=== PATIENT | male | born 1965 | race Caucasian/White ===

== ENCOUNTER 2020-04-27 10:48 | Observation (INO) | payer OTHER, SELFPAY ==
--- NOTE | 2020-04-27 11:40 | ED_ITS ---
HPI - URI/Sore Throat General Chief Complaint: Chest Pain Stated Complaint: COUGHING BLOOD,DIZZY Time Seen by Provider: 04/27/20 11:06 Source: patient Mode of arrival: ambulatory Limitations: no limitations History of Present Illness HPI Narrative: noted he coughed so hard he vomited and saw some streaks of blood MD elicited complaint: cough and other (chest pain shortness of breath) Pertinent past history: HIV Onset (ago): day(s) (2) Consistency: constant Severity: moderate Description of mucous: clear Able to tolerate fluids by mouth: Yes Exacerbating factors: deep breaths Relieving factors: nothing Associated symptoms: chills, myalgias, cough, chest pain and shortness of breath Treatments prior to arrival: none Related Data Previous Rx's Medication Instructions Recorded hydrocodone-homatropine 5 ml PO Q6H PRN #60 ml 04/27/20 potassium chloride 10 meq PO DAILY 4 Days #4 cap 04/27/20 Allergies Allergy/AdvReac Type Severity Reaction Status Date / Time acetaminophen [Acetaminophen] Allergy Severe LIVER Verified 04/15/20 12:40 TOXICITY - CANNOT TAKE ACETAMINOPHEN Sulfa (Sulfonamide Allergy Intermediate RASH Verified 04/15/20 12:40 Antibiotics) [SULFA (SULFONAMIDE ANTIBIOTICS)] amoxicillin [Augmentin] Allergy Unknown mouth sores Verified 04/15/20 12:40 clavulanic acid [Augmentin] Allergy Unknown mouth sores Verified 04/15/20 12:40 ibuprofen [IBUPROFEN] AdvReac Intermediate BLEEDING Verified 04/15/20 12:40 Review of Systems Review of Systems: Constitutional : no Fever, positive Chills, positive fatigue, positive Malaise ENT/Mouth : positive sore throat, positive runny nose Eyes: No Discharge Cardiovascular : pos Chest Pain, pos SOB Respiratory : pos Cough, No Sputum Gastrointestinal : No Nausea, No Vomiting, No Diarrhea Genitourinary : No Dysuria, No Urinary Frequency Musculoskeletal : positive Myalgia Skin : No rash Neuro : No Headache PMFSH Past Medical History Attestation statement: The following information was validated with the patient. Medical History Bullous pemphigoid GERD (gastroesophageal reflux disease) Hepatic vein thrombosis Hepatitis C HIV (human immunodeficiency virus infection) Obesity (BMI 30-39.9) Perirectal abscess Renal calculi Type 2 diabetes mellitus with hyperglycemia Ulcerative colitis Surgical History Anal fistula History of lithotripsy History of rectal abscess History of removal of ureteral stent History of umbilical hernia repair Family History Family History (Updated 04/15/20 @ 12:47 by BASILIO Amado) Father Stroke Mother Diabetes Hypertension CVD (cardiovascular disease) Sister Family history of cervical cancer Social History Social History (Updated 04/27/20 @ 12:36 by Randee Spivey DO) Alcohol intake: never Smoking Status: Never smoker Use of substances other than those prescribed or required for medical reasons: No Advance Directives: No Advance Directives Information Provided: Yes Physical Exam Vital Signs: Vital Signs: Vital Signs Temp Pulse Resp BP Pulse Ox 04/27/20 15:00 77 16 149/75 H 98 04/27/20 12:51 18 04/27/20 12:43 84 24 H 150/74 H 100 04/27/20 11:42 98.7 F 91 24 H 163/81 H 100 Body Mass Index 19.8 Appearance: Alert. Oriented X3. No acute distress. Eyes: Pupils equal, round and reactive to light. ENT: Pharynx normal. Neck: Normal inspection. Neck supple. CVS: Normal heart rate and rhythm. Pulses normal. Respiratory: No respiratory distress. Breath sounds normal. Abdomen: Soft and nontender. Skin: Skin warm and dry. Normal skin color. Normal skin turgor. Extremities: No lower extremity edema. No calf ttp Neuro: Oriented X 3. No motor deficit. No sensory deficit. Course Course Course Narrative: labs at baseline, refusing COVID test, states he wants something for cough at this time, all labs at his baseline, CT for reported hemoptysis is negative, he is aware prior to DC coughed hard and brought up brb approximately 5 to 10cc at this time given his cirrhosis, thrombocytopenia risk for significant bleed will keep overnight, witnessed event by RN and the patient state that this was a cough MDM - URI/Sore Throat MDM Narrative Medical decision making narrative: 54 yo male with hx of hepatitis and GERD, HIV and DM - here with chest pain and shortness of breath for 2 days with chest pain will need labs, EKG, troponin, CXR, ddimer, dispo per results and findings, seems likely more infectious in nature vs ACS?PE Lab Data Result diagrams: 04/27/20 12:28 04/27/20 12:28 Labs: Lab Results 04/27/20 04/27/20 04/27/20 Range/Units 12:27 12:28 12:28 WBC 2.2 L (4.8-10.8) X10*3/uL RBC 2.95 L (4.60-5.80) X10*6/uL Hgb 9.2 L (14.0-18.0) g/dl Hct 26.7 L (42-52) % MCV 90.5 (80-98) fL MCH 31.2 (27.0-33.0) pg MCHC 34.5 (31.0-36.0) g/dl RDW 14.9 (11.0-16.0) % Plt Count 82 L (160-400) X10*3/uL MPV 11.4 (9.4-12.4) fL Immature Gran % (Auto) 0.5 H (0.0-0.4) % Neut % (Auto) 76.7 H (45-73) % Lymph % (Auto) 13.2 L (20-40) % [place] % (Auto) 9.1 (2-11) % Eos % (Auto) 0.0 (0-4) % Baso % (Auto) 0.5 (0-2) % Lymph # (Auto) 0.3 L (1.2-4.9) X10*3/uL [place] # (Auto) 0.2 (0.1-1.2) X10*3/uL Eos # (Auto) 0.0 (0.0-0.4) X10*3/uL Baso # (Auto) 0.0 (0.0-0.2) X10*3/uL Abs Immat Gran (auto) 0.01 (0.00-0.03) X10*3/uL Absolute Neuts (auto) 1.7 L (2.0-8.3) X10*3/uL Absolute Nucleated RBC 0.000 (0.0-0.012) X10*3/uL Nucleated RBC % (auto) 0.0 (0.0-0.2) /100WBC Smear Tech's Comments VERIFIED D-Dimer 757 NG/ML Sodium (135-145) mmol/L Potassium (3.3-5.1) mmol/l Chloride (96-108) mmol/L Carbon Dioxide (22-29) mmol/L Anion Gap (12-20) BUN (9-16) mg/dL Creatinine (0.5-1.4) mg/dL Estim Creat Clear Calc Estimated GFR Random Glucose (60-115) mg/dL Lactic Acid 1.3 (0.5-2.0) mmol/L Calcium (8.4-10.2) mg/dL Magnesium (1.6-2.6) mg/dL Total Bilirubin (0.0-1.0) mg/dL Direct Bilirubin (0.0-0.5) mg/dL AST (5-37) U/L ALT (0-40) U/L Alkaline Phosphatase (39-117) U/L Troponin I High Sens (<3.5-35.0) ng/L B-Natriuretic Peptide (<100) pg/mL Total Protein (6.5-8.0) g/dL Albumin (3.5-5.0) g/dL Lipase (8-78) U/L 04/27/20 04/27/20 Range/Units 12:28 12:28 WBC (4.8-10.8) X10*3/uL RBC (4.60-5.80) X10*6/uL Hgb (14.0-18.0) g/dl Hct (42-52) % MCV (80-98) fL MCH (27.0-33.0) pg MCHC (31.0-36.0) g/dl RDW (11.0-16.0) % Plt Count (160-400) X10*3/uL MPV (9.4-12.4) fL Immature Gran % (Auto) (0.0-0.4) % Neut % (Auto) (45-73) % Lymph % (Auto) (20-40) % [place] % (Auto) (2-11) % Eos % (Auto) (0-4) % Baso % (Auto) (0-2) % Lymph # (Auto) (1.2-4.9) X10*3/uL [place] # (Auto) (0.1-1.2) X10*3/uL Eos # (Auto) (0.0-0.4) X10*3/uL Baso # (Auto) (0.0-0.2) X10*3/uL Abs Immat Gran (auto) (0.00-0.03) X10*3/uL Absolute Neuts (auto) (2.0-8.3) X10*3/uL Absolute Nucleated RBC (0.0-0.012) X10*3/uL Nucleated RBC % (auto) (0.0-0.2) /100WBC Smear Tech's Comments D-Dimer NG/ML Sodium 132 L (135-145) mmol/L Potassium 2.8 L (3.3-5.1) mmol/l Chloride 105 (96-108) mmol/L Carbon Dioxide 20 L (22-29) mmol/L Anion Gap 10 L (12-20) BUN 9 (9-16) mg/dL Creatinine 1.04 (0.5-1.4) mg/dL Estim Creat Clear Calc 55.8 Estimated GFR > 60 Random Glucose 269 H (60-115) mg/dL Lactic Acid (0.5-2.0) mmol/L Calcium 7.8 L (8.4-10.2) mg/dL Magnesium 1.7 (1.6-2.6) mg/dL Total Bilirubin 2.4 H (0.0-1.0) mg/dL Direct Bilirubin 1.2 H (0.0-0.5) mg/dL AST 22 (5-37) U/L ALT 13 (0-40) U/L Alkaline Phosphatase 91 (39-117) U/L Troponin I High Sens < 3.5 (<3.5-35.0) ng/L B-Natriuretic Peptide 59 (<100) pg/mL Total Protein 10.1 H (6.5-8.0) g/dL Albumin 2.7 L (3.5-5.0) g/dL Lipase 40 (8-78) U/L ECG Data Attestation: I personally reviewed and interpreted this ECG as follows: ECG interpretation date: 04/27/20 ECG interpretation time: 12:35 Interpretation: Rate: 82 Rhythm: NSR Kimberly: normal Normal P waves. Normal BARRETT. Normal QRS complex. ST T wave : nonspecific qTC: prolonged prior studies: no acute ischemia The study has been interpreted contemporaneously by me. . Discharge Plan Discharge Clinical Impression: Cough with hemoptysis, Atypical chest pain, Acute hypokalemia Patient Disposition: Home, Self-Care Instructions: Hemoptysis (ED), Acute Cough (ED) Prescriptions: New hydrocodone-homatropine 5-1.5 mg/5 mL syrup 5 ml PO Q6H PRN (Reason: cough) Qty: 60 RF: 0 potassium chloride 10 mEq capsule, extended release 10 meq PO DAILY 4 Days Qty: 4 RF: 0 Referrals: Po,Pb Ferrer MD [Primary Care Provider] - 2 days
[2020-04-27 11:42] VITALS: BP 163/81; PULSE 91; RESP 24; TEMP 37.1; O2SAT 100; BMI 19.8
--- NOTE | 2020-04-27 12:04 | ECG_ITS ---
Test Reason : CHEST PAIN Blood Pressure : / mmHG Vent. Rate : 082 BPM Atrial Rate : 082 BPM P-R Int : 180 ms QRS Dur : 096 ms QT Int : 448 ms P-R-T Axes : 046 008 011 degrees QTc Int : 523 ms Normal sinus rhythm T wave abnormality, consider anterior ischemia Prolonged QT Abnormal ECG When compared with ECG of 22-APR-2019 23:46, T wave inversion now evident in Anterior leads Inferior leads Referred By: Randee Spivey Electronically Signed By:RUFINA MANZANO MD
--- NOTE | 2020-04-27 12:04 | XR_ITS ---
EXAMINATION: XR CHEST CLINICAL INFORMATION: Pain COMPARISON: August 13, 2019 TECHNIQUE: AP portable view of the chest was obtained. FINDINGS: No significant abnormality is noted involving the heart, lungs, mediastinum, bony thorax or soft tissues. IMPRESSION: No acute disease.
[2020-04-27 12:43] VITALS: BP 150/74; PULSE 84; RESP 24; O2SAT 100
[2020-04-27 12:46] LABS: Basophils Percent Auto 0.5 % (0-2); Hematocrit 26.7 % (42-52); Hemoglobin 9.2 g/dl (14.0-18.0); Imm Gran Abs Auto 0.01 X10*3/uL (0.00-0.03); Imm Gran Pct Auto 0.5 % (0.0-0.4); Lymphocytes Absolute Auto 0.3 X10*3/uL (1.2-4.9); Lymphocytes Percent Auto 13.2 % (20-40); MANUAL DIFF FLAG SCAN; Mean Corpuscular HGB Conc 34.5 g/dl (31.0-36.0); Mean Corpuscular Hemoglobin 31.2 pg (27.0-33.0); Mean Corpuscular Volume 90.5 fL (80-98); Mean Platelet Volume 11.4 fL (9.4-12.4); Monocytes Absolute Auto 0.2 X10*3/uL (0.1-1.2); Monocytes Percent Auto 9.1 % (2-11); Neutrophils Absolute Auto 1.7 X10*3/uL (2.0-8.3); Neutrophils Percent Auto 76.7 % (45-73); Red Blood Count 2.95 X10*6/uL (4.60-5.80); Red Cell Distribution Width 14.9 % (11.0-16.0); SCAN SMEAR FLAG 1
[2020-04-27] MEDS: ondansetron HCL 4 MG/2 ML VIAL IVPUSH (12:49)
[2020-04-27] MEDS: 0.9 % Sodium Chloride 1,000 ML 999 ML IVCONT (12:49)
[2020-04-27 12:51] VITALS: RESP 18
[2020-04-27] MEDS: Morphine Sulfate 4 MG/ML CARTRIDGE IVPUSH (12:51)
[2020-04-27 12:52] LABS: Platelet Count 82 X10*3/uL (160-400); White Blood Count 2.2 X10*3/uL (4.8-10.8)
--- NOTE | 2020-04-27 12:52 | PC.NURSE ---
pt reports pain in chest medicated as charted nsr on monitor
[2020-04-27 13:03] LABS: D Dimer 757 NG/ML
[2020-04-27 13:03] LABS: Lactic Acid 1.3 mmol/L (0.5-2.0)
--- NOTE | 2020-04-27 13:07 | CT_ITS ---
EXAMINATION: CT ANGIOGRAM OF THE CHEST WITH AND WITHOUT CONTRAST (CT PULMONARY ANGIOGRAM FOR PE) CLINICAL INFORMATION: Reason for Exam CHEST PAIN ELEVATED DDIMER COMPARISON: CTA chest 10/23/2012 TECHNIQUE: Prior to contrast administration, noncontrast localization images were obtained. Subsequently, multidetector volumetric imaging was performed from the thoracic inlet to below the diaphragms following the administration of 80 mL Omnipaque 350 intravenous contrast. No contrast reaction reported Sagittal, coronal, and MIP oblique sagittal reformatted images were obtained on the CT workstation, uploaded to PACS, and reviewed. This CT examination was performed using dose optimization techniques as appropriate, variously including the following: *Automated exposure control *Adjustment of mA and/or kV according to patient size (this includes techniques or standardized protocols for targeted exams where dose is matched to indication/reason for exam; i.e. extremities or head) *Use of iterative reconstruction technique Total exam dose-length product 339 mGy-cm FINDINGS: QUALITY OF STUDY/CONTRAST BOLUS: Suboptimal. Missed pulmonary arterial phase PULMONARY ARTERIES: No central or main pulmonary artery filling defect or narrowing seen THORACIC AORTA: No aneurysm or dissection. LUNG: The lungs are well-expanded and clear of acute pneumonic process. No pulmonary nodule, mass or consolidation seen. PLEURA: No pleural effusion or pneumothorax. MEDIASTINUM: Normal heart size. No pericardial effusion. No hilar or mediastinal lymphadenopathy. No evidence of septal bowing or right heart strain. CHEST WALL/AXILLA: No axillary or internal mammary lymphadenopathy. OSSEOUS STRUCTURES: No acute or suspicious osseous abnormality. UPPER ABDOMEN: The liver is lobulated surface heterogenous suggestive of cirrhosis. No radiopaque gallstones seen. The spleen is mildly enlarged. No reflux of contrast into the hepatic veins to suggest elevated right heart pressures. IMPRESSION: Suboptimal exam however no gross central, right and left pulmonary artery filling defects. Normal thoracic aorta. Cirrhosis with splenomegaly. VTE: Negative.
[2020-04-27 13:25] LABS: B Type Natriuretic Peptide 59 pg/mL (<100)
[2020-04-27 13:33] LABS: Alanine Aminotransferase 13 U/L (0-40); Albumin Level 2.7 g/dL (3.5-5.0); Alkaline Phosphatase 91 U/L (39-117); Aspartate Amino Transferase 22 U/L (5-37); Bilirubin Direct 1.2 mg/dL (0.0-0.5); Bilirubin Total 2.4 mg/dL (0.0-1.0); Blood Urea Nitrogen 9 mg/dL (9-16); Creatinine Clr Calc Pharmacy 55.8; Estimated Glomerular Filt Rate > 60; Glucose Random 269 mg/dL (60-115); Lipase 40 U/L (8-78); Magnesium 1.7 mg/dL (1.6-2.6); Total Protein 10.1 g/dL (6.5-8.0)
[2020-04-27 13:45] LABS: Anion Gap 10 (12-20); Calcium 7.8 mg/dL (8.4-10.2); Carbon Dioxide 20 mmol/L (22-29); Chloride 105 mmol/L (96-108); Potassium 2.8 mmol/l (3.3-5.1); Sodium 132 mmol/L (135-145)
[2020-04-27 13:59] LABS: SLIDE REVIEW VERIFIED
[2020-04-27] MEDS: iohexoL 350 MG/ML 100 ML INFUS..BTL IV (14:01)
[2020-04-27 14:31] LABS: Troponin-I High Sensitivity < 3.5 ng/L (<3.5-35.0)
[2020-04-27] MEDS: Potassium Chloride ER 20 MEQ TAB.ER.PRT 60 MEQ PO (14:50)
[2020-04-27] MEDS: Potassium Chloride/H20 10 MEQ/100 ML PIGGYBACK 100 MEQ IV (14:50)
[2020-04-27 15:00] VITALS: BP 149/75; PULSE 77; RESP 16; O2SAT 98
--- NOTE | 2020-04-27 15:30 | PC.NURSE ---
pt began to cough after po meds he then vomitted blood tinged stomach contents- mostly water md aware and at the bedside for reassessment plan is for admission
--- NOTE | 2020-04-27 16:26 | PC.NURSE ---
PT RESTING IN BED IN NO ACUTE DISTRESS AWAITING ADMISSION
[2020-04-27 17:49] VITALS: BP 125/72; PULSE 75; RESP 20; TEMP 36.8; O2SAT 93
--- NOTE | 2020-04-27 17:51 | P.HPIM_ITS ---
History of Present Illness Date of Service: 04/27/20 Chief Complaint: Chest pain, cough, hemoptysis 54 years old male with PMH of cirrhosis, HCV, HIV, serrated colitis among others who presented to the hospital with reported 3 days of dry cough and episodes of blood with cough this morning. He denies fever but reports some chills. He reports having difficulty breathing, dry cough and some sore throat for the last 3 days. He noticed chest pain which is all over his chest more on the right side, not radiating. Repeated do supple. In the emergency CXR and CTA were negative for any acute lung problems. Admitted for further evaluation. Review of Systems Review of Systems: No fever, reports some chills or weakness Atypical chest pain, palpitation No shortness of breath reporting dry coughing No abdominal pain, nausea or vomiting No urinary symptoms No any rash or wounds PMFSH Medical History Bullous pemphigoid GERD (gastroesophageal reflux disease) Hepatic vein thrombosis Hepatitis C HIV (human immunodeficiency virus infection) Obesity (BMI 30-39.9) Perirectal abscess Renal calculi Type 2 diabetes mellitus with hyperglycemia Ulcerative colitis Family History Father Stroke Mother Diabetes Hypertension CVD (cardiovascular disease) Sister Family history of cervical cancer Surgical History Anal fistula History of lithotripsy History of rectal abscess History of removal of ureteral stent History of umbilical hernia repair Social History Alcohol intake: never Smoking Status: Never smoker Use of substances other than those prescribed or required for medical reasons: No Advance Directives: No Advance Directives Information Provided: Yes Meds Allergies Allergy/AdvReac Type Severity Reaction Status Date / Time acetaminophen [Acetaminophen] Allergy Severe LIVER Verified 04/15/20 12:40 TOXICITY - CANNOT TAKE ACETAMINOPHEN Sulfa (Sulfonamide Allergy Intermediate RASH Verified 04/15/20 12:40 Antibiotics) [SULFA (SULFONAMIDE ANTIBIOTICS)] amoxicillin [Augmentin] Allergy Unknown mouth sores Verified 04/15/20 12:40 clavulanic acid [Augmentin] Allergy Unknown mouth sores Verified 04/15/20 12:40 ibuprofen [IBUPROFEN] AdvReac Intermediate BLEEDING Verified 04/15/20 12:40 Physical Exam Vital Signs and Narrative: Vital Signs: Last Vital Signs Temp 98.7 F 04/27/20 11:42 Pulse 77 04/27/20 15:00 Resp 16 04/27/20 15:00 BP 149/75 H 04/27/20 15:00 Pulse Ox 98 04/27/20 15:00 Body Mass Index 19.8 Constitutional : Alert, oriented, not in distress Neck : Normal inspection, Supple Cardiovascular : RRR, S1 S2, no lower extremity edema Respiratory : Good bilateral air entry, no crackles, wheezes or rhonchi Gastrointestinal: soft, lax, Normal bowel sounds, Non tender Skin : Warm/Dry, No rash Neurological : Alert & oriented x3, No focal deficit Results Labs Labs: Laboratory Tests 04/27/20 04/27/20 04/27/20 12:27 12:28 12:28 WBC 2.2 L RBC 2.95 L Hgb 9.2 L Hct 26.7 L MCV 90.5 MCH 31.2 MCHC 34.5 RDW 14.9 Plt Count 82 L MPV 11.4 Immature Gran % (Auto) 0.5 H Neut % (Auto) 76.7 H Lymph % (Auto) 13.2 L [place] % (Auto) 9.1 Eos % (Auto) 0.0 Baso % (Auto) 0.5 Lymph # (Auto) 0.3 L [place] # (Auto) 0.2 Eos # (Auto) 0.0 Baso # (Auto) 0.0 Abs Immat Gran (auto) 0.01 Absolute Neuts (auto) 1.7 L Absolute Nucleated RBC 0.000 Nucleated RBC % (auto) 0.0 Smear Tech's Comments VERIFIED D-Dimer 757 Sodium Potassium Chloride Carbon Dioxide Anion Gap BUN Creatinine Estim Creat Clear Calc Estimated GFR Random Glucose Lactic Acid 1.3 Calcium Magnesium Total Bilirubin Direct Bilirubin AST ALT Alkaline Phosphatase Troponin I High Sens B-Natriuretic Peptide Total Protein Albumin Lipase Blood Type Antibody Screen 04/27/20 04/27/20 04/27/20 12:28 12:28 15:59 WBC RBC Hgb Hct MCV MCH MCHC RDW Plt Count MPV Immature Gran % (Auto) Neut % (Auto) Lymph % (Auto) [place] % (Auto) Eos % (Auto) Baso % (Auto) Lymph # (Auto) [place] # (Auto) Eos # (Auto) Baso # (Auto) Abs Immat Gran (auto) Absolute Neuts (auto) Absolute Nucleated RBC Nucleated RBC % (auto) Smear Tech's Comments D-Dimer Sodium 132 L Potassium 2.8 L Chloride 105 Carbon Dioxide 20 L Anion Gap 10 L BUN 9 Creatinine 1.04 Estim Creat Clear Calc 55.8 Estimated GFR > 60 Random Glucose 269 H Lactic Acid Calcium 7.8 L Magnesium 1.7 Total Bilirubin 2.4 H Direct Bilirubin 1.2 H AST 22 ALT 13 Alkaline Phosphatase 91 Troponin I High Sens < 3.5 B-Natriuretic Peptide 59 Total Protein 10.1 H Albumin 2.7 L Lipase 40 Blood Type O Positive Antibody Screen NEGATIVE Assessment and Plan (1) Cough with hemoptysis: Status: Acute (2) Atypical chest pain: Status: Acute (3) Acute hypokalemia: Status: Acute 54M with PMH of cirrhosis, HCV, HIV, sort of colitis presenting with dry cough and reports streak of blood Hemoptysis Reports 3 days of dry cough and chills CXR, CTA of the chest clean for any infiltrate Seems to be viral bronchitis with streaks of blood secondary to Cough To give Tessalon around the clock Monitor for any further bleeding Hemoglobin stable, to monitor Atypical chest pain EKG showing no changes Troponin negative Likely result of coughing Hyponatremia Sodium 131 Seems to be related to cirrhosis Hypokalemia Potassium 2.8 To give oral replacement Monitor BMP HCV cirrhosis history of ascites, pancytopenia, hepatic vein thrombosis HCV treated 2014, now negative viral load has had no issues with ascites for about a year Pancytopenia chronic and stable HIV Supposed to be on atovaquone and odefsey , not on his medication list ulcerative colitis No symptoms, was on mesalamine DM Continue SSI diabetic diet DVT PPX Heparin
--- NOTE | 2020-04-27 18:26 | PC.NURSE ---
called floor for admission , awaiting nurse to nurse pt with steady gait to the bathroom, no further vomiting noted or reported
--- NOTE | 2020-04-27 18:46 | PC.NURSE ---
report given pt ok for transfer to room for admission
[2020-04-27 19:15] LABS: SARS COV2 PCR INHOUSE NEGATIVE (Negative)
[2020-04-27 19:31] VITALS: BP 157/88; PULSE 79; RESP 19; TEMP 35.7; O2SAT 100
[2020-04-27] MEDS: Heparin Sodium,Porcine 5,000 UNIT/ML VIAL 5000 UNIT SUBCUT (20:36)
[2020-04-27] MEDS: Benzonatate 100 MG CAPSULE 200 MG PO (20:37)
[2020-04-27] MEDS: oxyCODONE HCl Immed Release 5 MG TABLET PO (20:37)
[2020-04-27] MEDS: 0.9 % Sodium Chloride Flush 3 ML SYRINGE IVFLUSH (20:40)
[2020-04-28] VITALS: BP 110/49; PULSE 70; RESP 18; TEMP 36; O2SAT 97
[2020-04-28 03:39] VITALS: BP 121/65; PULSE 82; RESP 18; TEMP 36.9; O2SAT 99
[2020-04-28] MEDS: Heparin Sodium,Porcine 5,000 UNIT/ML VIAL 5000 UNIT SUBCUT (04:15)
[2020-04-28 07:04] LABS: Anion Gap 10 (12-20); Blood Urea Nitrogen 8 mg/dL (9-16); Calcium 7.6 mg/dL (8.4-10.2); Carbon Dioxide 19 mmol/L (22-29); Chloride 108 mmol/L (96-108); Creatinine Clr Calc Pharmacy 71.7; Estimated Glomerular Filt Rate > 60; Glucose Random 152 mg/dL (60-115); Potassium 2.7 mmol/l (3.3-5.1); Sodium 134 mmol/L (135-145)
[2020-04-28 07:24] LABS: Glucose, Whole Blood 126 mg/dL (60-115)
[2020-04-28 07:40] VITALS: BP 152/83; PULSE 97; RESP 18; TEMP 36.4; O2SAT 100
[2020-04-28] MEDS: Benzonatate 100 MG CAPSULE 200 MG PO (08:21)
[2020-04-28] MEDS: 0.9 % Sodium Chloride Flush 3 ML SYRINGE IVFLUSH (08:22)
[2020-04-28] MEDS: Potassium Chloride ER 20 MEQ TAB.ER.PRT 60 MEQ PO (09:38)
--- NOTE | 2020-04-28 10:27 | MHC.CM.PN ---
NURSE MANNEQUIN MOLDER NOTE ELECTRONIC MEDICAL RECORD REVIEWED ALONG WITH MEETING PATIENT ,OFFERED [facility] BUT HE DECLINED TRANSPORTED THAT HE SPEAKS AND READS BOTH CENTRAL AFRICAN AND [employer] . 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 HE CONFIRMED HIS PCP DR WAQAR BARRY, HE REPORTS HIS IS HIS HEALTH CARE PROXY , REQUESTED COPY BE BROUGHT INTO THE HOSPITAL TO HAVE ON FILE. HE HAS N SERVICES IN THE HOME, HE USES THE [facility]. PATIENT REPORTS THAT HE HAS A COFFEE SOMMELIER FOR HIS LIVER AND ULCERATIVE COLITIS AND INFECTIOUS DISEASE DOCTOR FOR HIS HIV, HE REPORTS THAT HE CAN ONLY GET 30 DAY SUPPLY FOR HIS MEDICATIONS AT A TIME,AND HE HAS A BILL FOR ER VISISTS HERE. INITATED REFERRAL TO [facility] TO SEE IF HE MAY MEET FOR [employer] OR OR [employer] SECONDARY/.patient was placed on observation statusw with diagnosis of hematemissis DISCHARGE PLAN HOME WITH NO SRERVICES PCP DR ZAVALETA AND IS OTHER SPECIALIST , TO CALL FOR POST HOPITAL DISCHARGE TRANSPORTATION FAMIY INIATED REFFERAL TO [facility] FOR ? ELIGEABILITY FOR [facility]
[2020-04-28 11:24] VITALS: BP 116/58; PULSE 79; RESP 18; TEMP 36.4; O2SAT 100
--- NOTE | 2020-04-28 11:36 | PM.DS ---
DS: Providers Provider Date of admission: 04/27/20 17:48 Primary care physician: Pb Ortiz MD DS: Diagnosis Discharge Diagnosis (1) Cough with hemoptysis: Status: Acute (2) Atypical chest pain: Status: Acute (3) Acute hypokalemia: Status: Acute (4) Type 2 diabetes mellitus with hyperglycemia: Status: Acute (5) HIV (human immunodeficiency virus infection): Status: Acute DS: Summary Hospital Course Hospital Course: 54 years old male with PMH of cirrhosis, HCV, HIV, serrated colitis among others who presented to the hospital with reported 3 days of dry cough and episodes of blood with cough this morning. He denies fever but reports some chills. He reports having difficulty breathing, dry cough and some sore throat for the last 3 days. He noticed chest pain which is all over his chest more on the right side, not radiating. Repeated do supple. In the emergency CXR and CTA were negative for any acute lung problems. Admitted for further evaluation. The patient was admitted to the hospital for evaluation of hemoptysis. No further episodes happen during the hospital stay. It could be explained by having bronchitis given normal CTA and CXR along with stable hemoglobin. Treated with Tessalon Perles and symptomatic management with good response. His potassium was noted to be low around 2.8. He received IV supplement but could not finish it and started to complain of IV site pattern. This morning he received total of 60 mEq of potassium orally. Was able to ambulate with the nurse with no reported issues. Blood culture was sent by the emergency, no clear source of infection identified. One bottle growing gram-positive cocci which is likely contaminant. Will keep an eye on his blood cultures until the finalized. Status at Discharge Overall status at discharge: patient is back to baseline Time Spent with Patient Time attestation: Total time spent providing and/or coordinating discharge services: Physical Exam Vital Signs: Vital Signs: Vital Signs Temp Pulse Resp BP Pulse Ox 04/28/20 11:24 97.6 F 79 18 116/58 L 100 04/28/20 07:40 97.6 F 97 18 152/83 H 100 04/28/20 03:39 98.4 F 82 18 121/65 99 04/28/20 00:00 96.8 F 70 18 110/49 L 97 04/27/20 19:31 96.2 F L 79 19 157/88 H 100 04/27/20 17:49 98.3 F 75 20 125/72 93 04/27/20 15:00 77 16 149/75 H 98 04/27/20 12:51 18 04/27/20 12:43 84 24 H 150/74 H 100 04/27/20 11:42 98.7 F 91 24 H 163/81 H 100 Body Mass Index 19.8 Constitutional : Alert, oriented, not in distress Neck : Normal inspection, Supple Cardiovascular : RRR, S1 S2, no lower extremity edema Respiratory : Good bilateral air entry, no crackles, wheezes or rhonchi Gastrointestinal: soft, lax, Normal bowel sounds, Non tender Skin : Warm/Dry, No rash, right below-knee amputation Neurological : Alert & oriented x3, No focal deficit DS: Data Data Completed and Pending Labs on day of discharge: Labs from last 24 hours 04/28/20 04/28/20 04/27/20 07:16 06:00 15:59 WBC RBC Hgb Hct MCV MCH MCHC RDW Plt Count MPV Immature Gran % (Auto) Neut % (Auto) Lymph % (Auto) [place] % (Auto) Eos % (Auto) Baso % (Auto) Lymph # (Auto) [place] # (Auto) Eos # (Auto) Baso # (Auto) Abs Immat Gran (auto) Absolute Neuts (auto) Absolute Nucleated RBC Nucleated RBC % (auto) Smear Tech's Comments D-Dimer Sodium 134 L Potassium 2.7 L Chloride 108 Carbon Dioxide 19 L Anion Gap 10 L BUN 8 L Creatinine 0.81 Estim Creat Clear Calc 71.7 Estimated GFR > 60 POC Glucose 126 H Random Glucose 152 H D Lactic Acid Calcium 7.6 L Magnesium Total Bilirubin Direct Bilirubin AST ALT Alkaline Phosphatase Troponin I High Sens B-Natriuretic Peptide Total Protein Albumin Lipase Coronavirus (PCR) Blood Type O Positive Antibody Screen NEGATIVE 04/27/20 04/27/20 04/27/20 15:58 12:28 12:28 WBC RBC Hgb Hct MCV MCH MCHC RDW Plt Count MPV Immature Gran % (Auto) Neut % (Auto) Lymph % (Auto) [place] % (Auto) Eos % (Auto) Baso % (Auto) Lymph # (Auto) [place] # (Auto) Eos # (Auto) Baso # (Auto) Abs Immat Gran (auto) Absolute Neuts (auto) Absolute Nucleated RBC Nucleated RBC % (auto) Smear Tech's Comments D-Dimer Sodium 132 L Potassium 2.8 L Chloride 105 Carbon Dioxide 20 L Anion Gap 10 L BUN 9 Creatinine 1.04 Estim Creat Clear Calc 55.8 Estimated GFR > 60 POC Glucose Random Glucose 269 H Lactic Acid Calcium 7.8 L Magnesium 1.7 Total Bilirubin 2.4 H Direct Bilirubin 1.2 H AST 22 ALT 13 Alkaline Phosphatase 91 Troponin I High Sens < 3.5 B-Natriuretic Peptide 59 Total Protein 10.1 H Albumin 2.7 L Lipase 40 Coronavirus (PCR) NEGATIVE Blood Type Antibody Screen 04/27/20 04/27/20 04/27/20 12:28 12:28 12:27 WBC 2.2 L RBC 2.95 L Hgb 9.2 L Hct 26.7 L MCV 90.5 MCH 31.2 MCHC 34.5 RDW 14.9 Plt Count 82 L MPV 11.4 Immature Gran % (Auto) 0.5 H Neut % (Auto) 76.7 H Lymph % (Auto) 13.2 L [place] % (Auto) 9.1 Eos % (Auto) 0.0 Baso % (Auto) 0.5 Lymph # (Auto) 0.3 L [place] # (Auto) 0.2 Eos # (Auto) 0.0 Baso # (Auto) 0.0 Abs Immat Gran (auto) 0.01 Absolute Neuts (auto) 1.7 L Absolute Nucleated RBC 0.000 Nucleated RBC % (auto) 0.0 Smear Tech's Comments VERIFIED D-Dimer 757 Sodium Potassium Chloride Carbon Dioxide Anion Gap BUN Creatinine Estim Creat Clear Calc Estimated GFR POC Glucose Random Glucose Lactic Acid 1.3 Calcium Magnesium Total Bilirubin Direct Bilirubin AST ALT Alkaline Phosphatase Troponin I High Sens B-Natriuretic Peptide Total Protein Albumin Lipase Coronavirus (PCR) Blood Type Antibody Screen Preliminary micro results at discharge 04/27/20 12:32 Blood Culture - Preliminary Blood - Venous Discharge Plan Discharge Patient Disposition: Home, Self-Care Referrals: Po,Pb Ferrer MD [Primary Care Provider] - 2 days Discharge Medications: New hydrocodone-homatropine 5-1.5 mg/5 mL syrup 5 ml PO Q6H PRN (Reason: cough) Qty: 60 RF: 0 potassium chloride 10 mEq capsule, extended release 10 meq PO DAILY 4 Days Qty: 4 RF: 0 benzonatate 100 mg Capsule 200 mg PO TID Qty: 30 RF: 0 Continued famotidine 40 mg tablet 40 mg PO BEDTIME RF: 0 hydroxyzine HCl 25 mg tablet 2 - 3 tab PO Q6H PRN (Reason: itch) RF: 0 atovaquone 750 mg/5 mL suspension 5 ml PO BID RF: 0 Januvia 25 mg tablet 25 mg PO DAILY RF: 0 mesalamine 800 mg tablet,delayed release (DR/EC) 800 mg PO TID RF: 0 Odefsey 200-25-25 mg tablet 1 tab PO DAILY RF: 0 Discharge Orders: Discharge Order (Routine); Ordered 04/28/20 Ordered By: Ella Feldman Diet: advance to your usual diet Activity on Discharge: As tolerated Patient Instructions: Hemoptysis (ED), Acute Cough (ED) Visit Report Forms: Patient Portal Discharge page Care Plan Goals: Read below Health Concerns: Read below Plan of Treatment: You were admitted to the hospital for evaluation of blood with the cough. Chest x-ray and CT scan of the chest were negative for any lung infection or infiltrate. Your blood level has been stable. Your symptoms improved with medications. You were noticed to have low potassium level. You received supplement with fair response. Continue Tessalon as needed Drink plenty of water and keep use throat wet Increase potassium rich diet in your meals Follow-up with PCP next week
--- NOTE | 2020-04-28 12:33 | MHC.CM.PN ---
nurse primary care provider note electronic medical record reviewed along with case discussed on multipe discipianry runds. [facility] and they will follow up with efren to patient at home since he has been discharged discharge home no services
== END 2020-04-28 12:10 | disposition home or self-care (01) ==
LOC: HO.ED 16:49 → HO.S3 18:19
PROVIDERS: Admitting Provider Student in an Organized Health Care Education/Training Program; Emergency Provider Emergency Medicine; PCP Internal Medicine; Visit Provider Student in an Organized Health Care Education/Training Program
DX: R04.2 Hemoptysis (principal); R07.89 Other chest pain; E87.6 Hypokalemia; E87.1 Hypo-osmolality and hyponatremia; E11.65 Type 2 diabetes mellitus with hyperglycemia; B20 Human immunodeficiency virus [HIV] disease; R79.1 Abnormal coagulation profile; D73.2 Chronic congestive splenomegaly; I45.81 Long QT syndrome; B19.20 Unspecified viral hepatitis C without hepatic coma; Z20.828 Contact with and (suspected) exposure to other viral communicable diseases; Z88.6 Allergy status to analgesic agent; Z88.0 Allergy status to penicillin; Z88.2 Allergy status to sulfonamides; Z88.8 Allergy status to other drugs, medicaments and biological substances; Z79.899 Other long term (current) drug therapy
CPT/HCPCS: 36415; 71045; 71275; 80048; 80076; 82947; 83605; 83690; 83735; 83880; 84484; 85025; 85379; 86850; 86900; 86901; 87040; 87635; 93005; 96361; 96365; 96366; 96372; 96375; 99218; 99285; J2270; J2405

== ENCOUNTER 2020-05-09 09:55 | Outpatient (REF) | payer OTHER, SELFPAY ==
[2020-05-09 10:58] LABS: Basophils Percent Auto 0.4 % (0-2); Hematocrit 28.7 % (42-52); Hemoglobin 9.5 g/dl (14.0-18.0); Imm Gran Abs Auto 0.02 X10*3/uL (0.00-0.03); Imm Gran Pct Auto 0.8 % (0.0-0.4); Lymphocytes Absolute Auto 0.4 X10*3/uL (1.2-4.9); Lymphocytes Percent Auto 15.9 % (20-40); MANUAL DIFF FLAG SCAN; Mean Corpuscular HGB Conc 33.1 g/dl (31.0-36.0); Mean Corpuscular Hemoglobin 31.5 pg (27.0-33.0); Monocytes Absolute Auto 0.2 X10*3/uL (0.1-1.2); Monocytes Percent Auto 7.5 % (2-11); Neutrophils Absolute Auto 1.8 X10*3/uL (2.0-8.3); Neutrophils Percent Auto 75.4 % (45-73); Platelet Count 65 X10*3/uL (160-400); Red Blood Count 3.02 X10*6/uL (4.60-5.80); Red Cell Distribution Width 15.4 % (11.0-16.0); SCAN SMEAR FLAG 1; White Blood Count 2.4 X10*3/uL (4.8-10.8)
[2020-05-09 11:21] LABS: SLIDE REVIEW VERIFIED
[2020-05-09 11:35] LABS: Alanine Aminotransferase 14 U/L (0-40); Aspartate Amino Transferase 21 U/L (5-37); Estimated Glomerular Filt Rate > 60
[2020-05-09 11:44] LABS: SARS COV2 IgG Negative (Negative)
[2020-05-14 14:21] LABS: HIV RNA PCR Qn Copies 24 copies/mL (NOT DETECTED); HIV RNA PCR Qn Log Copies 1.38 (NOT DETECTED)
== END 2020-05-09 09:56 | disposition home or self-care (01) ==
LOC: HO.LAB 09:55
PROVIDERS: PCP Internal Medicine; Visit Provider Internal Medicine Infectious Disease
DX: B20 Human immunodeficiency virus [HIV] disease (principal)
CPT/HCPCS: 36415; 82565; 84450; 84460; 85025; 86769; 87536

== ENCOUNTER 2020-05-19 08:43 | Outpatient (REF) | payer OTHER, SELFPAY | END 2020-05-19 08:44 | disposition home or self-care (01) | LOC: HO.LAB 08:43 | PROVIDERS: PCP Internal Medicine; Visit Provider Internal Medicine | DX: Z20.828 Contact with and (suspected) exposure to other viral communicable diseases (principal) | CPT/HCPCS: U0003 ==

== ENCOUNTER 2020-05-22 13:14 | Inpatient (IN) | payer OTHER, SELFPAY ==
[2020-05-22 15:30] VITALS: BP 159/72; PULSE 73; RESP 16; TEMP 36.6; O2SAT 100; BMI 29.2
--- NOTE | 2020-05-22 15:54 | ED.NAVMDI ---
HPI - Nausea/Vomiting/Diarrhea General Chief complaint: Nausea/Vomiting/Diarrhea Stated complaint: dizzy,loss sense of taste Time Seen by Provider: 05/22/20 15:40 Related Data Home Medications Medication Instructions Recorded Confirmed Januvia 25 mg PO DAILY 04/27/20 05/23/20 Odefsey 1 tab PO DAILY 04/27/20 05/23/20 atovaquone 5 ml PO BID 04/27/20 05/22/20 famotidine 40 mg PO BEDTIME 04/27/20 05/22/20 hydroxyzine HCl 50 - 75 mg PO Q6H PRN 04/27/20 05/23/20 mesalamine 800 mg PO TID 04/27/20 05/23/20 Previous Rx's Medication Instructions Recorded hydrocodone-homatropine 5 ml PO Q6H PRN #60 ml 04/27/20 potassium chloride 10 meq PO DAILY 4 Days #4 cap 04/27/20 benzonatate 200 mg PO TID #30 cap 04/28/20 Allergies Allergy/AdvReac Type Severity Reaction Status Date / Time acetaminophen [Acetaminophen] Allergy Severe LIVER Verified 04/15/20 12:40 TOXICITY - CANNOT TAKE ACETAMINOPHEN Sulfa (Sulfonamide Allergy Intermediate RASH Verified 04/15/20 12:40 Antibiotics) [SULFA (SULFONAMIDE ANTIBIOTICS)] amoxicillin [Augmentin] Allergy Unknown mouth sores Verified 04/15/20 12:40 clavulanic acid [Augmentin] Allergy Unknown mouth sores Verified 04/15/20 12:40 ibuprofen [IBUPROFEN] AdvReac Intermediate BLEEDING Verified 04/15/20 12:40 PMFSH Past Medical History Medical History Bullous pemphigoid GERD (gastroesophageal reflux disease) Hepatic vein thrombosis Hepatitis C HIV (human immunodeficiency virus infection) Lichen simplex chronicus Obesity (BMI 30-39.9) Pancytopenia Perirectal abscess Renal calculi Type 2 diabetes mellitus with hyperglycemia Ulcerative colitis Surgical History Anal fistula History of lithotripsy History of rectal abscess History of removal of ureteral stent History of umbilical hernia repair Family History Family History Father Stroke Mother Diabetes Hypertension CVD (cardiovascular disease) Sister Family history of cervical cancer Social History Social History Household Members: Children Housing: House Alcohol intake: former Smoking Status: Former smoker Smoked in Last 30 Days: No Use of substances other than those prescribed or required for medical reasons: No Have you been hit, kicked, punched, or otherwise hurt by someone within the past year? If so, by whom?: No Do you feel safe in your current relationship?: No Current Relationship Is there a partner from a previous relationship who is making you feel unsafe now?: No Are you made to feel afraid or neglected: No [facility] Healthcare Practices: rastafari Advance Directives: No Advance Directives Information Provided: No Do you have thoughts of harming others: None Do you have a plan to hurt others: No Plan Recently lost weight without trying: Unsure service: No Current occupational status: employed Physical Exam Vital Signs: Vital Signs: Last Vital Signs Temp 98.9 F 05/23/20 08:00 Pulse 80 05/23/20 08:00 Resp 18 05/23/20 08:00 BP 145/72 H 05/23/20 08:00 Pulse Ox 100 05/23/20 08:00 Body Mass Index 29.2 MDM - Nausea/Vomiting/Diarrhea Lab Data Result diagrams: 05/23/20 05:04 05/23/20 05:04 Labs: Lab Results 05/22/20 05/22/20 05/22/20 Range/Units 17:59 17:59 17:59 WBC 1.6 L (4.8-10.8) X10*3/uL RBC 3.19 L (4.60-5.80) X10*6/uL Hgb 10.2 L (14.0-18.0) g/dl Hct 29.2 L (42-52) % MCV 91.5 (80-98) fL MCH 32.0 (27.0-33.0) pg MCHC 34.9 (31.0-36.0) g/dl RDW 14.6 (11.0-16.0) % Plt Count 78 L (160-400) X10*3/uL MPV 12.0 (9.4-12.4) fL Immature Gran % (Auto) 0.0 (0.0-0.4) % Neut % (Auto) 72.0 (45-73) % Lymph % (Auto) 20.4 (20-40) % [place] % (Auto) 7.0 (2-11) % Eos % (Auto) 0.0 (0-4) % Baso % (Auto) 0.6 (0-2) % Lymph # (Auto) 0.3 L (1.2-4.9) X10*3/uL [place] # (Auto) 0.1 (0.1-1.2) X10*3/uL Eos # (Auto) 0.0 (0.0-0.4) X10*3/uL Baso # (Auto) 0.0 (0.0-0.2) X10*3/uL Abs Immat Gran (auto) 0.00 (0.00-0.03) X10*3/uL Absolute Neuts (auto) 1.1 L (2.0-8.3) X10*3/uL Absolute Nucleated RBC 0.000 (0.0-0.012) X10*3/uL Nucleated RBC % (auto) 0.0 (0.0-0.2) /100WBC Smear Tech's Comments VERIFIED PT (10.8-13.0) SEC INR (0.9-1.1) Sodium Cancelled Potassium Cancelled Chloride Cancelled Carbon Dioxide Cancelled Anion Gap Cancelled BUN Cancelled Creatinine Cancelled Estim Creat Clear Calc Cancelled Estimated GFR Cancelled Random Glucose Cancelled Calcium Cancelled Magnesium (1.6-2.6) mg/dL Total Bilirubin Cancelled Direct Bilirubin Cancelled AST Cancelled ALT Cancelled Alkaline Phosphatase Cancelled Ammonia 71 H (13-55) umol/L Total Protein Cancelled Albumin Cancelled Lipase Cancelled Urine Color Urine Appearance Urine pH (5.0-8.0) Ur Specific [place] (1.005-1.025) Urine Protein (NEG-TRACE) MG/DL Urine Glucose (UA) (NEG) MG/DL Urine Ketones (NEG) MG/DL Urine Blood (NEG) Urine Nitrite (NEG) Ur Leukocyte Esterase (NEG) Urine RBC (0) /HPF Urine WBC (0-4) /HPF Ur Squamous Epith Cells /LPF Urine Bacteria /LPF Urine Mucus /LPF Ethyl Alcohol mg/dL COVID-19 ([facility]) (Negative) COVID-19 Clin Com 05/22/20 05/22/20 05/22/20 Range/Units 17:59 17:59 19:13 WBC (4.8-10.8) X10*3/uL RBC (4.60-5.80) X10*6/uL Hgb (14.0-18.0) g/dl Hct (42-52) % MCV (80-98) fL MCH (27.0-33.0) pg MCHC (31.0-36.0) g/dl RDW (11.0-16.0) % Plt Count (160-400) X10*3/uL MPV (9.4-12.4) fL Immature Gran % (Auto) (0.0-0.4) % Neut % (Auto) (45-73) % Lymph % (Auto) (20-40) % [place] % (Auto) (2-11) % Eos % (Auto) (0-4) % Baso % (Auto) (0-2) % Lymph # (Auto) (1.2-4.9) X10*3/uL [place] # (Auto) (0.1-1.2) X10*3/uL Eos # (Auto) (0.0-0.4) X10*3/uL Baso # (Auto) (0.0-0.2) X10*3/uL Abs Immat Gran (auto) (0.00-0.03) X10*3/uL Absolute Neuts (auto) (2.0-8.3) X10*3/uL Absolute Nucleated RBC (0.0-0.012) X10*3/uL Nucleated RBC % (auto) (0.0-0.2) /100WBC Smear Tech's Comments PT 16.5 H (10.8-13.0) SEC INR 1.4 H (0.9-1.1) Sodium 132 L Potassium 2.2 L* Chloride 106 Carbon Dioxide 20 L Anion Gap 8 L BUN 9 Creatinine 1.15 Estim Creat Clear Calc 70.6 Estimated GFR > 60 Random Glucose 164 H Calcium 7.7 L Magnesium (1.6-2.6) mg/dL Total Bilirubin 2.1 H Direct Bilirubin 1.2 H AST 39 H D ALT 21 Alkaline Phosphatase 116 D Ammonia (13-55) umol/L Total Protein 10.7 H Albumin 3.0 L Lipase 34 Urine Color Urine Appearance Urine pH (5.0-8.0) Ur Specific [place] (1.005-1.025) Urine Protein (NEG-TRACE) MG/DL Urine Glucose (UA) (NEG) MG/DL Urine Ketones (NEG) MG/DL Urine Blood (NEG) Urine Nitrite (NEG) Ur Leukocyte Esterase (NEG) Urine RBC (0) /HPF Urine WBC (0-4) /HPF Ur Squamous Epith Cells /LPF Urine Bacteria /LPF Urine Mucus /LPF Ethyl Alcohol < 10 mg/dL COVID-19 ([facility]) (Negative) COVID-19 Clin Com 05/22/20 05/22/20 05/23/20 Range/Units 19:16 19:50 00:06 WBC (4.8-10.8) X10*3/uL RBC (4.60-5.80) X10*6/uL Hgb (14.0-18.0) g/dl Hct (42-52) % MCV (80-98) fL MCH (27.0-33.0) pg MCHC (31.0-36.0) g/dl RDW (11.0-16.0) % Plt Count (160-400) X10*3/uL MPV (9.4-12.4) fL Immature Gran % (Auto) (0.0-0.4) % Neut % (Auto) (45-73) % Lymph % (Auto) (20-40) % [place] % (Auto) (2-11) % Eos % (Auto) (0-4) % Baso % (Auto) (0-2) % Lymph # (Auto) (1.2-4.9) X10*3/uL [place] # (Auto) (0.1-1.2) X10*3/uL Eos # (Auto) (0.0-0.4) X10*3/uL Baso # (Auto) (0.0-0.2) X10*3/uL Abs Immat Gran (auto) (0.00-0.03) X10*3/uL Absolute Neuts (auto) (2.0-8.3) X10*3/uL Absolute Nucleated RBC (0.0-0.012) X10*3/uL Nucleated RBC % (auto) (0.0-0.2) /100WBC Smear Tech's Comments PT (10.8-13.0) SEC INR (0.9-1.1) Sodium Potassium Chloride Carbon Dioxide Anion Gap BUN Creatinine Estim Creat Clear Calc Estimated GFR Random Glucose Calcium Magnesium 1.5 L (1.6-2.6) mg/dL Total Bilirubin Direct Bilirubin AST ALT Alkaline Phosphatase Ammonia (13-55) umol/L Total Protein Albumin Lipase Urine Color YELLOW Urine Appearance CLEAR Urine pH 7.5 (5.0-8.0) Ur Specific [place] 1.010 (1.005-1.025) Urine Protein NEG (NEG-TRACE) MG/DL Urine Glucose (UA) NEG (NEG) MG/DL Urine Ketones NEG (NEG) MG/DL Urine Blood 2+ H (NEG) Urine Nitrite NEG (NEG) Ur Leukocyte Esterase NEG (NEG) Urine RBC 5-9 H (0) /HPF Urine WBC 0-2 (0-4) /HPF Ur Squamous Epith Cells TRACE /LPF Urine Bacteria NONE /LPF Urine Mucus TRACE /LPF Ethyl Alcohol mg/dL COVID-19 ([facility]) Positive A (Negative) COVID-19 Clin Com See Note Discharge Plan Discharge Clinical Impression: Acute hypokalemia Patient Disposition: Admitted As Inpatient Interventions: Admission Worksheet (ED) Last Done: 05/23/20 01:00 Discharge Date/Time: 05/23/20 01:15
--- NOTE | 2020-05-22 16:05 | CT_ITS ---
EXAMINATION: CT ABDOMEN AND PELVIS WITH CONTRAST CLINICAL INFORMATION: Abdominal pain COMPARISON: 03/04/2020 TECHNIQUE: Multidetector volumetric images were obtained from the superior aspect of the liver through the pubic symphysis following administration 85 mL of Omnipaque 350 intravenous contrast. Sagittal and coronal reformatted images were obtained on the technologist's workstation. Oral contrast: No This CT examination was performed using dose optimization techniques as appropriate, variously including the following: *Automated exposure control *Adjustment of mA and/or kV according to patient size (this includes techniques or standardized protocols for targeted exams where dose is matched to indication/reason for exam; i.e. extremities or head) *Use of iterative reconstruction technique DLP: 1422 mGy-cm FINDINGS: LUNG BASES: There is a 4.0 x 2.2 cm groundglass nodule within the left lower lobe subpleural 5 mm solid component, from the previous exam. LIVER, GALLBLADDER, AND BILIARY TREE: Morphologically cirrhotic liver. No obvious focal liver lesions are identified, however sensitivity of CT during the portal venous phase is limited. No intra or extrahepatic biliary dilatation. Gallbladder unremarkable. PANCREAS: Unremarkable. SPLEEN: Spleen is massively enlarged measuring up to 18 cm long axis. Again seen are a few triangular subcapsular hypodense regions suggestive of infarcts, stable from prior. ADRENAL GLANDS: Unremarkable. KIDNEYS AND URETERS: The kidneys are normal in size, shape, and attenuation. There is a 5 x 4 mm stone within the distal left ureter, approximately 2.5 cm proximal to the junction. No significant hydronephrosis or hydroureter. Bilateral nonobstructive intrarenal calculi, largest measuring 6 mm within the right kidney, 5 mm within the lower pole of the left kidney. There are a few additional scattered nonobstructing calculi present within each kidney. No perinephric stranding. BLADDER: There is a punctate calcification within the left posterolateral bladder, likely previously passed stone. GASTROINTESTINAL TRACT: Scattered colonic diverticula. No diverticulitis. Mild congestion of the enteric venous structures minimal diffuse mesenteric edema related to portal hypertension. ABDOMINAL WALL: No significant hernia is appreciated. LYMPH NODES: Normal. VASCULAR: Patent vascular structures. PELVIC VISCERA: Unremarkable. OSSEOUS STRUCTURES: No acute or suspicious osseous CT/CT abdomen pelvis w con IMPRESSION: * There is a 5 1 4 mm calculus within the distal left ureter, 2.5 cm from the ureterovesical junction without significant upstream hydroureter or hydronephrosis. * Bilateral nonobstructive intrarenal calculi redemonstrated. * Morphologically cirrhotic liver with marked splenomegaly and stable chronic subcapsular splenic infarcts. * New part solid nodule within the left lower lobe measuring up to 4.0 cm a 5 mm solid component. Suspect infectious/inflammatory etiology given the short interval timeframe for development. Consider follow-up CT chest in 3-6 months.
--- NOTE | 2020-05-22 17:49 | PC.NURSE ---
pt requiring us guidance for iv, multiple attempts unsuccessful by this rn. pt given po zofran.
[2020-05-22] MEDS: 0.9 % Sodium Chloride 500 ML 999 ML IV (18:04)
[2020-05-22 18:07] LABS: Basophils Percent Auto 0.6 % (0-2); Hematocrit 29.2 % (42-52); Hemoglobin 10.2 g/dl (14.0-18.0); Lymphocytes Absolute Auto 0.3 X10*3/uL (1.2-4.9); Lymphocytes Percent Auto 20.4 % (20-40); MANUAL DIFF FLAG SCAN; Mean Corpuscular HGB Conc 34.9 g/dl (31.0-36.0); Mean Corpuscular Volume 91.5 fL (80-98); Monocytes Absolute Auto 0.1 X10*3/uL (0.1-1.2); Neutrophils Absolute Auto 1.1 X10*3/uL (2.0-8.3); Red Blood Count 3.19 X10*6/uL (4.60-5.80); Red Cell Distribution Width 14.6 % (11.0-16.0); SCAN SMEAR FLAG 1
[2020-05-22 18:09] LABS: Platelet Count 78 X10*3/uL (160-400); White Blood Count 1.6 X10*3/uL (4.8-10.8)
[2020-05-22 18:17] LABS: INTERNATIONAL NORM RATIO 1.4 (0.9-1.1); Prothrombin Time 16.5 SEC (10.8-13.0)
[2020-05-22 18:20] LABS: Ammonia 71 umol/L (13-55)
[2020-05-22 18:39] LABS: Alanine Aminotransferase 21 U/L (0-40); Alkaline Phosphatase 116 U/L (39-117); Anion Gap 8 (12-20); Aspartate Amino Transferase 39 U/L (5-37); Bilirubin Total 2.1 mg/dL (0.0-1.0); Blood Urea Nitrogen 9 mg/dL (9-16); Calcium 7.7 mg/dL (8.4-10.2); Carbon Dioxide 20 mmol/L (22-29); Chloride 106 mmol/L (96-108); Creatinine Clr Calc Pharmacy 70.6; Estimated Glomerular Filt Rate > 60; Glucose Random 164 mg/dL (60-115); Potassium 2.2 mmol/l (3.3-5.1); Sodium 132 mmol/L (135-145); Total Protein 10.7 g/dL (6.5-8.0)
[2020-05-22 18:42] VITALS: RESP 18
--- NOTE | 2020-05-22 18:42 | ECG_ITS ---
Test Reason : ABD PAIIN Blood Pressure : / mmHG Vent. Rate : 065 BPM Atrial Rate : 065 BPM P-R Int : 180 ms QRS Dur : 092 ms QT Int : 634 ms P-R-T Axes : 058 022 044 degrees QTc Int : 659 ms Normal sinus rhythm Prolonged QT Nonspecific T wave abnormality Abnormal ECG When compared with ECG of 27-APR-2020 12:12, Nonspecific T wave abnormality has replaced T-wave inversion in Inferior leads Referred By: Eugene Patterson Electronically Signed By:RUFINA MANZANO MD
--- NOTE | 2020-05-22 18:43 | ED_ITS ---
HPI - Nausea/Vomiting/Diarrhea General Chief complaint: Nausea/Vomiting/Diarrhea Stated complaint: dizzy,loss sense of taste Time Seen by Provider: 05/22/20 15:40 History of Present Illness HPI Narrative: Patient complains of nausea and vomiting for the past 3 days, feeling mildly dizzy but no fainting no passing-out no headache no chest pain no shortness of breath, no new weakness, denies any fall or injury denies fever and chills, the abdominal pain is described as the bloated epigastric pain, he has no changes to bowel or bladder no back pain denies any dysuria, denies any diarrhea, denies blood in stool or vomit Related Data Home Medications Medication Instructions Recorded Confirmed Januvia 25 mg PO DAILY 04/27/20 04/27/20 Odefsey 1 tab PO DAILY 04/27/20 04/27/20 atovaquone 5 ml PO BID 04/27/20 04/27/20 famotidine 40 mg PO BEDTIME 04/27/20 04/27/20 hydroxyzine HCl 2 - 3 tab PO Q6H PRN 04/27/20 04/27/20 mesalamine 800 mg PO TID 04/27/20 04/27/20 Previous Rx's Medication Instructions Recorded hydrocodone-homatropine 5 ml PO Q6H PRN #60 ml 04/27/20 potassium chloride 10 meq PO DAILY 4 Days #4 cap 04/27/20 benzonatate 200 mg PO TID #30 cap 04/28/20 Allergies Allergy/AdvReac Type Severity Reaction Status Date / Time acetaminophen [Acetaminophen] Allergy Severe LIVER Verified 04/15/20 12:40 TOXICITY - CANNOT TAKE ACETAMINOPHEN Sulfa (Sulfonamide Allergy Intermediate RASH Verified 04/15/20 12:40 Antibiotics) [SULFA (SULFONAMIDE ANTIBIOTICS)] amoxicillin [Augmentin] Allergy Unknown mouth sores Verified 04/15/20 12:40 clavulanic acid [Augmentin] Allergy Unknown mouth sores Verified 04/15/20 12:40 ibuprofen [IBUPROFEN] AdvReac Intermediate BLEEDING Verified 04/15/20 12:40 Review of Systems Review of Systems: Review of systems is positive for nausea vomiting dizziness and abdominal pain There is no headache there is no confusion there is no fever no chills no weakness Anicteric no pallor There is no chest pain no shortness of breath no palpitations The abdomen has very mild epigastric tenderness no other tenderness no rebound no guarding The skin exam no rash or wounds B extremities no edema full range of motion x4, ambulatory The neuro exam no focal deficit motor and sensation are intact the patient is A&O x3 Yes all other systems are reviewed and are negative [facility] Past Medical History Medical History (Updated 05/22/20 @ 21:21 by ANNA Cardoso) Bullous pemphigoid GERD (gastroesophageal reflux disease) Hepatic vein thrombosis Hepatitis C HIV (human immunodeficiency virus infection) Lichen simplex chronicus Obesity (BMI 30-39.9) Pancytopenia Perirectal abscess Renal calculi Type 2 diabetes mellitus with hyperglycemia Ulcerative colitis Surgical History Anal fistula History of lithotripsy History of rectal abscess History of removal of ureteral stent History of umbilical hernia repair Family History Family History Father Stroke Mother Diabetes Hypertension CVD (cardiovascular disease) Sister Family history of cervical cancer Social History Social History Alcohol intake: former Smoking Status: Former smoker Smoked in Last 30 Days: No Use of substances other than those prescribed or required for medical reasons: No Advance Directives: No Advance Directives Information Provided: No service: No Current occupational status: employed Physical Exam Vital Signs: Vital Signs: Last Vital Signs Temp 98 F 05/22/20 15:30 Pulse 73 05/22/20 15:30 Resp 18 05/22/20 18:42 BP 159/72 H 05/22/20 15:30 Pulse Ox 100 05/22/20 15:30 Body Mass Index 29.2 Course Course Course Narrative: Review of labs showed a potassium of 2.2, magnesium 1.5, ammonia of 71 The patient was anemic and this was consistent with prior values An EKG showed normal sinus rhythm rate 65 no ischemic changes there was a prolonged QT at 06:34 p.r. interval was 180 QRS duration was 92 Case was discussed with attending physician Dr. Mon and patient was put in for admission for hypokalemia He did respond to nausea medication and was tolerating p.o. and much more comfortable Case was discussed with Dr. Taylor for admission to medical service and patient was admitted MDM - Nausea/Vomiting/Diarrhea Lab Data Attestation: I reviewed the patient's lab results. Result diagrams: 05/22/20 17:59 05/22/20 17:59 Labs: Lab Results 05/22/20 05/22/20 05/22/20 Range/Units 17:59 17:59 17:59 WBC 1.6 L (4.8-10.8) X10*3/uL RBC 3.19 L (4.60-5.80) X10*6/uL Hgb 10.2 L (14.0-18.0) g/dl Hct 29.2 L (42-52) % MCV 91.5 (80-98) fL MCH 32.0 (27.0-33.0) pg MCHC 34.9 (31.0-36.0) g/dl RDW 14.6 (11.0-16.0) % Plt Count 78 L (160-400) X10*3/uL MPV 12.0 (9.4-12.4) fL Immature Gran % (Auto) 0.0 (0.0-0.4) % Neut % (Auto) 72.0 (45-73) % Lymph % (Auto) 20.4 (20-40) % [place] % (Auto) 7.0 (2-11) % Eos % (Auto) 0.0 (0-4) % Baso % (Auto) 0.6 (0-2) % Lymph # (Auto) 0.3 L (1.2-4.9) X10*3/uL [place] # (Auto) 0.1 (0.1-1.2) X10*3/uL Eos # (Auto) 0.0 (0.0-0.4) X10*3/uL Baso # (Auto) 0.0 (0.0-0.2) X10*3/uL Abs Immat Gran (auto) 0.00 (0.00-0.03) X10*3/uL Absolute Neuts (auto) 1.1 L (2.0-8.3) X10*3/uL Absolute Nucleated RBC 0.000 (0.0-0.012) X10*3/uL Nucleated RBC % (auto) 0.0 (0.0-0.2) /100WBC Smear Tech's Comments VERIFIED PT (10.8-13.0) SEC INR (0.9-1.1) Sodium Cancelled Potassium Cancelled Chloride Cancelled Carbon Dioxide Cancelled Anion Gap Cancelled BUN Cancelled Creatinine Cancelled Estim Creat Clear Calc Cancelled Estimated GFR Cancelled Random Glucose Cancelled Calcium Cancelled Magnesium (1.6-2.6) mg/dL Total Bilirubin Cancelled Direct Bilirubin Cancelled AST Cancelled ALT Cancelled Alkaline Phosphatase Cancelled Ammonia 71 H (13-55) umol/L Total Protein Cancelled Albumin Cancelled Lipase Cancelled Urine Color Urine Appearance Urine pH (5.0-8.0) Ur Specific [place] (1.005-1.025) Urine Protein (NEG-TRACE) MG/DL Urine Glucose (UA) (NEG) MG/DL Urine Ketones (NEG) MG/DL Urine Blood (NEG) Urine Nitrite (NEG) Ur Leukocyte Esterase (NEG) Urine RBC (0) /HPF Urine WBC (0-4) /HPF Ur Squamous Epith Cells /LPF Urine Bacteria /LPF Urine Mucus /LPF Ethyl Alcohol mg/dL 05/22/20 05/22/20 05/22/20 Range/Units 17:59 17:59 19:13 WBC (4.8-10.8) X10*3/uL RBC (4.60-5.80) X10*6/uL Hgb (14.0-18.0) g/dl Hct (42-52) % MCV (80-98) fL MCH (27.0-33.0) pg MCHC (31.0-36.0) g/dl RDW (11.0-16.0) % Plt Count (160-400) X10*3/uL MPV (9.4-12.4) fL Immature Gran % (Auto) (0.0-0.4) % Neut % (Auto) (45-73) % Lymph % (Auto) (20-40) % [place] % (Auto) (2-11) % Eos % (Auto) (0-4) % Baso % (Auto) (0-2) % Lymph # (Auto) (1.2-4.9) X10*3/uL [place] # (Auto) (0.1-1.2) X10*3/uL Eos # (Auto) (0.0-0.4) X10*3/uL Baso # (Auto) (0.0-0.2) X10*3/uL Abs Immat Gran (auto) (0.00-0.03) X10*3/uL Absolute Neuts (auto) (2.0-8.3) X10*3/uL Absolute Nucleated RBC (0.0-0.012) X10*3/uL Nucleated RBC % (auto) (0.0-0.2) /100WBC Smear Tech's Comments PT 16.5 H (10.8-13.0) SEC INR 1.4 H (0.9-1.1) Sodium 132 L Potassium 2.2 L* Chloride 106 Carbon Dioxide 20 L Anion Gap 8 L BUN 9 Creatinine 1.15 Estim Creat Clear Calc 70.6 Estimated GFR > 60 Random Glucose 164 H Calcium 7.7 L Magnesium (1.6-2.6) mg/dL Total Bilirubin 2.1 H Direct Bilirubin 1.2 H AST 39 H D ALT 21 Alkaline Phosphatase 116 D Ammonia (13-55) umol/L Total Protein 10.7 H Albumin 3.0 L Lipase 34 Urine Color Urine Appearance Urine pH (5.0-8.0) Ur Specific [place] (1.005-1.025) Urine Protein (NEG-TRACE) MG/DL Urine Glucose (UA) (NEG) MG/DL Urine Ketones (NEG) MG/DL Urine Blood (NEG) Urine Nitrite (NEG) Ur Leukocyte Esterase (NEG) Urine RBC (0) /HPF Urine WBC (0-4) /HPF Ur Squamous Epith Cells /LPF Urine Bacteria /LPF Urine Mucus /LPF Ethyl Alcohol < 10 mg/dL 05/22/20 05/22/20 Range/Units 19:16 19:50 WBC (4.8-10.8) X10*3/uL RBC (4.60-5.80) X10*6/uL Hgb (14.0-18.0) g/dl Hct (42-52) % MCV (80-98) fL MCH (27.0-33.0) pg MCHC (31.0-36.0) g/dl RDW (11.0-16.0) % Plt Count (160-400) X10*3/uL MPV (9.4-12.4) fL Immature Gran % (Auto) (0.0-0.4) % Neut % (Auto) (45-73) % Lymph % (Auto) (20-40) % [place] % (Auto) (2-11) % Eos % (Auto) (0-4) % Baso % (Auto) (0-2) % Lymph # (Auto) (1.2-4.9) X10*3/uL [place] # (Auto) (0.1-1.2) X10*3/uL Eos # (Auto) (0.0-0.4) X10*3/uL Baso # (Auto) (0.0-0.2) X10*3/uL Abs Immat Gran (auto) (0.00-0.03) X10*3/uL Absolute Neuts (auto) (2.0-8.3) X10*3/uL Absolute Nucleated RBC (0.0-0.012) X10*3/uL Nucleated RBC % (auto) (0.0-0.2) /100WBC Smear Tech's Comments PT (10.8-13.0) SEC INR (0.9-1.1) Sodium Potassium Chloride Carbon Dioxide Anion Gap BUN Creatinine Estim Creat Clear Calc Estimated GFR Random Glucose Calcium Magnesium 1.5 L (1.6-2.6) mg/dL Total Bilirubin Direct Bilirubin AST ALT Alkaline Phosphatase Ammonia (13-55) umol/L Total Protein Albumin Lipase Urine Color YELLOW Urine Appearance CLEAR Urine pH 7.5 (5.0-8.0) Ur Specific [place] 1.010 (1.005-1.025) Urine Protein NEG (NEG-TRACE) MG/DL Urine Glucose (UA) NEG (NEG) MG/DL Urine Ketones NEG (NEG) MG/DL Urine Blood 2+ H (NEG) Urine Nitrite NEG (NEG) Ur Leukocyte Esterase NEG (NEG) Urine RBC 5-9 H (0) /HPF Urine WBC 0-2 (0-4) /HPF Ur Squamous Epith Cells TRACE /LPF Urine Bacteria NONE /LPF Urine Mucus TRACE /LPF Ethyl Alcohol mg/dL Imaging Data CT scan - abdomen: Radiologist's impression: [id number] CT/CT abdomen pelvis w con IMPRESSION: * There is a 5 1 4 mm calculus within the distal left ureter, 2.5 cm from the ureterovesical junction without significant upstream hydroureter or hydronephrosis. * Bilateral nonobstructive intrarenal calculi redemonstrated. * Morphologically cirrhotic liver with marked splenomegaly and stable chronic subcapsular splenic infarcts. * New part solid nodule within the left lower lobe measuring up to 4.0 cm a 5 mm solid component. Suspect infectious/inflammatory etiology given the short interval timeframe for development. Consider follow-up CT chest in 3-6 months. Discharge Plan Discharge Clinical Impression: Acute hypokalemia Patient Disposition: Admitted As Inpatient
--- NOTE | 2020-05-22 18:44 | CT_ITS ---
EXAMINATION: CT HEAD WITHOUT CONTRAST CLINICAL INFORMATION: Dizzinessc COMPARISON: None TECHNIQUE: Contiguous axial imaging was performed from the skull base to vertex without intravenous administration of contrast. This CT examination was performed using dose optimization techniques as appropriate, variously including the following: *Automated exposure control *Adjustment of mA and/or kV according to patient size (this includes techniques or standardized protocols for targeted exams where dose is matched to indication/reason for exam; i.e. extremities or head) *Use of iterative reconstruction technique DLP: 686 mGy-cm FINDINGS: There is no evidence of acute intracranial hemorrhage or territorial infarction. No abnormal mass effect or midline shift is seen. Diaz to white matter differentiation is well preserved. No extra-axial fluid collections are identified. The ventricles are normal in size. There is no abnormal attenuation within the brain parenchyma. The osseous structures and soft tissues are normal. The mastoid air cells and visualized portions of the paranasal sinuses are well aerated. CT/CT head/brain wo con IMPRESSION: No acute intracranial pathology.
--- NOTE | 2020-05-22 18:49 | PC.NURSE ---
patient ambulated to bathroom with wide steady gait. skin p/w/d. patient a and o x 3 to baseline according to previous shift who knows patient well.
[2020-05-22 18:56] LABS: Bilirubin Direct 1.2 mg/dL (0.0-0.5); Lipase 34 U/L (8-78)
[2020-05-22 19:00] LABS: SLIDE REVIEW VERIFIED
[2020-05-22] MEDS: iohexoL 350 MG/ML 100 ML INFUS..BTL IV (19:14)
[2020-05-22 19:26] LABS: Ethanol < 10 mg/dL
[2020-05-22 19:33] LABS: Magnesium 1.5 mg/dL (1.6-2.6)
[2020-05-22 20:09] LABS: Glucose Urine UA NEG (NEG); Leukocyte Esterase Urine NEG (NEG); Nitrite Urine NEG (NEG); PH 7.5 (5.0-8.0); Urine Blood 2+ (NEG); Urine Ketones NEG (NEG); Urine Protein NEG (NEG-TRACE)
[2020-05-22 20:11] LABS: Appearance Urine CLEAR; Color Urine YELLOW
[2020-05-22 20:23] LABS: Mucus Urine TRACE /LPF; Squamous Epithelial Cell Urine TRACE /LPF; WBC Urine 0-2 /HPF (0-4)
[2020-05-22] MEDS: Potassium Chloride Packet 20 MEQ PACKET 40 MEQ PO ×2 (21:48)
[2020-05-22] MEDS: Magnesium Sulfate/H2O 2 GM/50 ML PIGGYBACK IV (21:54)
[2020-05-22] MEDS: Lactulose 20 GM/30 ML SOLUTION PO (21:55)
[2020-05-22] MEDS: Potassium Chloride/H20 10 MEQ/100 ML PIGGYBACK 100 MEQ IV (23:32)
--- NOTE | 2020-05-22 23:32 | PM.IMHP ---
History of Present Illness Date of Service: 05/22/20 Chief Complaint: nausea/vomiting 54 y/o male with an extensive PMHX who presented c/o nausea and vomiting for the past 4 days. Per history provided by the patient, since last day, has been feeling malaise , c/o nausea, having on and off episodes of vomiting, poor appetite and on and off epidoes of headaches. Patient had a covid test done on but still has no results from the test. Today presents to the Ed as the symptoms continue On presentation patient had blood work done which shows leukopenia 1.6 (patient has a hx of HIV), K of 2.2, Na of 132, Mag of 1.5, Calcium of 7.7, elevated LFT's with elevated bilirubin (hx of Hep C with cirrhosis). EKG done shows prolongation of QT. Patient was given in the ED oral KCL and IV KCL, IV mag and now IV calcium gluconate. Decision for admission given. Patient seen and examined at the bedside, laying down in bed in no acute distress. ROS as above otherwise negative. Physical exam positive for abdominal distention without tenderness on exam, rest of the exam unremarkable. PMHX: Bullous pemphigoid GERD (gastroesophageal reflux disease) Hepatic vein thrombosis Hepatitis C HIV (human immunodeficiency virus infection) Obesity (BMI 30-39.9) Perirectal abscess Renal calculi Type 2 diabetes mellitus with hyperglycemia Ulcerative colitis PSx: Anal fistula History of lithotripsy History of rectal abscess History of removal of ureteral stent History of umbilical hernia repair Toxic habits: No hx of alcohol abuse, smoking or IVDA documented Review of Systems Gastrointestinal: Gastrointestinal: Reports nausea and Reports vomiting [facility] Medical History Bullous pemphigoid GERD (gastroesophageal reflux disease) Hepatic vein thrombosis Hepatitis C HIV (human immunodeficiency virus infection) Lichen simplex chronicus Obesity (BMI 30-39.9) Pancytopenia Perirectal abscess Renal calculi Type 2 diabetes mellitus with hyperglycemia Ulcerative colitis Functional capacity: independent ambulation Family History Father Stroke Mother Diabetes Hypertension CVD (cardiovascular disease) Sister Family history of cervical cancer Surgical History Anal fistula History of lithotripsy History of rectal abscess History of removal of ureteral stent History of umbilical hernia repair Social History Alcohol intake: former Smoking Status: Former smoker Smoked in Last 30 Days: No Use of substances other than those prescribed or required for medical reasons: No Advance Directives: No Advance Directives Information Provided: No service: No Current occupational status: employed Meds Allergies Allergy/AdvReac Type Severity Reaction Status Date / Time acetaminophen [Acetaminophen] Allergy Severe LIVER Verified 04/15/20 12:40 TOXICITY - CANNOT TAKE ACETAMINOPHEN Sulfa (Sulfonamide Allergy Intermediate RASH Verified 04/15/20 12:40 Antibiotics) [SULFA (SULFONAMIDE ANTIBIOTICS)] amoxicillin [Augmentin] Allergy Unknown mouth sores Verified 04/15/20 12:40 clavulanic acid [Augmentin] Allergy Unknown mouth sores Verified 04/15/20 12:40 ibuprofen [IBUPROFEN] AdvReac Intermediate BLEEDING Verified 04/15/20 12:40 Home Medications Medication Instructions Recorded Confirmed Type Januvia 25 mg PO DAILY 04/27/20 05/23/20 History Odefsey 1 tab PO DAILY 04/27/20 05/23/20 History atovaquone 5 ml PO BID 04/27/20 05/22/20 History famotidine 40 mg PO BEDTIME 04/27/20 05/22/20 History hydroxyzine HCl 50 - 75 mg PO Q6H PRN 04/27/20 05/23/20 History mesalamine 800 mg PO TID 04/27/20 05/23/20 History Physical Exam Vital Signs and Narrative: Vital Signs: Last Vital Signs Temp 98 F 05/22/20 15:30 Pulse 73 05/22/20 15:30 Resp 18 05/22/20 18:42 BP 159/72 H 05/22/20 15:30 Pulse Ox 100 05/22/20 15:30 Body Mass Index 29.2 Const: General: cooperative, comfortable and no acute distress Orientation/consciousness: oriented to person, oriented to place and oriented to time HENMT: Head: Yes normal to inspection Eyes: General: appearance normal, both eyes and all related structures Neck: Yes normal visual inspection Chest: Chest palpation & inspection: normal inspection of the chest Resp: Effort & Inspection: normal respiratory effort and able to speak in complete sentences Cardio: Jugular venous distension: no JVD Rhythm: regular rhythm Heart sounds: S1 normal heart sound present and S2 normal heart sound present GI: Inspection: Yes normal to inspection Skin: General skin exam: no rashes or lesions noted Neuro: General: oriented to person, oriented to place and oriented to time Motor exam (neuro): 5/5 motor strength present throughout Extrem: General: Yes normal to inspection Results Labs CBC and Chem 7: 05/22/20 17:59 05/22/20 17:59 Labs: Laboratory Results - last 24 hr 05/22/20 05/22/20 05/22/20 17:59 17:59 17:59 MCV 91.5 MCH 32.0 MCHC 34.9 RDW 14.6 Plt Count 78 L MPV 12.0 Immature Gran % (Auto) 0.0 Neut % (Auto) 72.0 Lymph % (Auto) 20.4 [place] % (Auto) 7.0 Eos % (Auto) 0.0 Baso % (Auto) 0.6 Lymph # (Auto) 0.3 L [place] # (Auto) 0.1 Eos # (Auto) 0.0 Baso # (Auto) 0.0 Abs Immat Gran (auto) 0.00 Absolute Neuts (auto) 1.1 L Absolute Nucleated RBC 0.000 Nucleated RBC % (auto) 0.0 Smear Tech's Comments VERIFIED PT INR Anion Gap Cancelled Estim Creat Clear Calc Cancelled Estimated GFR Cancelled Random Glucose Cancelled Calcium Cancelled Magnesium Total Bilirubin Cancelled Direct Bilirubin Cancelled AST Cancelled ALT Cancelled Alkaline Phosphatase Cancelled Ammonia 71 H Total Protein Cancelled Albumin Cancelled Lipase Cancelled Urine Color Urine Appearance Urine pH Ur Specific [place] Urine Protein Urine Glucose (UA) Urine Ketones Urine Blood Urine Nitrite Ur Leukocyte Esterase Urine RBC Urine WBC Ur Squamous Epith Cells Urine Bacteria Urine Mucus Ethyl Alcohol 05/22/20 05/22/20 05/22/20 17:59 17:59 19:13 MCV MCH MCHC RDW Plt Count MPV Immature Gran % (Auto) Neut % (Auto) Lymph % (Auto) [place] % (Auto) Eos % (Auto) Baso % (Auto) Lymph # (Auto) [place] # (Auto) Eos # (Auto) Baso # (Auto) Abs Immat Gran (auto) Absolute Neuts (auto) Absolute Nucleated RBC Nucleated RBC % (auto) Smear Tech's Comments PT 16.5 H INR 1.4 H Anion Gap 8 L Estim Creat Clear Calc 70.6 Estimated GFR > 60 Random Glucose 164 H Calcium 7.7 L Magnesium Total Bilirubin 2.1 H Direct Bilirubin 1.2 H AST 39 H D ALT 21 Alkaline Phosphatase 116 D Ammonia Total Protein 10.7 H Albumin 3.0 L Lipase 34 Urine Color Urine Appearance Urine pH Ur Specific [place] Urine Protein Urine Glucose (UA) Urine Ketones Urine Blood Urine Nitrite Ur Leukocyte Esterase Urine RBC Urine WBC Ur Squamous Epith Cells Urine Bacteria Urine Mucus Ethyl Alcohol < 10 05/22/20 05/22/20 19:16 19:50 MCV MCH MCHC RDW Plt Count MPV Immature Gran % (Auto) Neut % (Auto) Lymph % (Auto) [place] % (Auto) Eos % (Auto) Baso % (Auto) Lymph # (Auto) [place] # (Auto) Eos # (Auto) Baso # (Auto) Abs Immat Gran (auto) Absolute Neuts (auto) Absolute Nucleated RBC Nucleated RBC % (auto) Smear Tech's Comments PT INR Anion Gap Estim Creat Clear Calc Estimated GFR Random Glucose Calcium Magnesium 1.5 L Total Bilirubin Direct Bilirubin AST ALT Alkaline Phosphatase Ammonia Total Protein Albumin Lipase Urine Color YELLOW Urine Appearance CLEAR Urine pH 7.5 Ur Specific [place] 1.010 Urine Protein NEG Urine Glucose (UA) NEG Urine Ketones NEG Urine Blood 2+ H Urine Nitrite NEG Ur Leukocyte Esterase NEG Urine RBC 5-9 H Urine WBC 0-2 Ur Squamous Epith Cells TRACE Urine Bacteria NONE Urine Mucus TRACE Ethyl Alcohol Imaging Radiologist's Impressions: Impressions Abdomen/Pelvis CT 05/22/20 16:05 IMPRESSION: * There is a 5 1 4 mm calculus within the distal left ureter, 2.5 cm from the ureterovesical junction without significant upstream hydroureter or hydronephrosis. * Bilateral nonobstructive intrarenal calculi redemonstrated. * Morphologically cirrhotic liver with marked splenomegaly and stable chronic subcapsular splenic infarcts. * New part solid nodule within the left lower lobe measuring up to 4.0 cm a 5 mm solid component. Suspect infectious/inflammatory etiology given the short interval timeframe for development. Consider follow-up CT chest in 3-[address] 05/22/20 18:44 IMPRESSION: No acute intracranial pathology. Assessment and Plan (1) Acute hypokalemia: Status: Acute s/p supplemented in the ED Follow up repeat BMP for K, Mag and Calcium levels and repeat EKG given prolongation of QT engine monitor for continuous monitoring Isolation as of now, pending covid swab results (2) Hypomagnesemia: Status: Acute as above (3) Hypocalcemia: Status: Acute as above (4) Renal calculi: Status: Acute no evidence of obstruction on CT per radiology report monitor for now (5) Hepatitis C: Problem details: Yearly ultrasound AFP and LFT Status: Acute stable (6) GERD (gastroesophageal reflux disease): Status: Acute continue with famotidine home dose (7) Type 2 diabetes mellitus with hyperglycemia: Problem details: September 2018 Status: Acute Hold oral hypoglycemic meds insulin regimen as ordered (8) Ulcerative colitis: Status: Acute continue with mesalamine home dose (9) HIV (human immunodeficiency virus infection): Status: Acute continue with antiviral therapy as ordered (10) Lung nodule: Status: Acute incidental finding on CT which looks infectious per radiology report given acute presentation Pulmonary consult for further recommendations
[2020-05-23] VITALS (7 sets, daily range): BP systolic 128–160; BP diastolic 64–75; PULSE 61–80; RESP 18; TEMP 36.4–37.2; O2SAT 100
--- NOTE | 2020-05-23 | ECG_ITS ---
Test Reason : QTc prolongation Blood Pressure : / mmHG Vent. Rate : 070 BPM Atrial Rate : 070 BPM P-R Int : 174 ms QRS Dur : 090 ms QT Int : 496 ms P-R-T Axes : 057 012 017 degrees QTc Int : 535 ms Sinus rhythm with occasional Premature ventricular complexes Prolonged QT Nonspecific T wave abnormality Abnormal ECG Premature ventricular complexes are new T wave amplitude has increased in Lateral leads Referred By: Irene Cadet Electronically Signed By:RUFINA MANZANO MD
[2020-05-23 00:27] LABS: IDNOW Serial# 9DD0AD1C
[2020-05-23 00:32] LABS: COVID-19 Test Positive (Negative)
[2020-05-23] MEDS: Calcium Gluconate/NaCl,Iso-Osm 1 GM/50 ML PLAST..BAG IV (00:39)
[2020-05-23] MEDS: Potassium Chloride/H20 10 MEQ/100 ML PIGGYBACK 100 MEQ IV ×4 (01:46→12:14)
[2020-05-23] MEDS: 0.9 % Sodium Chloride Flush 3 ML SYRINGE IVFLUSH ×6 (01:47→21:27)
[2020-05-23 05:06] LABS: Appearance Urine CLEAR; Color Urine YELLOW; Glucose Urine UA NEG (NEG); Leukocyte Esterase Urine NEG (NEG); Nitrite Urine NEG (NEG); PH 7.5 (5.0-8.0); Urine Blood 1+ (NEG); Urine Ketones NEG (NEG); Urine Protein NEG (NEG-TRACE)
[2020-05-23 05:13] LABS: Squamous Epithelial Cell Urine TRACE /LPF; WBC Urine 0-2 /HPF (0-4)
[2020-05-23 05:20] LABS: Hematocrit 30.9 % (42-52); Hemoglobin 10.3 g/dl (14.0-18.0); Imm Gran Abs Auto 0.01 X10*3/uL (0.00-0.03); Imm Gran Pct Auto 0.6 % (0.0-0.4); Lymphocytes Absolute Auto 0.5 X10*3/uL (1.2-4.9); Lymphocytes Percent Auto 26.3 % (20-40); MANUAL DIFF FLAG SCAN; Mean Corpuscular HGB Conc 33.3 g/dl (31.0-36.0); Mean Corpuscular Hemoglobin 30.9 pg (27.0-33.0); Mean Corpuscular Volume 92.8 fL (80-98); Mean Platelet Volume 12.9 fL (9.4-12.4); Monocytes Absolute Auto 0.1 X10*3/uL (0.1-1.2); Monocytes Percent Auto 5.7 % (2-11); Neutrophils Absolute Auto 1.2 X10*3/uL (2.0-8.3); Neutrophils Percent Auto 67.4 % (45-73); Red Blood Count 3.33 X10*6/uL (4.60-5.80); Red Cell Distribution Width 14.9 % (11.0-16.0); SCAN SMEAR FLAG 1; White Blood Count 1.8 X10*3/uL (4.8-10.8)
[2020-05-23] MEDS: Heparin Sodium,Porcine 5,000 UNIT/ML VIAL 5000 UNIT SUBCUT ×3 (05:25→21:26)
[2020-05-23 05:47] LABS: Anion Gap 10 (12-20); Blood Urea Nitrogen 9 mg/dL (9-16); Calcium 7.6 mg/dL (8.4-10.2); Carbon Dioxide 15 mmol/L (22-29); Chloride 110 mmol/L (96-108); Creatinine Clr Calc Pharmacy 75.9; Estimated Glomerular Filt Rate > 60; Glucose Random 188 mg/dL (60-115); Platelet Count 83 X10*3/uL (160-400); Potassium 3.1 mmol/l (3.3-5.1); Sodium 132 mmol/L (135-145)
[2020-05-23 05:48] LABS: SLIDE REVIEW VERIFIED
[2020-05-23] MEDS: Insulin Lispro 100 UNIT/ML 3 ML VIAL SUBCUT ×2 (08:06→12:15)
[2020-05-23] MEDS: Mesalamine 400 MG CAP.DRTAB. 800 MG PO ×3 (08:07→21:26)
[2020-05-23] MEDS: Benzonatate 100 MG CAPSULE 200 MG PO ×3 (08:08→21:26)
[2020-05-23] MEDS: Atovaquone 750 MG/5 ML ORAL.SUSP PO ×2 (08:09→21:26)
[2020-05-23 08:39] LABS: Glucose, Whole Blood 168 mg/dL (60-115)
[2020-05-23 08:59] LABS: Estimated Average Glucose 166 mg/dL; Hemoglobin A1c % 7.4 %
[2020-05-23 09:01] LABS: Alanine Aminotransferase 20 U/L (0-40); Albumin Level 2.8 g/dL (3.5-5.0); Alkaline Phosphatase 114 U/L (39-117); Aspartate Amino Transferase 43 U/L (5-37); Bilirubin Direct 1.1 mg/dL (0.0-0.5); Bilirubin Total 2.1 mg/dL (0.0-1.0); Magnesium 2.1 mg/dL (1.6-2.6); Total Protein 10.4 g/dL (6.5-8.0)
--- NOTE | 2020-05-23 09:26 | MHC.CM.PN ---
Addendum entered by Venus Zhou 05/23/20 09:30: COVID + Original Note: MALE 54 DX HYPOKALEMIA. HE LIVES WITH HIS . HE IS INDEPENDENT ALL FUNCTIONAL MOBILITY. [facility] NO SERVICES FAMILY TRANSPORT.
--- NOTE | 2020-05-23 10:16 | P.EN_ITS ---
Event Note Date of Service: 05/23/20 Event Note: 54 years old gentleman is seen for pulmonary evaluation and consu lt. admitted mainly because of GI symptoms with electrolyte imbalance. has to very could stents a past medical history. COVID test to performed a few days earlier positive. her pulmonary status is fairly stable at this time. CT scan of the chest performed as outpatient was essentially unremarkable. CT scan of abdomen and pelvis the she shows a 4 mm pulmonary nodule in left lower lobe. Recc. watch pulmonary status closely and if he develops any hypoxemia/respiratory distress would need treatment with oxygen supplementation. for pulmonary nodule 4 mm left lower lobe a repeat CT scan of the chest after 6 months interval would be in order. will be glad to follow him up as outpatient . thank you .
[2020-05-23] MEDS: Rilpivirine HCL 25 MG TABLET PO (10:21)
[2020-05-23] MEDS: Emtricitabine/Tenofov Alafenam TABLET 1 TAB PO (10:21)
--- NOTE | 2020-05-23 11:23 | CONS_ITS ---
DATE OF SERVICE: 05/23/2020 HISTORY OF PRESENT ILLNESS: This 54-year-old gentleman, who is admitted since yesterday with 4 to 5 days history of nausea, vomiting, and general fatigue. The patient has had the symptoms off and on along with poor appetite for a week or so. He has had no fever, chills, or chest pain. The patient had a COVID-19 test done as outpatient a few days prior to this admission and it was positive. It should be noted that the patient denies any respiratory distress and also does not have any significant cough or expectoration. REVIEW OF SYSTEMS: Positive for the symptoms described in history and physical. Otherwise, he denies any significant chest pain. Denies any cardiac arrhythmias. Also, denies any urinary symptoms or any leg pain. PAST MEDICAL HISTORY: Quite extensive and as listed below. 1. Chronic GERD symptoms. 2. Hepatitis C. 3. Known case of HIV infection. 4. Bullous pemphigoid, under control at this time. 5. Diabetes mellitus type 2. 6. Ulcerative colitis. 7. The patient has had renal calculi. 8. Perirectal abscess and also history of hepatic vein thrombosis. SOCIAL HISTORY: The patient has previous history of smoking, but quit a few years ago. Denies any drinking of alcohol at this time. PHYSICAL EXAMINATION: GENERAL: A 54-year-old gentleman, chronically sick looking, sitting up on the bedside on room air, comfortable, does not show any respiratory distress. VITAL SIGNS: Respiratory rate is 14 at this time. EAR, NOSE, THROAT: Examination is not remarkable. NECK: No JVD. Carotids normal. Trachea midline. CHEST: Percussion note resonant. Has good breath sounds on both sides. No wheezes or rhonchi. CARDIAC: PMI in 5th intercostal space at midclavicular line. HEART: Sounds normal. No murmurs or gallops. ABDOMEN: Flat, soft, nontender, and there is no palpable mass. EXTREMITIES: No edema or varicosities. Peripheral pulses are normal. DIAGNOSTIC DATA: CT scan of the chest shows no significant abnormalities. CT scan of the abdomen and pelvis shows a 4 mm nodule in the left lower lobe, very nonspecific. LABORATORY DATA: White cell count 1.8, hemoglobin 10.3, platelet count 83. The patient had significant hypokalemia on admission with potassium level of 3.1, sodium 132. CLINICAL IMPRESSION: 1. Active coronavirus disease. 2. Respiratory system is relatively spared. 3. Multiple comorbidities as described above. 4. 4 to 5 mm pulmonary nodule, left lower lobe, nonspecific, probably inflammatory. RECOMMENDATIONS: 1. Correct electrolyte imbalance. 2. Supportive care. 3. No need of any active antibiotics at this time. 4. Pulmonary henson, he is stable, but should be followed closely. 5. For 4 mm pulmonary nodule in left lower lobe, a repeat CT scan at 6 months interval would be needed. Thank you very much for asking me to see this patient. MD MIRANDA Raygoza/MAURA / [phone]
[2020-05-23 11:28] LABS: Glucose, Whole Blood 192 mg/dL (60-115)
[2020-05-23 11:44] LABS: Anion Gap 12 (12-20); Blood Urea Nitrogen 10 mg/dL (9-16); Calcium 7.8 mg/dL (8.4-10.2); Carbon Dioxide 14 mmol/L (22-29); Chloride 109 mmol/L (96-108); Creatinine Clr Calc Pharmacy 76.6; Estimated Glomerular Filt Rate > 60; Glucose Random 205 mg/dL (60-115); Potassium 2.8 mmol/l (3.3-5.1); Sodium 132 mmol/L (135-145)
[2020-05-23] MEDS: Magnesium Sulfate/D5W 1 GM/100 ML PIGGYBACK IV (12:15)
[2020-05-23] MEDS: Potassium Chloride Packet 20 MEQ PACKET 40 MEQ PO (13:00)
--- NOTE | 2020-05-23 13:31 | P.CONNP_ITS ---
History of Present Illness Reason for Consult Consult date: 05/23/20 Reason for consult: marylu chiquita Chief Complaint Chief complaint: HYPOKALEMIA History of Present Illness Narrative: 54-year-old gentleman with multiple medical problems admitted to hospital with G.I. symptoms of nausea vomiting and diarrhea. He was noted to have multiple electrolyte abnormalities including relatively severe hypokalemia along some mild hyponatremia. He is a poor histroian..info obtained from medical record 1. Chronic GERD symptoms. 2. Hepatitis C. 3. Known case of HIV infection. 4. Bullous pemphigoid, under control at this time. 5. Diabetes mellitus type 2. 6. Ulcerative colitis. 7. The patient has had renal calculi. 8. Perirectal abscess and also history of hepatic vein thrombosis. [facility] Past Medical History Medical History Bullous pemphigoid GERD (gastroesophageal reflux disease) Hepatic vein thrombosis Hepatitis C HIV (human immunodeficiency virus infection) Lichen simplex chronicus Obesity (BMI 30-39.9) Pancytopenia Perirectal abscess Renal calculi Type 2 diabetes mellitus with hyperglycemia Ulcerative colitis Functional capacity: independent ambulation Family History Family History Father Stroke Mother Diabetes Hypertension CVD (cardiovascular disease) Sister Family history of cervical cancer Surgical History Surgical History Anal fistula History of lithotripsy History of rectal abscess History of removal of ureteral stent History of umbilical hernia repair Social History Social History Household Members: Children Housing: House Alcohol intake: former Smoking Status: Former smoker Smoked in Last 30 Days: No Use of substances other than those prescribed or required for medical reasons: No Have you been hit, kicked, punched, or otherwise hurt by someone within the past year? If so, by whom?: No Do you feel safe in your current relationship?: No Current Relationship Is there a partner from a previous relationship who is making you feel unsafe n ow?: No Are you made to feel afraid or neglected: No Mosque Healthcare Practices: lutheran Advance Directives: No Advance Directives Information Provided: No Do you have thoughts of harming others: None Do you have a plan to hurt others: No Plan Recently lost weight without trying: Unsure service: No Current occupational status: employed Meds Allergies Allergy/AdvReac Type Severity Reaction Status Date / Time acetaminophen [Acetaminophen] Allergy Severe LIVER Verified 04/15/20 12:40 TOXICITY - CANNOT TAKE ACETAMINOPHEN Sulfa (Sulfonamide Allergy Intermediate RASH Verified 04/15/20 12:40 Antibiotics) [SULFA (SULFONAMIDE ANTIBIOTICS)] amoxicillin [Augmentin] Allergy Unknown mouth sores Verified 04/15/20 12:40 clavulanic acid [Augmentin] Allergy Unknown mouth sores Verified 04/15/20 12:40 ibuprofen [IBUPROFEN] AdvReac Intermediate BLEEDING Verified 04/15/20 12:40 Home Medications Medication Instructions Recorded Confirmed Type Januvia 25 mg PO DAILY 04/27/20 05/23/20 History Odefsey 1 tab PO DAILY 04/27/20 05/23/20 History atovaquone 5 ml PO BID 04/27/20 05/22/20 History famotidine 40 mg PO BEDTIME 04/27/20 05/22/20 History hydroxyzine HCl 50 - 75 mg PO Q6H PRN 04/27/20 05/23/20 History mesalamine 800 mg PO TID 04/27/20 05/23/20 History Physical Exam Vital Signs: Last Vital Signs Temp 99.0 F 05/23/20 11:16 Pulse 66 05/23/20 11:16 Resp 18 05/23/20 11:16 BP 134/68 05/23/20 11:16 Pulse Ox 100 05/23/20 11:16 Body Mass Index 29.2 Const General: cooperative, comfortable and no acute distress Orientation/consciousness: oriented to person, oriented to place and oriented to time HENMD Head: Yes normal to inspection Eyes General: appearance normal, both eyes and all related structures Neck Neck: Yes normal visual inspection Chest Chest palpation & inspection: normal inspection of the chest Resp Effort & Inspection: normal respiratory effort and able to speak in complete sentences Cardio Jugular venous distension: no JVD Rhythm: regular rhythm Heart sounds: S1 normal heart sound present and S2 normal heart sound present GI Inspection: Yes normal to inspection Skin General skin exam: no rashes or lesions noted Neuro General: oriented to person, oriented to place and oriented to time Motor exam (neuro): 5/5 motor strength present throughout Extrem General: Yes normal to inspection Results Lab Results Result Diagrams: 05/23/20 05:04 05/23/20 10:54 Lab results: Chemistry 05/22/20 05/22/20 05/23/20 17:59 17:59 05:04 Sodium Cancelled 132 L 132 L Potassium Cancelled 2.2 L* 3.1 L D Carbon Dioxide Cancelled 20 L 15 L BUN Cancelled 9 9 Creatinine Cancelled 1.15 1.07 Calcium Cancelled 7.7 L 7.6 L 05/23/20 10:54 Sodium 132 L Potassium 2.8 L Carbon Dioxide 14 L BUN 10 Creatinine 1.06 Calcium 7.8 L Hematology 05/22/20 05/23/20 17:59 05:04 WBC 1.6 L 1.8 L Hgb 10.2 L 10.3 L Plt Count 78 L 83 L Urinalysis 05/22/20 05/23/20 19:50 04:53 Urine Color YELLOW YELLOW Urine Appearance CLEAR CLEAR Urine pH 7.5 7.5 Ur Specific [place] 1.010 1.010 Urine Protein NEG NEG Urine Glucose (UA) NEG NEG Urine Ketones NEG NEG Urine Blood 2+ H 1+ H Urine Nitrite NEG NEG Ur Leukocyte Esterase NEG NEG Urine RBC 5-9 H 1-4 Urine WBC 0-2 0-2 Ur Squamous Epith Cells TRACE TRACE Assessment and Plan (1) Acute hypokalemia: Status: Acute s/p supplemented in the ED Follow up repeat BMP for K, Mag and Calcium levels and repeat EKG given prolongation of QT lunchroom monitor for continuous monitoring Isolation as of now, pending covid swab results (2) Hypomagnesemia: Status: Acute as above (3) Hypocalcemia: Status: Acute as above (4) Renal calculi: Status: Acute no evidence of obstruction on CT per radiology report monitor for now (5) Hepatitis C: Problem details: Yearly ultrasound AFP and LFT Status: Acute stable (6) GERD (gastroesophageal reflux disease): Status: Acute continue with famotidine home dose (7) Type 2 diabetes mellitus with hyperglycemia: Problem details: September 2018 Status: Acute Hold oral hypoglycemic meds insulin regimen as ordered (8) Ulcerative colitis: Status: Acute continue with mesalamine home dose (9) HIV (human immunodeficiency virus infection): Status: Acute continue with antiviral therapy as ordered (10) Lung nodule: Status: Acute 1. HypoK: d/t decrease IV vol and sec incr in lay causing urinary K wasting..freq seen in PT with liver cirrhosis as well as PT with diarrhea 2. NAGMA: agian f incidental finding on CT which looks infectious per radiology report given acute presentation Pulmonary consult for further recommendations
--- NOTE | 2020-05-23 16:20 | P.CNID_ITS ---
History of Present Illness Data of Consult Service Date: 05/23/20 Requesting physician: Earl Morales Primary Care Provider: MD CHRISTIE Snyder Reason for consult: nausea and abdominal discomfort He presents to hospital with nausea and epigastric discomfort /10 He also has worsening confusion for a day No one else is ill COVID is positive Review of Systems Review of Systems: Yes Unobtainable due to mental status Neurologic: Reports confusion Psychiatric: Psychiatric: Reports confusion PMFSH Past Medical History Medical History Bullous pemphigoid GERD (gastroesophageal reflux disease) Hepatic vein thrombosis Hepatitis C HIV (human immunodeficiency virus infection) Lichen simplex chronicus Obesity (BMI 30-39.9) Pancytopenia Perirectal abscess Renal calculi Type 2 diabetes mellitus with hyperglycemia Ulcerative colitis Functional capacity: independent ambulation Family History Family History Father Stroke Mother Diabetes Hypertension CVD (cardiovascular disease) Sister Family history of cervical cancer Surgical History Surgical History Anal fistula History of lithotripsy History of rectal abscess History of removal of ureteral stent History of umbilical hernia repair Social History Social History Household Members: Children Housing: House Alcohol intake: former Smoking Status: Former smoker service: No Current occupational status: employed Meds Allergies Allergy/AdvReac Type Severity Reaction Status Date / Time acetaminophen [Acetaminophen] Allergy Severe LIVER Verified 04/15/20 12:40 TOXICITY - CANNOT TAKE ACETAMINOPHEN Sulfa (Sulfonamide Allergy Intermediate RASH Verified 04/15/20 12:40 Antibiotics) [SULFA (SULFONAMIDE ANTIBIOTICS)] amoxicillin [Augmentin] Allergy Unknown mouth sores Verified 04/15/20 12:40 clavulanic acid [Augmentin] Allergy Unknown mouth sores Verified 04/15/20 12:40 ibuprofen [IBUPROFEN] AdvReac Intermediate BLEEDING Verified 04/15/20 12:40 Home Medications Medication Instructions Recorded Confirmed Type Januvia 25 mg PO DAILY 04/27/20 05/23/20 History Odefsey 1 tab PO DAILY 04/27/20 05/23/20 History atovaquone 5 ml PO BID 04/27/20 05/22/20 History famotidine 40 mg PO BEDTIME 04/27/20 05/22/20 History hydroxyzine HCl 50 - 75 mg PO Q6H PRN 04/27/20 05/23/20 History mesalamine 800 mg PO TID 04/27/20 05/23/20 History Physical Exam Vital Signs: Vital Signs: Last Vital Signs Temp 99.0 F 05/23/20 11:16 Pulse 66 05/23/20 11:16 Resp 18 05/23/20 11:16 BP 134/68 05/23/20 11:16 Pulse Ox 100 05/23/20 11:16 Body Mass Index 29.2 Const: General: confusion Orientation/consciousness: confusion HENMT: Head: Yes normal to inspection Eyes: General: appearance normal, both eyes and all related structures Resp: Effort & Inspection: decreased respiratory effort Cardio: Rate: regular rate Rhythm: regular rhythm GI: Inspection: Yes normal to inspection and Yes Abdominal wall edema Back/Spine/Pelvis: Thoracic/Lumbar Spine: thoracic and lumbar spine normal to inspection Skin: Rashes: no rashes Neuro: General: confusion Cognition (Neuro): abnormal cognition Extrem: General: Yes no calf tenderness Psych: Affect: Labile affect present Assessment and Plan (1) HIV (human immunodeficiency virus infection): Problem details: He has been taking meds and is followed Status: Acute Would take meds (2) Hepatitis C: Problem details: Yearly ultrasound AFP and LFT Status: Acute (3) COVID-19 in immunocompromised patient: Problem details: He has no hypoxia He has no oxygen requirements so no Remdesivir or steroids Status: Inactive Results Labs CBC & Chem 7: 05/23/20 05:04 05/23/20 10:54 Labs: Short CBC 05/22/20 05/23/20 Range/Units 17:59 05:04 WBC 1.6 L 1.8 L (4.8-10.8) X10*3/uL Hgb 10.2 L 10.3 L (14.0-18.0) g/dl Hct 29.2 L 30.9 L (42-52) % Plt Count 78 L 83 L (160-400) X10*3/uL BMP 05/22/20 05/22/20 05/23/20 17:59 17:59 05:04 Sodium Cancelled 132 L 132 L Potassium Cancelled 2.2 L* 3.1 L D Chloride Cancelled 106 110 H Carbon Dioxide Cancelled 20 L 15 L BUN Cancelled 9 9 Creatinine Cancelled 1.15 1.07 Calcium Cancelled 7.7 L 7.6 L 05/23/20 10:54 Sodium 132 L Potassium 2.8 L Chloride 109 H Carbon Dioxide 14 L BUN 10 Creatinine 1.06 Calcium 7.8 L Liver Function 05/22/20 05/22/20 05/23/20 Range/Units 17:59 17:59 05:04 Total Bilirubin Cancelled 2.1 H 2.1 H Direct Bilirubin Cancelled 1.2 H 1.1 H AST Cancelled 39 H D 43 H ALT Cancelled 21 20 Alkaline Phosphatase Cancelled 116 D 114 Albumin Cancelled 3.0 L 2.8 L Urine 05/22/20 05/23/20 Range/Units 19:50 04:53 Urine Color YELLOW YELLOW Urine Appearance CLEAR CLEAR Urine pH 7.5 7.5 (5.0-8.0) Ur Specific [place] 1.010 1.010 (1.005-1.025) Urine Protein NEG NEG (NEG-TRACE) MG/DL Urine Glucose (UA) NEG NEG (NEG) MG/DL
[2020-05-23 17:46] LABS: Glucose, Whole Blood 137 mg/dL (60-115)
[2020-05-23] MEDS: Potassium Chloride Packet 20 MEQ PACKET PO (19:33)
[2020-05-23 20:33] LABS: Glucose, Whole Blood 123 mg/dL (60-115)
[2020-05-23 21:10] LABS: Potassium 4.5 mmol/l (3.3-5.1)
[2020-05-23] MEDS: diphenhydrAMINE HCL 50 MG/ML VIAL 25 MG IVPUSH (23:39)
[2020-05-24] VITALS (7 sets, daily range): BP systolic 111–149; BP diastolic 66–75; PULSE 67–81; RESP 14–20; TEMP 35.8–37.1; O2SAT 95–100
[2020-05-24] MEDS: Ibuprofen 600 MG TABLET PO (02:01)
[2020-05-24] MEDS: Heparin Sodium,Porcine 5,000 UNIT/ML VIAL 5000 UNIT SUBCUT ×3 (06:36→21:09)
[2020-05-24 07:10] LABS: Blood Urea Nitrogen 10 mg/dL (9-16); Calcium 7.7 mg/dL (8.4-10.2); Creatinine Clr Calc Pharmacy 79.6; Estimated Glomerular Filt Rate > 60; Glucose Random 109 mg/dL (60-115)
[2020-05-24 07:25] LABS: Anion Gap 9 (12-20); Carbon Dioxide 12 mmol/L (22-29); Chloride 116 mmol/L (96-108); Potassium 3.4 mmol/l (3.3-5.1); Sodium 134 mmol/L (135-145)
[2020-05-24 07:53] LABS: Glucose, Whole Blood 101 mg/dL (60-115)
[2020-05-24] MEDS: Atovaquone 750 MG/5 ML ORAL.SUSP PO ×2 (08:59→21:09)
[2020-05-24] MEDS: Lactulose 20 GM/30 ML SOLUTION PO (08:59)
[2020-05-24] MEDS: Thiamine HCL 100 MG TABLET PO (08:59)
[2020-05-24] MEDS: Benzonatate 100 MG CAPSULE 200 MG PO ×3 (08:59→21:09)
[2020-05-24] MEDS: Mesalamine 400 MG CAP.DRTAB. 800 MG PO ×3 (08:59→21:09)
[2020-05-24] MEDS: Emtricitabine/Tenofov Alafenam TABLET 1 TAB PO (09:00)
[2020-05-24] MEDS: Rilpivirine HCL 25 MG TABLET PO (09:00)
[2020-05-24] MEDS: Folic Acid 1 MG TABLET PO (09:00)
[2020-05-24] MEDS: 0.9 % Sodium Chloride Flush 3 ML SYRINGE IVFLUSH ×2 (09:08→16:23)
[2020-05-24 11:18] LABS: Glucose, Whole Blood 190 mg/dL (60-115)
--- NOTE | 2020-05-24 12:01 | P.PNNP_ITS ---
Subjective Subjective Principal diagnosis: HypoK and metabolic acidosis Interval history: Seen and examined. Cont with diarrhea Physical Exam Vital Signs: Vital Signs: Last Vital Signs Temp 99.0 F 05/23/20 11:16 Pulse 66 05/23/20 11:16 Resp 18 05/23/20 11:16 BP 134/68 05/23/20 11:16 Pulse Ox 100 05/23/20 11:16 Body Mass Index 29.2 Const: Other: Last Vital Signs Temp 99.0 F 05/23/20 11:16 Pulse 66 05/23/20 11:16 Resp 18 05/23/20 11:16 BP 134/68 05/23/20 11:16 Pulse Ox 100 05/23/20 11:16 Body Mass Index 29.2 General: cooperative, comfortable and no acute distress Orie ntation/consciousness: oriented to person, oriented to place and oriented to time HENMT: Head: Yes normal to inspection Eyes: General: appearance normal, both eyes and all related structures Neck: Neck: Yes normal visual inspection Chest: Chest palpation & inspection: normal inspection of the chest Resp: Effort & Inspection: normal respiratory effort and able to speak in complete sentences Cardio: Other: Last Vital Signs Temp 99.0 F 05/23/20 11:16 Pulse 66 05/23/20 11:16 Resp 18 05/23/20 11:16 BP 134/68 05/23/20 11:16 Pulse Ox 100 05/23/20 11:16 Body Mass Index 29.2 Jugular venous distension: no JVD Rhythm: regular rhythm Heart sounds: S1 normal heart sound present and S2 normal heart sound present GI: Inspection: Yes normal to inspection Skin: General skin exam: no rashes or lesions noted Neuro: General: oriented to person, oriented to place and oriented to time Motor exam (neuro): 5/5 motor strength present throughout Extrem: General: Yes normal to inspection Assessment & Plan Assessment and plan (1) Acute hypokalemia: Status: Acute Assessment and Plan: 1. HypoK: imporving but still needs additional replacement; d/t decrease IV vol and sec incr in lay causing urinary K wasting..freq seen in PT with liver cirrhosis as well as PT with diarrhea 2. NAGMA: NAGMA..agian d/t diarrhea REC: repalce HCO3 po /IV and K po /IV; i ordered PO NaHCO3 but needs IV as well and I am unable to placr IV NaHCO3 into expanse (2) Hypomagnesemia: Status: Acute (3) Hypocalcemia: Status: Acute (4) Renal calculi: Status: Acute (5) Hepatitis C: Problem details: Yearly ultrasound AFP and LFT Status: Acute (6) GERD (gastroesophageal reflux disease): Status: Acute (7) Type 2 diabetes mellitus with hyperglycemia: Problem details: September 2018 Status: Acute (8) Ulcerative colitis: Status: Acute (9) HIV (human immunodeficiency virus infection): Problem details: He has been taking meds and is followed Status: Acute (10) Lung nodule: Status: Acute Time Spent With Patient Time: Total time spent is greater than 50% in coordination of care (as documented) at patient's floor/unit and/or counseling patient: Procedures Abscess I/D Date of Service: 05/24/20
[2020-05-24] MEDS: Sodium Bicarbonate 650 MG TABLET 1300 MG PO ×3 (12:35→21:08)
[2020-05-24 16:32] LABS: Glucose, Whole Blood 156 mg/dL (60-115)
--- NOTE | 2020-05-24 18:17 | HO.PM.IMPN ---
Subjective Subjective Date of Service: 05/24/20 Interval History: hypokalemia , diarrhae Review of Systems Denies any abdominal pain or sob , appetite slowly improving , still has diarrahe Physical Exam Vital Signs: Vital Signs: Last Vital Signs Temp 98.8 F 05/24/20 16:00 Pulse 81 05/24/20 16:00 Resp 20 05/24/20 16:00 BP 140/69 H 05/24/20 16:00 Pulse Ox 95 05/24/20 16:00 Body Mass Index 29.2 Physical exam: Heent: eye anicteric neck supple Cvs: rrr, [id number] , no murmur res: clear to auscultation ,no rhonchii or wheezing abd: no rebound or guarding ,nt, bs present. ext pulses present , no cyanosis neuro: axo3 , nonfocal. Objective Data Current Medications Generic Name Dose Route Start Last Admin Trade Name Freq PRN Reason Stop Dose Admin Atovaquone 750 mg 05/23/20 09:00 05/24/20 08:59 Atovaquone 750 Mg/5 Ml Oral.Susp PO 750 mg BID YONATHAN Administration Benzonatate 200 mg 05/23/20 09:00 05/24/20 16:22 Benzonatate 100 Mg Capsule PO 200 mg TID YONATHAN Administration Emtricitabine/Tenofovir Alafenamide 1 tab 05/23/20 09:00 05/24/20 09:00 Emtricitabine/Tenofov Alafenam Tablet PO 1 tab DAILY YONATHAN Administration Folic Acid 1 mg 05/24/20 09:00 05/24/20 09:00 Folic Acid 1 Mg Tablet PO 1 mg DAILY YONATHAN Administration Heparin Sodium (Porcine) 5,000 unit 05/23/20 06:00 05/24/20 13:53 Heparin Sodium,Porcine 5,000 Unit/Ml Vial SUBCUT 5,000 unit Q8H YONATHAN Administration Sodium Chloride 500 mls @ 0 mls/hr 05/22/20 18:00 05/22/20 18:43 Ns IV Infused .Q0M YONATHAN Infusion Wide Open Lactulose 20 gm 05/23/20 09:00 05/24/20 08:59 Lactulose 20 Gm/30 Ml Solution PO 20 gm DAILY YONATHAN Administration Mesalamine 800 mg 05/23/20 09:00 05/24/20 16:23 Mesalamine 400 Mg Cap.Drtab. PO 800 mg TID YONATHAN Administration Rilpivirine 25 mg 05/23/20 09:00 05/24/20 09:00 Rilpivirine Hcl 25 Mg Tablet PO 25 mg DAILY YONATHAN Administration Sodium Bicarbonate 1,300 mg 05/24/20 11:57 05/24/20 16:23 Sodium Bicarbonate 650 Mg Tablet PO 1,300 mg TID YONATHAN Administration Sodium Chloride 3 ml 05/23/20 00:00 05/24/20 16:23 0.9 % Sodium Chloride Flush 3 Ml Syringe IVFLUSH 3 ml QSHIFT YONATHAN Administration Sodium Chloride 3 ml 05/23/20 00:00 05/24/20 16:24 0.9 % Sodium Chloride Flush 3 Ml Syringe IVFLUSH Not Given QSHIFT YONATHAN Sodium Chloride 3 ml 05/23/20 08:00 05/24/20 16:24 0.9 % Sodium Chloride Flush 3 Ml Syringe IVFLUSH Not Given QSHIFT YONATHAN Thiamine HCl 100 mg 05/24/20 09:00 05/24/20 08:59 Thiamine Hcl 100 Mg Tablet PO 100 mg DAILY YONATHAN Administration Labs CBC & Chem 7: 05/23/20 05:04 05/24/20 06:01 Assessment and Plan (1) HIV (human immunodeficiency virus infection): Problem details: He has been taking meds and is followed Status: Acute (2) Hypomagnesemia: Status: Acute (3) Acute hypokalemia: Status: Acute Assessment and Plan: 1. Multiple electrolytic abnormalities including hypokalemia, hypomagnesemia Repleted and improving Also has low bicarb Nephro recommended to give p.o. and IV bicarb Also will add po potassium monitor for now 2: Pancytopenia, has history of HIV and hepatitis-C Monitor CBC Id evaluation noted-continue HIV medications. 3. Type 2 diabetes mellitus with hyperglycemia: Hold oral hypoglycemic meds fs with coverage. fs running between 100-190 range 4.Ulcerative colitis: still has diarrahae , on mesalmine Will check stool studies Will add GI evaluation.
[2020-05-24 20:42] LABS: Glucose, Whole Blood 133 mg/dL (60-115)
[2020-05-24] MEDS: Sodium Bicarbonate 8.4% 150 MEQ in Dextrose 5 % 850 ML 50 MEQ IV (22:01)
[2020-05-25] MEDS: 0.9 % Sodium Chloride Flush 3 ML SYRINGE IVFLUSH ×9 (00:51→14:53)
[2020-05-25] MEDS: diphenhydrAMINE HCL 50 MG/ML VIAL 25 MG IVPUSH (01:13)
[2020-05-25 04:00] VITALS: BP 135/73; PULSE 80; RESP 16; TEMP 36.8; O2SAT 100
[2020-05-25] MEDS: Heparin Sodium,Porcine 5,000 UNIT/ML VIAL 5000 UNIT SUBCUT ×3 (06:04→21:38)
[2020-05-25 07:19] LABS: Blood Urea Nitrogen 10 mg/dL (9-16); Creatinine Clr Calc Pharmacy 79.6; Estimated Glomerular Filt Rate > 60; Glucose Random 149 mg/dL (60-115)
[2020-05-25 07:30] LABS: Glucose, Whole Blood 140 mg/dL (60-115)
[2020-05-25 07:31] LABS: Anion Gap 10 (12-20); Calcium 7.4 mg/dL (8.4-10.2); Carbon Dioxide 16 mmol/L (22-29); Chloride 110 mmol/L (96-108); Potassium 2.8 mmol/l (3.3-5.1); Sodium 133 mmol/L (135-145)
[2020-05-25 07:52] VITALS: BP 134/75; PULSE 99; RESP 20; TEMP 36.9; O2SAT 100
[2020-05-25] MEDS: Sodium Bicarbonate 650 MG TABLET 1300 MG PO ×3 (08:29→21:37)
[2020-05-25] MEDS: Potassium Chloride Packet 20 MEQ PACKET 40 MEQ PO ×2 (08:29→13:03)
[2020-05-25] MEDS: Mesalamine 400 MG CAP.DRTAB. 800 MG PO ×3 (08:29→21:36)
[2020-05-25] MEDS: Thiamine HCL 100 MG TABLET PO (08:29)
[2020-05-25] MEDS: Potassium Chloride ER 20 MEQ TAB.ER.PRT 40 MEQ PO (08:30)
[2020-05-25] MEDS: Rilpivirine HCL 25 MG TABLET PO (08:30)
[2020-05-25] MEDS: Emtricitabine/Tenofov Alafenam TABLET 1 TAB PO (08:30)
[2020-05-25] MEDS: Atovaquone 750 MG/5 ML ORAL.SUSP PO ×2 (08:30→21:37)
[2020-05-25] MEDS: Lactulose 20 GM/30 ML SOLUTION PO (08:30)
[2020-05-25] MEDS: Folic Acid 1 MG TABLET PO (08:30)
[2020-05-25] MEDS: Benzonatate 100 MG CAPSULE 200 MG PO ×2 (08:30→21:37)
[2020-05-25] MEDS: Potassium Chloride/H20 10 MEQ/100 ML PIGGYBACK 100 MEQ IV ×2 (08:31→11:39)
[2020-05-25 08:43] LABS: Alanine Aminotransferase 17 U/L (0-40); Albumin Level 2.5 g/dL (3.5-5.0); Alkaline Phosphatase 105 U/L (39-117); Aspartate Amino Transferase 40 U/L (5-37); Bilirubin Direct 1.2 mg/dL (0.0-0.5); Bilirubin Total 2.2 mg/dL (0.0-1.0); Magnesium 1.5 mg/dL (1.6-2.6); Total Protein 9.2 g/dL (6.5-8.0)
--- NOTE | 2020-05-25 09:48 | MHC.CM.PN ---
DP To home no services, family will provide transportation.
[2020-05-25 11:13] LABS: Glucose, Whole Blood 172 mg/dL (60-115)
[2020-05-25 11:23] VITALS: BP 123/75; PULSE 79; RESP 20; TEMP 36.8; O2SAT 99
--- NOTE | 2020-05-25 12:02 | PM.EVENT ---
Event Note Date of Service: 05/25/20 Event Note: GI Consult-Full note dictated Hx via patient, EMR, and RN Imp/Recs: Diarrhea-I don't think he is having a flare of his ulcerative colitis based on the clinical history and CT scan. The diarrhea may be due to COVID, but I would recommend stopping the Lactulose and checking stool specimens. Try using Imodium prn as well. Cirrhosis-stable and without any overt signs of decompensation. He does have some minimal asterixis and seems a little foggy , although oriented x 3. Check ammonia level, add rifaximin as the Lactulose will be stopped for the diarrhea, avoid ASA and NSAIDs, follow labs and avoid hepatotoxins. D/W patient and RN. Thanks
--- NOTE | 2020-05-25 13:03 | CONS_ITS ---
DATE OF SERVICE: 05/25/2020 REQUESTING PHYSICIAN: Dr. Morales. REASON FOR CONSULTATION: Diarrhea. HISTORY OF PRESENT ILLNESS: This has been obtained from the patient, the medical record, and his nurse. The patient is a 54-year-old male, well known to me with multiple medical problems including underlying ulcerative colitis, cirrhosis, successfully treated hepatitis C, and HIV. I last evaluated him in early April during a tele-medicine office visit. At that time, he was using Asacol 800 mg b.i.d. and Imodium with good control of his colitis. His cirrhosis had remained well compensated. He apparently has had several days of systemic symptoms of fatigue and weakness, as well as some diarrhea. He was positive for COVID and was admitted. He has had no significant respiratory issues. Since being here, he has had some loose stool, but no more than two to three times per day. He has not noticed any bleeding. He has had some anorexia, but denies any nausea, vomiting, nor abdominal pain. He did have a CAT scan that did not describe any signs of colitis. MEDICATIONS: Medications here include, lactulose daily, Mepron, Tessalon, folic acid, guaifenesin, subcu heparin, magnesium, mesalamine 800 mg t.i.d., potassium, Edurant, sodium bicarbonate, and thiamine. PAST MEDICAL HISTORY: HIV infection. Previous hepatitis C, treated with Harvoni in 2014, with subsequent negative hepatitis C viral loads. Cirrhosis. Portal vein thrombosis. Ulcerative colitis, diagnosed in 2004 with a pancolitis. Kidney stones. Pneumonia. Lower extremity edema. Anemia. Bronchitis. Non insulin-dependent diabetes mellitus. He has had hernia surgery, perianal fistula surgery, perirectal abscess. FAMILY HISTORY: There is no family history of colorectal cancer nor inflammatory bowel disease. 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 He is . He does not smoke or use any significant amounts of alcohol. REVIEW OF SYSTEMS: CONSTITUTIONAL: He has been feeling tired and weak at home. He has been anorectic. CARDIAC: No chest pain. PULMONARY: No coughing or hemoptysis. GI: As above. URINARY: No dysuria. No hematuria. PHYSICAL EXAMINATION: GENERAL: The patient is alert, but somewhat foggy. He is oriented x3 and does recognize me. He does answer most questions appropriately. He does have some very mild asterixis. SKIN: Warm and dry. HEENT: Anicteric sclerae. ABDOMEN: Soft, nondistended, and nontender. LABORATORY DATA: The CAT scan of his abdomen from May 22 described a normal-appearing pancreas. The spleen was significantly enlarged. The liver was consistent with cirrhosis, but without any obvious lesions nor biliary obstruction. The GI tract showed some diverticulosis, but no diverticulitis, nor any obvious evidence of colitis. There is no report of ascites. White count was 1.8, hemoglobin 10.3, platelets 83,000. PT 16.5 with INR 1.4. Sodium 133, potassium 2.8, BUN 10, creatinine 1.0. Total bilirubin is 2.2, direct bilirubin 1.2, AST 40, ALT 17, alkaline phosphatase 105, albumin 2.5. His COVID test was positive. IMPRESSION: Given the patient's clinical history, I do not think his diarrhea is relation to a flare of his ulcerative colitis given the negative CAT scan, benign abdomen, and no bleeding. The diarrhea may very well be related to his COVID. 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 At this point, I would recommend stopping the lactulose and substituting Xifaxan and also check stools for routine pathogens including C difficile. I would use Imodium as needed. I would continue supportive care. I will continue his Asacol and I do not think he needs any prednisone for colitis as at this point I do not think this is a flare of the colitis. Certainly, if the diarrhea worsens and the workup remains negative, then we could re-evaluate that. His liver disease appears stable at this time without any obvious decompensation. I would check ammonia levels and add the Xifaxan as mentioned above. I would avoid all aspirin, NSAIDs, and other hepatotoxins. This has been discussed with the patient. MD JANNA Soriano/MAURA / [phone]
[2020-05-25] MEDS: Famotidine 20 MG TABLET PO ×2 (13:04→21:38)
[2020-05-25] MEDS: Loperamide HCl 2 MG CAPSULE PO (13:18)
[2020-05-25] MEDS: Magnesium Sulfate/H2O 2 GM/50 ML PIGGYBACK IV (14:41)
[2020-05-25 15:00] LABS: Ammonia 92 umol/L (13-55)
[2020-05-25 15:08] LABS: Anion Gap 10 (12-20); Blood Urea Nitrogen 9 mg/dL (9-16); Calcium 7.3 mg/dL (8.4-10.2); Carbon Dioxide 13 mmol/L (22-29); Chloride 113 mmol/L (96-108); Creatinine Clr Calc Pharmacy 77.3; Estimated Glomerular Filt Rate > 60; Glucose Random 142 mg/dL (60-115); Potassium 4.1 mmol/l (3.3-5.1); Sodium 132 mmol/L (135-145)
[2020-05-25 15:27] VITALS: BP 124/76; PULSE 83; RESP 18; TEMP 36.7; O2SAT 100
--- NOTE | 2020-05-25 16:12 | PM.PNNEP ---
Subjective Subjective Principal diagnosis: HypoK and metabolic acidosis Interval history: Seen and examined. Cont with diarrhea Physical Exam Vital Signs: Vital Signs: Last Vital Signs Temp 98.1 F 05/25/20 15:27 Pulse 83 05/25/20 15:27 Resp 18 05/25/20 15:27 BP 124/76 05/25/20 15:27 Pulse Ox 100 05/25/20 15:27 Body Mass Index 29.2 Const: General: cooperative, comfortable, no acute distress and confusion Orientation/consciousness: oriented to person, oriented to place, oriented to time and confusion HENMT: Head: Yes normal to inspection Eyes: General: appearance normal, both eyes and all related structures Neck: Neck: Yes normal visual inspection Chest: Chest palpation & inspection: normal inspection of the chest Resp: Effort & Inspection: normal respiratory effort, able to speak in complete sentences and decreased respiratory effort Cardio: Jugular venous distension: no JVD Rate: regular rate Rhythm: regular rhythm Heart sounds: S1 normal heart sound present and S2 normal heart sound present GI: Inspection: Yes normal to inspection and Yes Abdominal wall edema Back/Spine/Pelvis: Thoracic/Lumbar Spine: thoracic and lumbar spine normal to inspection Skin: General skin exam: no rashes or lesions noted Rashes: no rashes Neuro: General: oriented to person, oriented to place, oriented to time and confusion Cognition (Neuro): abnormal cognition Motor exam (neuro): 5/5 motor strength present throughout Extrem: General: Yes normal to inspection and Yes no calf tenderness Psych: Affect: Labile affect present Assessment & Plan Assessment and plan (1) HIV (human immunodeficiency virus infection): Problem details: He has been taking meds and is followed Status: Acute (2) Hypomagnesemia: Status: Acute (3) Acute hypokalemia: Status: Acute Assessment and Plan: 1. HypoK: imporving with replacement; d/t decrease IV vol and sec incr in lay causing urinary K wasting..freq seen in PT with liver cirrhosis as well as PT with diarrhea 2. NAGMA: NAGMA..agian d/t diarrhea REC: cont to repalce HCO3 po /IV and K po /IV as needed; i increased PO NaHCO3 but needs IV as well and I am unable to placreIV NaHCO3 into expanse; consider trial of aldactone to malik urine K losses if BP can tolerate Time Spent With Patient Time: Total time spent is greater than 50% in coordination of care (as documented) at patient's floor/unit and/or counseling patient: Procedures Abscess I/D Date of Service: 05/25/20
--- NOTE | 2020-05-25 16:15 | HO.PM.IMPN ---
Subjective Subjective Date of Service: 05/26/20 Interval History: hypokalemia and low bicarb. Physical Exam Vital Signs: Vital Signs: Last Vital Signs Temp 98.1 F 05/25/20 15:27 Pulse 83 05/25/20 15:27 Resp 18 05/25/20 15:27 BP 124/76 05/25/20 15:27 Pulse Ox 100 05/25/20 15:27 Body Mass Index 29.2 Physical exam: Cvs: rrr, [id number] , no murmur res: clear to auscultation ,no rhonchii or wheezing abd: no rebound or guarding ,nt, bs present. ext pulses present , no cyanosis neuro: axo3 , nonfocal. Objective Data Current Medications Generic Name Dose Route Start Last Admin Trade Name Freq PRN Reason Stop Dose Admin Atovaquone 750 mg 05/23/20 09:00 05/25/20 08:30 Atovaquone 750 Mg/5 Ml Oral.Susp PO 750 mg BID YONATHAN Administration Benzonatate 200 mg 05/23/20 09:00 05/25/20 08:30 Benzonatate 100 Mg Capsule PO 200 mg TID YONATHAN Administration Emtricitabine/Tenofovir Alafenamide 1 tab 05/23/20 09:00 05/25/20 08:30 Emtricitabine/Tenofov Alafenam Tablet PO 1 tab DAILY YONATHAN Administration Famotidine 20 mg 05/25/20 11:45 05/25/20 13:04 Famotidine 20 Mg Tablet PO 20 mg BID YONATHAN Administration Folic Acid 1 mg 05/24/20 09:00 05/25/20 08:30 Folic Acid 1 Mg Tablet PO 1 mg DAILY YONATHAN Administration Guaifenesin 5 ml 05/25/20 10:56 Guaifenesin 100 Mg/5 Ml Liquid PO Q6H PRN Cough Heparin Sodium (Porcine) 5,000 unit 05/23/20 06:00 05/25/20 14:52 Heparin Sodium,Porcine 5,000 Unit/Ml Vial SUBCUT 5,000 unit Q8H YONATHAN Administration Sodium Chloride 500 mls @ 0 mls/hr 05/22/20 18:00 05/22/20 18:43 Ns IV Infused .Q0M YONATHAN Infusion Wide Open Loperamide HCl 2 mg 05/25/20 12:00 05/25/20 13:18 Loperamide Hcl 2 Mg Capsule PO 2 mg Q4H PRN Administration Diarrhea Mesalamine 800 mg 05/23/20 09:00 05/25/20 14:52 Mesalamine 400 Mg Cap.Drtab. PO 800 mg TID YONATHAN Administration Potassium Chloride 40 meq 05/25/20 09:00 05/25/20 08:29 Potassium Chloride Packet 20 Meq Packet PO 40 meq DAILY YONATHAN Administration Rifaximin 550 mg 05/25/20 21:00 Rifaximin 550 Mg Tablet PO BID YONATHAN Rilpivirine 25 mg 05/23/20 09:00 05/25/20 08:30 Rilpivirine Hcl 25 Mg Tablet PO 25 mg DAILY YONATHAN Administration Sodium Bicarbonate 1,300 mg 05/24/20 11:57 05/25/20 14:52 Sodium Bicarbonate 650 Mg Tablet PO 1,300 mg TID YONATHAN Administration Sodium Chloride 3 ml 05/23/20 00:00 05/25/20 14:53 0.9 % Sodium Chloride Flush 3 Ml Syringe IVFLUSH 3 ml QSHIFT YONATHAN Administration Sodium Chloride 3 ml 05/23/20 00:00 05/25/20 14:53 0.9 % Sodium Chloride Flush 3 Ml Syringe IVFLUSH 3 ml QSHIFT YONATHAN Administration Sodium Chloride 3 ml 05/23/20 08:00 05/25/20 14:53 0.9 % Sodium Chloride Flush 3 Ml Syringe IVFLUSH 3 ml QSHIFT YONATHAN Administration Thiamine HCl 100 mg 05/24/20 09:00 05/25/20 08:29 Thiamine Hcl 100 Mg Tablet PO 100 mg DAILY YONATHAN Administration Labs CBC & Chem 7: 05/23/20 05:04 05/26/20 08:31 Assessment and Plan (1) Coronavirus infection: Problem details: May 2020 Status: Acute (2) Acute hypokalemia: Problem details: 1. HypoK: improving with replacement; d/t decrease IV vol and sec incr in lay causing urinary K wasting..freq seen in PT with liver cirrhosis as well as PT with diarrhea 2. NAGMA: NAGMA..again d/t diarrhea REC: cont to replace HCO3 po K po as needed; Status: Acute Assessment and Plan: 1. Multiple electrolytic abnormalities including hypokalemia, hypomagnesemia Repleted and improving Also has low bicarb Nephro recommended to give p.o. and IV bicarb Also will add po potassium monitor for now 2: Pancytopenia, has history of HIV and hepatitis-C Monitor CBC Id evaluation noted-continue HIV medications. 3. Type 2 diabetes mellitus with hyperglycemia: Hold oral hypoglycemic meds fs with coverage. fs running between 100-190 range 4.Ulcerative colitis: still has diarrahae , on mesalmine Will check stool studies Discussed with GI if patient continued to have diarrhea will check stool studies otherwise patient can go home with rifaximin. (3) HIV (human immunodeficiency virus infection): Problem details: He has been taking meds and is followed Status: Acute (4) Hypomagnesemia: Status: Acute
[2020-05-25 16:28] LABS: Glucose, Whole Blood 131 mg/dL (60-115)
[2020-05-25] MEDS: Sodium Bicarbonate 8.4% 150 MEQ in Dextrose 5 % 850 ML 50 MEQ IV (18:47)
[2020-05-25 19:30] VITALS: BP 136/71; PULSE 74; RESP 18; TEMP 36.8; O2SAT 100
[2020-05-25 20:11] LABS: Glucose, Whole Blood 138 mg/dL (60-115)
[2020-05-25] MEDS: rifAXIMin 550 MG TABLET PO (21:37)
[2020-05-26] VITALS: BP 110/58; PULSE 75; RESP 18; TEMP 37.1; O2SAT 99
[2020-05-26 04:00] VITALS: BP 107/55; PULSE 75; RESP 18; TEMP 36.9; O2SAT 98
[2020-05-26] MEDS: Heparin Sodium,Porcine 5,000 UNIT/ML VIAL 5000 UNIT SUBCUT (05:04)
[2020-05-26 07:43] VITALS: BP 119/73; PULSE 81; RESP 18; TEMP 36.3; O2SAT 99
[2020-05-26 08:08] LABS: Glucose, Whole Blood 141 mg/dL (60-115)
--- NOTE | 2020-05-26 08:44 | PM.PNNEP ---
Subjective Subjective Principal diagnosis: HypoK and metabolic acidosis Interval history: hypokalemia and low bicarb. Physical Exam Vital Signs: Vital Signs: Last Vital Signs Temp 97.3 F 05/26/20 07:43 Pulse 81 05/26/20 07:43 Resp 18 05/26/20 07:43 BP 119/73 05/26/20 07:43 Pulse Ox 99 05/26/20 07:43 Body Mass Index 29.2 Assessment & Plan Assessment and plan (1) Acute hypokalemia: Problem details: 1. HypoK: improving with replacement; d/t decrease IV vol and sec incr in lay causing urinary K wasting..freq seen in PT with liver cirrhosis as well as PT with diarrhea 2. NAGMA: NAGMA..again d/t diarrhea REC: cont to replace HCO3 po K po as needed; Status: Acute Procedures Abscess I/D Date of Service: 05/26/20
[2020-05-26] MEDS: Benzonatate 100 MG CAPSULE 200 MG PO ×2 (09:24→13:28)
[2020-05-26] MEDS: Folic Acid 1 MG TABLET PO (09:25)
[2020-05-26] MEDS: Mesalamine 400 MG CAP.DRTAB. 800 MG PO ×2 (09:25→13:27)
[2020-05-26] MEDS: Famotidine 20 MG TABLET PO (09:25)
[2020-05-26] MEDS: Thiamine HCL 100 MG TABLET PO (09:25)
[2020-05-26] MEDS: Potassium Chloride Packet 20 MEQ PACKET 40 MEQ PO ×2 (09:25→13:28)
[2020-05-26] MEDS: Rilpivirine HCL 25 MG TABLET PO (09:25)
[2020-05-26] MEDS: Sodium Bicarbonate 650 MG TABLET 1300 MG PO ×2 (09:25→13:27)
[2020-05-26] MEDS: Atovaquone 750 MG/5 ML ORAL.SUSP PO (09:25)
[2020-05-26] MEDS: Emtricitabine/Tenofov Alafenam TABLET 1 TAB PO (09:25)
[2020-05-26 09:34] LABS: Anion Gap 10 (12-20); Blood Urea Nitrogen 8 mg/dL (9-16); Calcium 7.6 mg/dL (8.4-10.2); Carbon Dioxide 23 mmol/L (22-29); Chloride 108 mmol/L (96-108); Creatinine Clr Calc Pharmacy 90.2; Estimated Glomerular Filt Rate > 60; Glucose Random 134 mg/dL (60-115); Potassium 3.1 mmol/l (3.3-5.1); Sodium 138 mmol/L (135-145)
[2020-05-26 12:00] VITALS: BP 130/64; PULSE 76; RESP 19; TEMP 36.6; O2SAT 99
[2020-05-26 12:12] LABS: Glucose, Whole Blood 172 mg/dL (60-115)
--- NOTE | 2020-05-26 14:36 | P.DS_ITS ---
DS: Providers Provider Date of admission: 05/23/20 00:14 Primary care physician: Pb Ortiz MD Consults: 05/23/20 00:18 Consult to Pulmonology Routine Consulting Provider[place] [facility] [place] Reason for consultation: lung nodule Has provider been notified: No 05/23/20 08:36 Consult to Nephrology Routine Consulting Provider: Mahin Gaytan Reason for consultation: Hyponatremia , hypokalemia , hypomagnesemia, hypercalcemia 05/23/20 13:10 Consult to Infectious Diseases Routine Consulting Provider: Marissa Mc Reason for consultation: Pneumonitis Has provider been notified: No 05/25/20 08:20 Consult to Gastroenterology Routine Consulting Provider: Mario Suarez Reason for consultation: ulcerative colitis /diarrahae , elevated lft's , pancytopenia ? ch Has provider been notified: No 05/26/20 10:20 Consult to Psychiatry Routine Consulting Provider: Fadia Murcia Reason for consultation: interference with treatment /capacity Has provider been notified: No DS: Diagnosis Discharge Diagnosis (1) Coronavirus infection: Status: Acute Problem details: May 2020 (2) Acute hypokalemia: Status: Acute Problem details: 1. HypoK: improving with replacement; d/t decrease IV vol and sec incr in lay causing urinary K wasting..freq seen in PT with liver cirrhosis as well as PT with diarrhea 2. NAGMA: NAGMA..again d/t diarrhea REC: cont to replace HCO3 po K po as needed; (3) HIV (human immunodeficiency virus infection): Problem details: He has been taking meds and is followed (4) Hypomagnesemia: DS: Medications Discharge Medications Home Medications: Home Medications Medication Instructions Recorded Confirmed Januvia 25 mg PO DAILY 04/27/20 05/23/20 Odefsey 1 tab PO DAILY 04/27/20 05/23/20 atovaquone 5 ml PO BID 04/27/20 05/22/20 famotidine 40 mg PO BEDTIME 04/27/20 05/22/20 hydroxyzine HCl 50 - 75 mg PO Q6H PRN 04/27/20 05/23/20 mesalamine 800 mg PO TID 04/27/20 05/23/20 Previous Rx's Medication Instructions Recorded hydrocodone-homatropine 5 ml PO Q6H PRN #60 ml 04/27/20 potassium chloride 10 meq PO DAILY 4 Days #4 cap 04/27/20 benzonatate 200 mg PO TID #30 cap 04/28/20 DS: Summary Hospital Course Hospital Course: 54 y/o male with an extensive PMHX who presented c/o nausea and vomiting for the past 4 days. Per history provided by the patient, since last day, has been feeling malaise , c/o nausea, having on and off episodes of vomiting, poor appetite and on and off epidoes of headaches. Patient had a covid test done on but still has no results from the test. Today presents to the Ed as the symptoms continue On presentation patient had blood work done which shows leukopenia 1.6 (patient has a hx of HIV), K of 2.2, Na of 132, Mag of 1.5, Calcium of 7.7, elevated LFT's with elevated bilirubin (hx of Hep C with cirrhosis). EKG done shows prolongation of QT. Patient was given in the ED oral KCL and IV KCL, IV mag and now IV calcium gluconate. Decision for admission given. Patient seen and examined at the bedside, laying down in bed in no acute distress. ROS as above otherwise negative. Physical exam positive for abdominal distention without tenderness on exam, rest of the exam unremarkable. PMHX: Bullous pemphigoid GERD (gastroesophageal reflux disease) Hepatic vein thrombosis Hepatitis C HIV (human immunodeficiency virus infection) Obesity (BMI 30-39.9) Perirectal abscess Renal calculi Type 2 diabetes mellitus with hyperglycemia Ulcerative colitis Hospital Course problem henson section : Patient initially admitted with question of viral bronchitis, hyponatremia and hypokalemia: Subsequently patient was have vazquez positive, seen by Pulmonary recommended supportive care not examined methadone needed patient is saturating fine on the room air, no respiratory symptoms at present. In addition electrolytes and bicarb were low: Hyponatremia may be related to his underlying liver disease which is improved, hypokalemia potassium still fluctuate today is 3.1 week- patient was seen by Nephrology and recommended to continue potassium 40 mEq daily: Monitor renal function and electrolytes with PCP and nephrology and further management outpatient. GI henson: Patient was having diarrhea? May be COVID contributing: Seen by GI and recommended to hold off lactulose for now even though the ammonia level is high and patient is having diarrhea, since yesterday diarrhea. Discussed with GI patient is to start on rifaximin and GI will decide further use of lactulose out patiently, patient is to monitor LFT with GI outpatient and further management as per Dr. Suarez outpatient. In addition patient has history of hepatitis C: Further management outpatient with GI including checking AFp and LFT. Pancytopenia, has history of HIV and hepatitis, Monitor CBC with pcp -further management as per pcp. Attempted to educate pt on importance of staying to correct electrolytes several times. Pt still requesting to leave AMA. sent prescriptions to pharmacy. Told pt about prescriptions and follow up appointments to make. Patient left against medical advise -risks of leaving against medical advise discussed with him in detial length including , he understands and still wants to leave. Above management discussed with the patient in detail length she understand and in agreement with the above plan, time spent 50 minutes and 50% time spent on counseling. Significant findings: As above. Procedures performed: None. Treatment and response: As above. Complications: None. Time Spent with Patient Time attestation: Total time spent providing and/or coordinating discharge services: Physical Exam Vital Signs: Vital Signs: Last Vital Signs Temp 98 F 05/26/20 12:00 Pulse 76 05/26/20 12:00 Resp 19 05/26/20 12:00 BP 130/64 05/26/20 12:00 Pulse Ox 99 05/26/20 12:00 Body Mass Index 29.2 Physical exam: heent: eyes anicteric , no discharge. Cvs: rrr, [id number] , no murmur res: clear to auscultation ,no rhonchii or wheezing abd: no rebound or guarding ,nt, bs present. ext pulses present , no cyanosis neuro: axo3 , nonfocal. DS: Data Data Completed and Pending Labs on day of discharge: 05/22/20 16:03 ondansetron ODT [Zofran ODT] 4 mg TRANSLINGU ONCE ONE 05/22/20 16:05 CT abdomen pelvis w con Stat 05/22/20 16:15 0.9 % Sodium Chloride [Ns] 1,000 ml IVCONT 999 mls/hr 05/22/20 17:26 ondansetron ODT [Zofran ODT] 4 mg TRANSLINGU ONCE ONE 05/22/20 17:59 Ammonia Stat Complete Blood Count Auto Diff Stat Comprehensive Met. Panel Stat Lipase Stat Liver Panel Stat Prothrombin Time INR Stat SLIDE REVIEW Stat 05/22/20 18:42 ECG 12 lead EKG Stat EKG Documentation DIRECTED 05/22/20 18:44 CT head/brain wo con Stat 05/22/20 19:13 Ethanol Stat iohexoL 350 MG/ML [Omnipaque 350 MG/ML] 100 ml IV ONCE ONE 05/22/20 19:16 Magnesium Stat 05/22/20 19:48 Add Laboratory Test Stat 05/22/20 20:49 Potassium Chloride Packet [Klor-Con Packet] 40 meq PO ONCE ONE 05/22/20 20:51 Potassium Chloride Packet [Klor-Con Packet] 40 meq PO ONCE ONE 05/22/20 20:59 COVID-19 ID NOW (Pineda) Stat 05/22/20 21:05 Magnesium Sulfate/H2O 2 gm in 50 ml IV ONCE 05/22/20 21:06 Lactulose [Chronulac] 20 gm PO ONCE ONE 05/22/20 21:15 Potassium Chloride/H20 10 meq in 100 ml IV Q1H 05/22/20 23:37 Calcium Gluconate/NaCl,Iso-Osm [Calcium Gluconate] 1 gm in 50 ml IV ONCE 05/23/20 ECG 12 lead EKG Stat 05/23/20 00:01 Transfer Order Routine 05/23/20 01:27 EKG Documentation DIRECTED 05/23/20 01:58 Flu Vacc [id number](6mos up)/PF [Fluarix Quad [id number]] 0.5 ml IM .ONCE ONE 05/23/20 04:41 EKG Documentation DIRECTED 05/23/20 05:04 Basic Metabolic Panel Routine Complete Blood Count Auto Diff Routine Hemoglobin A1c Routine Liver Panel Routine Magnesium Routine SLIDE REVIEW Routine 05/23/20 06:35 EKG Documentation DIRECTED 05/23/20 07:00 Potassium Chloride/H20 10 meq in 100 ml IV Q1H 05/23/20 07:30 Insulin Lispro [Humalog] See Protocol SUBCUT QIDACHS 05/23/20 07:57 Glucose, Whole Blood Routine 05/23/20 08:12 Magnesium Sulfate/D5W 1 gm in 100 ml IV ONCE 05/23/20 08:13 Potassium Chloride Packet [Klor-Con Packet] 40 meq PO ONCE ONE 05/23/20 08:38 Add Laboratory Test Urgent Add Laboratory Test Urgent 05/23/20 09:00 Emtricitab/Rilpiviri/Tenof Ala 1 tab PO DAILY Lactulose [Chronulac] 20 gm PO DAILY 05/23/20 10:54 Basic Metabolic Panel Routine 05/23/20 11:02 Potassium Chloride/H20 10 meq in 100 ml IV ONCE 05/23/20 11:19 Glucose, Whole Blood Routine 05/23/20 11:48 Potassium Chloride Packet [Klor-Con Packet] 40 meq PO ONCE ONE 05/23/20 17:41 Glucose, Whole Blood Routine 05/23/20 18:34 Potassium Chloride Packet [Klor-Con Packet] 20 meq PO ONCE ONE 05/23/20 20:26 Potassium Routine 05/23/20 20:28 Glucose, Whole Blood Routine 05/23/20 22:15 diphenhydrAMINE HCL [Benadryl] 25 mg IVPUSH ONCE ONE 05/24/20 01:25 Ibuprofen [Motrin] 600 mg PO ONCE ONE 05/24/20 06:01 Basic Metabolic Panel DAILY@0600 05/24/20 07:47 Glucose, Whole Blood Routine 05/24/20 11:10 Glucose, Whole Blood Routine 05/24/20 16:26 Glucose, Whole Blood Routine 05/24/20 18:45 Dextrose 5 % [D5w] 850 ml Sodium Bicarbonate 8.4% 150 meq IV 50 mls/hr 05/24/20 20:34 Glucose, Whole Blood Routine 05/25/20 01:03 diphenhydrAMINE HCL [Benadryl] 25 mg IVPUSH ONCE ONE 05/25/20 05:45 Basic Metabolic Panel DAILY@0600 Liver Panel Routine Magnesium Routine 05/25/20 07:23 Glucose, Whole Blood Routine 05/25/20 08:11 Potassium Chloride ER [Klor-con] 40 meq PO ONCE ONE 05/25/20 08:30 Add Laboratory Test Urgent 05/25/20 09:00 Potassium Chloride/H20 10 meq in 100 ml IV Q1H 05/25/20 10:53 Magnesium Sulfate/H2O 2 gm in 50 ml IV ONCE Potassium Chloride Packet [Klor-Con Packet] 40 meq PO ONCE ONE 05/25/20 11:07 Glucose, Whole Blood Routine 05/25/20 14:27 Ammonia Routine Basic Metabolic Panel Routine 05/25/20 16:24 Glucose, Whole Blood Routine 05/25/20 17:28 Dextrose 5 % [D5w] 850 ml Sodium Bicarbonate 8.4% 150 meq IV 50 mls/hr 05/25/20 20:04 Glucose, Whole Blood Routine 05/25/20 21:00 rifAXIMin [Xifaxan] 550 mg PO BID 05/26/20 07:45 Glucose, Whole Blood Routine 05/26/20 08:31 BMP [Basic Metabolic Panel] Stat 05/26/20 10:25 Potassium Chloride Packet [Klor-Con Packet] 40 meq PO ONCE ONE 05/26/20 12:05 Glucose, Whole Blood Routine Laboratory Last Values WBC 1.8 X10*3/uL (4.8-10.8) L 05/23/20 05:04 RBC 3.33 X10*6/uL (4.60-5.80) L 05/23/20 05:04 Hgb 10.3 g/dl (14.0-18.0) L 05/23/20 05:04 Hct 30.9 % (42-52) L 05/23/20 05:04 MCV 92.8 fL (80-98) 05/23/20 05:04 MCH 30.9 pg (27.0-33.0) 05/23/20 05:04 MCHC 33.3 g/dl (31.0-36.0) 05/23/20 05:04 RDW 14.9 % (11.0-16.0) 05/23/20 05:04 Plt Count 83 X10*3/uL (160-400) L 05/23/20 05:04 MPV 12.9 fL (9.4-12.4) H 05/23/20 05:04 Immature Gran % (Auto) 0.6 % (0.0-0.4) H 05/23/20 05:04 Neut % (Auto) 67.4 % (45-73) 05/23/20 05:04 Lymph % (Auto) 26.3 % (20-40) 05/23/20 05:04 [place] % (Auto) 5.7 % (2-11) 05/23/20 05:04 Eos % (Auto) 0.0 % (0-4) 05/23/20 05:04 Baso % (Auto) 0.0 % (0-2) 05/23/20 05:04 Lymph # (Auto) 0.5 X10*3/uL (1.2-4.9) L 05/23/20 05:04 [place] # (Auto) 0.1 X10*3/uL (0.1-1.2) 05/23/20 05:04 Eos # (Auto) 0.0 X10*3/uL (0.0-0.4) 05/23/20 05:04 Baso # (Auto) 0.0 X10*3/uL (0.0-0.2) 05/23/20 05:04 Abs Immat Gran (auto) 0.01 X10*3/uL (0.00-0.03) 05/23/20 05:04 Absolute Neuts (auto) 1.2 X10*3/uL (2.0-8.3) L 05/23/20 05:04 Absolute Nucleated RBC 0.000 X10*3/uL (0.0-0.012) 05/23/20 05:04 Nucleated RBC % (auto) 0.0 /100WBC (0.0-0.2) 05/23/20 05:04 Smear Tech's Comments VERIFIED 05/23/20 05:04 Smear Path Review SEE NOTE 05/22/20 17:59 PT 16.5 SEC (10.8-13.0) H 05/22/20 17:59 INR 1.4 (0.9-1.1) H 05/22/20 17:59 Sodium 138 mmol/L (135-145) 05/26/20 08:31 Potassium 3.1 mmol/l (3.3-5.1) L D 05/26/20 08:31 Chloride 108 mmol/L (96-108) 05/26/20 08:31 Carbon Dioxide 23 mmol/L (22-29) 05/26/20 08:31 Anion Gap 10 (12-20) L 05/26/20 08:31 BUN 8 mg/dL (9-16) L 05/26/20 08:31 Creatinine 0.90 mg/dL (0.5-1.4) 05/26/20 08:31 Estim Creat Clear Calc 90.2 05/26/20 08:31 Estimated GFR > 60 05/26/20 08:31 POC Glucose 172 mg/dL (60-115) H 05/26/20 12:05 Random Glucose 134 mg/dL (60-115) H 05/26/20 08:31 Estimat Average Glucose 166 mg/dL 05/23/20 05:04 Hemoglobin A1c % 7.4 % 05/23/20 05:04 Calcium 7.6 mg/dL (8.4-10.2) L 05/26/20 08:31 Magnesium 1.5 mg/dL (1.6-2.6) L 05/25/20 05:45 Total Bilirubin 2.2 mg/dL (0.0-1.0) H 05/25/20 05:45 Direct Bilirubin 1.2 mg/dL (0.0-0.5) H 05/25/20 05:45 AST 40 U/L (5-37) H 05/25/20 05:45 ALT 17 U/L (0-40) 05/25/20 05:45 Alkaline Phosphatase 105 U/L (39-117) 05/25/20 05:45 Ammonia 92 umol/L (13-55) H 05/25/20 14:27 Total Protein 9.2 g/dL (6.5-8.0) H 05/25/20 05:45 Albumin 2.5 g/dL (3.5-5.0) L 05/25/20 05:45 Lipase 34 U/L (8-78) 05/22/20 17:59 Lipase Cancelled 05/22/20 17:59 Urine Color YELLOW 05/23/20 04:53 Urine Appearance CLEAR 05/23/20 04:53 Urine pH 7.5 (5.0-8.0) 05/23/20 04:53 Ur Specific [place] 1.010 (1.005-1.025) 05/23/20 04:53 Urine Protein NEG MG/DL (NEG-TRACE) 05/23/20 04:53 Urine Glucose (UA) NEG MG/DL (NEG) 05/23/20 04:53 Urine Ketones NEG MG/DL (NEG) 05/23/20 04:53 Urine Blood 1+ (NEG) H 05/23/20 04:53 Urine Nitrite NEG (NEG) 05/23/20 04:53 Ur Leukocyte Esterase NEG (NEG) 05/23/20 04:53 Urine RBC 1-4 /HPF (0) 05/23/20 04:53 Urine WBC 0-2 /HPF (0-4) 05/23/20 04:53 Ur Squamous Epith Cells TRACE /LPF 05/23/20 04:53 Urine Bacteria NONE /LPF 05/23/20 04:53 Urine Mucus TRACE /LPF 05/22/20 19:50 Ethyl Alcohol < 10 mg/dL 05/22/20 19:13 COVID-19 ([facility]) Positive (Negative) A 05/23/20 00:06 COVID-19 Clin Com See Note 05/23/20 00:06 Discharge Plan Discharge Patient Disposition: Left Against Medical Advice Referrals: Mahin Gaytan MD [Physician] - 1 Week (Repeat renal function and electrolytes with with Nephrology outpatient.) Po,Pb Ferrer MD [Primary Care Provider] - Mario Suarez [Physician] - 1 Week (Please follow-up with Dr. Suarez outpatient in 1 week and monitor LFTs.) Discharge Medications: New rifaximin 550 mg tablet 550 mg PO BID Qty: 60 RF: 0 metronidazole [Flagyl] 500 mg tablet 500 mg PO BID Qty: 10 RF: 0 thiamine HCl (vitamin B1) 100 mg Tablet 100 mg PO DAILY Qty: 30 RF: 0 folic acid 1 mg Tablet 1 mg PO DAILY Qty: 30 RF: 0 Continued famotidine 40 mg tablet 40 mg PO BEDTIME RF: 0 hydroxyzine HCl 25 mg tablet 50 - 75 mg PO Q6H PRN (Reason: itch) RF: 0 atovaquone 750 mg/5 mL suspension 5 ml PO BID RF: 0 Januvia 25 mg tablet 25 mg PO DAILY RF: 0 mesalamine 800 mg tablet,delayed release (DR/EC) 800 mg PO TID RF: 0 Odefsey 200-25-25 mg tablet 1 tab PO DAILY RF: 0 No Action loperamide 2 mg capsule 2 mg PO Q6H PRNRF: 0 potassium chloride 20 mEq tablet,ER particles/crystals 40 meq PO DAILY Qty: 40 RF: 0 Discharge Orders: Discharge Order (Routine); Ordered 05/26/20 Ordered By: Earl Morales Diet: advance to usual diet Activity on Discharge: As tolerated Discharge Date/Time: 05/26/20 15:00 Care Plan Goals: Patient initially admitted with question of viral bronchitis, hyponatremia and hypokalemia: Subsequently patient was have vazquez positive, seen by Pulmonary recommended supportive care not examined methadone needed patient is saturating fine on the room air, no respiratory symptoms at present. In addition electrolytes and bicarb were low: Hyponatremia may be related to his underlying liver disease which is improved, hypokalemia potassium still fluctuate today is 3.1 week- patient was seen by Nephrology and recommended to continue potassium 40 mEq daily: Monitor renal function and electrolytes with PCP and nephrology and further management outpatient. GI henson: Patient was having diarrhea? May be COVID contributing: Seen by GI and recommended to hold off lactulose for now even though the ammonia level is high and patient is having diarrhea, since yesterday diarrhea. Discussed with GI patient is to start on rifaximin and GI will decide further use of lactulose out patiently, patient is to monitor LFT with GI outpatient and further management as per Dr. Suarez outpatient. In addition patient has history of hepatitis C: Further management outpatient with GI including checking AFp and LFT. Health Concerns: As above. Plan of Treatment: As above.
[2020-05-26 14:42] LABS: CDIFF Ag Positive (Negative); CDIFF Internal ctrl Dots and bkg OK (V); CDiff Toxin Negative (Negative)
--- NOTE | 2020-05-26 14:52 | MHC.CM.PN ---
Patient left AMA
[2020-05-26] MEDS: metroNIDAZOLE 500 MG TABLET PO (15:35)
[2020-05-26 15:41] LABS: CDiff Gene PCR NEGATIVE (Negative)
--- NOTE | 2020-05-26 18:10 | PC.NURSE ---
Pt requesting to leave AMA in front of this RN and MD that if he wasnt being discharged that he was leaving AMA. requested pt wait to see o and m supervisor before signing paper. Psych spoke with pt to make sure he was competent to make these decisions. Psych cleared pt. Attempted to educate pt on importance of staying to correct electrolytes several times. Pt still requesting to leave AMA. sent prescriptions to pharmacy. Told pt about prescriptions and follow up appointments to make. REmoved IV and Tele pack.
[2020-05-27 09:43] LABS: Leukocytes Stool Qualitative NEGATIVE (NEGATIVE)
== END 2020-05-26 15:00 | disposition left against medical advice (07) | DRG 137 ==
LOC: HO.ED 21:43 → HO.IMC 05-23 00:51
PROVIDERS: Internal Medicine; Physician Assistant Medical; Admitting Provider Internal Medicine; Emergency Provider Internal Medicine; PCP Internal Medicine; Visit Provider Internal Medicine
DX: U07.1 COVID-19 (principal); D61.818 Other pancytopenia; E87.1 Hypo-osmolality and hyponatremia; E11.65 Type 2 diabetes mellitus with hyperglycemia; E83.42 Hypomagnesemia; B19.20 Unspecified viral hepatitis C without hepatic coma; E87.6 Hypokalemia; K21.9 Gastro-esophageal reflux disease without esophagitis; E86.0 Dehydration; Z21 Asymptomatic human immunodeficiency virus [HIV] infection status; R91.1 Solitary pulmonary nodule; Z87.442 Personal history of urinary calculi; Z88.2 Allergy status to sulfonamides; Z88.6 Allergy status to analgesic agent; Z79.899 Other long term (current) drug therapy
CPT/HCPCS: 36415; 70450; 74177; 80048; 80053; 80076; 80320; 81001; 82140; 82947; 83036; 83690; 83735; 84132; 85025; 85060; 85610; 87045; 87046; 87324; 87449; 87493; 87635; 89055; 93005; 96361; 96365; 96366; 96375; 99225; 99285; J0610; J1200; J3475; Q9967

== ENCOUNTER 2020-05-31 10:12 | Outpatient (REF) | payer OTHER, SELFPAY ==
[2020-05-31 11:11] LABS: Hematocrit 32.4 % (42-52); Hemoglobin 10.6 g/dl (14.0-18.0); Immature Retic Fraction 12.4 % (2.3-13.4); Lymphocytes Absolute Auto 0.3 X10*3/uL (1.2-4.9); MANUAL DIFF FLAG SCAN; Mean Corpuscular HGB Conc 32.7 g/dl (31.0-36.0); Mean Corpuscular Hemoglobin 31.4 pg (27.0-33.0); Mean Corpuscular Volume 95.9 fL (80-98); Mean Platelet Volume 12.7 fL (9.4-12.4); Monocytes Absolute Auto 0.2 X10*3/uL (0.1-1.2); Monocytes Percent Auto 6.4 % (2-11); Neutrophils Absolute Auto 1.9 X10*3/uL (2.0-8.3); Neutrophils Percent Auto 81.6 % (45-73); Red Blood Count 3.38 X10*6/uL (4.60-5.80); Red Cell Distribution Width 15.2 % (11.0-16.0); Retic HGB Equivalent 33.7 pg (30.0-35.0); Reticulocytes Absolute 0.068 X10*6/uL (0.026-0.095); SCAN SMEAR FLAG 1
[2020-05-31 11:14] LABS: Platelet Count 42 X10*3/uL (160-400); White Blood Count 2.3 X10*3/uL (4.8-10.8)
[2020-05-31 11:43] LABS: Alanine Aminotransferase 18 U/L (0-40); Albumin Level 2.7 g/dL (3.5-5.0); Alkaline Phosphatase 106 U/L (39-117); Anion Gap 8 (12-20); Aspartate Amino Transferase 50 U/L (5-37); Bilirubin Total 1.7 mg/dL (0.0-1.0); Blood Urea Nitrogen 6 mg/dL (9-16); Calcium 7.7 mg/dL (8.4-10.2); Carbon Dioxide 20 mmol/L (22-29); Chloride 105 mmol/L (96-108); Estimated Glomerular Filt Rate > 60; Glucose Random 201 mg/dL (60-115); Iron 86 mcg/dL (45-160); Magnesium 1.6 mg/dL (1.6-2.6); Percent Iron Saturation 41 % (15-50); Potassium 3.9 mmol/l (3.3-5.1); Sodium 129 mmol/L (135-145); Total Iron Binding Capacity 210 mcg/dL (228-428); Unsaturated Iron Binding 124 ug/dL
[2020-05-31 11:58] LABS: Ferritin 282 ng/mL (20-250); Thyroid Stimulating Hormone 1.88 uIU/mL (0.32-4.0)
[2020-05-31 11:59] LABS: SLIDE REVIEW VERIFIED
[2020-05-31 12:17] LABS: Folate > 20.0 ng/mL (> or = 4.0); Vitamin B12 1114 pg/mL (200-900)
== END 2020-05-31 10:13 | disposition home or self-care (01) ==
LOC: HO.LAB 10:12
PROVIDERS: PCP Internal Medicine; Visit Provider Internal Medicine
DX: D64.9 Anemia, unspecified (principal); E87.6 Hypokalemia
CPT/HCPCS: 36415; 80053; 82607; 82728; 82746; 83540; 83735; 84443; 85025; 85045

== ENCOUNTER 2020-06-20 10:16 | Outpatient (REF) | payer SELFPAY ==
--- NOTE | 2020-06-20 10:56 | MHC.AU.P13 ---
Hearing Aid Evaluation- Binaural Date of Visit: 06/20/20 Description of Hearing: Moderate to moderately severe sensorineural hearing loss bilaterally. Summary: Mr. Cadet was seen today to further discuss hearing aid options. 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 He decided he would like to go with carpentry instructor technology and rechargeable TILA hearing aids. Mr. Cadet is eligible for the 25% employee discount, as his is an employee here and he is on her insurance. Quoted $2925.00 total, with $1462.50 due at fitting. Hearing Instrument Selection: Right Ear: Shearing Supervisor: Phonak Model: Audeo P50-R Battery Size: Rechargeable Color: P5 Head Waiter/Waitress: Size 1 M Left Ear: Shearing Supervisor: Phonak Model: Audeo P50-R Battery Size: Rechargeable Color: P5 Head Waiter/Waitress:Size 1 M Recommendations: Hearing aid fitting will be scheduled when all materials arrive. Medical clearance requested electronically from Dr. Ortiz Signature: Provider: Annetta Reese, [facility]
--- NOTE | 2020-06-20 10:59 | MHC.AU.MED ---
Medical Clearance for Hearing Instrumentation Date: 06/20/20 Patient Name: Phillip Cadet Date of : 1965 Dear Pb Ortiz MD, We have seen your patient on 06/20/20 and have determined that they are a candidate for amplification (See accompanying report). Specifically, they would benefit from: Hearing aid use in both ears There is a statute that addresses Medical Evaluation Requirements prior to fitting a patient with a hearing aid. According to [place] statute 265 CMR:6.03(1), (a) General. Except as provided in 265 CMR 6.03(1)(b), a green building energy engineer shall not sell a hearing aid unless the prospective user has presented to the green building energy engineer a written statement signed by a licensed physician that states that the patient's hearing loss has been medically evaluated and the patient may be considered a candidate for a hearing aid. The medical evaluation must have taken place within the preceding six months. Please note: Due to the [place] Statute referenced above, we cannot accept a signature other than that of a licensed physician. GIZZARD PEELER and PA signatures cannot be accepted. I am in agreement with the above recommendation. There is no medical contraindication for hearing instrumentation. Physician Signature Date Physician Name (Printed)
== END 2020-06-20 10:17 | disposition home or self-care (01) ==
LOC: HO.HAP 10:16
PROVIDERS: PCP Internal Medicine; Referring Provider Internal Medicine; Visit Provider Internal Medicine
DX: Z13.89 Encounter for screening for other disorder (principal)

== ENCOUNTER 2020-06-28 11:23 | Outpatient (REF) | payer OTHER, SELFPAY ==
[2020-06-28 12:44] LABS: Hemoglobin 9.5 g/dl (14.0-18.0); Mean Corpuscular HGB Conc 33.9 g/dl (31.0-36.0); Mean Corpuscular Hemoglobin 32.1 pg (27.0-33.0); Mean Corpuscular Volume 94.6 fL (80-98); Mean Platelet Volume 12.9 fL (9.4-12.4); Red Blood Count 2.96 X10*6/uL (4.60-5.80); White Blood Count 2.6 X10*3/uL (4.8-10.8)
[2020-06-28 12:51] LABS: Platelet Count 89 X10*3/uL (160-400)
[2020-06-28 13:17] LABS: Creatinine Urine 110.04 mg/dL; Microalbum/Creatinine Ratio Ur 4.5 ug/mg cr
[2020-06-28 13:21] LABS: Anion Gap 6 (12-20); Carbon Dioxide 21 mmol/L (22-29); Chloride 110 mmol/L (96-108); Cholesterol 98 mg/dL; Estimated Glomerular Filt Rate > 60; HDL Cholesterol 22 mg/dL; LDL Cholesterol Calculated 67 mg/dl; Potassium 3.2 mmol/l (3.3-5.1); Sodium 134 mmol/L (135-145); Triglycerides 48 mg/dL
[2020-06-28 13:27] LABS: Thyroid Stimulating Hormone 2.34 uIU/mL (0.32-4.0)
== END 2020-06-28 11:24 | disposition home or self-care (01) ==
LOC: HO.LAB 11:23
PROVIDERS: PCP Internal Medicine; Visit Provider Internal Medicine
DX: E11.9 Type 2 diabetes mellitus without complications (principal)
CPT/HCPCS: 36415; 80051; 80061; 82043; 82565; 84443; 85027

== ENCOUNTER 2020-06-29 09:20 | Outpatient (REF) | payer SELFPAY | END 2020-06-29 09:21 | disposition home or self-care (01) | LOC: HO.HAP 09:20 | PROVIDERS: Visit Provider Internal Medicine | DX: Z46.1 Encounter for fitting and adjustment of hearing aid (principal) | CPT/HCPCS: V5261; V5299 ==

== ENCOUNTER 2020-07-14 11:11 | Outpatient (REF) | payer SELFPAY | END 2020-07-14 11:12 | disposition home or self-care (01) | LOC: HO.HAP 11:11 | PROVIDERS: Visit Provider Internal Medicine | DX: Z13.89 Encounter for screening for other disorder (principal) ==

== ENCOUNTER 2020-08-03 14:49 | Outpatient (REF) | payer SELFPAY | END 2020-08-03 14:50 | disposition home or self-care (01) | LOC: HO.HAP 14:49 | PROVIDERS: Visit Provider Internal Medicine | DX: Z13.89 Encounter for screening for other disorder (principal) ==

== ENCOUNTER 2020-08-04 10:14 | Outpatient (REF) | payer OTHER, SELFPAY ==
[2020-08-04 11:50] LABS: Blood Urea Nitrogen 7 mg/dL (9-16); Estimated Glomerular Filt Rate > 60
[2020-08-04 11:58] LABS: Anion Gap 9 (12-20); Calcium 7.4 mg/dL (8.4-10.2); Carbon Dioxide 19 mmol/L (22-29); Chloride 109 mmol/L (96-108); Potassium 2.8 mmol/l (3.3-5.1); Sodium 134 mmol/L (135-145)
== END 2020-08-04 10:15 | disposition home or self-care (01) ==
LOC: HO.LAB 10:14
PROVIDERS: Absent Provider Internal Medicine; PCP Internal Medicine; Visit Provider Internal Medicine Hypertension Specialist
DX: E87.1 Hypo-osmolality and hyponatremia (principal); E87.6 Hypokalemia
CPT/HCPCS: 36415; 80051; 82310; 82565; 84520

== ENCOUNTER 2020-08-17 14:42 | Outpatient (REF) | payer OTHER, SELFPAY ==
[2020-08-17 15:13] LABS: Basophils Percent Auto 1.1 % (0-2); Hematocrit 28.7 % (42-52); Hemoglobin 9.5 g/dl (14.0-18.0); Imm Gran Abs Auto 0.02 X10*3/uL (0.00-0.03); Imm Gran Pct Auto 1.1 % (0.0-0.4); Lymphocytes Absolute Auto 0.4 X10*3/uL (1.2-4.9); Lymphocytes Percent Auto 20.6 % (20-40); MANUAL DIFF FLAG SCAN; Mean Corpuscular HGB Conc 33.1 g/dl (31.0-36.0); Mean Corpuscular Hemoglobin 32.1 pg (27.0-33.0); Mean Platelet Volume 11.2 fL (9.4-12.4); Monocytes Absolute Auto 0.2 X10*3/uL (0.1-1.2); Monocytes Percent Auto 11.7 % (2-11); Neutrophils Absolute Auto 1.2 X10*3/uL (2.0-8.3); Neutrophils Percent Auto 65.5 % (45-73); Platelet Count 100 X10*3/uL (160-400); Red Blood Count 2.96 X10*6/uL (4.60-5.80); Red Cell Distribution Width 15.6 % (11.0-16.0); SCAN SMEAR FLAG 1
[2020-08-17 15:14] LABS: White Blood Count 1.8 X10*3/uL (4.8-10.8)
[2020-08-17 15:46] LABS: SLIDE REVIEW VERIFIED
[2020-08-17 16:00] LABS: Creatinine Urine 57.34 mg/dL; Protein/Creatinine Ratio, Ur 0.31 (<0.2); Total Protein Urine Random 18 mg/dL (<12)
[2020-08-17 16:06] LABS: Albumin Level 2.6 g/dL (3.5-5.0); Anion Gap 7 (12-20); Blood Urea Nitrogen 8 mg/dL (9-16); Calcium 7.7 mg/dL (8.4-10.2); Carbon Dioxide 21 mmol/L (22-29); Chloride 108 mmol/L (96-108); Estimated Glomerular Filt Rate > 60; Glucose Random 233 mg/dL (60-115); Magnesium 1.9 mg/dL (1.6-2.6); Phosphorus 2.6 mg/dL (2.7-4.5); Potassium 4.3 mmol/L (3.3-5.1); Sodium 132 mmol/L (135-145)
[2020-08-18 10:02] LABS: Calcium (PTHI) 8.1 mg/dL (8.6-10.3); PTHI 33 pg/mL (14-64)
== END 2020-08-17 14:43 | disposition home or self-care (01) ==
LOC: HO.LAB 14:42
PROVIDERS: Absent Provider Internal Medicine; PCP Internal Medicine; Referring Provider Internal Medicine; Visit Provider Internal Medicine Hypertension Specialist
DX: E87.1 Hypo-osmolality and hyponatremia (principal); E87.6 Hypokalemia
CPT/HCPCS: 36415; 80048; 82040; 83735; 83970; 84100; 84156; 85025

== ENCOUNTER 2020-08-22 08:52 | Outpatient (REF) | payer OTHER, SELFPAY ==
--- NOTE | ~2020-08-22 | US_ITS ---
EXAMINATION: US ABDOMEN COMPLETE CLINICAL INFORMATION: Cirrhosis. COMPARISON: Ultrasound limited abdomen 04/17/2019 and 02/03/2019. X-ray KUB 09/10/2018 and 10/30/2017. TECHNIQUE: Real-time imaging of the abdominal viscera. FINDINGS: PANCREAS: The head and body the pancreas are normal. The tail is not well visualized. ABDOMINAL AORTA: The proximal, mid, and distal segments are normal in caliber. INFERIOR VENA CAVA: Visualized portions are normal. LIVER: The liver is cirrhotic appearing. No focal liver lesion is seen. There is no intra or extrahepatic biliary duct dilatation. GALLBLADDER: Normal. The gallbladder is physiologically distended without evidence of stones, sludge, polyps, wall thickening or pericholecystic fluid. COMMON BILE DUCT: Normal in caliber measuring 0.5 cm in diameter. RIGHT KIDNEY: There are multiple stones, largest measuring 5 x 7 mm in the lower pole. There is mild right hydronephrosis. No parenchymal lesions. The kidney measures 10.9 cm in maximum dimension. LEFT KIDNEY: There are multiple stones, largest measuring 5 mm in the lower pole. No hydronephrosis. No renal calculi or focal parenchymal lesions. The kidney measures 11.9 cm in maximum dimension. SPLEEN: The spleen is enlarged The spleen measures 17.0 cm in maximum dimension. FREE FLUID: None. US/US abdomen complete IMPRESSION: Cirrhotic-appearing liver. No focal liver lesion seen. Enlarged spleen. No ascites. Multiple bilateral renal stones.
--- NOTE | ~2020-08-22 | US_ITS ---
EXAMINATION: ABDOMINAL DOPPLER EXAM CLINICAL INFORMATION: Cirrhosis COMPARISON: Previous CT of the abdomen and pelvis most recent May 2020 TECHNIQUE: Doppler, color and grayscale evaluation of the portal veins, hepatic arteries, hepatic veins and IVC. FINDINGS: The extrahepatic, main, right and left portal veins are patent with appropriate hepatopedal flow. The main hepatic artery is patent and has a normal peak systolic velocity of 53 cm/s. The right and left hepatic arteries are not seen. The middle, right and left hepatic veins are patent and demonstrate normal waveforms. The IVC is patent and demonstrates normal waveform. The splenic vein is patent and demonstrates hepatopedal flow. US/US duplex arterial venous comp IMPRESSION: Normal abdominal Doppler exam.
== END 2020-08-22 08:53 | disposition home or self-care (01) ==
LOC: HO.US 08:52
PROVIDERS: Visit Provider Internal Medicine
DX: K74.69 Other cirrhosis of liver (principal)
CPT/HCPCS: 76700; 93975

== ENCOUNTER 2020-09-02 07:29 | Outpatient (REF) | payer OTHER, SELFPAY ==
[2020-09-02 08:34] LABS: Basophils Percent Auto 0.5 % (0-2); Hematocrit 28.2 % (42-52); Hemoglobin 9.4 g/dl (14.0-18.0); Imm Gran Abs Auto 0.01 X10*3/uL (0.00-0.03); Imm Gran Pct Auto 0.5 % (0.0-0.4); Immature Retic Fraction 8.3 % (2.3-13.4); Lymphocytes Absolute Auto 0.3 X10*3/uL (1.2-4.9); Lymphocytes Percent Auto 14.9 % (20-40); MANUAL DIFF FLAG SCAN; Mean Corpuscular HGB Conc 33.3 g/dl (31.0-36.0); Mean Corpuscular Hemoglobin 31.6 pg (27.0-33.0); Mean Corpuscular Volume 94.9 fL (80-98); Mean Platelet Volume 11.7 fL (9.4-12.4); Monocytes Absolute Auto 0.2 X10*3/uL (0.1-1.2); Monocytes Percent Auto 9.5 % (2-11); Neutrophils Absolute Auto 1.7 X10*3/uL (2.0-8.3); Neutrophils Percent Auto 74.6 % (45-73); PLT CLUMP 1; Red Blood Count 2.97 X10*6/uL (4.60-5.80); Red Cell Distribution Width 14.1 % (11.0-16.0); Retic HGB Equivalent 33.4 pg (30.0-35.0); Reticulocytes Absolute 0.088 X10*6/uL (0.026-0.095); SCAN SMEAR FLAG 1
[2020-09-02 08:41] LABS: Estimated Average Glucose 120 mg/dL; Hemoglobin A1c % 5.8 %
[2020-09-02 08:55] LABS: Creatinine Urine 66.11 mg/dL; Microalbumin Urine < 5.0 mg/L
[2020-09-02 08:57] LABS: Alanine Aminotransferase 17 U/L (0-40); Albumin Level 2.6 g/dL (3.5-5.0); Alkaline Phosphatase 109 U/L (39-117); Anion Gap 8 (12-20); Aspartate Amino Transferase 30 U/L (5-37); Bilirubin Total 1.8 mg/dL (0.0-1.0); Blood Urea Nitrogen 10 mg/dL (9-16); Calcium 7.6 mg/dL (8.4-10.2); Carbon Dioxide 21 mmol/L (22-29); Chloride 110 mmol/L (96-108); Cholesterol 93 mg/dL; Estimated Glomerular Filt Rate > 60; Glucose Random 153 mg/dL (60-115); HDL Cholesterol 24 mg/dL; Iron 84 mcg/dL (45-160); LDL Cholesterol Calculated 60 mg/dl; Percent Iron Saturation 35 % (15-50); Sodium 135 mmol/L (135-145); Total Iron Binding Capacity 237 mcg/dL (228-428); Total Protein 9.4 g/dL (6.5-8.0); Triglycerides 46 mg/dL; Unsaturated Iron Binding 153 ug/dL
[2020-09-02 09:01] LABS: White Blood Count 2.2 X10*3/uL (4.8-10.8)
[2020-09-02 09:02] LABS: Platelet Count 75 X10*3/uL (160-400)
[2020-09-02 09:03] LABS: SLIDE REVIEW VERIFIED
[2020-09-02 09:18] LABS: Ferritin 107 ng/mL (20-250); Free T4 (Free Thyroxine) 0.86 ng/dL (0.71-1.85); Prostate Specific Antigen Scr 0.69 ng/mL (<0.05-4.0); Thyroid Stimulating Hormone 2.38 uIU/mL (0.32-4.0)
[2020-09-02 09:55] LABS: Folate 10.2 ng/mL (> or = 4.0); Vitamin B12 1408 pg/mL (200-900)
== END 2020-09-02 07:30 | disposition home or self-care (01) ==
LOC: HO.LAB 07:29
PROVIDERS: PCP Internal Medicine; Visit Provider Internal Medicine
DX: D64.9 Anemia, unspecified (principal); E87.6 Hypokalemia; K51.90 Ulcerative colitis, unspecified, without complications; E11.65 Type 2 diabetes mellitus with hyperglycemia; K74.60 Unspecified cirrhosis of liver; E78.00 Pure hypercholesterolemia, unspecified
CPT/HCPCS: 36415; 80053; 80061; 82043; 82607; 82728; 82746; 83036; 83540; 84153; 84439; 84443; 85025; 85045

== ENCOUNTER 2020-09-16 08:02 | Outpatient (REF) | payer OTHER, SELFPAY ==
--- NOTE | ~2020-09-16 | CT_ITS ---
EXAMINATION: CT CHEST WITH CONTRAST CLINICAL INFORMATION: Solitary pulmonary nodule. COMPARISON: CT abdomen and pelvis 05/22/2020 TECHNIQUE: Multidetector volumetric CT imaging of the chest was obtained after the administration of 50 mL of Omnipaque 350 intravenous contrast without immediate adverse reactions. Axial MIP volume rendering provided. Sagittal and coronal reformatted images were obtained. This CT examination was performed using dose optimization techniques as appropriate, variously including the following: *Automated exposure control *Adjustment of mA and/or kV according to patient size (this includes techniques or standardized protocols for targeted exams where dose is matched to indication/reason for exam; i.e. extremities or head) *Use of iterative reconstruction technique DLP: 150 mGy-cm FINDINGS: ADULT PAROLE OFFICER: Unremarkable. LUNGS: The lungs are well expanded and clear of acute pneumonic process. Previously seen left lower lobe ground-glass density has significantly improved with some residual changes of minimal atelectasis seen. There are no pulmonary nodules, mass or consolidation. MEDIASTINUM: The thyroid lobes are symmetrical and normal. The central trachea and the bronchi are widely patent. The heart size and great vessels are normal caliber. No abnormal mediastinal or hilar lymph nodes seen. There is no pericardial effusion. PLEURA: There is no pleural effusion. No pleural mass or thickening. AXILLA: There are small shotty lymph nodes in the axilla. The anterior upper chest wall is slightly asymmetric on axial view but no focal mass seen. UPPER ABDOMEN: Diffusely lobulated hypodense liver visualized consistent with cirrhosis. There is trace ascites. There is mild splenomegaly. OSSEOUS STRUCTURES: No lytic or sclerotic process seen. CT/CT chest w con IMPRESSION: Resolved left lower lobe ground-glass density with some residual atelectatic changes noted. Otherwise CT chest with contrast appears unremarkable.
[2020-09-16] MEDS: iohexoL 350 MG/ML 100 ML INFUS..BTL IV (09:43)
== END 2020-09-16 08:03 | disposition home or self-care (01) ==
LOC: HO.CT 08:02
PROVIDERS: Visit Provider Internal Medicine
DX: R91.1 Solitary pulmonary nodule (principal)
CPT/HCPCS: 71260; Q9967

== ENCOUNTER → 2020-10-06 14:42 | Outpatient (BNVA) | payer OTHER, SELFPAY | PROVIDERS: PCP Internal Medicine; Visit Provider Urology ==

== ENCOUNTER 2020-10-17 09:59 | Day surgery (SDC) | payer OTHER, SELFPAY ==
--- NOTE | 2020-10-13 14:50 | P.CONAN_ITS ---
Documented by User: Kristin Ange 10/13/20 14:55 HPI - Anesthesia Eval Consult details Narrative: 55yo M for Left Cystoscopy, Ureteroroscopy, Retro, Laser PMFSH Active Problems Active Problems: All Active Problems (Updated 09/01/20 @ 15:04 by Pb Ortiz MD) Pulmonary nodule (Acute) Renal calculi (Acute) Cirrhosis (Acute) Type 2 diabetes mellitus with hyperglycemia (Acute) Ulcerative colitis (Acute) C. difficile diarrhea (Acute) Anemia (Acute) Hypokalemia (Acute) Coronavirus infection (Acute) Obesity (BMI 30-39.9) (Acute) Past Medical History Medical History Bullous pemphigoid COVID-19 in immunocompromised patient GERD (gastroesophageal reflux disease) Hepatic vein thrombosis Hepatitis C HIV (human immunodeficiency virus infection) Hypocalcemia Hypomagnesemia Lichen simplex chronicus Lung nodule Obesity (BMI 30-39.9) Pancytopenia Perirectal abscess Renal calculi Type 2 diabetes mellitus with hyperglycemia Ulcerative colitis Family History Family History Father Stroke Mother Diabetes Hypertension CVD (cardiovascular disease) Sister Family history of cervical cancer Surgical History Surgical History Anal fistula History of lithotripsy History of rectal abscess History of removal of ureteral stent History of umbilical hernia repair Social History Social History Household Members: Children Housing: House Alcohol intake: former Smoking Status: Never smoker Use of substances other than those prescribed or required for medical reasons: No Advance Directives: No Advance Directives Information Provided: Yes service: No Current occupational status: employed Meds Allergies Allergy/AdvReac Type Severity Reaction Status Date / Time acetaminophen [Acetaminophen] Allergy Severe LIVER Verified 04/15/20 12:40 TOXICITY - CANNOT TAKE ACETAMINOPHEN Sulfa (Sulfonamide Allergy Intermediate RASH Verified 04/15/20 12:40 Antibiotics) [SULFA (SULFONAMIDE ANTIBIOTICS)] amoxicillin [Augmentin] Allergy Unknown mouth sores Verified 04/15/20 12:40 clavulanic acid [Augmentin] Allergy Unknown mouth sores Verified 04/15/20 12:40 ibuprofen [IBUPROFEN] AdvReac Intermediate BLEEDING Verified 04/15/20 12:40 Home Medications Medication Instructions Recorded Confirmed Last Taken Type Odefsey 1 tab PO DAILY 04/27/20 09/01/20 Unknown History atovaquone 5 ml PO BID 04/27/20 09/01/20 Unknown History famotidine 40 mg PO BEDTIME 04/27/20 09/01/20 Unknown History mesalamine 800 mg PO TID 04/27/20 09/01/20 Unknown History sitagliptin 50 mg tablet 50 mg PO DAILY 08/26/20 09/01/20 Unknown History hydroxyzine HCl 25 mg tablet 25 mg PO Q6-8H PRN tab 09/01/20 09/01/20 Unknown History blood sugar diagnostic #10 ea 10/06/20 Unknown History hydrocortisone 1 % topical cream appl TOPICAL BID 10/06/20 Unknown History sitagliptin 25 mg tablet 25 mg PO DAILY 10/06/20 Unknown History Exam Exam Date and Time: October 13, 2020 1450 Pertinent Lab Results Pertinent Lab Results: Laboratory Tests 09/02/20 09/02/20 07:45 07:45 WBC 2.2 L Hgb 9.4 L Hct 28.2 L Plt Count 75 L Sodium 135 Potassium 4.0 Chloride 110 H BUN 10 Creatinine 0.89 Laboratory Tests 09/02/20 07:45 Total Bilirubin 1.8 H AST 30 ALT 17 Alkaline Phosphatase 109 Total Protein 9.4 H Albumin 2.6 L Narrative Narrative: EKG 05/2020 Vent. Rate : 070 BPM Atrial Rate : 070 BPM P-R Int : 174 ms QRS Dur : 090 ms QT Int : 496 ms P-R-T Axes : 057 012 017 degrees QTc Int : 535 ms Sinus rhythm with occasional Premature ventricular complexes Prolonged QT Nonspecific T wave abnormality Abnormal ECG Premature ventricular complexes are new T wave amplitude has increased in Lateral leads Assessment and Plan Assessment Anesthesia Assessment: Chart Reviewed Documented by User: Leeanna Ulloa 10/17/20 14:32 [facility] Past Medical History Medical History Bullous pemphigoid COVID-19 in immunocompromised patient GERD (gastroesophageal reflux disease) Hepatic vein thrombosis Hepatitis C HIV (human immunodeficiency virus infection) Hypocalcemia Hypomagnesemia Lichen simplex chronicus Lung nodule Obesity (BMI 30-39.9) Pancytopenia Perirectal abscess Renal calculi Type 2 diabetes mellitus with hyperglycemia Ulcerative colitis Family History Family History Father Stroke Mother Diabetes Hypertension CVD (cardiovascular disease) Sister Family history of cervical cancer Surgical History Surgical History Anal fistula History of lithotripsy History of rectal abscess History of removal of ureteral stent History of umbilical hernia repair Social History Social History Household Members: Children Housing: House Alcohol intake: former Smoking Status: Never smoker Use of substances other than those prescribed or required for medical reasons: No Advance Directives: No Advance Directives Information Provided: Yes service: No Current occupational status: employed Meds Allergies Allergy/AdvReac Type Severity Reaction Status Date / Time acetaminophen [Acetaminophen] Allergy Severe LIVER Verified 04/15/20 12:40 TOXICITY - CANNOT TAKE ACETAMINOPHEN Sulfa (Sulfonamide Allergy Intermediate RASH Verified 04/15/20 12:40 Antibiotics) [SULFA (SULFONAMIDE ANTIBIOTICS)] amoxicillin [Augmentin] Allergy Unknown mouth sores Verified 04/15/20 12:40 clavulanic acid [Augmentin] Allergy Unknown mouth sores Verified 04/15/20 12:40 ibuprofen [IBUPROFEN] AdvReac Intermediate BLEEDING Verified 04/15/20 12:40 Home Medications Medication Instructions Recorded Confirmed Last Taken Type Odefsey 1 tab PO DAILY 04/27/20 09/01/20 Unknown History atovaquone 5 ml PO BID 04/27/20 09/01/20 Unknown History famotidine 40 mg PO BEDTIME 04/27/20 09/01/20 Unknown History mesalamine 800 mg PO TID 04/27/20 09/01/20 Unknown History sitagliptin 50 mg tablet 50 mg PO DAILY 08/26/20 09/01/20 Unknown History hydroxyzine HCl 25 mg tablet 25 mg PO Q6-8H PRN tab 09/01/20 09/01/20 Unknown History blood sugar diagnostic #10 ea 10/06/20 Unknown History hydrocortisone 1 % topical cream appl TOPICAL BID 10/06/20 Unknown History sitagliptin 25 mg tablet 25 mg PO DAILY 10/06/20 Unknown History Exam Airway Mallampati Class: II (Missing top left tooth) TM Dist: >3cm Neck ROM: Full Heart: RRr Lungs: CtA BL Assessment and Plan Assessment Anesthesia Assessment: Anesthesia Plan Discussed and Chart Reviewed Final Anesthetic Review NPO: Yes ASA Class: III Final Preanesthetic Review: No Changes in Pt Med Stat and Consent Obtained/Reviewed Patient Risk: Intermediate Procedure Risk: Intermediate Anesthetic Plan Anesthetic Plan: GA Disposition: Standard PACU
--- NOTE | 2020-10-17 | ECG_ITS ---
Test Reason : PREOP Blood Pressure : / mmHG Vent. Rate : 074 BPM Atrial Rate : 074 BPM P-R Int : 160 ms QRS Dur : 090 ms QT Int : 438 ms P-R-T Axes : 006 018 019 degrees QTc Int : 486 ms Normal sinus rhythm with sinus arrhythmia Prolonged QT Abnormal ECG When compared with ECG of 23-MAY-2020 04:59, Premature ventricular complexes are no longer Present QT has shortened Referred By: Kristin Cassidy Electronically Signed By:SWATHI HOANG
[2020-10-17 12:17] VITALS: BP 121/62; PULSE 81; RESP 16; TEMP 36.7; O2SAT 100; BMI 32.3
[2020-10-17 12:26] LABS: Glucose, Whole Blood 100 mg/dL (60-115)
[2020-10-17] MEDS: Lactated Ringers 1,000 ML 50 ML IV (13:00)
[2020-10-17] MEDS: levoFLOXacin 500 MG TABLET PO (15:25)
--- NOTE | 2020-10-17 15:31 | MHC.SHP ---
Pre-Procedural Eval Section A The patient is an INPATIENT: No Changes since office visit: No Cold of Flu in the past 2 weeks, No New Medical Problems, No Changes in Medication and No Patient answered all questions The History & Physical has been completed within 30 days and I have reviewed it.: Yes Section B Chief Complaint: Calculus of Kidney Allergies: Allergies Allergy/AdvReac Type Severity Reaction Status Date / Time acetaminophen [Acetaminophen] Allergy Severe LIVER Verified 04/15/20 12:40 TOXICITY - CANNOT TAKE ACETAMINOPHEN Sulfa (Sulfonamide Allergy Intermediate RASH Verified 04/15/20 12:40 Antibiotics) [SULFA (SULFONAMIDE ANTIBIOTICS)] amoxicillin [Augmentin] Allergy Unknown mouth sores Verified 04/15/20 12:40 clavulanic acid [Augmentin] Allergy Unknown mouth sores Verified 04/15/20 12:40 ibuprofen [IBUPROFEN] AdvReac Intermediate BLEEDING Verified 04/15/20 12:40 Plan Diagnosis/Plan: Unchanged (Left flexible ureteroscopy laser lithotripsy stent placement) I have reviewed the history and physical and performed a pertinent physical examination on my patient. No changes have occurred unless specified.
--- NOTE | 2020-10-17 16:36 | W.PM.OPN ---
Operative Note Operative Note Date of Service: 10/17/20 Narrative: PreOperative Diagnosis: Left renal stone Post Operative Diagnosis: Left renal stones - multiple calices Procedure: - cystoscopy, retrograde - dilatation of ureteric orifice under fluoroscopy - left ureteroscopy, laser lithotripsy of stones in multiple calices, stone basketing - left stent placement Surgeon: Dr Isrrael Byrne Anesthesia: General Indications for procedure: This is a 55-year-old male. Presents with bilateral nephrolithiasis. Left is more painful than right. Imaging shows multiple stones within the left renal pelvis with stones in multiple calices. Due to the multi local nature of his disease recommendation for ureteroscopy laser lithotripsy and stone basketing. Procedure: After informed consent was verified patient was brought to the operating placed in supine position. Anesthesia was administered per protocol. Patient was placed in modified dorsal lithotomy position and prepped and draped in a sterile fashion. Safety pause time-out and side of surgery confirmed. Antibiotics confirmed. Twenty-two Surinamese cystoscope inserted per urethra. No abnormality noted in the anterior posterior urethra. Both ureteric orifices normal position. Left ureteric orifice cannulated and retrograde examination performed. No filling defects seen within the ureter. No large filling defects seen within the renal pelvis. A sensor guidewire was placed. The rigid cystoscope was removed. Abhay dilator was used to dilate under fluoroscopy. Ureteric access sheath was placed without difficulty. An Olympus flexible digital ureteral scope was then placed up to the level renal pelvis. Renal pelvis was examined. There were stones in both the upper calices and the lower calices. Stones in approximately 4 different calices. All calices were examined. The upper calices stones were able to be basketed with a 0 degree basket and removed. The lower pole stones 1 stone was imbedded into the mucosa. This was broken with the holmium laser into small fragments. These fragments were then removed with a 0 tip basket. Multiple fragments were removed and sent for pathology. After this was completed the flexible digital ureteral scope was removed. A sensor guidewire was placed. The wire was backloaded into a 22 Sur[place]amese rigid cystoscope. The cystoscope was advanced. A 6 Sur[place]amese by 22 cm stent was placed. He is 5 ft 2. Good coil seen within the renal pelvis in the bladder. The bladder was emptied. He tolerated procedure well was extubated in operating room and transferred in a stable condition to the recovery area. Pathology: Stones Drains: 6 Surinamese by 22 cm double-J stent
[2020-10-17 16:40] VITALS: BP 140/97; PULSE 88; RESP 14; TEMP 36.1; O2SAT 97
[2020-10-17 16:45] VITALS: BP 136/75; PULSE 88; RESP 14; O2SAT 98
[2020-10-17 16:50] VITALS: BP 127/74; PULSE 91; RESP 14; TEMP 36.2; O2SAT 98
[2020-10-17] MEDS: Phenazopyridine HCL 100 MG TABLET PO (16:50)
[2020-10-17 16:55] VITALS: BP 133/79; PULSE 82; RESP 16; O2SAT 98
[2020-10-17] MEDS: traMADoL HCL 50 MG TABLET PO (16:55)
[2020-10-17 17:15] VITALS: BP 132/78; PULSE 88; RESP 16; O2SAT 98
[2020-10-21 22:03] LABS: Stone Source LEFT KIDNEY STONE
== END 2020-10-17 17:19 ==
LOC: HO.SSS 09:59
PROVIDERS: PCP Internal Medicine; Visit Provider Urology
PROC: (CPT 52356; principal; 2020-10-17 11:30)
DX: N20.0 Calculus of kidney (principal); Z87.442 Personal history of urinary calculi; E11.65 Type 2 diabetes mellitus with hyperglycemia; B20 Human immunodeficiency virus [HIV] disease; B19.20 Unspecified viral hepatitis C without hepatic coma; Z86.16 Personal history of COVID-19; Z79.899 Other long term (current) drug therapy; Z88.2 Allergy status to sulfonamides; Z88.8 Allergy status to other drugs, medicaments and biological substances
CPT/HCPCS: 52356; 82365; 82947; 88300; 93005; C1758; C1769; C2617; J1100; J2405; J3010; Q9967

== ENCOUNTER → 2020-10-25 10:40 | Outpatient (BNVA) | payer OTHER, SELFPAY | PROVIDERS: PCP Internal Medicine; Visit Provider Urology | DX: N20.0 Calculus of kidney (principal) | CPT/HCPCS: 52310; 81002 ==

== ENCOUNTER 2020-10-27 08:37 | Inpatient (IN) | payer OTHER, SELFPAY ==
[2020-10-27] VITALS (14 sets, daily range): BP systolic 96–151; BP diastolic 49–76; PULSE 101–121; RESP 16–22; TEMP 36.3–37.2; O2SAT 97–100; BMI 31.6
--- NOTE | ~2020-10-27 | US_ITS ---
EXAMINATION: US ABDOMEN LIMITED CLINICAL INFORMATION: Abdominal pain and tenderness. Ascites.. COMPARISON: None TECHNIQUE: Limited imaging through the abdomen was performed. FINDINGS: Imaging through the abdomen reveals very minimal ascites fluid not worthy of therapeutic paracentesis. The exam was canceled. US/US abdomen limited IMPRESSION: Very minimal ascites fluid nodular the of therapeutic paracentesis and risk. The exam was canceled. Dr. Suarez was notified.
--- NOTE | ~2020-10-27 | XR_ITS ---
EXAMINATION: XR CHEST CLINICAL INFORMATION: Hyperglycemia, lightheadedness COMPARISON: Chest radiographs 04/27/2020, 08/13/2019 TECHNIQUE: Portable upright AP view of the chest was obtained. FINDINGS: The lungs are clear. There is no airspace consolidation, edema, or effusion. The heart is normal in size. The hilar and mediastinal contours and bony structures are unremarkable. XR/XR chest 1V IMPRESSION: Unremarkable examination.
--- NOTE | 2020-10-27 09:43 | ECG_ITS ---
Test Reason : WEAKNESS Blood Pressure : / mmHG Vent. Rate : 121 BPM Atrial Rate : 121 BPM P-R Int : 154 ms QRS Dur : 082 ms QT Int : 336 ms P-R-T Axes : 060 013 036 degrees QTc Int : 477 ms Sinus tachycardia Otherwise normal ECG When compared with ECG of 17-OCT-2020 11:59, Vent. rate has increased BY 47 BPM Referred By: Felipa Tse Electronically Signed By:Ezequiel Proctor
--- NOTE | 2020-10-27 09:47 | ED.ABDPAIN ---
HPI - Abdominal Pain General Chief Complaint: Abdominal Pain Stated Complaint: abd pain - elev sugar Time Seen by Provider: 10/27/20 09:33 Source: patient Mode of arrival: ambulatory History of Present Illness HPI narrative: 55-year-old male with a past medical history of GERD, hepatitis C with cirrhosis, hepatic vein thrombosis, HIV, perirectal abscess, diabetes, ulcerative colitis, bullous pemphigoid, previous COVID-19, renal calculi s/p stent placement w/ removal on 10/25/20 presenting to the ED complaining of diffuse abdominal pain, black stool, SOB, lightheadedness, & chest discomfort since yesterday. Denies taking anticoagulation. Denies known fever, chills, headache, nausea/vomiting, diarrhea, dysuria/hematuria MD elicited complaint: abdominal pain Related Data Home Medications Medication Instructions Recorded Confirmed Odefsey 1 tab PO DAILY 04/27/20 10/27/20 atovaquone 5 ml PO BID 04/27/20 10/27/20 famotidine 40 mg PO BEDTIME 04/27/20 10/27/20 mesalamine 800 mg PO TIDWM 04/27/20 10/27/20 sitagliptin 50 mg tablet 50 mg PO DAILY 08/26/20 10/27/20 hydroxyzine HCl 25 mg tablet 50 mg PO Q6H PRN tab 09/01/20 10/27/20 blood sugar diagnostic #10 ea 10/06/20 clobetasol 0.05 % topical cream 1 appl TOPICAL BID PRN 10/25/20 10/27/20 econazole 1 appl TOPICAL BID 10/27/20 10/27/20 triamcinolone acetonide 1 appl TOPICAL BID PRN 10/27/20 10/27/20 Previous Rx's Medication Instructions Recorded potassium chloride 20 mEq 20 meq PO BID #60 tab 09/07/20 tablet,extended release tamsulosin 0.4 mg PO BEDTIME 14 Days #14 cap 10/17/20 tramadol 50 mg PO Q6H PRN #14 tab 10/17/20 allopurinol 100 mg tablet 100 mg PO DAILY 90 Days #90 tab 10/25/20 pyridoxine (vitamin B6) 100 mg 100 mg PO DAILY 90 Days #90 tab 10/25/20 tablet Allergies Allergy/AdvReac Type Severity Reaction Status Date / Time acetaminophen [Acetaminophen] Allergy Severe LIVER Verified 10/25/20 11:09 TOXICITY - CANNOT TAKE ACETAMINOPHEN Sulfa (Sulfonamide Allergy Intermediate RASH Verified 10/25/20 11:09 Antibiotics) [SULFA (SULFONAMIDE ANTIBIOTICS)] amoxicillin [Augmentin] Allergy Unknown mouth sores Verified 10/25/20 11:09 clavulanic acid [Augmentin] Allergy Unknown mouth sores Verified 10/25/20 11:09 ibuprofen [IBUPROFEN] AdvReac Intermediate BLEEDING Verified 10/25/20 11:09 Review of Systems Review of Systems Constitutional: No Fever, No Chills, No Night Sweats, + Fatigue, No Malaise Eyes: No Eye Pain, No Vision Changes Cardiovascular: + Chest Pain, + SOB, No Palpitations Respiratory: No Cough, No Sputum, No Wheezing Gastrointestinal: + Nausea, No Vomiting, No Diarrhea, No Constipation, + Abdominal pain, No Hematochezia, + Melena Genitourinary: No Dysuria, No Urinary Frequency, No Hematuria, + Flank Pain, No Urinary Flow Changes, No Hesitancy Musculoskeletal: No joint pain, No Myalgias, No Joint Swelling Skin: No Skin Lesions, No rash Neuro: + Weakness, No Numbness, No Paresthesias, No Loss of Consciousness, +Lighthheadedness, No Headache Yes all other systems are reviewed and are negative Physical Exam Vital Signs: Vital Signs: Last Vital Signs Temp 98.3 F 10/27/20 14:08 Pulse 114 H 10/27/20 14:08 Resp 18 10/27/20 14:08 BP 132/73 10/27/20 14:08 Pulse Ox 100 10/27/20 14:08 Body Mass Index 31.6 Const: Other: pale General: cooperative, healthy appearing and ill appearing Orientation/consciousness: patient oriented x3 Limitations: no limitations HENMT: Head: Yes normal to inspection Ears: hearing grossly normal bilaterally General nose exam: Normal external nose present Face and sinus: Yes normal facial exam Eyes: General: appearance normal, both eyes and all related structures EOM: EOMs intact bilaterally Neck: Neck: Yes normal visual inspection and Yes no meningeal signs Resp: Effort & Inspection: normal respiratory effort Auscultation: clear to auscultation bilaterally, no rales, no rhonchi and no wheezes Cardio: Rate: regular rate Heart sounds: S1 normal heart sound present and S2 normal heart sound present GI: Other: + distended abdomen, soft/nontender. Black stool noted on rectal Inspection: Yes normal to inspection Palpation (GI): Soft to palpation, nontender, no guarding and not rigid : General: Yes CVA tenderness on the right Back/Spine/Pelvis: Back: CVA tenderness Skin: Rashes: no rashes Wounds: no wounds Neuro: General: patient oriented x3, tone normal, moves all extremities, no meningeal signs, no focal motor deficits and CN's II-XI intact bilaterally Extrem: General: Yes normal to inspection Course Course Course Narrative: -chronic leukopenia. Hemoglobin 8 (chronically low), occult stool+ XR chest 1V IMPRESSION: Unremarkable examination -1116--BUN elevated at 29, glucose 318, lactic acid elevated at 6.6 > likely from volume depletion/GIB and not infection. Do not believe patient has an infection at this time >> Protonix bolus and drip ordered > GI paged -bilirubins chronically elevated -1140--spoke to GI Dr. Allen, will add pt to endoscopy list. Hospitalist contacted for admission -1218--Dr. Allen evaluated patient in the ED, hopefully going to or this afternoon. FFP ordered MDM - Abdominal Pain MDM Narrative Medical decision making narrative: 55-year-old male with a past medical history of GERD, hepatitis C with cirrhosis, hepatic vein thrombosis, HIV, perirectal abscess, diabetes, ulcerative colitis, bullous pemphigoid, previous COVID-19, renal calculi s/p stent placement w/ removal on 10/25/20 presenting to the ED complaining of diffuse abdominal pain, black stool, SOB, lightheadedness, & chest discomfort since yesterday. On exam tachycardic, tachypneic, pale, abdomen distended/nontender, +R CVAT, black stool noted on rectal. Concern for UGIB vs anemia vs metabolic abnls. R/o infectious etiology. Low concern for SBP Low concern for sepsis at this time, VS abls likely from anemia Plan: EKG, labs, UA, occult stool, CXR, reassess, anticipated admission Medical Records Attestation: I reviewed the patient's medical records. Lab Data Attestation: I reviewed the patient's lab results. Result diagrams: 10/27/20 10:17 10/27/20 10:17 Labs: Lab Results 10/27/20 10/27/20 10/27/20 Range/Units 10:16 10:17 10:17 WBC 3.9 L (4.8-10.8) X10*3/uL RBC 2.46 L (4.60-5.80) X10*6/uL Hgb 8.0 L (14.0-18.0) g/dl Hct 24.0 L (42-52) % MCV 97.6 (80-98) fL MCH 32.5 (27.0-33.0) pg MCHC 33.3 (31.0-36.0) g/dl RDW 15.8 (11.0-16.0) % Plt Count 66 L (160-400) X10*3/uL MPV 11.7 (9.4-12.4) fL Immature Gran % (Auto) 0.3 (0.0-0.4) % Neut % (Auto) 85.9 H (45-73) % Lymph % (Auto) 3.8 L (20-40) % [place] % (Auto) 10.0 (2-11) % Eos % (Auto) 0.0 (0-4) % Baso % (Auto) 0.0 (0-2) % Lymph # (Auto) 0.2 L (1.2-4.9) X10*3/uL [place] # (Auto) 0.4 (0.1-1.2) X10*3/uL Eos # (Auto) 0.0 (0.0-0.4) X10*3/uL Baso # (Auto) 0.0 (0.0-0.2) X10*3/uL Abs Immat Gran (auto) 0.01 (0.00-0.03) X10*3/uL Absolute Neuts (auto) 3.4 (2.0-8.3) X10*3/uL Absolute Nucleated RBC 0.000 (0.0-0.012) X10*3/uL Nucleated RBC % (auto) 0.0 (0.0-0.2) /100WBC Smear Tech's Comments VERIFIED PT 20.5 H D (10.8-13.0) SEC INR 1.7 H (0.9-1.1) APTT 32.9 (24.1-38.0) SEC Sodium (135-145) mmol/L Potassium (3.3-5.1) mmol/L Chloride (96-108) mmol/L Carbon Dioxide (22-29) mmol/L Anion Gap (12-20) BUN (9-16) mg/dL Creatinine (0.5-1.4) mg/dL Estim Creat Clear Calc Estimated GFR POC Glucose (60-115) mg/dL Random Glucose (60-115) mg/dL Lactic Acid (0.5-2.0) mmol/L Lactic Acid Fup @ 2Hr (0.5-2.0) mmol/L Calcium (8.4-10.2) mg/dL Magnesium (1.6-2.6) mg/dL Total Bilirubin (0.0-1.0) mg/dL Direct Bilirubin (0.0-0.5) mg/dL AST (5-37) U/L ALT (0-40) U/L Alkaline Phosphatase (39-117) U/L Troponin I High Sens (<3.5-35.0) ng/L Total Protein (6.5-8.0) g/dL Albumin (3.5-5.0) g/dL Lipase (8-78) U/L Stool Occult Blood (NEGATIVE) Acetone, Qual (Negative) COVID-19 ([facility]) (Negative) COVID-19 Clin Com Blood Type O Positive Antibody Screen NEGATIVE Crossmatch See Detail 10/27/20 10/27/20 10/27/20 Range/Units 10:17 10:17 10:17 WBC (4.8-10.8) X10*3/uL RBC (4.60-5.80) X10*6/uL Hgb (14.0-18.0) g/dl Hct (42-52) % MCV (80-98) fL MCH (27.0-33.0) pg MCHC (31.0-36.0) g/dl RDW (11.0-16.0) % Plt Count (160-400) X10*3/uL MPV (9.4-12.4) fL Immature Gran % (Auto) (0.0-0.4) % Neut % (Auto) (45-73) % Lymph % (Auto) (20-40) % [place] % (Auto) (2-11) % Eos % (Auto) (0-4) % Baso % (Auto) (0-2) % Lymph # (Auto) (1.2-4.9) X10*3/uL [place] # (Auto) (0.1-1.2) X10*3/uL Eos # (Auto) (0.0-0.4) X10*3/uL Baso # (Auto) (0.0-0.2) X10*3/uL Abs Immat Gran (auto) (0.00-0.03) X10*3/uL Absolute Neuts (auto) (2.0-8.3) X10*3/uL Absolute Nucleated RBC (0.0-0.012) X10*3/uL Nucleated RBC % (auto) (0.0-0.2) /100WBC Smear Tech's Comments PT (10.8-13.0) SEC INR (0.9-1.1) APTT (24.1-38.0) SEC Sodium 134 L (135-145) mmol/L Potassium 4.6 (3.3-5.1) mmol/L Chloride 110 H (96-108) mmol/L Carbon Dioxide 14 L (22-29) mmol/L Anion Gap 15 (12-20) BUN 29 H D (9-16) mg/dL Creatinine 0.91 (0.5-1.4) mg/dL Estim Creat Clear Calc 82.2 Estimated GFR > 60 POC Glucose (60-115) mg/dL Random Glucose 318 H D (60-115) mg/dL Lactic Acid 6.6 H* (0.5-2.0) mmol/L Lactic Acid Fup @ 2Hr (0.5-2.0) mmol/L Calcium 7.7 L (8.4-10.2) mg/dL Magnesium 1.6 (1.6-2.6) mg/dL Total Bilirubin 2.4 H (0.0-1.0) mg/dL Direct Bilirubin 1.4 H (0.0-0.5) mg/dL AST 24 (5-37) U/L ALT 18 (0-40) U/L Alkaline Phosphatase 88 (39-117) U/L Troponin I High Sens < 3.5 (<3.5-35.0) ng/L Total Protein 8.3 H (6.5-8.0) g/dL Albumin 2.2 L (3.5-5.0) g/dL Lipase 37 (8-78) U/L Stool Occult Blood (NEGATIVE) Acetone, Qual Negative (Negative) COVID-19 ([facility]) (Negative) COVID-19 Clin Com Blood Type Antibody Screen Crossmatch 10/27/20 10/27/20 10/27/20 Range/Units 10:17 10:21 13:07 WBC (4.8-10.8) X10*3/uL RBC (4.60-5.80) X10*6/uL Hgb (14.0-18.0) g/dl Hct (42-52) % MCV (80-98) fL MCH (27.0-33.0) pg MCHC (31.0-36.0) g/dl RDW (11.0-16.0) % Plt Count (160-400) X10*3/uL MPV (9.4-12.4) fL Immature Gran % (Auto) (0.0-0.4) % Neut % (Auto) (45-73) % Lymph % (Auto) (20-40) % [place] % (Auto) (2-11) % Eos % (Auto) (0-4) % Baso % (Auto) (0-2) % Lymph # (Auto) (1.2-4.9) X10*3/uL [place] # (Auto) (0.1-1.2) X10*3/uL Eos # (Auto) (0.0-0.4) X10*3/uL Baso # (Auto) (0.0-0.2) X10*3/uL Abs Immat Gran (auto) (0.00-0.03) X10*3/uL Absolute Neuts (auto) (2.0-8.3) X10*3/uL Absolute Nucleated RBC (0.0-0.012) X10*3/uL Nucleated RBC % (auto) (0.0-0.2) /100WBC Smear Tech's Comments PT (10.8-13.0) SEC INR (0.9-1.1) APTT (24.1-38.0) SEC Sodium (135-145) mmol/L Potassium (3.3-5.1) mmol/L Chloride (96-108) mmol/L Carbon Dioxide (22-29) mmol/L Anion Gap (12-20) BUN (9-16) mg/dL Creatinine (0.5-1.4) mg/dL Estim Creat Clear Calc Estimated GFR POC Glucose (60-115) mg/dL Random Glucose (60-115) mg/dL Lactic Acid (0.5-2.0) mmol/L Lactic Acid Fup @ 2Hr 6.2 H* (0.5-2.0) mmol/L Calcium (8.4-10.2) mg/dL Magnesium (1.6-2.6) mg/dL Total Bilirubin (0.0-1.0) mg/dL Direct Bilirubin (0.0-0.5) mg/dL AST (5-37) U/L ALT (0-40) U/L Alkaline Phosphatase (39-117) U/L Troponin I High Sens (<3.5-35.0) ng/L Total Protein (6.5-8.0) g/dL Albumin (3.5-5.0) g/dL Lipase (8-78) U/L Stool Occult Blood POSITIVE (NEGATIVE) Acetone, Qual (Negative) COVID-19 ([facility]) Negative (Negative) COVID-19 Clin Com See Note Blood Type Antibody Screen Crossmatch 10/27/20 Range/Units 13:55 WBC (4.8-10.8) X10*3/uL RBC (4.60-5.80) X10*6/uL Hgb (14.0-18.0) g/dl Hct (42-52) % MCV (80-98) fL MCH (27.0-33.0) pg MCHC (31.0-36.0) g/dl RDW (11.0-16.0) % Plt Count (160-400) X10*3/uL MPV (9.4-12.4) fL Immature Gran % (Auto) (0.0-0.4) % Neut % (Auto) (45-73) % Lymph % (Auto) (20-40) % [place] % (Auto) (2-11) % Eos % (Auto) (0-4) % Baso % (Auto) (0-2) % Lymph # (Auto) (1.2-4.9) X10*3/uL [place] # (Auto) (0.1-1.2) X10*3/uL Eos # (Auto) (0.0-0.4) X10*3/uL Baso # (Auto) (0.0-0.2) X10*3/uL Abs Immat Gran (auto) (0.00-0.03) X10*3/uL Absolute Neuts (auto) (2.0-8.3) X10*3/uL Absolute Nucleated RBC (0.0-0.012) X10*3/uL Nucleated RBC % (auto) (0.0-0.2) /100WBC Smear Tech's Comments PT (10.8-13.0) SEC INR (0.9-1.1) APTT (24.1-38.0) SEC Sodium (135-145) mmol/L Potassium (3.3-5.1) mmol/L Chloride (96-108) mmol/L Carbon Dioxide (22-29) mmol/L Anion Gap (12-20) BUN (9-16) mg/dL Creatinine (0.5-1.4) mg/dL Estim Creat Clear Calc Estimated GFR POC Glucose 267 H (60-115) mg/dL Random Glucose (60-115) mg/dL Lactic Acid (0.5-2.0) mmol/L Lactic Acid Fup @ 2Hr (0.5-2.0) mmol/L Calcium (8.4-10.2) mg/dL Magnesium (1.6-2.6) mg/dL Total Bilirubin (0.0-1.0) mg/dL Direct Bilirubin (0.0-0.5) mg/dL AST (5-37) U/L ALT (0-40) U/L Alkaline Phosphatase (39-117) U/L Troponin I High Sens (<3.5-35.0) ng/L Total Protein (6.5-8.0) g/dL Albumin (3.5-5.0) g/dL Lipase (8-78) U/L Stool Occult Blood (NEGATIVE) Acetone, Qual (Negative) COVID-19 ([facility]) (Negative) COVID-19 Clin Com Blood Type Antibody Screen Crossmatch Discharge Plan Discharge Clinical Impression: Acute upper gastrointestinal bleeding Prescriptions: No Action potassium chloride 20 mEq tablet extended release 20 meq PO BID Qty: 60 RF: 1 tramadol 50 mg tablet 50 mg PO Q6H PRN (Reason: pain (scale score 4-6)) Qty: 14 RF: 0 tamsulosin 0.4 mg capsule 0.4 mg PO BEDTIME 14 Days Qty: 14 RF: 0 famotidine 40 mg tablet 40 mg PO BEDTIME RF: 0 atovaquone 750 mg/5 mL suspension 5 ml PO BID RF: 0 mesalamine 800 mg tablet,delayed release (DR/EC) 800 mg PO TIDWM RF: 0 Odefsey 200-25-25 mg tablet 1 tab PO DAILY RF: 0 triamcinolone acetonide 0.1 % cream 1 appl topical BID PRN (Reason: Itching) RF: 0 econazole 1 % cream 1 appl topical BID RF: 0 hydroxyzine HCl 25 mg tablet 50 mg PO Q6H PRN (Reason: bullous pemphigoid) RF: 0 Januvia 50 mg tablet 50 mg PO DAILY RF: 0 allopurinol 100 mg tablet 100 mg PO DAILY 90 Days Qty: 90 RF: 1 pyridoxine (vitamin B6) 100 mg tablet 100 mg PO DAILY 90 Days Qty: 90 RF: 1 PMFSH Past Medical History Attestation statement: The following information was validated with the patient. Medical History Bullous pemphigoid COVID-19 in immunocompromised patient GERD (gastroesophageal reflux disease) Hepatic vein thrombosis Hepatitis C HIV (human immunodeficiency virus infection) Hypocalcemia Hypomagnesemia Lichen simplex chronicus Lung nodule Obesity (BMI 30-39.9) Pancytopenia Perirectal abscess Renal calculi Type 2 diabetes mellitus with hyperglycemia Ulcerative colitis Surgical History Anal fistula History of lithotripsy History of rectal abscess History of removal of ureteral stent History of umbilical hernia repair Family History Family History Father Stroke Mother Diabetes Hypertension CVD (cardiovascular disease) Sister Family history of cervical cancer Social History Social History Household Members: Children Housing: House Alcohol intake: former Smoking Status: Never smoker Have you been hit, kicked, punched, or otherwise hurt by someone within the past year? If so, by whom?: No Advance Directives: Yes Advance Directives on File: Yes Advance Directives Date on File: 10/27/20 service: No Current occupational status: employed
[2020-10-27 10:35] LABS: Imm Gran Abs Auto 0.01 X10*3/uL (0.00-0.03); Imm Gran Pct Auto 0.3 % (0.0-0.4); Lymphocytes Absolute Auto 0.2 X10*3/uL (1.2-4.9); Lymphocytes Percent Auto 3.8 % (20-40); MANUAL DIFF FLAG SCAN; Mean Corpuscular HGB Conc 33.3 g/dl (31.0-36.0); Mean Corpuscular Hemoglobin 32.5 pg (27.0-33.0); Mean Corpuscular Volume 97.6 fL (80-98); Mean Platelet Volume 11.7 fL (9.4-12.4); Monocytes Absolute Auto 0.4 X10*3/uL (0.1-1.2); Neutrophils Absolute Auto 3.4 X10*3/uL (2.0-8.3); Neutrophils Percent Auto 85.9 % (45-73); Red Blood Count 2.46 X10*6/uL (4.60-5.80); Red Cell Distribution Width 15.8 % (11.0-16.0); SCAN SMEAR FLAG 1; White Blood Count 3.9 X10*3/uL (4.8-10.8)
[2020-10-27 10:39] LABS: OBS Int Ctl Valid YES; OBS1 POSITIVE (NEGATIVE)
[2020-10-27 10:41] LABS: INTERNATIONAL NORM RATIO 1.7 (0.9-1.1); Prothrombin Time 20.5 SEC (10.8-13.0)
[2020-10-27 10:43] LABS: Platelet Count 66 X10*3/uL (160-400)
[2020-10-27 10:44] LABS: Partial Thromboplastin Time 32.9 SEC (24.1-38.0)
[2020-10-27 10:58] LABS: Alanine Aminotransferase 18 U/L (0-40); Albumin Level 2.2 g/dL (3.5-5.0); Alkaline Phosphatase 88 U/L (39-117); Anion Gap 15 (12-20); Aspartate Amino Transferase 24 U/L (5-37); Bilirubin Direct 1.4 mg/dL (0.0-0.5); Bilirubin Total 2.4 mg/dL (0.0-1.0); Blood Urea Nitrogen 29 mg/dL (9-16); Calcium 7.7 mg/dL (8.4-10.2); Carbon Dioxide 14 mmol/L (22-29); Chloride 110 mmol/L (96-108); Creatinine Clr Calc Pharmacy 82.2; Estimated Glomerular Filt Rate > 60; Glucose Random 318 mg/dL (60-115); Lactic Acid 6.6 mmol/L (0.5-2.0); Lipase 37 U/L (8-78); Magnesium 1.6 mg/dL (1.6-2.6); Potassium 4.6 mmol/L (3.3-5.1); Sodium 134 mmol/L (135-145); Total Protein 8.3 g/dL (6.5-8.0)
[2020-10-27 11:00] LABS: Troponin-I High Sensitivity < 3.5 ng/L (<3.5-35.0)
[2020-10-27 11:02] LABS: COVID-19 Test Negative (Negative)
[2020-10-27 11:04] LABS: SLIDE REVIEW VERIFIED
[2020-10-27 11:18] LABS: Acetone, serum QL Negative (Negative)
[2020-10-27] MEDS: 0.9 % Sodium Chloride 1,000 ML 999 ML IVCONT ×2 (11:19→12:44)
[2020-10-27] MEDS: Pantoprazole Sodium 40 MG/10 ML VIAL IVPUSH (12:17)
[2020-10-27 12:28] LABS: Reflex Lactate? Lactic Acid Added
--- NOTE | 2020-10-27 12:52 | MHC.SHP ---
Pre-Procedural Eval Section A The patient is an INPATIENT: Yes Changes since office visit: No Cold of Flu in the past 2 weeks, No New Medical Problems, No Changes in Medication and No Patient answered all questions The History & Physical has been completed within 30 days and I have reviewed it.: Yes Section B Chief Complaint: abd pain - elev sugar Allergies: Allergies Allergy/AdvReac Type Severity Reaction Status Date / Time acetaminophen [Acetaminophen] Allergy Severe LIVER Verified 10/25/20 11:09 TOXICITY - CANNOT TAKE ACETAMINOPHEN Sulfa (Sulfonamide Allergy Intermediate RASH Verified 10/25/20 11:09 Antibiotics) [SULFA (SULFONAMIDE ANTIBIOTICS)] amoxicillin [Augmentin] Allergy Unknown mouth sores Verified 10/25/20 11:09 clavulanic acid [Augmentin] Allergy Unknown mouth sores Verified 10/25/20 11:09 ibuprofen [IBUPROFEN] AdvReac Intermediate BLEEDING Verified 10/25/20 11:09 Plan I have reviewed the history and physical and performed a pertinent physical examination on my patient. No changes have occurred unless specified.
--- NOTE | 2020-10-27 12:52 | PM.EVENT ---
Event Note Date of Service: 10/27/20 Event Note: GI consult dictated black stools and epigastric pain x 24 hours. vomited small amount of mucus at home, no hematemesis labs reviewed. UGI Bleed ddx esophagitis, varices (Gr 1 in 2009), portal gastropathy, gastritis, PUD. rec: ppi, FFP, EGD, discussed risks and benefits with patient who agrees to proceed.
--- NOTE | 2020-10-27 13:47 | CONS_ITS ---
DATE OF SERVICE: 10/27/2020 REFERRING PHYSICIAN: ANNA Almonte REASON FOR CONSULTATION: Upper GI bleeding. HISTORY OF PRESENT ILLNESS: The patient is a pleasant 55-year-old man, who presented to the emergency room earlier today with complaints of black stools and epigastric pain for 24 hours. He did have some nausea and vomiting of mucousy material, but no hematemesis. He denies any prior history of peptic ulcer disease and does not use NSAIDs. He does have a history of hepatitis C with cirrhosis and portal vein thrombosis as well as ulcerative colitis. He does not drink alcohol or smoke and denies use of NSAIDs. Previous endoscopy in 2009 showed grade 1 esophageal varices. He was evaluated in the emergency room, where laboratory studies were obtained, which are reviewed. This showed pancytopenia with a hematocrit of 24, down from 28 in August. He also had a white count of 3.9, and a platelet count of 66. INR was elevated slightly from baseline at 1.7. Examination in the emergency room disclosed black stool. PAST MEDICAL HISTORY: 1. Cirrhosis with hepatitis C and history of grade 1 varices in 2009. 2. Portal vein thrombosis. 3. Ulcerative colitis. 4. COVID infection in May. 5. HIV infection. 6. Nephrolithiasis. 7. Pneumonia. 8. Bullous pemphigoid. CURRENT MEDICATIONS: His current medication list is reviewed in the chart. ALLERGIES: MULTIPLE MEDICATION ALLERGIES ARE REVIEWED. FAMILY HISTORY: This is reviewed with the patient and is noncontributory. SOCIAL HISTORY: He denies tobacco, alcohol, or substance abuse. REVIEW OF SYSTEMS: SKIN: No pruritus. HEENT: Negative. CARDIOPULMONARY: No shortness of breath or chest pain. GASTROINTESTINAL: As above. GENITOURINARY: Negative. NEUROPSYCHIATRIC: Negative. PHYSICAL EXAMINATION: GENERAL: Shows a pleasant male, lying comfortably in bed. VITAL SIGNS: Reviewed in the electronic medical record and are stable. His heart rate is running 110 to 120. SKIN: Anicteric. HEENT: Shows no scleral icterus. NECK: Without lymphadenopathy or thyromegaly. LUNGS: Clear. HEART: Shows a tachycardia with a regular rate and rhythm. S1, S2. No murmur. ABDOMEN: Distended. Bowel sounds are present. There does appear to be shifting dullness. There is no guarding or rebound. There is mild epigastric tenderness to palpation. EXTREMITIES: Trace edema. LABORATORY DATA: Remarkable for a white blood cell count that is low as above. IMPRESSION: Epigastric pain with black stools. His presentation appears consistent with an upper GI bleed. There is no history of massive hematemesis, which makes acute variceal bleeding less likely. The differential diagnosis for this includes esophagitis, peptic ulcer disease, gastritis, portal hypertensive gastropathy, and AVMs. He has been given a proton pump inhibitor already and I would recommend FFP because of his slightly elevated INR from baseline. I discussed upper endoscopy with him including risks and benefits. He understands these and agrees to proceed. This will be arranged for later this afternoon. Thanks for asking me to see him. I will follow him in the hospital with you. MD MAGDALENO Wright/MAURA / [phone]
[2020-10-27 13:52] LABS: ~Lactic Acid-LAB USE ONLY 6.2 mmol/L (0.5-2.0)
[2020-10-27 13:58] LABS: Glucose, Whole Blood 267 mg/dL (60-115)
--- NOTE | 2020-10-27 13:58 | PC.NURSE ---
PT TRANSFERED TO SHORT STAY SURG WITH FFP STILL INFUSING, 15 MINS VITALS DONE, PT TOLERATING WLL HAND OVER GIVEN TO VIRGIE FRASER
--- NOTE | 2020-10-27 14:48 | PC.NURSE ---
PATIENT RECEIVING ONE UNIT PRBC'S PER ORDER FOR H/H 02/28. BLOOD HUNG IN SSS PREP AREA BUT PATIENT GOING INTO SURGERY. PAPER DOCUMENTATION STARTED. PAPER DOCUMENTATION TO BE CONTINUED IN SURGERY. SEPSIS PROTOCOL WAS NOT STARTED IN ED. PATIENT DID NOT RECEIVE AN ANTIBIOTIC. MILE AMAYA, RN SPOKE TO ISABELLA RAMIREZ.
[2020-10-27 15:11] LABS: Reflex Lactate? 2 Y
--- NOTE | 2020-10-27 16:02 | PM.EVENT ---
Event Note Date of Service: 10/27/20 Event Note: GI-EGD-Full note dictated Findings: 1. Nonbleeding esophageal varices 2, Large amount of old food and black material in stomach. No red blood 3. Black material coming from duodenum into the stomach-no red blood 4. I could not advance into the pylorus/duodenum due to risk of aspiration during the procedure Rec: Repeat EGD tomorrow with ? GA with hopefully better visualization. Continue IV PPI, F/U labs, NPO. Call if he has active bleeding tonight. I've ordered a STAT U/S with paracentesis due to his ascites and some abdominal tenderness. D/W Dr. Quinn. D/W patient's . Thanks.
--- NOTE | 2020-10-27 16:07 | PM.OP ---
Brief Operative Note Date of Service: 10/27/20 Pre-op diagnosis: UGI Bleed, Melena Post-op diagnosis: other (Nonbleeding esophageal varices, Retained old food and black material in stomach) Procedure: EGD Surgeon: Mario Suarez Anesthesia: MAC Estimated blood loss (mL): 0 Pathology: none sent Condition: stable Disposition: PACU
--- NOTE | 2020-10-27 16:48 | PC.NURSE ---
[id number] PT RETURNED TO PACU 11 VIA STRETCHER FROM RAD SP PROCEDURES NO PARACENTISIS DONE PER REPORT FROM RUBEN, ULTRASOUND NOT ENOUGH FLUID' PT IS AWWAKE ALERT FAMILY MEMBER PRESENT O2 SAT MONITORING IN PLACE WHILE PT AWAIT BED ASSIGNMENT HR 110 O2 SATS 100
--- NOTE | 2020-10-27 17:06 | HO.ANESPROP2 ---
[facility] Active Problems Active Problems: All Active Problems (Updated 10/27/20 @ 11:47 by ANNA Almonte) Acute upper gastrointestinal bleeding (Acute) Pulmonary nodule (Acute) Renal calculi (Acute) Cirrhosis (Acute) Type 2 diabetes mellitus with hyperglycemia (Acute) Ulcerative colitis (Acute) C. difficile diarrhea (Acute) Anemia (Acute) Hypokalemia (Acute) Coronavirus infection (Acute) Obesity (BMI 30-39.9) (Acute) Past Medical History Medical History Bullous pemphigoid COVID-19 in immunocompromised patient GERD (gastroesophageal reflux disease) Hepatic vein thrombosis Hepatitis C HIV (human immunodeficiency virus infection) Hypocalcemia Hypomagnesemia Lichen simplex chronicus Lung nodule Obesity (BMI 30-39.9) Pancytopenia Perirectal abscess Renal calculi Type 2 diabetes mellitus with hyperglycemia Ulcerative colitis Family History Family History Father Stroke Mother Diabetes Hypertension CVD (cardiovascular disease) Sister Family history of cervical cancer Surgical History Surgical History Anal fistula History of lithotripsy History of rectal abscess History of removal of ureteral stent History of umbilical hernia repair Social History Social History Household Members: Children Housing: House Alcohol intake: former Smoking Status: Never smoker Have you been hit, kicked, punched, or otherwise hurt by someone within the past year? If so, by whom?: No Advance Directives: Yes Advance Directives on File: Yes Advance Directives Date on File: 10/27/20 service: No Current occupational status: employed Meds Allergies Allergy/AdvReac Type Severity Reaction Status Date / Time acetaminophen [Acetaminophen] Allergy Severe LIVER Verified 10/25/20 11:09 TOXICITY - CANNOT TAKE ACETAMINOPHEN Sulfa (Sulfonamide Allergy Intermediate RASH Verified 10/25/20 11:09 Antibiotics) [SULFA (SULFONAMIDE ANTIBIOTICS)] amoxicillin [Augmentin] Allergy Unknown mouth sores Verified 10/25/20 11:09 clavulanic acid [Augmentin] Allergy Unknown mouth sores Verified 10/25/20 11:09 ibuprofen [IBUPROFEN] AdvReac Intermediate BLEEDING Verified 10/25/20 11:09 Active Medications: Current Medications Generic Name Dose Route Start Last Admin Trade Name Ledy PRN Reason Stop Dose Admin Pantoprazole Sodium 80 mg/ 120 mls @ 12 mls/hr 10/27/20 12:00 10/27/20 12:17 Sodium Chloride IV 10/30/20 11:59 8 mg/hr .Q10H YONATHAN 12 mls/hr Administration 8 MG/HR Pharmacy Consult 1 each 10/27/20 09:43 Consult Rx Perform Med Rec MISCELLANE ONCE PRN Consult order Sodium Chloride 3 ml 10/27/20 16:00 0.9 % Sodium Chloride Flush 3 Ml Syringe IVFLUSH QSHIFT [facility] Home Medications Medication Instructions Recorded Confirmed Last Taken Type Odefsey 1 tab PO DAILY 04/27/20 10/27/20 Unknown History atovaquone 5 ml PO BID 04/27/20 10/27/20 Unknown History famotidine 40 mg PO BEDTIME 04/27/20 10/27/20 Unknown History mesalamine 800 mg PO TIDWM 04/27/20 10/27/20 Unknown History sitagliptin 50 mg tablet 50 mg PO DAILY 08/26/20 10/27/20 Unknown History hydroxyzine HCl 25 mg tablet 50 mg PO Q6H PRN tab 09/01/20 10/27/20 Unknown History blood sugar diagnostic #10 ea 10/06/20 Unknown History clobetasol 0.05 % topical cream 1 appl TOPICAL BID PRN 10/25/20 10/27/20 Unknown History econazole 1 appl TOPICAL BID 10/27/20 10/27/20 Unknown History triamcinolone acetonide 1 appl TOPICAL BID PRN 10/27/20 10/27/20 Unknown History Exam Exam Date and Time: October 27, 2020 1706 Height,Weight and Vital Signs: Height 5 ft 2 in Weight 78.471 kg Last Vital Signs Temp 98.3 F 10/27/20 14:08 Pulse 107 H 10/27/20 15:53 Resp 16 10/27/20 15:53 BP 123/70 10/27/20 15:53 Pulse Ox 100 10/27/20 15:53 Pertinent Lab Results Pertinent Lab Results: Laboratory Tests 10/27/20 10/27/20 10/27/20 10:16 10:17 10:17 WBC 3.9 L RBC 2.46 L Hgb 8.0 L Hct 24.0 L MCV 97.6 MCH 32.5 MCHC 33.3 RDW 15.8 Plt Count 66 L MPV 11.7 Immature Gran % (Auto) 0.3 Neut % (Auto) 85.9 H Lymph % (Auto) 3.8 L Kemper % (Auto) 10.0 Eos % (Auto) 0.0 Baso % (Auto) 0.0 Lymph # (Auto) 0.2 L Kemper # (Auto) 0.4 Eos # (Auto) 0.0 Baso # (Auto) 0.0 Abs Immat Gran (auto) 0.01 Absolute Neuts (auto) 3.4 Absolute Nucleated RBC 0.000 Nucleated RBC % (auto) 0.0 Smear Tech's Comments VERIFIED PT 20.5 H D INR 1.7 H APTT 32.9 Sodium Potassium Chloride Carbon Dioxide Anion Gap BUN Creatinine Estim Creat Clear Calc Estimated GFR POC Glucose Random Glucose Lactic Acid Lactic Acid Fup @ 2Hr Calcium Magnesium Total Bilirubin Direct Bilirubin AST ALT Alkaline Phosphatase Troponin I High Sens Total Protein Albumin Lipase Stool Occult Blood Acetone, Qual COVID-19 (TAYLOR) COVID-19 Clin Com Blood Type O Positive Antibody Screen NEGATIVE Crossmatch See Detail 10/27/20 10/27/20 10/27/20 10:17 10:17 10:17 WBC RBC Hgb Hct MCV MCH MCHC RDW Plt Count MPV Immature Gran % (Auto) Neut % (Auto) Lymph % (Auto) Kemper % (Auto) Eos % (Auto) Baso % (Auto) Lymph # (Auto) Kemper # (Auto) Eos # (Auto) Baso # (Auto) Abs Immat Gran (auto) Absolute Neuts (auto) Absolute Nucleated RBC Nucleated RBC % (auto) Smear Tech's Comments PT INR APTT Sodium 134 L Potassium 4.6 Chloride 110 H Carbon Dioxide 14 L Anion Gap 15 BUN 29 H D Creatinine 0.91 Estim Creat Clear Calc 82.2 Estimated GFR > 60 POC Glucose Random Glucose 318 H D Lactic Acid 6.6 H* Lactic Acid Fup @ 2Hr Calcium 7.7 L Magnesium 1.6 Total Bilirubin 2.4 H Direct Bilirubin 1.4 H AST 24 ALT 18 Alkaline Phosphatase 88 Troponin I High Sens < 3.5 Total Protein 8.3 H Albumin 2.2 L Lipase 37 Stool Occult Blood Acetone, Qual Negative COVID-19 (TAYLOR) COVID-19 Clin Com Blood Type Antibody Screen Crossmatch 10/27/20 10/27/20 10/27/20 10:17 10:21 13:07 WBC RBC Hgb Hct MCV MCH MCHC RDW Plt Count MPV Immature Gran % (Auto) Neut % (Auto) Lymph % (Auto) Kemper % (Auto) Eos % (Auto) Baso % (Auto) Lymph # (Auto) Kemper # (Auto) Eos # (Auto) Baso # (Auto) Abs Immat Gran (auto) Absolute Neuts (auto) Absolute Nucleated RBC Nucleated RBC % (auto) Smear Tech's Comments PT INR APTT Sodium Potassium Chloride Carbon Dioxide Anion Gap BUN Creatinine Estim Creat Clear Calc Estimated GFR POC Glucose Random Glucose Lactic Acid Lactic Acid Fup @ 2Hr 6.2 H* Calcium Magnesium Total Bilirubin Direct Bilirubin AST ALT Alkaline Phosphatase Troponin I High Sens Total Protein Albumin Lipase Stool Occult Blood POSITIVE Acetone, Qual COVID-19 (TAYLOR) Negative COVID-19 Clin Com See Note Blood Type Antibody Screen Crossmatch 10/27/20 13:55 WBC RBC Hgb Hct MCV MCH MCHC RDW Plt Count MPV Immature Gran % (Auto) Neut % (Auto) Lymph % (Auto) Kemper % (Auto) Eos % (Auto) Baso % (Auto) Lymph # (Auto) Kemper # (Auto) Eos # (Auto) Baso # (Auto) Abs Immat Gran (auto) Absolute Neuts (auto) Absolute Nucleated RBC Nucleated RBC % (auto) Smear Tech's Comments PT INR APTT Sodium Potassium Chloride Carbon Dioxide Anion Gap BUN Creatinine Estim Creat Clear Calc Estimated GFR POC Glucose 267 H Random Glucose Lactic Acid Lactic Acid Fup @ 2Hr Calcium Magnesium Total Bilirubin Direct Bilirubin AST ALT Alkaline Phosphatase Troponin I High Sens Total Protein Albumin Lipase Stool Occult Blood Acetone, Qual COVID-19 (TAYLOR) COVID-19 Clin Com Blood Type Antibody Screen Crossmatch Assessment and Plan Assessment Anesthesia Assessment: Anesthesia Plan Discussed and Chart Reviewed Final Anesthetic Review NPO: Yes ASA Class: IV and Emergency Final Preanesthetic Review: No Changes in Pt Med Stat, Meds/Allgs Chart Reviewed, Consent Obtained/Reviewed and Anes Risks/Benef Reviewed Patient Risk: High Procedure Risk: Low Anesthetic Plan Anesthetic Plan: MAC: Disposition: Standard PACU
--- NOTE | 2020-10-27 17:24 | P.HPHOSP_ITS ---
History of Present Illness Date of Service: 10/27/20 Chief Complaint: coffee ground emesis 55-year-old Maltese-speaking male with a history of HIV, on HAART therapy, liver cirrhosis, hisotory of kidney stone, status post lithotripsy and other medical history as listed below. He presents today due to abdominal pain that is ongong for about 3 days and his signficant other reports that has also been have black stools. He hematocrit is 24 baseline is 28. He underwent urgent EGD but was usucessful due to old food in stomach and black stuff and is scheduled to have repeat EGD tomorrow. Ultrsound shows limitted ascietes. Review of Systems Review of Systems: Gen: no fever Resp: no sob, no cough CV: no chest, no VILLAGRAN, no leg edema GI: No n/v, + abd pain Neuro: No confusion [facility] Medical History Bullous pemphigoid COVID-19 in immunocompromised patient GERD (gastroesophageal reflux disease) Hepatic vein thrombosis Hepatitis C HIV (human immunodeficiency virus infection) Hypocalcemia Hypomagnesemia Lichen simplex chronicus Lung nodule Obesity (BMI 30-39.9) Pancytopenia Perirectal abscess Renal calculi Type 2 diabetes mellitus with hyperglycemia Ulcerative colitis Family History Father Stroke Mother Diabetes Hypertension CVD (cardiovascular disease) Sister Family history of cervical cancer Surgical History Anal fistula History of lithotripsy History of rectal abscess History of removal of ureteral stent History of umbilical hernia repair Social History Household Members: Spouse and Family Housing: House Do you presently have visiting nurse or other home services: No Alcohol intake: former Smoking Status: Never smoker Use of substances other than those prescribed or required for medical reasons: No Have you been hit, kicked, punched, or otherwise hurt by someone within the past year? 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 Advance Directives: Yes Advance Directives on File: Yes Advance Directives Date on File: 10/27/20 Do you have thoughts of harming others: None Do you have a plan to hurt others: No Plan Recently lost weight without trying: No service: No Current occupational status: employed Meds Allergies Allergy/AdvReac Type Severity Reaction Status Date / Time acetaminophen [Acetaminophen] Allergy Severe LIVER Verified 10/25/20 11:09 TOXICITY - CANNOT TAKE ACETAMINOPHEN Sulfa (Sulfonamide Allergy Intermediate RASH Verified 10/25/20 11:09 Antibiotics) [SULFA (SULFONAMIDE ANTIBIOTICS)] amoxicillin [Augmentin] Allergy Unknown mouth sores Verified 10/25/20 11:09 clavulanic acid [Augmentin] Allergy Unknown mouth sores Verified 10/25/20 11:09 ibuprofen [IBUPROFEN] AdvReac Intermediate BLEEDING Verified 10/25/20 11:09 Active Medications: Current Medications Generic Name Dose Route Start Last Admin Trade Name Freq PRN Reason Stop Dose Admin Pantoprazole Sodium 80 mg/ 120 mls @ 12 mls/hr 10/27/20 12:00 10/27/20 12:17 Sodium Chloride IV 10/30/20 11:59 8 mg/hr .Q10H YONATHAN 12 mls/hr Administration 8 MG/HR Pharmacy Consult 1 each 10/27/20 09:43 Consult Rx Perform Med Rec MISCELLANE ONCE PRN Consult order Sodium Chloride 3 ml 10/27/20 16:00 0.9 % Sodium Chloride Flush 3 Ml Syringe IVFLUSH QSHIFT [facility] Home Medications Medication Instructions Recorded Confirmed Last Taken Type Odefsey 1 tab PO DAILY 04/27/20 10/27/20 Unknown History atovaquone 5 ml PO BID 04/27/20 10/27/20 Unknown History famotidine 40 mg PO BEDTIME 04/27/20 10/27/20 Unknown History mesalamine 800 mg PO TIDWM 04/27/20 10/27/20 Unknown History sitagliptin 50 mg tablet 50 mg PO DAILY 08/26/20 10/27/20 Unknown History hydroxyzine HCl 25 mg tablet 50 mg PO Q6H PRN tab 09/01/20 10/27/20 Unknown History blood sugar diagnostic #10 ea 10/06/20 Unknown History clobetasol 0.05 % topical cream 1 appl TOPICAL BID PRN 10/25/20 10/27/20 Unknown History econazole 1 appl TOPICAL BID 10/27/20 10/27/20 Unknown History triamcinolone acetonide 1 appl TOPICAL BID PRN 10/27/20 10/27/20 Unknown History Physical Exam Vital Signs and Narrative: Vital Signs: Last Vital Signs Temp 98.4 F 10/27/20 17:21 Pulse 111 H 10/27/20 17:21 Resp 22 H 10/27/20 17:21 BP 146/74 H 10/27/20 17:21 Pulse Ox 99 10/27/20 17:21 Body Mass Index 31.6 Results Labs CBC and Chem 7: 10/27/20 10:17 10/27/20 10:17 Labs: Laboratory Results - last 24 hr 10/27/20 10/27/20 10/27/20 10:16 10:17 10:17 MCV 97.6 MCH 32.5 MCHC 33.3 RDW 15.8 Plt Count 66 L MPV 11.7 Immature Gran % (Auto) 0.3 Neut % (Auto) 85.9 H Lymph % (Auto) 3.8 L Whitman % (Auto) 10.0 Eos % (Auto) 0.0 Baso % (Auto) 0.0 Lymph # (Auto) 0.2 L Whitman # (Auto) 0.4 Eos # (Auto) 0.0 Baso # (Auto) 0.0 Abs Immat Gran (auto) 0.01 Absolute Neuts (auto) 3.4 Absolute Nucleated RBC 0.000 Nucleated RBC % (auto) 0.0 Smear Tech's Comments VERIFIED PT 20.5 H D INR 1.7 H APTT 32.9 Anion Gap Estim Creat Clear Calc Estimated GFR POC Glucose Random Glucose Lactic Acid Lactic Acid Fup @ 2Hr Calcium Magnesium Total Bilirubin Direct Bilirubin AST ALT Alkaline Phosphatase Troponin I High Sens Total Protein Albumin Lipase Stool Occult Blood Acetone, Qual COVID-19 (TAYLOR) COVID-19 Clin Com Blood Type O Positive Antibody Screen NEGATIVE Crossmatch See Detail 10/27/20 10/27/20 10/27/20 10:17 10:17 10:17 MCV MCH MCHC RDW Plt Count MPV Immature Gran % (Auto) Neut % (Auto) Lymph % (Auto) Whitman % (Auto) Eos % (Auto) Baso % (Auto) Lymph # (Auto) Whitman # (Auto) Eos # (Auto) Baso # (Auto) Abs Immat Gran (auto) Absolute Neuts (auto) Absolute Nucleated RBC Nucleated RBC % (auto) Smear Tech's Comments PT INR APTT Anion Gap 15 Estim Creat Clear Calc 82.2 Estimated GFR > 60 POC Glucose Random Glucose 318 H D Lactic Acid 6.6 H* Lactic Acid Fup @ 2Hr Calcium 7.7 L Magnesium 1.6 Total Bilirubin 2.4 H Direct Bilirubin 1.4 H AST 24 ALT 18 Alkaline Phosphatase 88 Troponin I High Sens < 3.5 Total Protein 8.3 H Albumin 2.2 L Lipase 37 Stool Occult Blood Acetone, Qual Negative COVID-19 (TAYLOR) COVID-BioPoly Com Blood Type Antibody Screen Crossmatch 10/27/20 10/27/20 10/27/20 10:17 10:21 13:07 MCV MCH MCHC RDW Plt Count MPV Immature Gran % (Auto) Neut % (Auto) Lymph % (Auto) Whitman % (Auto) Eos % (Auto) Baso % (Auto) Lymph # (Auto) Whitman # (Auto) Eos # (Auto) Baso # (Auto) Abs Immat Gran (auto) Absolute Neuts (auto) Absolute Nucleated RBC Nucleated RBC % (auto) Smear Tech's Comments PT INR APTT Anion Gap Estim Creat Clear Calc Estimated GFR POC Glucose Random Glucose Lactic Acid Lactic Acid Fup @ 2Hr 6.2 H* Calcium Magnesium Total Bilirubin Direct Bilirubin AST ALT Alkaline Phosphatase Troponin I High Sens Total Protein Albumin Lipase Stool Occult Blood POSITIVE Acetone, Qual COVID-19 (TAYLOR) Negative COVID-CrossLoop See Note Blood Type Antibody Screen Crossmatch 10/27/20 13:55 MCV MCH MCHC RDW Plt Count MPV Immature Gran % (Auto) Neut % (Auto) Lymph % (Auto) Whitman % (Auto) Eos % (Auto) Baso % (Auto) Lymph # (Auto) Whitman # (Auto) Eos # (Auto) Baso # (Auto) Abs Immat Gran (auto) Absolute Neuts (auto) Absolute Nucleated RBC Nucleated RBC % (auto) Smear Tech's Comments PT INR APTT Anion Gap Estim Creat Clear Calc Estimated GFR POC Glucose 267 H Random Glucose Lactic Acid Lactic Acid Fup @ 2Hr Calcium Magnesium Total Bilirubin Direct Bilirubin AST ALT Alkaline Phosphatase Troponin I High Sens Total Protein Albumin Lipase Stool Occult Blood Acetone, Qual COVID-19 (TAYLOR) COVID-19 Clin Com Blood Type Antibody Screen Crossmatch Imaging Radiologist's Impressions: Impressions Chest X-Ray 10/27/20 09:46 IMPRESSION: Unremarkable examination. Abdomen Ultrasound 10/27/20 16:20 IMPRESSION: Very minimal ascites fluid nodular the of therapeutic paracentesis and risk. The exam was canceled. Dr. Suarez was notified. Assessment and Plan (1) Acute upper gastrointestinal bleeding: Status: Acute (2) Type 2 diabetes mellitus with hyperglycemia: Problem details: September 2018 Status: Acute (3) Anemia: Status: Acute (4) Cirrhosis: Status: Acute 55 year old male with Cirrhosis, HIV here with upper GIB, acute bood loss anemia 1. Anemia mostly chronic with acute compoenent from upper GIB -Transfusion -repeat lab in the morning -EGD tomorrow -IV PPI 2. lactic acidosis--not due sepsis, likely from liver cirrhosis, hydrate and repeat 3. Cirrhosis--no signficant ascites 4. HIV--HAART 5. Diabetes--Insulin 6. h/o Ulcerative colitis--Mesalamine 7. BPH--Flomax 8. Abdominal pain--chronic, morphine for pain 8. DVT proph: boot
--- NOTE | 2020-10-27 17:53 | OP_ITS ---
SURGEON: Mario Suarez MD INDICATIONS: The patient presents for evaluation of melena and anemia. Full consent has been obtained from him for this, including risks of bleeding and perforation. PREOPERATIVE DIAGNOSIS: POSTOPERATIVE DIAGNOSIS: PROCEDURE PERFORMED: Esophagogastroduodenoscopy. ESTIMATED BLOOD LOSS: COMPLICATIONS: ANESTHESIA: Monitored anesthesia care. ASSISTANTS: SPECIMENS: PREOPERATIVE DIAGNOSES: Melena and anemia. POSTOPERATIVE DIAGNOSES: Melena and anemia, nonbleeding esophageal varices, gastric retention. DESCRIPTION OF PROCEDURE: The patient was placed in the left lateral decubitus position. The Olympus video gastroscope was passed in the posterior oropharynx and upper esophagus under direct vision. The scope was passed slowly into the distal esophagus. The gastroesophageal junction appeared at 36 cm. Extending from this to approximately 30 cm, were 3 chains of varices, which did not completely disappear with insufflation of air. There was no evidence of any active bleeding nor any red quintero. There was no esophagitis. The scope entered into the stomach. There was a large amount of blackish material and old food in the proximal stomach and in the pre-pyloric gastric antrum. I did not visualize any red blood. I could see blackish material coming from the pylorus. I did attempt to gain entry into the duodenum, but the patient was having a lot of coughing and given the significant gastric retention, I did not want to risk aspiration. Given that I did not see any sign of active bleeding nor red blood, I opted to hold off on pursuing further attempts at getting into the duodenum. The scope was retroflexed visualizing the proximal stomach, which was limited due to the retained food and black material, but I did not see any sign of bleeding. The scope was straightened and withdrawn back in the esophagus. Again, noted with varices, but there was no bleeding. The scope was withdrawn from the patient. He tolerated the procedure well and was returned to recovery area in stable condition. IMPRESSION: 1. Nonbleeding esophageal varices. 2. Gastric retention with food and black material. PLAN: I will plan to have him undergo repeat upper endoscopy tomorrow as he is kept n.p.o. and hopefully, we will be able to get a better look at the stomach and duodenum. He will be kept on IV Protonix. I have ordered an ultrasound with paracentesis to rule out spontaneous bacterial peritonitis. He will have followup laboratories as well. This has been discussed with his . MD JANNA Soriano/MAURA / [phone]
[2020-10-27] MEDS: 0.9 % Sodium Chloride Flush 3 ML SYRINGE IVFLUSH ×2 (18:02→20:55)
[2020-10-27 18:17] LABS: Glucose Urine UA NEG (NEG); Leukocyte Esterase Urine NEG (NEG); Nitrite Urine NEG (NEG); Urine Blood NEG (NEG); Urine Ketones NEG (NEG); Urine Protein NEG (NEG-TRACE)
[2020-10-27 18:22] LABS: Appearance Urine CLEAR; Color Urine YELLOW
[2020-10-27] MEDS: Pantoprazole Sodium 80 MG in 0.9 % Sodium Chloride 80 ML 10 MG IV (18:22)
[2020-10-27 18:26] LABS: ~Lactic Acid-LAB USE ONLY 6.2 mmol/L (0.5-2.0)
[2020-10-27 20:22] LABS: Glucose, Whole Blood 281 mg/dL (60-115)
[2020-10-27] MEDS: Insulin Lispro 100 UNIT/ML 3 ML VIAL SUBCUT (20:52)
[2020-10-27] MEDS: cefTRIAXone sodium 1 GM in 0.9 % Sodium Chloride 50 ML IV (22:26)
[2020-10-27] MEDS: Lactated Ringers 1,000 ML 80 ML IVCONT (22:28)
[2020-10-27] MEDS: Morphine Sulfate 2 MG/ML CARTRIDGE IVPUSH (23:02)
--- NOTE | 2020-10-27 23:38 | PC.NURSE ---
lab called with critical 1/2 blood cultures + for gram negative rods. notified.ordered iv rocephin q 24hr and started pt on iv LR at 80/hr
[2020-10-28] VITALS (14 sets, daily range): BP systolic 134–193; BP diastolic 61–83; PULSE 101–116; RESP 16–20; TEMP 36.1–36.7; O2SAT 93–100
[2020-10-28] MEDS: Pantoprazole Sodium 80 MG in 0.9 % Sodium Chloride 80 ML 10 MG IV ×2 (02:19→13:40)
[2020-10-28] MEDS: Morphine Sulfate 2 MG/ML CARTRIDGE IVPUSH ×2 (04:55→16:48)
[2020-10-28 06:50] LABS: Ammonia 71 umol/L (13-55)
[2020-10-28 06:57] LABS: INTERNATIONAL NORM RATIO 1.7 (0.9-1.1); Prothrombin Time 20.8 SEC (10.8-13.0)
[2020-10-28 07:05] LABS: Hematocrit 22.1 % (42-52); Hemoglobin 7.3 g/dl (14.0-18.0); Mean Corpuscular Volume 96.9 fL (80-98); Mean Platelet Volume 12.3 fL (9.4-12.4); Red Blood Count 2.28 X10*6/uL (4.60-5.80); Red Cell Distribution Width 16.7 % (11.0-16.0); White Blood Count 4.9 X10*3/uL (4.8-10.8)
[2020-10-28 07:12] LABS: Platelet Count 73 X10*3/uL (160-400)
[2020-10-28 07:35] LABS: Alanine Aminotransferase 25 U/L (0-40); Albumin Level 2.2 g/dL (3.5-5.0); Alkaline Phosphatase 83 U/L (39-117); Anion Gap 13 (12-20); Aspartate Amino Transferase 36 U/L (5-37); Bilirubin Direct 1.6 mg/dL (0.0-0.5); Bilirubin Total 2.8 mg/dL (0.0-1.0); Blood Urea Nitrogen 26 mg/dL (9-16); Calcium 7.7 mg/dL (8.4-10.2); Carbon Dioxide 14 mmol/L (22-29); Chloride 116 mmol/L (96-108); Estimated Glomerular Filt Rate > 60; Glucose Fasting 244 mg/dL (60-99); Potassium 3.8 mmol/L (3.3-5.1); Sodium 139 mmol/L (135-145); Total Protein 7.7 g/dL (6.5-8.0)
[2020-10-28 07:49] LABS: Glucose, Whole Blood 226 mg/dL (60-115)
[2020-10-28 07:59] LABS: Band Neutrophils Percent 3 % (3-5); Basophils Percent Manual 1 % (0-1); Lymphocytes Absolute Manual 0.1 X10*3/uL (0.6-4.8); Lymphocytes Percent Manual 3 % (20-40); Monocytes Absolute Manual 0.1 X10*3/uL (0.0-1.2); Monocytes Percent Manual 3 % (2-11); Neutrophils Absolute Manual 4.6 X10*3/uL (2.2-7.9); Neutrophils Percent Manual 90 % (45-73)
[2020-10-28 08:07] LABS: Acanthocytes 2+ (3-5) /OIF; RBC Morphology NOTED
[2020-10-28 08:08] LABS: Hypochromasia 1+ (5-14) /OIF; Tear Drop Cells 1+ (0-2) /OIF
[2020-10-28 08:09] LABS: Large Platelet PRESENT; Macrocytosis 1+ (5-14) /OIF; Platelet Estimate DECREASED (NORMAL); Platelet Morphology Comment NOTED
--- NOTE | 2020-10-28 09:19 | P.CONAN_ITS ---
[facility] Active Problems Active Problems: All Active Problems (Updated 10/27/20 @ 11:47 by ANNA Almonte) Acute upper gastrointestinal bleeding (Acute) Pulmonary nodule (Acute) Renal calculi (Acute) Cirrhosis (Acute) Type 2 diabetes mellitus with hyperglycemia (Acute) Ulcerative colitis (Acute) C. difficile diarrhea (Acute) Anemia (Acute) Hypokalemia (Acute) Coronavirus infection (Acute) Obesity (BMI 30-39.9) (Acute) Past Medical History Medical History Bullous pemphigoid COVID-19 in immunocompromised patient GERD (gastroesophageal reflux disease) Hepatic vein thrombosis Hepatitis C HIV (human immunodeficiency virus infection) Hypocalcemia Hypomagnesemia Lichen simplex chronicus Lung nodule Obesity (BMI 30-39.9) Pancytopenia Perirectal abscess Renal calculi Type 2 diabetes mellitus with hyperglycemia Ulcerative colitis Family History Family History Father Stroke Mother Diabetes Hypertension CVD (cardiovascular disease) Sister Family history of cervical cancer Surgical History Surgical History Anal fistula History of lithotripsy History of rectal abscess History of removal of ureteral stent History of umbilical hernia repair Social History Social History Household Members: Spouse and Family Housing: House Do you presently have visiting nurse or other home services: No Alcohol intake: former Smoking Status: Never smoker Use of substances other than those prescribed or required for medical reasons: No Currently Displaying Signs/Symptoms of Drug Intoxication Withdrawal: No Have you been hit, kicked, punched, or otherwise hurt by someone within the past year? 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 Advance Directives: Yes Advance Directives on File: Yes Advance Directives Date on File: 10/27/20 Do you have thoughts of harming others: None Do you have a plan to hurt others: No Plan Recently lost weight without trying: No service: No Current occupational status: employed Meds Allergies Allergy/AdvReac Type Severity Reaction Status Date / Time acetaminophen [Acetaminophen] Allergy Severe LIVER Verified 10/25/20 11:09 TOXICITY - CANNOT TAKE ACETAMINOPHEN Sulfa (Sulfonamide Allergy Intermediate RASH Verified 10/25/20 11:09 Antibiotics) [SULFA (SULFONAMIDE ANTIBIOTICS)] amoxicillin [Augmentin] Allergy Unknown mouth sores Verified 10/25/20 11:09 clavulanic acid [Augmentin] Allergy Unknown mouth sores Verified 10/25/20 11:09 ibuprofen [IBUPROFEN] AdvReac Intermediate BLEEDING Verified 10/25/20 11:09 Active Medications: Current Medications Generic Name Dose Route Start Last Admin Trade Name Freq PRN Reason Stop Dose Admin Allopurinol 100 mg 10/28/20 09:00 Allopurinol 100 Mg Tablet PO DAILY [facility] Atovaquone 750 mg 10/27/20 21:00 10/27/20 20:54 Atovaquone 750 Mg/5 Ml Oral.Susp PO Not Given BID YONATHAN Hydroxyzine HCl 50 mg 10/27/20 18:44 Hydroxyzine Hcl 25 Mg Tablet PO Q6H PRN bullous pemphigoid Pantoprazole Sodium 80 mg/ 100 mls @ 10 mls/hr 10/27/20 18:00 10/28/20 02:19 Sodium Chloride IV 10/30/20 17:59 10 mls/hr Q10H YONATHAN Administration Ceftriaxone Sodium 1 gm/ 50 mls @ 100 mls/hr 10/27/20 22:00 10/27/20 23:12 Sodium Chloride IV Infused Q24H YONATHAN Infusion Lactated Ringer's 1,000 mls @ 80 mls/hr 10/27/20 22:00 10/27/20 22:28 Lr IVCONT 80 mls/hr .[id number] YONATHAN Administration Insulin Human Lispro 0 unit 10/27/20 21:00 10/27/20 20:52 Insulin Lispro 100 Unit/Ml 3 Ml Vial SUBCUT 6 unit QIDACHS YONATHAN Administration Protocol Morphine Sulfate 2 mg 10/27/20 18:28 10/28/20 04:55 Morphine Sulfate 2 Mg/Ml Cartridge IVPUSH 2 mg Q6H PRN Administration Pain, Severe (Pain Scale 7-10) Patient Own 1 each 10/28/20 09:00 Medication (Odefsey) PO DAILY [facility] Patient Own 1 each 10/28/20 08:00 Medication ( PO Mesalamine [address] TIDWM [facility] ) Pharmacy Consult 1 each 10/27/20 09:43 Consult Rx Perform Med Rec MISCELLANE ONCE PRN Consult order Potassium Chloride 20 meq 10/27/20 21:00 10/27/20 20:54 Potassium Chloride Er 20 Meq Tab.Er.Prt PO Not Given BID [facility] Pyridoxine HCl 100 mg 10/28/20 09:00 Pyridoxine Hcl (Vitamin B6) 50 Mg Tablet PO DAILY [facility] Sitagliptin Phosphate 50 mg 10/28/20 09:00 Sitagliptin Phosphate 50 Mg Tablet PO DAILY [facility] Sodium Chloride 3 ml 10/27/20 16:00 10/27/20 20:55 0.9 % Sodium Chloride Flush 3 Ml Syringe IVFLUSH 3 ml QSHIFT [facility] Administration Tamsulosin HCl 0.4 mg 10/27/20 21:00 10/27/20 20:54 Tamsulosin Hcl 0.4 Mg Capsule PO Not Given BEDTIME [facility] Tramadol HCl 50 mg 10/27/20 18:44 Tramadol Hcl 50 Mg Tablet PO Q6H PRN pain (scale score 4-6) Home Medications Medication Instructions Recorded Confirmed Last Taken Type Odefsey 1 tab PO DAILY 04/27/20 10/27/20 Unknown History atovaquone 5 ml PO BID 04/27/20 10/27/20 Unknown History famotidine 40 mg PO BEDTIME 04/27/20 10/27/20 Unknown History mesalamine 800 mg PO TIDWM 04/27/20 10/27/20 Unknown History sitagliptin 50 mg tablet 50 mg PO DAILY 08/26/20 10/27/20 Unknown History hydroxyzine HCl 25 mg tablet 50 mg PO Q6H PRN tab 09/01/20 10/27/20 Unknown History blood sugar diagnostic #10 ea 10/06/20 Unknown History clobetasol 0.05 % topical cream 1 appl TOPICAL BID PRN 10/25/20 10/27/20 Unknown History econazole 1 appl TOPICAL BID 10/27/20 10/27/20 Unknown History triamcinolone acetonide 1 appl TOPICAL BID PRN 10/27/20 10/27/20 Unknown History Exam Exam Date and Time: October 28, 202019 Height,Weight and Vital Signs: Height 5 ft 2 in Weight 78.471 kg Last Vital Signs Temp 98.1 F 10/28/20 09:00 Pulse 111 H 10/28/20 09:00 Resp 19 10/28/20 09:00 BP 143/78 H 10/28/20 09:00 Pulse Ox 100 10/28/20 09:00 Pertinent Lab Results Pertinent Lab Results: Laboratory Tests 10/27/20 10/27/20 10/27/20 10:16 10:17 10:17 WBC 3.9 L RBC 2.46 L Hgb 8.0 L Hct 24.0 L MCV 97.6 MCH 32.5 MCHC 33.3 RDW 15.8 Plt Count 66 L MPV 11.7 Immature Gran % (Auto) 0.3 Neut % (Auto) 85.9 H Lymph % (Auto) 3.8 L Jones % (Auto) 10.0 Eos % (Auto) 0.0 Baso % (Auto) 0.0 Lymph # (Auto) 0.2 L Jones # (Auto) 0.4 Eos # (Auto) 0.0 Baso # (Auto) 0.0 Abs Immat Gran (auto) 0.01 Absolute Neuts (auto) 3.4 Absolute Nucleated RBC 0.000 Nucleated RBC % (auto) 0.0 Neutrophils % (Manual) Band Neutrophils % Lymphocytes % (Manual) Monocytes % (Manual) Basophils % (Manual) Abs Neuts (Manual) Lymphocytes # (Manual) Monocytes # (Manual) Platelet Estimate Large Platelets Plt Morphology Comment RBC Morphology Hypochromasia Macrocytosis Tear Drop Cells Acanthocytes (Spur) Smear Tech's Comments VERIFIED PT 20.5 H D INR 1.7 H APTT 32.9 Sodium Potassium Chloride Carbon Dioxide Anion Gap BUN Creatinine Estim Creat Clear Calc Estimated GFR POC Glucose Random Glucose Fasting Glucose Lactic Acid Lactic Acid Fup @ 2Hr Lactic Acid Fup @ 4Hr Calcium Magnesium Total Bilirubin Direct Bilirubin AST ALT Alkaline Phosphatase Ammonia Troponin I High Sens Total Protein Albumin Lipase Urine Color Urine Appearance Urine pH Ur Specific [place] Urine Protein Urine Glucose (UA) Urine Ketones Urine Blood Urine Nitrite Ur Leukocyte Esterase Stool Occult Blood Acetone, Qual COVID-19 ([facility]) COVID-19 Clin Com Blood Type O Positive Antibody Screen NEGATIVE Crossmatch See Detail 10/27/20 10/27/20 10/27/20 10:17 10:17 10:17 WBC RBC Hgb Hct MCV MCH MCHC RDW Plt Count MPV Immature Gran % (Auto) Neut % (Auto) Lymph % (Auto) Jones % (Auto) Eos % (Auto) Baso % (Auto) Lymph # (Auto) Jones # (Auto) Eos # (Auto) Baso # (Auto) Abs Immat Gran (auto) Absolute Neuts (auto) Absolute Nucleated RBC Nucleated RBC % (auto) Neutrophils % (Manual) Band Neutrophils % Lymphocytes % (Manual) Monocytes % (Manual) Basophils % (Manual) Abs Neuts (Manual) Lymphocytes # (Manual) Monocytes # (Manual) Platelet Estimate Large Platelets Plt Morphology Comment RBC Morphology Hypochromasia Macrocytosis Tear Drop Cells Acanthocytes (Spur) Smear Tech's Comments PT INR APTT Sodium 134 L Potassium 4.6 Chloride 110 H Carbon Dioxide 14 L Anion Gap 15 BUN 29 H D Creatinine 0.91 Estim Creat Clear Calc 82.2 Estimated GFR > 60 POC Glucose Random Glucose 318 H D Fasting Glucose Lactic Acid 6.6 H* Lactic Acid Fup @ 2Hr Lactic Acid Fup @ 4Hr Calcium 7.7 L Magnesium 1.6 Total Bilirubin 2.4 H Direct Bilirubin 1.4 H AST 24 ALT 18 Alkaline Phosphatase 88 Ammonia Troponin I High Sens < 3.5 Total Protein 8.3 H Albumin 2.2 L Lipase 37 Urine Color Urine Appearance Urine pH Ur Specific [place] Urine Protein Urine Glucose (UA) Urine Ketones Urine Blood Urine Nitrite Ur Leukocyte Esterase Stool Occult Blood Acetone, Qual Negative COVID-19 ([facility]YLOR) COVID-19 Clin Com Blood Type Antibody Screen Crossmatch 10/27/20 10/27/20 10/27/20 10:17 10:21 13:07 WBC RBC Hgb Hct MCV MCH MCHC RDW Plt Count MPV Immature Gran % (Auto) Neut % (Auto) Lymph % (Auto) Jones % (Auto) Eos % (Auto) Baso % (Auto) Lymph # (Auto) Jones # (Auto) Eos # (Auto) Baso # (Auto) Abs Immat Gran (auto) Absolute Neuts (auto) Absolute Nucleated RBC Nucleated RBC % (auto) Neutrophils % (Manual) Band Neutrophils % Lymphocytes % (Manual) Monocytes % (Manual) Basophils % (Manual) Abs Neuts (Manual) Lymphocytes # (Manual) Monocytes # (Manual) Platelet Estimate Large Platelets Plt Morphology Comment RBC Morphology Hypochromasia Macrocytosis Tear Drop Cells Acanthocytes (Spur) Smear Tech's Comments PT INR APTT Sodium Potassium Chloride Carbon Dioxide Anion Gap BUN Creatinine Estim Creat Clear Calc Estimated GFR POC Glucose Random Glucose Fasting Glucose Lactic Acid Lactic Acid Fup @ 2Hr 6.2 H* Lactic Acid Fup @ 4Hr Calcium Magnesium Total Bilirubin Direct Bilirubin AST ALT Alkaline Phosphatase Ammonia Troponin I High Sens Total Protein Albumin Lipase Urine Color Urine Appearance Urine pH Ur Specific [place] Urine Protein Urine Glucose (UA) Urine Ketones Urine Blood Urine Nitrite Ur Leukocyte Esterase Stool Occult Blood POSITIVE Acetone, Qual COVID-19 (TAYLOR) Negative COVID-19 [facility] Com See Note Blood Type Antibody Screen Crossmatch 10/27/20 10/27/20 10/27/20 13:55 17:27 18:00 WBC RBC Hgb Hct MCV MCH MCHC RDW Plt Count MPV Immature Gran % (Auto) Neut % (Auto) Lymph % (Auto) Jones % (Auto) Eos % (Auto) Baso % (Auto) Lymph # (Auto) Jones # (Auto) Eos # (Auto) Baso # (Auto) Abs Immat Gran (auto) Absolute Neuts (auto) Absolute Nucleated RBC Nucleated RBC % (auto) Neutrophils % (Manual) Band Neutrophils % Lymphocytes % (Manual) Monocytes % (Manual) Basophils % (Manual) Abs Neuts (Manual) Lymphocytes # (Manual) Monocytes # (Manual) Platelet Estimate Large Platelets Plt Morphology Comment RBC Morphology Hypochromasia Macrocytosis Tear Drop Cells Acanthocytes (Spur) Smear Tech's Comments PT INR APTT Sodium Potassium Chloride Carbon Dioxide Anion Gap BUN Creatinine Estim Creat Clear Calc Estimated GFR POC Glucose 267 H Random Glucose Fasting Glucose Lactic Acid Lactic Acid Fup @ 2Hr Lactic Acid Fup @ 4Hr 6.2 H* Calcium Magnesium Total Bilirubin Direct Bilirubin AST ALT Alkaline Phosphatase Ammonia Troponin I High Sens Total Protein Albumin Lipase Urine Color YELLOW Urine Appearance CLEAR Urine pH 7.0 Ur Specific [place] 1.010 Urine Protein NEG Urine Glucose (UA) NEG Urine Ketones NEG Urine Blood NEG Urine Nitrite NEG Ur Leukocyte Esterase NEG Stool Occult Blood Acetone, Qual COVID-19 ([facility]YLOR) COVID-19 [facility] Com Blood Type Antibody Screen Crossmatch 10/27/20 10/28/20 10/28/20 20:11 05:58 05:58 WBC Cancelled RBC Cancelled Hgb Cancelled Hct Cancelled MCV Cancelled MCH Cancelled MCHC Cancelled RDW Cancelled Plt Count Cancelled MPV Cancelled Immature Gran % (Auto) Neut % (Auto) Lymph % (Auto) Jones % (Auto) Eos % (Auto) Baso % (Auto) Lymph # (Auto) Jones # (Auto) Eos # (Auto) Baso # (Auto) Abs Immat Gran (auto) Absolute Neuts (auto) Absolute Nucleated RBC Cancelled Nucleated RBC % (auto) Cancelled Neutrophils % (Manual) Band Neutrophils % Lymphocytes % (Manual) Monocytes % (Manual) Basophils % (Manual) Abs Neuts (Manual) Lymphocytes # (Manual) Monocytes # (Manual) Platelet Estimate Large Platelets Plt Morphology Comment RBC Morphology Hypochromasia Macrocytosis Tear Drop Cells Acanthocytes (Spur) Smear Tech's Comments PT INR APTT Sodium Cancelled Potassium Cancelled Chloride Cancelled Carbon Dioxide Cancelled Anion Gap Cancelled BUN Cancelled Creatinine Cancelled Estim Creat Clear Calc Cancelled Estimated GFR Cancelled POC Glucose 281 H Random Glucose Cancelled Fasting Glucose Lactic Acid Lactic Acid Fup @ 2Hr Lactic Acid Fup @ 4Hr Calcium Cancelled Magnesium Total Bilirubin Direct Bilirubin AST ALT Alkaline Phosphatase Ammonia Troponin I High Sens Total Protein Albumin Lipase Urine Color Urine Appearance Urine pH Ur Specific [place] Urine Protein Urine Glucose (UA) Urine Ketones Urine Blood Urine Nitrite Ur Leukocyte Esterase Stool Occult Blood Acetone, Qual COVID-19 ([facility]) COVID-19 Clin Com Blood Type Antibody Screen Crossmatch 10/28/20 10/28/20 10/28/20 05:58 05:58 05:58 WBC 4.9 RBC 2.28 L Hgb 7.3 L Hct 22.1 L MCV 96.9 MCH 32.0 MCHC 33.0 RDW 16.7 H Plt Count 73 L MPV 12.3 Immature Gran % (Auto) Cancelled Neut % (Auto) Cancelled Lymph % (Auto) Cancelled Jones % (Auto) Cancelled Eos % (Auto) Cancelled Baso % (Auto) Cancelled Lymph # (Auto) Cancelled Jones # (Auto) Cancelled Eos # (Auto) Cancelled Baso # (Auto) Cancelled Abs Immat Gran (auto) Cancelled Absolute Neuts (auto) Cancelled Absolute Nucleated RBC 0.000 Nucleated RBC % (auto) 0.0 Neutrophils % (Manual) 90 H Band Neutrophils % 3 Lymphocytes % (Manual) 3 L Monocytes % (Manual) 3 Basophils % (Manual) 1 Abs Neuts (Manual) 4.6 Lymphocytes # (Manual) 0.1 L Monocytes # (Manual) 0.1 Platelet Estimate DECREASED Large Platelets PRESENT Plt Morphology Comment NOTED RBC Morphology NOTED Hypochromasia 1+ (5-14) Macrocytosis 1+ (5-14) Tear Drop Cells 1+ (0-2) Acanthocytes (Spur) 2+ (3-5) Smear Tech's Comments PT 20.8 H INR 1.7 H APTT Sodium 139 Potassium 3.8 Chloride 116 H Carbon Dioxide 14 L Anion Gap 13 BUN 26 H Creatinine 0.85 Estim Creat Clear Calc 88.0 Estimated GFR > 60 POC Glucose Random Glucose Fasting Glucose 244 H Lactic Acid Lactic Acid Fup @ 2Hr Lactic Acid Fup @ 4Hr Calcium 7.7 L Magnesium Total Bilirubin 2.8 H Direct Bilirubin 1.6 H AST 36 D ALT 25 Alkaline Phosphatase 83 Ammonia Troponin I High Sens Total Protein 7.7 Albumin 2.2 L Lipase Urine Color Urine Appearance Urine pH Ur Specific [place] Urine Protein Urine Glucose (UA) Urine Ketones Urine Blood Urine Nitrite Ur Leukocyte Esterase Stool Occult Blood Acetone, Qual COVID-19 ([facility]YLOR) COVID-19 Clin Com Blood Type Antibody Screen Crossmatch 10/28/20 10/28/20 05:58 07:44 WBC RBC Hgb Hct MCV MCH MCHC RDW Plt Count MPV Immature Gran % (Auto) Neut % (Auto) Lymph % (Auto) Jones % (Auto) Eos % (Auto) Baso % (Auto) Lymph # (Auto) Jones # (Auto) Eos # (Auto) Baso # (Auto) Abs Immat Gran (auto) Absolute Neuts (auto) Absolute Nucleated RBC Nucleated RBC % (auto) Neutrophils % (Manual) Band Neutrophils % Lymphocytes % (Manual) Monocytes % (Manual) Basophils % (Manual) Abs Neuts (Manual) Lymphocytes # (Manual) Monocytes # (Manual) Platelet Estimate Large Platelets Plt Morphology Comment RBC Morphology Hypochromasia Macrocytosis Tear Drop Cells Acanthocytes (Spur) Smear Tech's Comments PT INR APTT Sodium Potassium Chloride Carbon Dioxide Anion Gap BUN Creatinine Estim Creat Clear Calc Estimated GFR POC Glucose 226 H Random Glucose Fasting Glucose Lactic Acid Lactic Acid Fup @ 2Hr Lactic Acid Fup @ 4Hr Calcium Magnesium Total Bilirubin Direct Bilirubin AST ALT Alkaline Phosphatase Ammonia 71 H Troponin I High Sens Total Protein Albumin Lipase Urine Color Urine Appearance Urine pH Ur Specific [place] Urine Protein Urine Glucose (UA) Urine Ketones Urine Blood Urine Nitrite Ur Leukocyte Esterase Stool Occult Blood Acetone, Qual COVID-19 ([facility]YLOR) COVID-19 Clin Com Blood Type Antibody Screen Crossmatch Airway Mallampati Class: II TM Dist: >3cm Neck ROM: Full Heart: RRR Lungs: CTA Assessment and Plan Assessment Anesthesia Assessment: Anesthesia Plan Discussed and Chart Reviewed Final Anesthetic Review NPO: Yes ASA Class: IV Final Preanesthetic Review: Meds/Allgs Chart Reviewed, Consent Obtained/Reviewed and Anes Risks/Benef Reviewed Patient Risk: High Procedure Risk: Intermediate Anesthetic Plan Anesthetic Plan: GA Disposition: Standard PACU
[2020-10-28 09:21] LABS: Glucose, Whole Blood 201 mg/dL (60-115)
--- NOTE | 2020-10-28 09:23 | PC.NURSE ---
patient sleepy, yet arousable at times. oriented to peron/place. Attempted to have patient sign consent and was unable to do so. [facility] and is[employer] at bedside. patient states this is not how he normally is.
--- NOTE | 2020-10-28 09:28 | MHC.SHP ---
Pre-Procedural Eval Section A The patient is an INPATIENT: Yes The History & Physical has been completed within 30 days and I have reviewed it.: Yes Section B Chief Complaint: abd pain - elev sugar Allergies: Allergies Allergy/AdvReac Type Severity Reaction Status Date / Time acetaminophen [Acetaminophen] Allergy Severe LIVER Verified 10/25/20 11:09 TOXICITY - CANNOT TAKE ACETAMINOPHEN Sulfa (Sulfonamide Allergy Intermediate RASH Verified 10/25/20 11:09 Antibiotics) [SULFA (SULFONAMIDE ANTIBIOTICS)] amoxicillin [Augmentin] Allergy Unknown mouth sores Verified 10/25/20 11:09 clavulanic acid [Augmentin] Allergy Unknown mouth sores Verified 10/25/20 11:09 ibuprofen [IBUPROFEN] AdvReac Intermediate BLEEDING Verified 10/25/20 11:09 Plan I have reviewed the history and physical and performed a pertinent physical examination on my patient. No changes have occurred unless specified.
--- NOTE | 2020-10-28 09:58 | MHC.CM.PN ---
spoke with pts pt not in room..pt is working and independent dc plan home no servceis pt has transportaion home
--- NOTE | 2020-10-28 10:56 | PM.OP ---
Brief Operative Note Date of Service: 10/28/20 Pre-op diagnosis: GI bleeding Post-op diagnosis: other (esophageal varices, portal hypertensive gastropathy) Procedure: EGD Surgeon: Anival Allen Anesthesia: GETA Estimated blood loss (mL): 0 Pathology: none sent Condition: stable Disposition: PACU
--- NOTE | 2020-10-28 11:03 | PM.EVENT ---
Event Note Date of Service: 10/28/20 Event Note: EGD nonbleeding esophageal varices food in stomach, no bleeding seen duodenum normal. some blood seen in hypopharynx ?source No UGI bleeding site identified monitor hct treat underlying infection and elevated ammonia. start clear liquids
[2020-10-28 13:12] LABS: Glucose, Whole Blood 242 mg/dL (60-115)
--- NOTE | 2020-10-28 13:28 | P.PNIM_ITS ---
Subjective Subjective Date of Service: 10/28/20 Interval History: Seen in f/u gor gib, acute blood loss anemia--H/H down', no active bleed, EGD done again today with no source of bleed. At baseline mental status Review of Systems Gen: no fever Resp: no sob, no cough CV: no chest, no VILLAGRAN, no leg edema GI: No n/v, + abd pain Neuro: No confusion Physical Exam Vital Signs: Vital Signs: Last Vital Signs Temp 97.9 F 10/28/20 12:05 Pulse 113 H 10/28/20 12:05 Resp 16 10/28/20 12:05 BP 159/77 H 10/28/20 12:05 Pulse Ox 100 10/28/20 12:05 Body Mass Index 31.6 General: No acute distress, alert Resp: CTA bilateral CVS: S1,S2,RRR GI: +BS, NT, no distention Skin: No rash Neuro: motor grossly intact Psych: appropriate affect Objective Data Current Medications Generic Name Dose Route Start Last Admin Trade Name Ledy PRN Reason Stop Dose Admin Allopurinol 100 mg 10/28/20 09:00 Allopurinol 100 Mg Tablet PO DAILY YONATHAN Atovaquone 750 mg 10/27/20 21:00 10/27/20 20:54 Atovaquone 750 Mg/5 Ml Oral.Susp PO Not Given BID YONATHAN Hydroxyzine HCl 50 mg 10/27/20 18:44 Hydroxyzine Hcl 25 Mg Tablet PO Q6H PRN bullous pemphigoid Pantoprazole Sodium 80 mg/ 100 mls @ 10 mls/hr 10/27/20 18:00 10/28/20 02:19 Sodium Chloride IV 10/30/20 17:59 10 mls/hr Q10H YONATHAN Administration Ceftriaxone Sodium 1 gm/ 50 mls @ 100 mls/hr 10/27/20 22:00 10/27/20 23:12 Sodium Chloride IV Infused Q24H YONATHAN Infusion Lactated Ringer's 1,000 mls @ 80 mls/hr 10/27/20 22:00 10/27/20 22:28 Lr IVCONT 80 mls/hr .[id number] YONATHAN Administration Insulin Human Lispro 0 unit 10/27/20 21:00 10/27/20 20:52 Insulin Lispro 100 Unit/Ml 3 Ml Vial SUBCUT 6 unit QIDACHS YONATHAN Administration Protocol Morphine Sulfate 2 mg 10/27/20 18:28 10/28/20 04:55 Morphine Sulfate 2 Mg/Ml Cartridge IVPUSH 2 mg Q6H PRN Administration Pain, Severe (Pain Scale 7-10) Patient Own 1 each 10/28/20 09:00 Medication (Odefsey) PO DAILY [facility] Patient Own 1 each 10/28/20 08:00 Medication ( PO Mesalamine [address] TIDWM [facility] ) Pharmacy Consult 1 each 10/27/20 09:43 Consult Rx Perform Med Rec MISCELLANE ONCE PRN Consult order Potassium Chloride 20 meq 10/27/20 21:00 10/27/20 20:54 Potassium Chloride Er 20 Meq Tab.Er.Prt PO Not Given BID [facility] Pyridoxine HCl 100 mg 10/28/20 09:00 Pyridoxine Hcl (Vitamin B6) 50 Mg Tablet PO DAILY [facility] Sitagliptin Phosphate 50 mg 10/28/20 09:00 Sitagliptin Phosphate 50 Mg Tablet PO DAILY [facility] Sodium Chloride 3 ml 10/27/20 16:00 10/27/20 20:55 0.9 % Sodium Chloride Flush 3 Ml Syringe IVFLUSH 3 ml QSHIFT [facility] Administration Tamsulosin HCl 0.4 mg 10/27/20 21:00 10/27/20 20:54 Tamsulosin Hcl 0.4 Mg Capsule PO Not Given BEDTIME [facility] Tramadol HCl 50 mg 10/27/20 18:44 Tramadol Hcl 50 Mg Tablet PO Q6H PRN pain (scale score 4-6) Labs CBC & Chem 7: 10/28/20 05:58 10/28/20 05:58 Microbiology Microbiology Results: Microbiology 10/27/20 10:29 Blood - Venous Blood Culture - Preliminary No growth after 24 hours. 10/27/20 10:16 Blood - Venous Blood Culture - Preliminary Gram negative preston 10/27/20 21:55 Blood - Venous Blood Culture - Preliminary 10/27/20 21:50 Blood - Venous Blood Culture - Preliminary Assessment and Plan (1) Acute upper gastrointestinal bleeding: Status: Acute (2) Type 2 diabetes mellitus with hyperglycemia: Problem details: September 2018 Status: Acute (3) Anemia: Status: Acute (4) Cirrhosis: Status: Acute Assessment and Plan: 55 year old male with Cirrhosis, HIV here with upper GIB, acute bood loss anemia 1. Anemia mostly chronic with acute component. -Had EGD on 10/27 but was clouded with food stuff and repeated today with the following observation/recommendation by Dr. Allen nonbleeding esophageal varices food in stomach, no bleeding seen duodenum normal. some blood seen in hypopharynx ?source No UGI bleeding site identified monitor hct treat underlying infection and elevated ammonia. start clear liquids -IV PPI -Transfuse 1 more unit 2. lactic acidosis--not due sepsis, likely from liver cirrhosis, hydrate and repeat 3. Cirrhosis--no signficant ascites 4. HIV--HAART 5. Diabetes--Insulin 6. h/o Ulcerative colitis--Mesalamine 7. BPH--Flomax 8. Abdominal pain--chronic, morphine for pain 9. Elevated ammonia--has come down and doesn't appear encephalopathic will give lactulose 8. DVT proph: boot
[2020-10-28] MEDS: Lactated Ringers 1,000 ML 80 ML IVCONT (13:40)
--- NOTE | 2020-10-28 13:50 | OP_ITS ---
SURGEON: Anival Allen MD INDICATIONS: GI bleeding. PREOPERATIVE DIAGNOSIS: POSTOPERATIVE DIAGNOSIS: PROCEDURE PERFORMED: Upper endoscopy. ESTIMATED BLOOD LOSS: COMPLICATIONS: ANESTHESIA: ASSISTANTS: SPECIMENS: MEDICATIONS: General anesthesia. DESCRIPTION OF PROCEDURE: History and physical performed. The risks and benefits of the procedure were explained to the patient's and informed consent was obtained. The patient was placed in the left lateral decubitus position. The Olympus video gastroscope was introduced into the esophagus, stomach, and duodenum. Examination was performed and the scope was removed. He tolerated the procedure well and was taken to recovery area in stable condition. FINDINGS: Esophagus: Prior to intubation of the esophagus, there was noted to be red blood in the hypopharynx. The source of this was not identified. The esophagus was clear without any active bleeding. There were 4 chains of grade 2 to 3 varices extending from the EG junction at 36 cm up to about 28 cm. There was no stigmata of recent hemorrhage. Stomach: The stomach showed no evidence of masses, ulcers, or polyps. There was a large amount of retained food material that was black in the stomach, but no active bleeding. There were mild changes of portal hypertensive gastropathy with no bleeding. No gastric varices were identified on retroflexed view, but the exam was limited due to the retained food material. Duodenum: The bulb and second portion were normal. IMPRESSION: 1. Esophageal varices. 2. Portal hypertensive gastropathy. RECOMMENDATIONS: 1. Monitor hematocrit. 2. Begin clear liquids. 3. Monitor for any source of bleeding from the mouth or larynx. MD MAGDALENO Wright/ZAIDAL / [id number]
[2020-10-28] MEDS: Lactulose 20 GM/30 ML SOLUTION PO ×2 (14:30→20:54)
[2020-10-28 16:10] LABS: Glucose, Whole Blood 227 mg/dL (60-115)
[2020-10-28] MEDS: Insulin Lispro 100 UNIT/ML 3 ML VIAL SUBCUT ×2 (16:39→20:52)
[2020-10-28] MEDS: 0.9 % Sodium Chloride Flush 3 ML SYRINGE IVFLUSH (18:43)
[2020-10-28 20:09] LABS: Glucose, Whole Blood 164 mg/dL (60-115)
[2020-10-28] MEDS: Atovaquone 750 MG/5 ML ORAL.SUSP PO (20:53)
[2020-10-28] MEDS: Tamsulosin HCL 0.4 MG CAPSULE PO (20:53)
[2020-10-28] MEDS: Potassium Chloride ER 20 MEQ TAB.ER.PRT PO (20:53)
[2020-10-28] MEDS: traMADoL HCL 50 MG TABLET PO (21:09)
[2020-10-28] MEDS: cefTRIAXone sodium 1 GM in 0.9 % Sodium Chloride 50 ML IV (21:46)
[2020-10-29] MEDS: Pantoprazole Sodium 80 MG in 0.9 % Sodium Chloride 80 ML 10 MG IV ×2 (00:10→10:52)
[2020-10-29] MEDS: Lactated Ringers 1,000 ML 80 ML IVCONT ×2 (01:48→12:21)
[2020-10-29] MEDS: Morphine Sulfate 2 MG/ML CARTRIDGE IVPUSH (01:55)
[2020-10-29 04:00] VITALS: BP 156/84; PULSE 103; RESP 18; TEMP 36.2; O2SAT 99
[2020-10-29 06:59] LABS: Hematocrit 27.3 % (42-52); Hemoglobin 9.1 g/dl (14.0-18.0); Mean Corpuscular HGB Conc 33.3 g/dl (31.0-36.0); Mean Corpuscular Hemoglobin 31.5 pg (27.0-33.0); Mean Corpuscular Volume 94.5 fL (80-98); Red Blood Count 2.89 X10*6/uL (4.60-5.80); Red Cell Distribution Width 16.4 % (11.0-16.0); White Blood Count 3.1 X10*3/uL (4.8-10.8)
[2020-10-29 07:04] LABS: Platelet Count 74 X10*3/uL (160-400)
[2020-10-29 07:11] VITALS: BP 150/75; PULSE 97; RESP 20; TEMP 36.2; O2SAT 99
[2020-10-29 07:12] LABS: Glucose, Whole Blood 144 mg/dL (60-115)
[2020-10-29] MEDS: 0.9 % Sodium Chloride Flush 3 ML SYRINGE IVFLUSH (09:58)
[2020-10-29] MEDS: Pyridoxine HCl (Vitamin B6) 50 MG TABLET 100 MG PO (09:58)
[2020-10-29] MEDS: SITagliptin Phosphate 50 MG TABLET PO (09:59)
[2020-10-29] MEDS: Potassium Chloride ER 20 MEQ TAB.ER.PRT PO (09:59)
[2020-10-29] MEDS: Atovaquone 750 MG/5 ML ORAL.SUSP PO (09:59)
[2020-10-29] MEDS: allopurinoL 100 MG TABLET PO (09:59)
[2020-10-29] MEDS: Lactulose 20 GM/30 ML SOLUTION PO (09:59)
[2020-10-29 11:36] LABS: Glucose, Whole Blood 227 mg/dL (60-115)
[2020-10-29 11:56] VITALS: BP 148/78; PULSE 106; RESP 20; TEMP 36.5; O2SAT 98
[2020-10-29] MEDS: Insulin Lispro 100 UNIT/ML 3 ML VIAL SUBCUT ×2 (12:21→16:18)
--- NOTE | 2020-10-29 14:50 | PM.DS ---
DS: Providers Provider Date of Service: 11/08/20 Date of admission: 10/27/20 15:37 Primary care physician: Pb Ortiz MD Consults: 10/28/20 17:04 Consult to Gastroenterology Stat Consulting Provider: Mario Suarez Reason for consultation: Upper GI Bleed DS: Diagnosis Discharge Diagnosis (1) Acute upper gastrointestinal bleeding: Status: Acute (2) Type 2 diabetes mellitus with hyperglycemia: Status: Acute Problem details: September 2018 (3) Anemia: Status: Acute (4) Cirrhosis: Status: Acute DS: Medications Discharge Medications Home Medications: Home Medications Medication Instructions Recorded Confirmed Odefsey 1 tab PO DAILY 04/27/20 10/27/20 atovaquone 5 ml PO BID 04/27/20 10/27/20 famotidine 40 mg PO BEDTIME 04/27/20 10/27/20 mesalamine 800 mg PO TIDWM 04/27/20 10/27/20 sitagliptin 50 mg tablet 50 mg PO DAILY 08/26/20 10/27/20 hydroxyzine HCl 25 mg tablet 50 mg PO Q6H PRN tab 09/01/20 10/27/20 blood sugar diagnostic #10 ea 10/06/20 clobetasol 0.05 % topical cream 1 appl TOPICAL BID PRN 10/25/20 10/27/20 econazole 1 appl TOPICAL BID 10/27/20 10/27/20 triamcinolone acetonide 1 appl TOPICAL BID PRN 10/27/20 10/27/20 Previous Rx's Medication Instructions Recorded potassium chloride 20 mEq 20 meq PO BID #60 tab 09/07/20 tablet,extended release tamsulosin 0.4 mg PO BEDTIME 14 Days #14 cap 10/17/20 tramadol 50 mg PO Q6H PRN #14 tab 10/17/20 allopurinol 100 mg tablet 100 mg PO DAILY 90 Days #90 tab 10/25/20 pyridoxine (vitamin B6) 100 mg 100 mg PO DAILY 90 Days #90 tab 10/25/20 tablet DS: Summary Hospital Course Hospital Course: 55 year old male with Cirrhosis, HIV here with upper GIB, acute bood loss anemia HPI Date of Admission: 10/27/20 Chief Complaint: coffee ground emesis 55-year-old [place]ish-speaking male with a history of HIV, on HAART therapy, liver cirrhosis, hisotory of kidney stone, status post lithotripsy and other medical history as listed below. He presents today due to abdominal pain that is ongong for about 3 days and his signficant other reports that has also been have black stools. He hematocrit is 24 baseline is 28. He underwent urgent EGD but was usucessful due to old food in stomach and black stuff and is scheduled to have repeat EGD tomorrow. Ultrsound shows limitted ascietes. Hospital by problem 1. Anemia mostly chronic with acute component. -Had EGD on 10/27 but was clouded with food stuff and repeated 10/28 with the following observation/recommendation by Dr. lAlen nonbleeding esophageal varices food in stomach, no bleeding seenduodenum normal. some blood seen in hypopharynx ?sourceNo UGI bleeding site identified monitor hct treat underlying infection and elevated ammonia. start clear liquids : He was transfuse with 1 unit of blood on 10/27. Hemoglobin is stable 2. lactic acidosis--not due sepsis, likely from liver cirrhosis, hydrate and repeat 3. Cirrhosis--no signficant ascites 4. HIV--HAART 5. Diabetes--Insulin 6. h/o Ulcerative colitis--Mesalamine 7. BPH--Flomax 8. Abdominal pain--chronic, morphine for pain 9. Elevated ammonia--has come down and doesn't appear encephalopathic, he will be prescribed preventative lactulose to prevent hepatic encephalopat Discussed plan with patient and signficant other and they are comfortable with the plan Time Spent with Patient Time attestation: Total time spent providing and/or coordinating discharge services: Discharge coordination time: Greater than 30 minutes Physical Exam Vital Signs: Vital Signs: Last Vital Signs Temp 97.7 F 10/29/20 11:56 Pulse 106 H 10/29/20 11:56 Resp 20 10/29/20 11:56 BP 148/78 H 10/29/20 11:56 Pulse Ox 98 10/29/20 11:56 Body Mass Index 31.6 DS: Data Data Completed and Pending Pending studies at discharge: Pending at discharge 10/27/20 15:10 Cytology [PTH] Routine Labs on day of discharge: Laboratory Results - last 24 hr 10/27/20 10/28/20 10/28/20 10:16 16:07 20:03 WBC RBC Hgb Hct MCV MCH MCHC RDW Plt Count MPV Absolute Nucleated RBC Nucleated RBC % (auto) POC Glucose 227 H 164 H Blood Type O Positive Antibody Screen NEGATIVE Crossmatch See Detail 10/29/20 10/29/20 10/29/20 05:09 07:05 11:30 WBC 3.1 L RBC 2.89 L D Hgb 9.1 L D Hct 27.3 L D MCV 94.5 MCH 31.5 MCHC 33.3 RDW 16.4 H Plt Count 74 L MPV 12.0 Absolute Nucleated RBC 0.000 Nucleated RBC % (auto) 0.0 POC Glucose 144 H 227 H Blood Type Antibody Screen Crossmatch Preliminary micro results at discharge 10/27/20 10:29 Blood Culture - Preliminary Blood - Venous No growth after 48 hours. 10/27/20 21:55 Blood Culture - Preliminary Blood - Venous Gram negative preston 10/27/20 21:50 Blood Culture - Preliminary Blood - Venous Gram negative preston Discharge Plan Discharge Anticipated Discharge Date/Time: 10/29/20 14:46 Patient Disposition: Home, Self-Care Discharge Diagnosis: upper gi bleeding Referrals: Po,Pb Ferrer MD [Primary Care Provider] - 1 Week Discharge Medications: New omeprazole 20 mg capsule,delayed release(DR/EC) 20 mg PO DAILY 28 Days Qty: 28 RF: 0 lactulose 20 gram/30 mL solution 20 g PO BID Qty: 1200 RF: 0 Continued tramadol 50 mg tablet 50 mg PO Q6H PRN (Reason: pain (scale score 4-6)) Qty: 14 RF: 0 tamsulosin 0.4 mg capsule 0.4 mg PO BEDTIME 14 Days Qty: 14 RF: 0 famotidine 40 mg tablet 40 mg PO BEDTIME RF: 0 atovaquone 750 mg/5 mL suspension 5 ml PO BID RF: 0 mesalamine 800 mg tablet,delayed release (DR/EC) 800 mg PO TIDWM RF: 0 Odefsey 200-25-25 mg tablet 1 tab PO DAILY RF: 0 triamcinolone acetonide 0.1 % cream 1 appl topical BID PRN (Reason: Itching) RF: 0 econazole 1 % cream 1 appl topical BID RF: 0 hydroxyzine HCl 25 mg tablet 50 mg PO Q6H PRN (Reason: bullous pemphigoid) RF: 0 Januvia 50 mg tablet 50 mg PO DAILY RF: 0 allopurinol 100 mg tablet 100 mg PO DAILY 90 Days Qty: 90 RF: 1 pyridoxine (vitamin B6) 100 mg tablet 100 mg PO DAILY 90 Days Qty: 90 RF: 1 No Action potassium chloride 20 mEq tablet extended release 20 meq PO BID Qty: 60 RF: 1 clindamycin HCl 150 mg capsule 150 mg PO QID 7 Days Qty: 28 RF: 0 oxycodone 5 mg capsule 5 mg PO BID PRN (Reason: pain) Qty: 14 RF: 0 Discharge Orders: Discharge Order (Routine); Ordered 10/29/20 Ordered By: Kyle Quinn Diet: advance to usual diet and diabetic diet Activity on Discharge: As tolerated Stand Alone Forms: Patient Portal Discharge page Care Plan Goals: to prevent rehospitalization Health Concerns: gi bleeding and acute blood loss anemia Plan of Treatment: take all medication as directed and follow up with your doctor Assessment: gi bleeding, cirrhosis, Patient Instructions: Omeprazole (By mouth), Lactulose (By mouth) Discharge Date/Time: 10/29/20 17:09
[2020-10-29 15:10] VITALS: BP 140/70; PULSE 98; RESP 16; TEMP 37.3; O2SAT 99
--- NOTE | 2020-10-29 15:40 | MHC.CM.PN ---
PT DISCHARGING HOME TODAY WITH NO SERVICES
[2020-10-29 16:10] LABS: Glucose, Whole Blood 190 mg/dL (60-115)
--- NOTE | 2020-10-30 11:50 | HO.POSTANES ---
Post Anesthesia Evaluation Post Anesthesia Evaluation Anesthesia: General Mental Status: Awake Pain Control: Satisfactory Nausea/Vomiting: None Hydration: Adequate Anesthesia-Related Issues: No Anes. Related Issues
== END 2020-10-29 17:09 | disposition home or self-care (01) | DRG 253 ==
LOC: HO.ED 13:45 → HO.EDOVER 15:44 → HO.IMC 16:42
PROVIDERS: Internal Medicine; Internal Medicine Gastroenterology; Physician Assistant; Admitting Provider Internal Medicine; Emergency Provider Emergency Medicine; PCP Internal Medicine; Visit Provider Internal Medicine
PROC: 0DJ08ZZ Inspection of Upper Intestinal Tract, Via Natural or Artificial Opening Endoscopic (ICD-10-PCS; CPT 43235; principal; 2020-10-27 14:30)
DX: K92.2 Gastrointestinal hemorrhage, unspecified (principal); K76.6 Portal hypertension; K74.60 Unspecified cirrhosis of liver; I85.10 Secondary esophageal varices without bleeding; E11.65 Type 2 diabetes mellitus with hyperglycemia; D62 Acute posthemorrhagic anemia; K51.90 Ulcerative colitis, unspecified, without complications; N40.0 Benign prostatic hyperplasia without lower urinary tract symptoms; G89.29 Other chronic pain; Z21 Asymptomatic human immunodeficiency virus [HIV] infection status; Z20.822 Contact with and (suspected) exposure to COVID-19; K31.89 Other diseases of stomach and duodenum; Z86.16 Personal history of COVID-19; Z88.0 Allergy status to penicillin; Z88.2 Allergy status to sulfonamides; Z88.6 Allergy status to analgesic agent; Z79.899 Other long term (current) drug therapy
CPT/HCPCS: 36415; 71045; 76705; 80048; 80076; 81003; 82009; 82140; 82272; 82947; 83605; 83690; 83735; 84484; 85007; 85025; 85027; 85610; 85730; 86850; 86900; 86901; 86923; 87040; 87077; 87186; 87205; 87635; 93005; 96374; 99284; 99285; J0330; J0696; J2270; J2405; P9016; P9017

== ENCOUNTER 2020-11-04 10:46 | Outpatient (REF) | payer OTHER, SELFPAY ==
[2020-11-04 11:14] LABS: Hematocrit 29.3 % (42-52); Hemoglobin 10.1 g/dl (14.0-18.0); Imm Gran Abs Auto 0.01 X10*3/uL (0.00-0.03); Imm Gran Pct Auto 0.4 % (0.0-0.4); Immature Retic Fraction 10.8 % (2.3-13.4); Lymphocytes Absolute Auto 0.3 X10*3/uL (1.2-4.9); Lymphocytes Percent Auto 11.6 % (20-40); MANUAL DIFF FLAG SCAN; Mean Corpuscular HGB Conc 34.5 g/dl (31.0-36.0); Mean Corpuscular Hemoglobin 32.4 pg (27.0-33.0); Mean Corpuscular Volume 93.9 fL (80-98); Mean Platelet Volume 12.3 fL (9.4-12.4); Monocytes Absolute Auto 0.2 X10*3/uL (0.1-1.2); Monocytes Percent Auto 7.7 % (2-11); Neutrophils Absolute Auto 2.3 X10*3/uL (2.0-8.3); Neutrophils Percent Auto 80.3 % (45-73); Red Blood Count 3.12 X10*6/uL (4.60-5.80); Retic HGB Equivalent 35.4 pg (30.0-35.0); Reticulocyte Percent 4.4 % (0.5-1.8); Reticulocytes Absolute 0.137 X10*6/uL (0.026-0.095); SCAN SMEAR FLAG 1; White Blood Count 2.9 X10*3/uL (4.8-10.8)
[2020-11-04 11:15] LABS: Platelet Count 69 X10*3/uL (160-400)
[2020-11-04 11:38] LABS: SLIDE REVIEW VERIFIED
[2020-11-04 11:44] LABS: Ammonia 66 umol/L (13-55)
[2020-11-04 12:10] LABS: Ferritin 290 ng/mL (20-250)
[2020-11-04 12:17] LABS: Alanine Aminotransferase 28 U/L (0-40); Albumin Level 2.4 g/dL (3.5-5.0); Alkaline Phosphatase 99 U/L (39-117); Anion Gap 10 (12-20); Aspartate Amino Transferase 42 U/L (5-37); Bilirubin Total 3.4 mg/dL (0.0-1.0); Blood Urea Nitrogen 9 mg/dL (9-16); Calcium 7.5 mg/dL (8.4-10.2); Carbon Dioxide 14 mmol/L (22-29); Chloride 108 mmol/L (96-108); Estimated Glomerular Filt Rate > 60; Glucose Random 140 mg/dL (60-115); Iron 62 mcg/dL (45-160); Percent Iron Saturation 31 % (15-50); Potassium 2.5 mmol/L (3.3-5.1); Sodium 129 mmol/L (135-145); Total Iron Binding Capacity 197 mcg/dL (228-428); Total Protein 9.8 g/dL (6.5-8.0); Unsaturated Iron Binding 135 ug/dL
[2020-11-04 12:50] LABS: Creatinine Urine 119.53 mg/dL
[2020-11-04 12:53] LABS: Folate 8.9 ng/mL (> or = 4.0); Vitamin B12 1627 pg/mL (200-900)
== END 2020-11-04 10:47 | disposition home or self-care (01) ==
LOC: HO.LAB 10:46
PROVIDERS: PCP Internal Medicine; Visit Provider Internal Medicine
DX: K74.60 Unspecified cirrhosis of liver (principal); K92.2 Gastrointestinal hemorrhage, unspecified; E11.65 Type 2 diabetes mellitus with hyperglycemia
CPT/HCPCS: 36415; 80053; 82140; 82607; 82728; 82746; 83540; 85025; 85045

== ENCOUNTER 2020-11-08 10:52 | Outpatient (REF) | payer SELFPAY | END 2020-11-08 10:53 | disposition home or self-care (01) | LOC: HO.HAP 10:52 | PROVIDERS: Visit Provider Internal Medicine | DX: Z13.89 Encounter for screening for other disorder (principal) ==

== ENCOUNTER 2020-11-09 09:50 | Outpatient (REF) | payer OTHER, SELFPAY ==
--- NOTE | ~2020-11-09 | US_ITS ---
EXAMINATION: US ABDOMEN LIMITED CLINICAL INFORMATION: Abdominal distention. Check for ascites. COMPARISON: Ultrasound abdomen limited 10/27/2020. Ultrasound abdomen complete 08/22/2020. CT abdomen pelvis 05/22/2020. X-ray KUB 09/10/2018 and 10/30/2017. TECHNIQUE: Real-time imaging of the four quadrants of abdominal viscera. FINDINGS: There is a large amount of ascites. US/US abdomen limited IMPRESSION: Large amount of ascites.
== END 2020-11-09 09:51 | disposition home or self-care (01) ==
LOC: HO.US 09:50
PROVIDERS: PCP Internal Medicine; Visit Provider Internal Medicine
DX: R14.0 Abdominal distension (gaseous) (principal); R79.89 Other specified abnormal findings of blood chemistry; K74.60 Unspecified cirrhosis of liver
CPT/HCPCS: 76705

== ENCOUNTER 2020-11-14 07:46 | Day surgery (SDC) | payer OTHER, SELFPAY ==
--- NOTE | ~2020-11-14 | US_ITS ---
EXAMINATION: ULTRASOUND-GUIDED PARACENTESIS CLINICAL INFORMATION: Cirrhosis COMPARISON: Previous abdominal ultrasounds most recent 11/09/2020 TECHNIQUE: Procedure and risks and benefits including bleeding, infection and low blood pressure were discussed with the patient and his and informed consent was obtained. The right lower quadrant was prepped and draped in the usual sterile fashion. The skin and soft tissues were anesthetized with 1% lidocaine plain. Using ultrasound guidance and a 5 [place]ian rapid centesis catheter, access to the ascitic fluid was obtained. 3.8 L of clear yellow fluid was removed. No diagnostic specimen was sent. FINDINGS: There is a moderate amount of ascites. US/US paracentesis abd w/image IMPRESSION: Ultrasound-guided paracentesis.
[2020-11-14 08:00] VITALS: BMI 33.1
[2020-11-14 08:13] LABS: Glucose, Whole Blood 93 mg/dL (60-115)
[2020-11-14 08:37] LABS: Hematocrit 27.4 % (42-52); Hemoglobin 9.4 g/dl (14.0-18.0); Imm Gran Abs Auto 0.01 X10*3/uL (0.00-0.03); Imm Gran Pct Auto 0.4 % (0.0-0.4); Lymphocytes Absolute Auto 0.4 X10*3/uL (1.2-4.9); Lymphocytes Percent Auto 15.4 % (20-40); MANUAL DIFF FLAG SCAN; Mean Corpuscular HGB Conc 34.3 g/dl (31.0-36.0); Mean Corpuscular Hemoglobin 32.2 pg (27.0-33.0); Mean Corpuscular Volume 93.8 fL (80-98); Mean Platelet Volume 10.8 fL (9.4-12.4); Monocytes Absolute Auto 0.4 X10*3/uL (0.1-1.2); Monocytes Percent Auto 14.3 % (2-11); Neutrophils Absolute Auto 1.9 X10*3/uL (2.0-8.3); Neutrophils Percent Auto 69.9 % (45-73); Red Blood Count 2.92 X10*6/uL (4.60-5.80); Red Cell Distribution Width 18.3 % (11.0-16.0); SCAN SMEAR FLAG 1; White Blood Count 2.7 X10*3/uL (4.8-10.8)
[2020-11-14 08:40] LABS: Platelet Count 64 X10*3/uL (160-400)
[2020-11-14 08:46] LABS: INTERNATIONAL NORM RATIO 1.6 (0.9-1.1); Prothrombin Time 19.5 SEC (10.8-13.0)
[2020-11-14 09:19] LABS: SLIDE REVIEW VERIFIED
--- NOTE | 2020-11-14 09:51 | HO.RADPN ---
RADIOLOGY Narrative Narrative: Right lower quadrant paracentesis performed using 5Fr catheter. L clear yellow fluid remived. No specimen sent.
[2020-11-14 10:20] VITALS: BP 116/73; PULSE 89; RESP 18; TEMP 36.9; O2SAT 100
[2020-11-14 10:35] VITALS: BP 123/67; PULSE 85; RESP 18; O2SAT 100
[2020-11-14 10:50] VITALS: BP 115/65; PULSE 88; RESP 18; O2SAT 100
[2020-11-14 11:05] VITALS: BP 114/63; PULSE 87; RESP 18; O2SAT 100
[2020-11-14 11:20] VITALS: BP 110/66; PULSE 84; RESP 18; TEMP 36.8; O2SAT 100
[2020-11-14 11:35] VITALS: BP 115/61; PULSE 87; RESP 18; O2SAT 100
== END 2020-11-14 11:58 | disposition home or self-care (01) ==
PROVIDERS: PCP Internal Medicine; Visit Provider Radiology Diagnostic Radiology
DX: K74.60 Unspecified cirrhosis of liver (principal); R14.0 Abdominal distension (gaseous); B20 Human immunodeficiency virus [HIV] disease; E11.65 Type 2 diabetes mellitus with hyperglycemia; R91.1 Solitary pulmonary nodule; Z79.899 Other long term (current) drug therapy; Z88.1 Allergy status to other antibiotic agents; Z88.2 Allergy status to sulfonamides
CPT/HCPCS: 36415; 49083; 82947; 85025; 85610; 85730

== ENCOUNTER 2020-11-17 11:09 | Outpatient (REF) | payer OTHER, SELFPAY ==
[2020-11-17 11:56] LABS: Basophils Percent Auto 0.4 % (0-2); Hematocrit 28.9 % (42-52); Hemoglobin 9.7 g/dl (14.0-18.0); Imm Gran Abs Auto 0.01 X10*3/uL (0.00-0.03); Imm Gran Pct Auto 0.4 % (0.0-0.4); Lymphocytes Absolute Auto 0.3 X10*3/uL (1.2-4.9); Lymphocytes Percent Auto 13.1 % (20-40); MANUAL DIFF FLAG SCAN; Mean Corpuscular HGB Conc 33.6 g/dl (31.0-36.0); Mean Corpuscular Volume 95.4 fL (80-98); Monocytes Absolute Auto 0.3 X10*3/uL (0.1-1.2); Neutrophils Percent Auto 76.1 % (45-73); Red Blood Count 3.03 X10*6/uL (4.60-5.80); Red Cell Distribution Width 18.1 % (11.0-16.0); SCAN SMEAR FLAG 1; White Blood Count 2.6 X10*3/uL (4.8-10.8)
[2020-11-17 11:59] LABS: Platelet Count 69 X10*3/uL (160-400)
[2020-11-17 12:03] LABS: INTERNATIONAL NORM RATIO 1.7 (0.9-1.1); Prothrombin Time 20.4 SEC (10.8-13.0)
[2020-11-17 12:16] LABS: Ammonia 106 umol/L (13-55)
[2020-11-17 12:20] LABS: SLIDE REVIEW VERIFIED
[2020-11-17 12:34] LABS: Alanine Aminotransferase 25 U/L (0-40); Albumin Level 2.2 g/dL (3.5-5.0); Alkaline Phosphatase 100 U/L (39-117); Aspartate Amino Transferase 40 U/L (5-37); Bilirubin Direct 1.4 mg/dL (0.0-0.5); Bilirubin Total 2.9 mg/dL (0.0-1.0); Blood Urea Nitrogen 7 mg/dL (9-16); Calcium 7.4 mg/dL (8.4-10.2); Carbon Dioxide 17 mmol/L (22-29); Chloride 109 mmol/L (96-108); Estimated Glomerular Filt Rate > 60; Glucose Random 188 mg/dL (60-115); Sodium 130 mmol/L (135-145); Total Protein 9.4 g/dL (6.5-8.0)
[2020-11-17 12:45] LABS: Anion Gap 7 (12-20); Potassium 2.7 mmol/L (3.3-5.1)
== END 2020-11-17 11:10 | disposition home or self-care (01) ==
LOC: HO.LAB 11:09
PROVIDERS: Absent Provider Internal Medicine; PCP Internal Medicine; Visit Provider Internal Medicine
DX: K74.69 Other cirrhosis of liver (principal); R18.8 Other ascites
CPT/HCPCS: 36415; 80048; 80076; 82140; 85025; 85610

== ENCOUNTER 2020-11-23 11:40 | Day surgery (SDC) | payer OTHER, SELFPAY ==
--- NOTE | ~2020-11-23 | US_ITS ---
EXAMINATION: ULTRASOUND-GUIDED PARACENTESIS CLINICAL INFORMATION: Cirrhosis and ascites COMPARISON: Previous exam most recent 11/14/2020 TECHNIQUE: Procedure and risks and benefits including bleeding, infection and low blood pressure were discussed with the patient and informed consent was obtained. The right lower quadrant was prepped and draped in usual sterile fashion. The skin and soft tissues were anesthetized with 1% lidocaine plain. Using ultrasound guidance and a 5 [place]uvian rapid centesis catheter, access to the ascitic fluid was obtained. 1.7 L of clear yellow fluid was removed. Diagnostic specimen was sent. FINDINGS: There is a moderate amount of ascites. US/US paracentesis abd w/image IMPRESSION: Ultrasound-guided paracentesis.
[2020-11-23 12:05] VITALS: BMI 29.8
[2020-11-23 12:13] LABS: Glucose, Whole Blood 109 mg/dL (60-115)
[2020-11-23 12:17] LABS: Basophils Percent Auto 0.5 % (0-2); Hemoglobin 9.4 g/dl (14.0-18.0); Imm Gran Abs Auto 0.02 X10*3/uL (0.00-0.03); Imm Gran Pct Auto 0.5 % (0.0-0.4); Lymphocytes Absolute Auto 0.3 X10*3/uL (1.2-4.9); Lymphocytes Percent Auto 6.6 % (20-40); MANUAL DIFF FLAG SCAN; Mean Corpuscular HGB Conc 33.6 g/dl (31.0-36.0); Mean Corpuscular Hemoglobin 32.5 pg (27.0-33.0); Mean Corpuscular Volume 96.9 fL (80-98); Mean Platelet Volume 11.2 fL (9.4-12.4); Monocytes Absolute Auto 0.2 X10*3/uL (0.1-1.2); Monocytes Percent Auto 5.8 % (2-11); Neutrophils Absolute Auto 3.3 X10*3/uL (2.0-8.3); Neutrophils Percent Auto 86.6 % (45-73); Platelet Count 91 X10*3/uL (160-400); Red Blood Count 2.89 X10*6/uL (4.60-5.80); SCAN SMEAR FLAG 1; White Blood Count 3.8 X10*3/uL (4.8-10.8)
[2020-11-23 12:21] LABS: INTERNATIONAL NORM RATIO 1.6 (0.9-1.1); Prothrombin Time 19.5 SEC (10.8-13.0)
[2020-11-23 12:24] LABS: Partial Thromboplastin Time 36.8 SEC (24.1-38.0)
[2020-11-23 12:38] LABS: SLIDE REVIEW VERIFIED
[2020-11-23] MEDS: Lidocaine HCl 1 % MPF 5 ML VIAL SUBCUT (12:48)
--- NOTE | 2020-11-23 14:44 | HO.RADPN ---
RADIOLOGY Narrative Narrative: RLQ paracentesis performed using 5 Fr angiocath. 1.7 L clear yellow fluid removed. Diagnostic specimen sent.
[2020-11-23 14:50] VITALS: BP 122/64; PULSE 85; RESP 22; TEMP 36.1; O2SAT 100
[2020-11-23 15:03] LABS: MN% 73.6 %; PMN% 26.4 %
[2020-11-23 15:05] VITALS: BP 123/69; PULSE 82; RESP 20; O2SAT 100
[2020-11-23 15:06] LABS: RBC Peritoneal Fluid < 0.002 X10*6/uL
[2020-11-23 15:20] VITALS: BP 130/70; PULSE 86; RESP 20; O2SAT 100
[2020-11-23 15:25] LABS: Lymphocyte Peritoneal Fl 28 %; Monocytes Peritoneal Fl 34 %; Neutrophils Peritoneal Fluid 25 %
[2020-11-23 15:26] LABS: BF Shift QC OK YES; Man Diluent Bkgrd OK YES; Other Peritioneal Fl 13 %
[2020-11-23 15:41] VITALS: BP 132/66; PULSE 83; RESP 20; TEMP 36.1; O2SAT 100
== END 2020-11-23 15:56 | disposition home or self-care (01) ==
PROVIDERS: Internal Medicine; PCP Internal Medicine; Visit Provider Radiology Diagnostic Radiology
DX: K74.60 Unspecified cirrhosis of liver (principal); R19.8 Other specified symptoms and signs involving the digestive system and abdomen; B19.20 Unspecified viral hepatitis C without hepatic coma; B20 Human immunodeficiency virus [HIV] disease; E11.65 Type 2 diabetes mellitus with hyperglycemia; R91.1 Solitary pulmonary nodule; Z86.16 Personal history of COVID-19; Z79.899 Other long term (current) drug therapy; Z88.1 Allergy status to other antibiotic agents; Z88.2 Allergy status to sulfonamides; Z88.8 Allergy status to other drugs, medicaments and biological substances
CPT/HCPCS: 36415; 49083; 82947; 85025; 85610; 85730; 87071; 87073; 87205; 88112; 88305; 89051

== ENCOUNTER 2020-11-28 07:57 | Day surgery (SDC) | payer OTHER, SELFPAY ==
[2020-11-08 09:01] VITALS: BMI 32.3
--- NOTE | ~2020-11-28 | FL_ITS ---
EXAMINATION: XR FLUOROSCOPY WITH IMAGES CLINICAL INFORMATION: Intraoperative fluoroscopic radiograph. COMPARISON: None. TECHNIQUE: Fluoroscopy performed by Dr. Byrne. Fluoroscopy time: 18 seconds. DAP: 4.79 mGycm2 Images: 1 FINDINGS: Intraoperative fluoroscopic radiograph demonstrates a partially visualized catheter. FL/FL guidance in OR IMPRESSION: Intraoperative fluoroscopic radiograph.
--- NOTE | 2020-11-28 09:41 | P.CONAN_ITS ---
[facility] Active Problems Active Problems: All Active Problems (Updated 11/12/20 @ 00:01 by Kamla Agustin) Coronavirus infection (Acute) Hypokalemia (Acute) Anemia (Acute) C. difficile diarrhea (Acute) Cirrhosis (Acute) Pulmonary nodule (Acute) Acute upper gastrointestinal bleeding (Acute) Abdominal distension (Acute) Ankle ulcer (Acute) Back pain (Acute) Hypokalemia (Acute) HIV (human immunodeficiency virus infection) (Acute) Hepatitis C (Acute) Renal calculi (Acute) Ulcerative colitis (Acute) Obesity (BMI 30-39.9) (Acute) Past Medical History Medical History Bullous pemphigoid COVID-19 in immunocompromised patient GERD (gastroesophageal reflux disease) Hepatic vein thrombosis Hepatitis C HIV (human immunodeficiency virus infection) Hypocalcemia Hypomagnesemia Lichen simplex chronicus Lung nodule Obesity (BMI 30-39.9) Pancytopenia Perirectal abscess Renal calculi Type 2 diabetes mellitus with hyperglycemia Ulcerative colitis Family History Family History Father Stroke Mother Diabetes Hypertension CVD (cardiovascular disease) Sister Family history of cervical cancer Surgical History Surgical History Anal fistula History of esophagogastroduodenoscopy (EGD) History of lithotripsy History of rectal abscess History of removal of ureteral stent History of umbilical hernia repair Hx of cystoscopy Social History Social History Household Members: Spouse and Family Housing: House Alcohol intake: former Smoking Status: Never smoker Use of substances other than those prescribed or required for medical reasons: No Advance Directives: Yes Advance Directives Information Provided: Yes Advance Directives on File: Yes Advance Directives Date on File: 10/27/20 service: No Current occupational status: employed Meds Allergies Allergy/AdvReac Type Severity Reaction Status Date / Time acetaminophen [Acetaminophen] Allergy Severe LIVER Verified 11/14/20 07:59 TOXICITY - CANNOT TAKE ACETAMINOPHEN amoxicillin [Augmentin] Allergy Intermediate mouth sores Verified 11/14/20 07:59 clavulanic acid [Augmentin] Allergy Intermediate mouth sores Verified 11/14/20 07:59 Sulfa (Sulfonamide Allergy Intermediate RASH Verified 11/14/20 07:59 Antibiotics) [SULFA (SULFONAMIDE ANTIBIOTICS)] ibuprofen [IBUPROFEN] AdvReac Intermediate BLEEDING Verified 11/14/20 07:59 Home Medications Medication Instructions Recorded Confirmed Last Taken Type Odefsey 1 tab PO DAILY 04/27/20 11/08/20 Unknown History atovaquone 5 ml PO BID 04/27/20 11/08/20 Unknown History famotidine 40 mg PO BEDTIME 04/27/20 11/08/20 Unknown History mesalamine 800 mg PO TIDWM 04/27/20 11/08/20 Unknown History hydroxyzine HCl 25 mg tablet 50 mg PO Q6H PRN tab 09/01/20 11/08/20 Unknown History blood sugar diagnostic #10 ea 10/06/20 Unknown History clobetasol 0.05 % topical cream 1 appl TOPICAL BID PRN 10/25/20 10/27/20 Unknown History econazole 1 appl TOPICAL BID 10/27/20 10/27/20 Unknown History triamcinolone acetonide 1 appl TOPICAL BID PRN 10/27/20 10/27/20 Unknown History Exam Exam Date and Time: November 28, 2020 0941 Height,Weight and Vital Signs: Height 5 ft 2 in Weight 80.286 kg Airway Mallampati Class: II TM Dist: >3cm Neck ROM: Full Loose/Missing/Broken Teeth: Yes, Upper and Lower
[2020-11-28 09:44] LABS: Glucose, Whole Blood 65 mg/dL (60-115)
[2020-11-28] MEDS: Lactated Ringers 1,000 ML 100 ML IVCONT (09:50)
[2020-11-28 09:57] VITALS: BP 100/75; PULSE 92; RESP 16; TEMP 36.6; O2SAT 100
--- NOTE | 2020-11-28 10:12 | PC.NURSE ---
Patients blood glucose taken during intake, 65. Patient symptomatic, stated he felt very tired and weak. Dr Lopez notified. New order for 100ml D5W IV wide open. This administered, tolerated well.
--- NOTE | 2020-11-28 10:48 | MHC.SHP ---
Pre-Procedural Eval Section B Chief Complaint: calculus of kidney Details of Present Illness: Bilateral renal stones - left already addressed. Here today for right sided USR with laser and stent Relevant Family History (Specify if Yes): No Relevant Social History: None Present Medications: see Short Stay Collaborative assessment Medical History: Significant History History of Previous Operations: Relevant previous surgery/procedure and date(s) Allergies: Allergies Allergy/AdvReac Type Severity Reaction Status Date / Time acetaminophen [Acetaminophen] Allergy Severe LIVER Verified 11/14/20 07:59 TOXICITY - CANNOT TAKE ACETAMINOPHEN amoxicillin [Augmentin] Allergy Intermediate mouth sores Verified 11/14/20 07:59 clavulanic acid [Augmentin] Allergy Intermediate mouth sores Verified 11/14/20 07:59 Sulfa (Sulfonamide Allergy Intermediate RASH Verified 11/14/20 07:59 Antibiotics) [SULFA (SULFONAMIDE ANTIBIOTICS)] ibuprofen [IBUPROFEN] AdvReac Intermediate BLEEDING Verified 11/14/20 07:59 Review of Systems Sugical H&P ROS: Negative: Constitution, Cardiovascular, Respiratory, Neurological, Psychiatric, Hem-Onc, Allergic/Immunologic, Gastrointestinal, Genitourinary, Musculoskeletal, Integumentary, Endocrine and Eyes/Ears/Nose/Throat Exam Surgical H&P Exam: Normal: HEENT, Normal: Heart, Normal: Lungs, Normal: Extremities, Normal: Abdomen, Normal: Skin and Normal: Neurological Plan Diagnosis/Plan: Unchanged (right Ureteroscopy, laser, stent placement) I have reviewed the history and physical and performed a pertinent physical examination on my patient. No changes have occurred unless specified.
[2020-11-28] MEDS: levoFLOXacin 500 MG TABLET PO (10:58)
[2020-11-28 11:03] LABS: Glucose, Whole Blood 75 mg/dL (60-115)
--- NOTE | 2020-11-28 11:05 | PC.NURSE ---
Patients blood sugar rechecked at before going into OR. Results, 75. States he feels better after administration of dextrose. KALYAN shepherd.
[2020-11-28 11:53] VITALS: BP 86/54; PULSE 80; RESP 18; TEMP 36.2
[2020-11-28 11:58] VITALS: BP 87/60; PULSE 81; RESP 16; O2SAT 97
[2020-11-28 12:08] VITALS: BP 95/60; PULSE 78; RESP 16; O2SAT 99
--- NOTE | 2020-11-28 12:09 | P.OP_ITS ---
Operative Note Operative Note Date of Service: 11/28/20 Narrative: PreOperative Diagnosis: Right renal stone Post Operative Diagnosis: Right proximal ureteric stone Procedure: - right cystoscopy, retrograde - right dilatation of ureteric orifice under fluoroscopy - right ureteroscopy, laser lithotripsy, stone basketing Surgeon: Dr Isrrael Byrne Anesthesia: General Indications for procedure: On admission during August [address] to have bilateral renal stones. Left renal stone was proximal ureter, right renal stone in renal pelvis. Left renal stone has been addressed. Here today to address the 7 mm right upper pole renal stone. Will be done for ureteroscopy. Procedure: After informed consent was verified patient was brought to the operating placed in supine position. Anesthesia was administered per protocol. Patient was placed in modified dorsal lithotomy position and prepped and draped in a sterile fashion. Safety pause time-out and side of surgery confirmed. Antibiotics confirmed. Twenty-two [place]or[place] cystoscope inserted per urethra. Minutes in target. Retrograde performed up right ureteric orifice. Defects seen in proximal right ureter. Guidewire placed past filling defect. Right ureteric orifice dilated under fluoroscopy in direct visualization with internal sheath of access sheath. Access sheath placed. Cannula removed. Flexible ureteral scope placed. Stone encountered. Using a 260 micron laser fiber the stone was broken into small pieces. These went up into the kidney. The kidney was examined in small pieces were broken. Using a 0 tip basket fragments were removed in will be sent for analysis. Multiple passes were made. Upon completion a Sensor guidewire was placed in the renal pelvis. Access sheath was removed. A decision was placed not to place a stent. Uro jet local anesthetic gel was injected in the renal pelvis to assist with postprocedure pain management. He tolerated procedure well was extubated in operating room transferred in a stable condition to the recovery area. Pathology: stones Drains: none
[2020-11-28 12:23] VITALS: BP 105/66; PULSE 79; RESP 17; O2SAT 100
[2020-11-28] MEDS: Phenazopyridine HCL 100 MG TABLET PO (12:24)
[2020-11-28 12:38] VITALS: BP 109/61; PULSE 81; RESP 17; TEMP 36.2; O2SAT 100
== END 2020-11-28 13:11 | disposition home or self-care (01) ==
PROVIDERS: PCP Internal Medicine; Visit Provider Urology
PROC: (CPT 52356; principal; 2020-11-28 10:40)
DX: N20.1 Calculus of ureter (principal); K74.60 Unspecified cirrhosis of liver; B20 Human immunodeficiency virus [HIV] disease; B19.20 Unspecified viral hepatitis C without hepatic coma; Z86.718 Personal history of other venous thrombosis and embolism; E11.65 Type 2 diabetes mellitus with hyperglycemia; Z79.899 Other long term (current) drug therapy
CPT/HCPCS: 52356; 52352; 82365; 82947; 88300; C1758; C1769; C1894; J1100; J2250; J2370; J2405; J3010; Q9967

== ENCOUNTER 2020-12-03 18:42 | Inpatient (IN) | payer OTHER, SELFPAY ==
--- NOTE | ~2020-12-03 | CT_ITS ---
EXAMINATION: CT ABDOMEN AND PELVIS WITHOUT CONTRAST CLINICAL INFORMATION: Right flank pain. Evaluate for a renal stone. COMPARISON: Multiple priors, most recent abdominal ultrasound dated 11/09/[address] abdomen/pelvis dated 05/22/2020. TECHNIQUE: Multidetector volumetric imaging was performed from the superior aspect of the liver through the pubic symphysis. Sagittal and coronal reformatted images were obtained on the technologist's workstation. This CT examination was performed using dose optimization techniques as appropriate, variously including the following: Automated exposure control. Adjustment of mA and/or kV according to patient size (this includes techniques or standardized protocols for targeted exams where dose is matched to indication/reason for exam; i.e. extremities or head). Use of iterative reconstruction technique. DLP: 425 mGy-cm FINDINGS: LUNG BASES: The visualized lung bases are unremarkable. LIVER, GALLBLADDER, AND BILIARY TREE: Atrophic hepatic parenchyma with diffusely nodular contour, consistent with cirrhosis and similar when compared to the prior examination. No new, distinct hepatic parenchymal lesion. No intra or extrahepatic biliary ductal dilatation. The gallbladder is unremarkable with no evidence of radiopaque gallstones, gallbladder wall thickening, or obvious pericholecystic inflammatory changes. PANCREAS: Atrophic. SPLEEN: Splenomegaly measuring up to 17.7 cm in AP dimension, similar when compared to the prior examination. Focal hypodensity along the inferolateral aspect of the spleen, similar when compared to the prior examination. ADRENAL GLANDS: Unremarkable. KIDNEYS AND URETERS: The kidneys are normal in size, shape, and attenuation. Multiple bilateral renal stones are redemonstrated, decreased in size and number when compared to the prior examination. No ureteral stone. Mild right-sided hydroureter. No left-sided hydroureter. No hydronephrosis. BLADDER: Unremarkable. No associated calcification/stone. GASTROINTESTINAL TRACT: Scattered diverticulosis without evidence of acute diverticulitis. Mild stool throughout the colon. No bowel wall thickening or associated inflammatory change. No small or large bowel obstruction. Unremarkable appendix. PERITONEAL CAVITY: Diffuse mesenteric stranding, similar when compared to the prior examination. No significant ascites. No intra-abdominal free air. No organized fluid collection/abscess formation. ABDOMINAL WALL: No significant hernia is appreciated. LYMPH NODES: No significant lymphadenopathy. VASCULAR: Unremarkable. PELVIC VISCERA: The prostate and seminal vesicles are unremarkable. OSSEOUS STRUCTURES: Unremarkable. CT/CT abdomen pelvis wo con IMPRESSION: 1. Redemonstration of a cirrhotic liver. No new hepatic parenchymal lesion or biliary ductal dilatation. Evaluation somewhat limited without IV contrast. 2. Stable splenomegaly. 3. Multiple bilateral renal stones are redemonstrated, decreased in size and number when compared to the prior examination. No ureteral or urinary bladder stone. Mild right-sided hydroureter. No left-sided hydroureter. No hydronephrosis. Findings could indicate a recently passed right-sided renal stone. 4. Mesenteric stranding, similar when compared to the prior CT. No significant ascites. No organized fluid collection/abscess formation. No lymphadenopathy. 5. Additional chronic findings are unchanged.
--- NOTE | ~2020-12-03 | XR_ITS ---
EXAMINATION: XR CHEST CLINICAL INFORMATION: Generalized weakness. COMPARISON: Most recent chest radiograph dated 10/27/2020. TECHNIQUE: Frontal view of the chest was obtained. FINDINGS: The lungs are clear. The cardiomediastinal silhouette is normal in size. There is no pleural effusion or pneumothorax. No acute osseous abnormality. XR/XR chest 1V IMPRESSION: No acute cardiopulmonary findings.
[2020-12-03 18:59] VITALS: BP 118/70; PULSE 89; RESP 20; TEMP 36.6; O2SAT 98; BMI 28.0
[2020-12-03 20:46] VITALS: BP 127/72; PULSE 70; RESP 18; O2SAT 99
--- NOTE | 2020-12-03 21:16 | ECG_ITS ---
Test Reason : WEAKNESS Blood Pressure : / mmHG Vent. Rate : 069 BPM Atrial Rate : 069 BPM P-R Int : 180 ms QRS Dur : 088 ms QT Int : 400 ms P-R-T Axes : 008 010 023 degrees QTc Int : 428 ms Normal sinus rhythm Normal ECG When compared with ECG of 27-OCT-2020 09:55, Vent. rate has decreased BY 52 BPM Referred By: Alisson Louise Electronically Signed By:SWATHI HOANG
--- NOTE | 2020-12-03 21:20 | ED.WEAKNESS ---
HPI - Weakness General Chief complaint: Weakness Stated complaint: weakness Time Seen by Provider: 12/03/20 21:15 Source: patient and family (Spouse) Mode of arrival: ambulatory Limitations: no limitations History of Present Illness HPI Narrative: 55-year-old male came in for evaluation of generalized weakness. 55-year-old male with history of liver cirrhosis secondary to hepatitis-C and history of IV drug abuse, patient came in for 4-5 weeks history of generalized weakness, losing weight, decreased appetite. Patient also complained of right flank pain for the past 4-5 weeks. No fever/chills/chest pain/abdominal pain/diarrhea/nausea/vomiting/dysuria/or frequency. Related Data Home Medications Medication Instructions Recorded Confirmed Odefsey 1 tab PO DAILY 04/27/20 11/08/20 atovaquone 5 ml PO BID 04/27/20 11/08/20 famotidine 40 mg PO BEDTIME 04/27/20 11/08/20 mesalamine 800 mg PO TIDWM 04/27/20 11/08/20 hydroxyzine HCl 25 mg tablet 50 mg PO Q6H PRN tab 09/01/20 11/08/20 blood sugar diagnostic #10 ea 10/06/20 clobetasol 0.05 % topical cream 1 appl TOPICAL BID PRN 10/25/20 10/27/20 econazole 1 appl TOPICAL BID 10/27/20 10/27/20 triamcinolone acetonide 1 appl TOPICAL BID PRN 10/27/20 10/27/20 Previous Rx's Medication Instructions Recorded tamsulosin 0.4 mg PO BEDTIME 14 Days #14 cap 10/17/20 tramadol 50 mg PO Q6H PRN #14 tab 10/17/20 allopurinol 100 mg tablet 100 mg PO DAILY 90 Days #90 tab 10/25/20 pyridoxine (vitamin B6) 100 mg 100 mg PO DAILY 90 Days #90 tab 10/25/20 tablet lactulose 20 g PO BID #1200 ml 10/29/20 oxycodone 5 mg capsule 5 mg PO BID PRN #14 cap 11/04/20 potassium chloride 20 mEq 20 meq PO BID #60 tab 11/04/20 tablet,extended release glipizide 2.5 mg tablet, extended 2.5 mg PO DAILY #10 tab 11/11/20 release 24 hr sitagliptin 100 mg tablet 100 mg PO DAILY #10 tab 11/11/20 clindamycin HCl 150 mg capsule 150 mg PO QID 7 Days #28 cap 11/21/20 omeprazole 20 mg capsule,delayed 20 mg PO DAILY 28 Days #28 cap 11/28/20 release oxycodone 5 mg PO Q8H PRN 3 Days #14 cap 11/28/20 phenazopyridine [Pyridium] 100 mg PO TID PRN 4 Days #12 tab 11/28/20 trimethoprim 100 mg PO Q12H 10 Days #20 tab 11/28/20 Allergies Allergy/AdvReac Type Severity Reaction Status Date / Time acetaminophen [Acetaminophen] Allergy Severe LIVER Verified 11/14/20 07:59 TOXICITY - CANNOT TAKE ACETAMINOPHEN amoxicillin [Augmentin] Allergy Intermediate mouth sores Verified 11/14/20 07:59 clavulanic acid [Augmentin] Allergy Intermediate mouth sores Verified 11/14/20 07:59 Sulfa (Sulfonamide Allergy Intermediate RASH Verified 11/14/20 07:59 Antibiotics) [SULFA (SULFONAMIDE ANTIBIOTICS)] ibuprofen [IBUPROFEN] AdvReac Intermediate BLEEDING Verified 11/14/20 07:59 Review of Systems Review of Systems: All other systems are reviewed and are negative Constitutional: Reports as per HPI and Reports no additional constitutional complaints Eyes: Reports as per HPI and Reports no additional eye complaints Reports system reviewed and no additional complaints, except as documented Cardiovascular: Reports as per HPI and Reports no additional cardiovascular complaints Respiratory: Reports as per HPI and Reports no additional respiratory complaints Gastrointestinal: Reports as per HPI and Reports no additional gastrointestinal complaints Genitourinary: Reports no additional female genitourinary complaints Musculoskeletal: Reports no additional musculoskeletal complaints Skin/Breast: Reports system reviewed and no additional complaints, except as docu Psychiatric: Reports no additional psychiatric complaints Endocrine: Reports no additional endocrine complaints Hematologic/Lymphatic: Reports no additional hematologic/lymphatic complaints Allergic/Immunologic: Reports no additional allergic/immunologic complaints Reports system reviewed and no additional complaints, except as documented and Reports Abnormal speech present [facility] Past Medical History Medical History Bullous pemphigoid COVID-19 in immunocompromised patient GERD (gastroesophageal reflux disease) Hepatic vein thrombosis Hepatitis C HIV (human immunodeficiency virus infection) Hypocalcemia Hypomagnesemia Lichen simplex chronicus Lung nodule Obesity (BMI 30-39.9) Pancytopenia Perirectal abscess Renal calculi Type 2 diabetes mellitus with hyperglycemia Ulcerative colitis Surgical History Anal fistula History of esophagogastroduodenoscopy (EGD) History of lithotripsy History of rectal abscess History of removal of ureteral stent History of umbilical hernia repair Hx of cystoscopy Family History Family History Father Stroke Mother Diabetes Hypertension CVD (cardiovascular disease) Sister Family history of cervical cancer Social History Social History Household Members: Spouse and Family Housing: House Do you presently have visiting nurse or other home services: No Alcohol intake: former Advance Directives: Yes Advance Directives on File: Yes Advance Directives Date on File: 10/27/20 service: No Current occupational status: employed Physical Exam Vital Signs: Vital Signs: Last Vital Signs Temp 97.9 F 12/03/20 18:59 Pulse 96 12/04/20 00:41 Resp 15 12/04/20 00:27 BP 130/80 12/04/20 00:41 Pulse Ox 98 12/04/20 00:27 Body Mass Index 28.0 Vital signs have been reviewed as appeared to be correct. Blood pressure normal. Heart rate normal. Respiration rate normal. Temperature normal. Oxygen saturation normal. Appearance: Alert. Oriented X3. No acute distress. Slightly cachectic Head: Normal external exam. Normocephalic. Atraumatic. No Rosas signs noted. No raccoon eyes noted Eyes: PERRLA. EOMI. Conjunctiva and sclera normal. Eyelids normal. ENT: TM's Normal. Pharynx normal. Uvula midline. Moist mucous membranes. No trismus noted. No drooling noted. No muffled voice noted. Neck: Normal inspection. Neck supple. FROM. No adenopathy. Thyroid Normal. No meningeal signs. No neck mass noted. CVS: Normal heart rate and rhythm. Heart sound normal. No murmurs noted. Pulses normal throughout. Respiratory: No respiratory distress. Painless inspiration. Breath sounds normal. No wheezes/rales/rhonchi noted. Chest nontender. No accessory muscle usage noted or decreased air movement noted. Abdomen: Soft and nontender. Bowel sounds normal in all 4 quadrants. No distention noted. No organomegaly noted. No visible injury noted. Back: No CVA tenderness. Full range of motion noted. Skin: Skin warm and dry. Normal skin color. Normal skin turgor. No rashes/lesions/lacerations noted. Extremities: No lower extremity edema. Extremities exhibit normal range of motion. Extremities nontender. Neuro: Oriented X 3. No motor deficit. No sensory deficit. Reflexes normal. Course Course Course Narrative: Assessment and plan. 55-year-old male with chronic liver cirrhosis secondary to hepatitis-C, patient presented with few weeks of nonspecific generalized weakness and losing weight. Patient found to be hyponatremic and hyperkalemic, no EKG changes, normal BUN/creatinine/orthostatic showed increased heart rate by almost 20 units when he stood up. The case discussed with Dr. Denae lyles for renal service. Treat hyperkalemia with Kayexalate/calcium/albuterol/insulin. Gentle hydration. Recheck TSH/cortisol level. MDM - Weakness Lab Data Attestation: I reviewed the patient's lab results. Result diagrams: 12/03/20 22:01 12/03/20 23:26 Labs: Lab Results 12/03/20 12/03/20 12/03/20 Range/Units 11:46 22:01 22:01 WBC 3.5 L (4.8-10.8) X10*3/uL RBC 3.51 L D (4.60-5.80) X10*6/uL Hgb 11.5 L D (14.0-18.0) g/dl Hct 34.4 L D (42-52) % MCV 98.0 (80-98) fL MCH 32.8 (27.0-33.0) pg MCHC 33.4 (31.0-36.0) g/dl RDW 16.2 H (11.0-16.0) % Plt Count 127 L D (160-400) X10*3/uL MPV 12.4 (9.4-12.4) fL Immature Gran % (Auto) 0.6 H (0.0-0.4) % Neut % (Auto) 73.6 H (45-73) % Lymph % (Auto) 15.2 L (20-40) % [place] % (Auto) 10.3 (2-11) % Eos % (Auto) 0.0 (0-4) % Baso % (Auto) 0.3 (0-2) % Lymph # (Auto) 0.5 L (1.2-4.9) X10*3/uL [place] # (Auto) 0.4 (0.1-1.2) X10*3/uL Eos # (Auto) 0.0 (0.0-0.4) X10*3/uL Baso # (Auto) 0.0 (0.0-0.2) X10*3/uL Abs Immat Gran (auto) 0.02 (0.00-0.03) X10*3/uL Absolute Neuts (auto) 2.6 (2.0-8.3) X10*3/uL Absolute Nucleated RBC 0.000 (0.0-0.012) X10*3/uL Nucleated RBC % (auto) 0.0 (0.0-0.2) /100WBC Smear Tech's Comments VERIFIED Sodium (135-145) mmol/L Potassium (3.3-5.1) mmol/L Chloride (96-108) mmol/L Carbon Dioxide (22-29) mmol/L Anion Gap (12-20) BUN (9-16) mg/dL Creatinine (0.5-1.4) mg/dL Estim Creat Clear Calc Estimated GFR Random Glucose (60-115) mg/dL Osmolality (281-305) mosm/kg Lactic Acid (0.5-2.0) mmol/L Calcium (8.4-10.2) mg/dL Total Bilirubin (0.0-1.0) mg/dL Direct Bilirubin (0.0-0.5) mg/dL AST (5-37) U/L ALT (0-40) U/L Alkaline Phosphatase (39-117) U/L Ammonia (13-55) umol/L Troponin I High Sens (<3.5-35.0) ng/L B-Natriuretic Peptide (<100) pg/mL Total Protein (6.5-8.0) g/dL Albumin (3.5-5.0) g/dL Lipase (8-78) U/L Specimen Comment DELAY Urine Color YELLOW Urine Appearance CLEAR Urine pH 7.0 (5.0-8.0) Ur Specific [place] 1.015 (1.005-1.025) Urine Protein NEG (NEG-TRACE) MG/DL Urine Glucose (UA) NEG (NEG) MG/DL Urine Ketones NEG (NEG) MG/DL Urine Blood TRACE (NEG) Urine Nitrite POS H (NEG) Ur Leukocyte Esterase NEG (NEG) Urine RBC 1-4 (0) /HPF Urine WBC 1-4 (0-4) /HPF Ur Squamous Epith Cells 1+ /LPF Urine Bacteria 1+ /LPF Urine Osmolality (373-1093) mosm/kg Ur Random Sodium mmol/L Ur Random Potassium mmol/L 12/03/20 12/03/20 12/03/20 Range/Units 22:01 22:01 23:26 WBC (4.8-10.8) X10*3/uL RBC (4.60-5.80) X10*6/uL Hgb (14.0-18.0) g/dl Hct (42-52) % MCV (80-98) fL MCH (27.0-33.0) pg MCHC (31.0-36.0) g/dl RDW (11.0-16.0) % Plt Count (160-400) X10*3/uL MPV (9.4-12.4) fL Immature Gran % (Auto) (0.0-0.4) % Neut % (Auto) (45-73) % Lymph % (Auto) (20-40) % [place] % (Auto) (2-11) % Eos % (Auto) (0-4) % Baso % (Auto) (0-2) % Lymph # (Auto) (1.2-4.9) X10*3/uL [place] # (Auto) (0.1-1.2) X10*3/uL Eos # (Auto) (0.0-0.4) X10*3/uL Baso # (Auto) (0.0-0.2) X10*3/uL Abs Immat Gran (auto) (0.00-0.03) X10*3/uL Absolute Neuts (auto) (2.0-8.3) X10*3/uL Absolute Nucleated RBC (0.0-0.012) X10*3/uL Nucleated RBC % (auto) (0.0-0.2) /100WBC Smear Tech's Comments Sodium 121 L (135-145) mmol/L Potassium 6.3 H* D (3.3-5.1) mmol/L Chloride 100 (96-108) mmol/L Carbon Dioxide 17 L (22-29) mmol/L Anion Gap 10 L (12-20) BUN 13 D (9-16) mg/dL Creatinine 1.18 (0.5-1.4) mg/dL Estim Creat Clear Calc 59.8 Estimated GFR > 60 Random Glucose 110 D (60-115) mg/dL Osmolality (281-305) mosm/kg Lactic Acid (0.5-2.0) mmol/L Calcium 8.1 L D (8.4-10.2) mg/dL Total Bilirubin 2.1 H (0.0-1.0) mg/dL Direct Bilirubin 1.2 H (0.0-0.5) mg/dL AST 42 H (5-37) U/L ALT 34 (0-40) U/L Alkaline Phosphatase 112 (39-117) U/L Ammonia (13-55) umol/L Troponin I High Sens (<3.5-35.0) ng/L B-Natriuretic Peptide (<100) pg/mL Total Protein 10.1 H (6.5-8.0) g/dL Albumin 2.8 L D (3.5-5.0) g/dL Lipase 47 (8-78) U/L Specimen Comment Urine Color Urine Appearance Urine pH (5.0-8.0) Ur Specific [place] (1.005-1.025) Urine Protein (NEG-TRACE) MG/DL Urine Glucose (UA) (NEG) MG/DL Urine Ketones (NEG) MG/DL Urine Blood (NEG) Urine Nitrite (NEG) Ur Leukocyte Esterase (NEG) Urine RBC (0) /HPF Urine WBC (0-4) /HPF Ur Squamous Epith Cells /LPF Urine Bacteria /LPF Urine Osmolality 402 (373-1093) mosm/kg Ur Random Sodium 84.0 mmol/L Ur Random Potassium 74.1 mmol/L 12/03/20 12/03/20 12/03/20 Range/Units 23:26 23:26 23:26 WBC (4.8-10.8) X10*3/uL RBC (4.60-5.80) X10*6/uL Hgb (14.0-18.0) g/dl Hct (42-52) % MCV (80-98) fL MCH (27.0-33.0) pg MCHC (31.0-36.0) g/dl RDW (11.0-16.0) % Plt Count (160-400) X10*3/uL MPV (9.4-12.4) fL Immature Gran % (Auto) (0.0-0.4) % Neut % (Auto) (45-73) % Lymph % (Auto) (20-40) % [place] % (Auto) (2-11) % Eos % (Auto) (0-4) % Baso % (Auto) (0-2) % Lymph # (Auto) (1.2-4.9) X10*3/uL [place] # (Auto) (0.1-1.2) X10*3/uL Eos # (Auto) (0.0-0.4) X10*3/uL Baso # (Auto) (0.0-0.2) X10*3/uL Abs Immat Gran (auto) (0.00-0.03) X10*3/uL Absolute Neuts (auto) (2.0-8.3) X10*3/uL Absolute Nucleated RBC (0.0-0.012) X10*3/uL Nucleated RBC % (auto) (0.0-0.2) /100WBC Smear Tech's Comments Sodium (135-145) mmol/L Potassium (3.3-5.1) mmol/L Chloride (96-108) mmol/L Carbon Dioxide (22-29) mmol/L Anion Gap (12-20) BUN (9-16) mg/dL Creatinine (0.5-1.4) mg/dL Estim Creat Clear Calc Estimated GFR Random Glucose (60-115) mg/dL Osmolality (281-305) mosm/kg Lactic Acid 1.7 (0.5-2.0) mmol/L Calcium (8.4-10.2) mg/dL Total Bilirubin (0.0-1.0) mg/dL Direct Bilirubin (0.0-0.5) mg/dL AST (5-37) U/L ALT (0-40) U/L Alkaline Phosphatase (39-117) U/L Ammonia 46 (13-55) umol/L Troponin I High Sens < 3.5 (<3.5-35.0) ng/L B-Natriuretic Peptide 15 (<100) pg/mL Total Protein (6.5-8.0) g/dL Albumin (3.5-5.0) g/dL Lipase (8-78) U/L Specimen Comment Urine Color Urine Appearance Urine pH (5.0-8.0) Ur Specific [place] (1.005-1.025) Urine Protein (NEG-TRACE) MG/DL Urine Glucose (UA) (NEG) MG/DL Urine Ketones (NEG) MG/DL Urine Blood (NEG) Urine Nitrite (NEG) Ur Leukocyte Esterase (NEG) Urine RBC (0) /HPF Urine WBC (0-4) /HPF Ur Squamous Epith Cells /LPF Urine Bacteria /LPF Urine Osmolality (373-1093) mosm/kg Ur Random Sodium mmol/L Ur Random Potassium mmol/L 12/03/ Range/Units 23:31 WBC (4.8-10.8) X10*3/uL RBC (4.60-5.80) X10*6/uL Hgb (14.0-18.0) g/dl Hct (42-52) % MCV (80-98) fL MCH (27.0-33.0) pg MCHC (31.0-36.0) g/dl RDW (11.0-16.0) % Plt Count (160-400) X10*3/uL MPV (9.4-12.4) fL Immature Gran % (Auto) (0.0-0.4) % Neut % (Auto) (45-73) % Lymph % (Auto) (20-40) % [place] % (Auto) (2-11) % Eos % (Auto) (0-4) % Baso % (Auto) (0-2) % Lymph # (Auto) (1.2-4.9) X10*3/uL [place] # (Auto) (0.1-1.2) X10*3/uL Eos # (Auto) (0.0-0.4) X10*3/uL Baso # (Auto) (0.0-0.2) X10*3/uL Abs Immat Gran (auto) (0.00-0.03) X10*3/uL Absolute Neuts (auto) (2.0-8.3) X10*3/uL Absolute Nucleated RBC (0.0-0.012) X10*3/uL Nucleated RBC % (auto) (0.0-0.2) /100WBC Smear Tech's Comments Sodium (135-145) mmol/L Potassium (3.3-5.1) mmol/L Chloride (96-108) mmol/L Carbon Dioxide (22-29) mmol/L Anion Gap (12-20) BUN (9-16) mg/dL Creatinine (0.5-1.4) mg/dL Estim Creat Clear Calc Estimated GFR Random Glucose (60-115) mg/dL Osmolality 275 L (281-305) mosm/kg Lactic Acid (0.5-2.0) mmol/L Calcium (8.4-10.2) mg/dL Total Bilirubin (0.0-1.0) mg/dL Direct Bilirubin (0.0-0.5) mg/dL AST (5-37) U/L ALT (0-40) U/L Alkaline Phosphatase (39-117) U/L Ammonia (13-55) umol/L Troponin I High Sens (<3.5-35.0) ng/L B-Natriuretic Peptide (<100) pg/mL Total Protein (6.5-8.0) g/dL Albumin (3.5-5.0) g/dL Lipase (8-78) U/L Specimen Comment Urine Color Urine Appearance Urine pH (5.0-8.0) Ur Specific [place] (1.005-1.025) Urine Protein (NEG-TRACE) MG/DL Urine Glucose (UA) (NEG) MG/DL Urine Ketones (NEG) MG/DL Urine Blood (NEG) Urine Nitrite (NEG) Ur Leukocyte Esterase (NEG) Urine RBC (0) /HPF Urine WBC (0-4) /HPF Ur Squamous Epith Cells /LPF Urine Bacteria /LPF Urine Osmolality (373-1093) mosm/kg Ur Random Sodium mmol/L Ur Random Potassium mmol/L Imaging Data Chest x-ray: Radiologist's impression: No acute cardiopulmonary findings. CT scan - abdomen: Radiologist's impression: 1. Redemonstration of a cirrhotic liver. No new hepatic parenchymal lesion or biliary ductal dilatation. Evaluation somewhat limited without IV contrast. 2. Stable splenomegaly. 3. Multiple bilateral renal stones are redemonstrated, decreased in size and number when compared to the prior examination. No ureteral or urinary bladder stone. Mild right-sided hydroureter. No left-sided hydroureter. No hydronephrosis. Findings could indicate a recently passed right-sided renal stone. 4. Mesenteric stranding, similar when compared to the prior CT. No significant ascites. No organized fluid collection/abscess formation. No lymphadenopathy. 5. Additional chronic findings are unchanged. ECG Data Interpretation: Normal sinus rhythm at 69 beats per minute, normal axis deviation, normal intervals, no ST-T changes. No EKG criteria for hyperkalemia. Discharge Plan Discharge Clinical Impression: Generalized weakness, Acute hyperkalemia, Acute hyponatremia Patient Disposition: Admitted As Inpatient Prescriptions: No Action potassium chloride 20 mEq tablet extended release 20 meq PO BID Qty: 60 RF: 1 glipizide 2.5 mg tablet extended release 24hr 2.5 mg PO DAILY Qty: 10 RF: 0 Januvia 100 mg tablet 100 mg PO DAILY Qty: 10 RF: 0 clindamycin HCl 150 mg capsule 150 mg PO QID 7 Days Qty: 28 RF: 0 omeprazole 20 mg capsule,delayed release(DR/EC) 20 mg PO DAILY 28 Days Qty: 28 RF: 0 tramadol 50 mg tablet 50 mg PO Q6H PRN (Reason: pain (scale score 4-6)) Qty: 14 RF: 0 tamsulosin 0.4 mg capsule 0.4 mg PO BEDTIME 14 Days Qty: 14 RF: 0 famotidine 40 mg tablet 40 mg PO BEDTIME RF: 0 atovaquone 750 mg/5 mL suspension 5 ml PO BID RF: 0 mesalamine 800 mg tablet,delayed release (DR/EC) 800 mg PO TIDWM RF: 0 Odefsey 200-25-25 mg tablet 1 tab PO DAILY RF: 0 trimethoprim 100 mg tablet 100 mg PO Q12H 10 Days Qty: 20 RF: 0 oxycodone 5 mg capsule 5 mg PO Q8H PRN (Reason: pain) 3 Days Qty: 14 RF: 0 phenazopyridine [Pyridium] 100 mg tablet 100 mg PO TID PRN (Reason: spasm) 4 Days Qty: 12 RF: 0 triamcinolone acetonide 0.1 % cream 1 appl topical BID PRN (Reason: Itching) RF: 0 econazole 1 % cream 1 appl topical BID RF: 0 lactulose 20 gram/30 mL solution 20 g PO BID Qty: 1200 RF: 0 hydroxyzine HCl 25 mg tablet 50 mg PO Q6H PRN (Reason: bullous pemphigoid) RF: 0 oxycodone 5 mg capsule 5 mg PO BID PRN (Reason: pain) Qty: 14 RF: 0 allopurinol 100 mg tablet 100 mg PO DAILY 90 Days Qty: 90 RF: 1 pyridoxine (vitamin B6) 100 mg tablet 100 mg PO DAILY 90 Days Qty: 90 RF: 1
[2020-12-03 22:03] VITALS: BP 107/68; PULSE 72; RESP 18; O2SAT 97
[2020-12-03 22:13] LABS: Basophils Percent Auto 0.3 % (0-2); Hematocrit 34.4 % (42-52); Hemoglobin 11.5 g/dl (14.0-18.0); Imm Gran Abs Auto 0.02 X10*3/uL (0.00-0.03); Imm Gran Pct Auto 0.6 % (0.0-0.4); Lymphocytes Absolute Auto 0.5 X10*3/uL (1.2-4.9); Lymphocytes Percent Auto 15.2 % (20-40); MANUAL DIFF FLAG SCAN; Mean Corpuscular HGB Conc 33.4 g/dl (31.0-36.0); Mean Corpuscular Hemoglobin 32.8 pg (27.0-33.0); Mean Platelet Volume 12.4 fL (9.4-12.4); Monocytes Absolute Auto 0.4 X10*3/uL (0.1-1.2); Monocytes Percent Auto 10.3 % (2-11); Neutrophils Absolute Auto 2.6 X10*3/uL (2.0-8.3); Neutrophils Percent Auto 73.6 % (45-73); Platelet Count 127 X10*3/uL (160-400); Red Blood Count 3.51 X10*6/uL (4.60-5.80); Red Cell Distribution Width 16.2 % (11.0-16.0); SCAN SMEAR FLAG 1; White Blood Count 3.5 X10*3/uL (4.8-10.8)
[2020-12-03 22:14] LABS: Glucose Urine UA NEG (NEG); Leukocyte Esterase Urine NEG (NEG); Nitrite Urine POS (NEG); Specific Gravity - Urine 1.015 (1.005-1.025); UACC Culture Trigger YES; Urine Blood TRACE (NEG); Urine Ketones NEG (NEG); Urine Protein NEG (NEG-TRACE)
[2020-12-03 22:30] LABS: Appearance Urine CLEAR; Bacteria Urine 1+ /LPF; Color Urine YELLOW; Squamous Epithelial Cell Urine 1+ /LPF
[2020-12-03 22:33] LABS: SLIDE REVIEW VERIFIED
[2020-12-03] MEDS: oxyCODONE HCl Immed Release 5 MG TABLET PO (22:51)
[2020-12-03 23:47] LABS: Delay - Chemistry DELAY
[2020-12-03 23:51] LABS: Lactic Acid 1.7 mmol/L (0.5-2.0)
[2020-12-03 23:59] LABS: Alanine Aminotransferase 34 U/L (0-40); Albumin Level 2.8 g/dL (3.5-5.0); Alkaline Phosphatase 112 U/L (39-117); Aspartate Amino Transferase 42 U/L (5-37); Bilirubin Direct 1.2 mg/dL (0.0-0.5); Bilirubin Total 2.1 mg/dL (0.0-1.0); Blood Urea Nitrogen 13 mg/dL (9-16); Calcium 8.1 mg/dL (8.4-10.2); Creatinine Clr Calc Pharmacy 59.8; Estimated Glomerular Filt Rate > 60; Glucose Random 110 mg/dL (60-115); Lipase 47 U/L (8-78)
[2020-12-04] VITALS (9 sets, daily range): BP systolic 114–151; BP diastolic 63–80; PULSE 74–102; RESP 15–20; TEMP 36.3–37.1; O2SAT 95–100
[2020-12-04 00:01] LABS: B Type Natriuretic Peptide 15 pg/mL (<100); Troponin-I High Sensitivity < 3.5 ng/L (<3.5-35.0)
[2020-12-04 00:06] LABS: Anion Gap 10 (12-20); Carbon Dioxide 17 mmol/L (22-29); Chloride 100 mmol/L (96-108)
[2020-12-04 00:19] LABS: Potassium 6.3 mmol/L (3.3-5.1); Sodium 121 mmol/L (135-145); Total Protein 10.1 g/dL (6.5-8.0)
[2020-12-04 00:25] LABS: Ammonia 46 umol/L (13-55)
[2020-12-04] MEDS: Albuterol Sulfate (0.083%) 2.5 MG/3 ML VIAL.NEB INHALE (00:37)
[2020-12-04 01:14] LABS: Potassium Urine Random 74.1 mmol/L
[2020-12-04 01:24] LABS: Osmolality Urine 402 mosm/kg (373-1093)
[2020-12-04 01:24] LABS: Osmolality, Serum 275 mosm/kg (281-305)
[2020-12-04] MEDS: Insulin Regular, Human 100 UNIT/ML 3 ML VIAL IVPUSH (01:39)
[2020-12-04] MEDS: Sodium Polystyrene Sulfon/Sorb 15 GM/60 ML ORAL.SUSP 30 GM PO (01:39)
[2020-12-04] MEDS: Calcium Gluconate/NaCl,Iso-Osm 2 GM/100 ML PLAST..BAG IV (01:40)
--- NOTE | 2020-12-04 01:44 | P.HPHOSP_ITS ---
History of Present Illness Date of Service: 12/04/20 Chief Complaint: Generalized weakness 55-year-old male with a past medical history of hep C, IV drug abuse, liver cirrhosis, HIV, obesity, diabetes, GERD, history of bullous pemphigoid, history of COVID-19 infection, history of ulcerative colitis, pulmonary nodule, history of hepatic vein thrombosis presented to the hospital with a chief complaint of generalized weakness. Patient reports that over the past 3-4 weeks he has been having generalized weakness and decreased appetite and has poor oral intake. Denies any chest pain palpitations. Denies any fever chills cough. Denies any numbness tingling. Denies any nausea vomiting diarrhea. Review of all other systems is negative except mentioned above ER course: Per ER team patient examined essentially benign. Patient complained of mild flank pain to the ER team-CT abdomen showed no acute findings noted renal calculi from before.; on labs noted to have hyponatremia 121, hyperkalemia 6.3. EKG showed no acute findings. Patient was given calcium calcium gluconate, insulin, albuterol, dextrose. Patient was mildly orthostatic in the ER. ER team spoke to Nephrology on-call who suggested to. Cortisol level, serum osmolality, urine osmolality. Admitted to the hospital for further management. [facility] Medical History Bullous pemphigoid COVID-19 in immunocompromised patient GERD (gastroesophageal reflux disease) Hepatic vein thrombosis Hepatitis C HIV (human immunodeficiency virus infection) Hypocalcemia Hypomagnesemia Lichen simplex chronicus Lung nodule Obesity (BMI 30-39.9) Pancytopenia Perirectal abscess Renal calculi Type 2 diabetes mellitus with hyperglycemia Ulcerative colitis Family History Father Stroke Mother Diabetes Hypertension CVD (cardiovascular disease) Sister Family history of cervical cancer Surgical History Anal fistula History of esophagogastroduodenoscopy (EGD) History of lithotripsy History of rectal abscess History of removal of ureteral stent History of umbilical hernia repair Hx of cystoscopy Social History Household Members: Spouse Housing: House Do you presently have visiting nurse or other home services: No Alcohol intake: former Patient Tobacco Use Status: Never used Tobacco Advance Directives Date on File: 10/27/20 service: No Current occupational status: employed Meds Allergies Allergy/AdvReac Type Severity Reaction Status Date / Time acetaminophen [Acetaminophen] Allergy Severe LIVER Verified 11/14/20 07:59 TOXICITY - CANNOT TAKE ACETAMINOPHEN amoxicillin [Augmentin] Allergy Intermediate mouth sores Verified 11/14/20 07:59 clavulanic acid [Augmentin] Allergy Intermediate mouth sores Verified 11/14/20 07:59 Sulfa (Sulfonamide Allergy Intermediate RASH Verified 11/14/20 07:59 Antibiotics) [SULFA (SULFONAMIDE ANTIBIOTICS)] ibuprofen [IBUPROFEN] AdvReac Intermediate BLEEDING Verified 11/14/20 07:59 Active Medications: Current Medications Generic Name Dose Route Start Last Admin Trade Name Freq PRN Reason Stop Dose Admin Acetaminophen 650 mg 12/04/20 01:38 Acetaminophen 325 Mg Tablet PO Q6H PRN Pain, Mild (Pain Scale 1-3) Docusate Sodium 100 mg 12/04/20 09:00 Docusate Sodium 100 Mg Capsule PO BID YONATHAN Enoxaparin Sodium 40 mg 12/04/20 01:45 Enoxaparin Sodium 40 Mg/0.4 Ml Syringe SUBCUT Q24H YONATHAN Calcium Gluconate 2 gm in 100 mls @ 50 mls/hr 12/04/20 00:23 Calcium Gluconate IV 12/04/20 02:22 ONCE ONE Sodium Chloride 1,000 mls @ 999 mls/hr 12/04/20 01:00 Ns IVCONT 12/04/20 02:00 .Q1H1M YONATHAN Sodium Chloride 1,000 mls @ 50 mls/hr 12/04/20 01:45 Ns IVCONT .Q20H YONATHAN Magnesium Hydroxide 30 ml 12/04/20 01:38 Milk Of Magnesia 30 Ml Oral.Susp PO DAILY PRN Constipation Sodium Chloride 3 ml 12/04/20 08:00 0.9 % Sodium Chloride Flush 3 Ml Syringe IVFLUSH QSHIFT YONATHAN Home Medications Medication Instructions Recorded Confirmed Last Taken Type Odefsey 1 tab PO DAILY 04/27/20 12/04/20 Unknown History atovaquone 5 ml PO BID 04/27/20 12/04/20 Unknown History famotidine 40 mg PO BEDTIME 04/27/20 12/04/20 Unknown History mesalamine 800 mg PO TIDWM 04/27/20 12/04/20 Unknown History hydroxyzine HCl 25 mg tablet 50 mg PO Q6H PRN tab 09/01/20 12/04/20 Unknown History blood sugar diagnostic #10 ea 10/06/20 Unknown History clobetasol 0.05 % topical cream 1 appl TOPICAL BID PRN 10/25/20 12/04/20 Unknown History econazole 1 appl TOPICAL BID 10/27/20 12/04/20 Unknown History triamcinolone acetonide 1 appl TOPICAL BID PRN 10/27/20 12/04/20 Unknown History Xifaxan 1 tab PO BID 12/04/20 12/04/20 Unknown History glipizide 2.5 mg PO BID 12/04/20 12/04/20 Unknown History spironolactone 1 tab PO BID 12/04/20 12/04/20 Unknown History Physical Exam Vital Signs and Narrative: Vital Signs: Last Vital Signs Temp 97.9 F 12/03/20 18:59 Pulse 96 12/04/20 00:41 Resp 15 12/04/20 00:27 BP 130/80 12/04/20 00:41 Pulse Ox 98 12/04/20 00:27 Body Mass Index 28.0 Gen: Appears be in no acute distress HEENT: NCAT, Moist mucosa. Pulmonary: Vesicular breath sounds, fair air entry CVS: Normal S1-S2 Abdomen: BS+, Soft, Nontender Extremities: Warm well perfused Neuro: Alert and awake. Results Labs CBC and Chem 7: 12/05/20 05:30 12/06/20 05:59 Labs: Laboratory Results - last 24 hr 12/03/20 12/03/20 12/03/20 11:46 22:01 22:01 MCV 98.0 MCH 32.8 MCHC 33.4 RDW 16.2 H Plt Count 127 L D MPV 12.4 Immature Gran % (Auto) 0.6 H Neut % (Auto) 73.6 H Lymph % (Auto) 15.2 L [place] % (Auto) 10.3 Eos % (Auto) 0.0 Baso % (Auto) 0.3 Lymph # (Auto) 0.5 L [place] # (Auto) 0.4 Eos # (Auto) 0.0 Baso # (Auto) 0.0 Abs Immat Gran (auto) 0.02 Absolute Neuts (auto) 2.6 Absolute Nucleated RBC 0.000 Nucleated RBC % (auto) 0.0 Smear Tech's Comments VERIFIED Anion Gap Estim Creat Clear Calc Estimated GFR Random Glucose Osmolality Lactic Acid Calcium Total Bilirubin Direct Bilirubin AST ALT Alkaline Phosphatase Ammonia Troponin I High Sens B-Natriuretic Peptide Total Protein Albumin Lipase Specimen Comment DELAY Urine Color YELLOW Urine Appearance CLEAR Urine pH 7.0 Ur Specific [place] 1.015 Urine Protein NEG Urine Glucose (UA) NEG Urine Ketones NEG Urine Blood TRACE Urine Nitrite POS H Ur Leukocyte Esterase NEG Urine RBC 1-4 Urine WBC 1-4 Ur Squamous Epith Cells 1+ Urine Bacteria 1+ Urine Osmolality Ur Random Sodium Ur Random Potassium 12/03/20 12/03/20 12/03/20 22:01 22:01 23:26 MCV MCH MCHC RDW Plt Count MPV Immature Gran % (Auto) Neut % (Auto) Lymph % (Auto) [place] % (Auto) Eos % (Auto) Baso % (Auto) Lymph # (Auto) [place] # (Auto) Eos # (Auto) Baso # (Auto) Abs Immat Gran (auto) Absolute Neuts (auto) Absolute Nucleated RBC Nucleated RBC % (auto) Smear Tech's Comments Anion Gap 10 L Estim Creat Clear Calc 59.8 Estimated GFR > 60 Random Glucose 110 D Osmolality Lactic Acid Calcium 8.1 L D Total Bilirubin 2.1 H Direct Bilirubin 1.2 H AST 42 H ALT 34 Alkaline Phosphatase 112 Ammonia Troponin I High Sens B-Natriuretic Peptide Total Protein 10.1 H Albumin 2.8 L D Lipase 47 Specimen Comment Urine Color Urine Appearance Urine pH Ur Specific [place] Urine Protein Urine Glucose (UA) Urine Ketones Urine Blood Urine Nitrite Ur Leukocyte Esterase Urine RBC Urine WBC Ur Squamous Epith Cells Urine Bacteria Urine Osmolality 402 Ur Random Sodium 84.0 Ur Random Potassium 74.1 12/03/20 12/03/20 12/03/20 23:26 23:26 23:26 MCV MCH MCHC RDW Plt Count MPV Immature Gran % (Auto) Neut % (Auto) Lymph % (Auto) [place] % (Auto) Eos % (Auto) Baso % (Auto) Lymph # (Auto) [place] # (Auto) Eos # (Auto) Baso # (Auto) Abs Immat Gran (auto) Absolute Neuts (auto) Absolute Nucleated RBC Nucleated RBC % (auto) Smear Tech's Comments Anion Gap Estim Creat Clear Calc Estimated GFR Random Glucose Osmolality Lactic Acid 1.7 Calcium Total Bilirubin Direct Bilirubin AST ALT Alkaline Phosphatase Ammonia 46 Troponin I High Sens < 3.5 B-Natriuretic Peptide 15 Total Protein Albumin Lipase Specimen Comment Urine Color Urine Appearance Urine pH Ur Specific [place] Urine Protein Urine Glucose (UA) Urine Ketones Urine Blood Urine Nitrite Ur Leukocyte Esterase Urine RBC Urine WBC Ur Squamous Epith Cells Urine Bacteria Urine Osmolality Ur Random Sodium Ur Random Potassium 12/03/20 23:31 MCV MCH MCHC RDW Plt Count MPV Immature Gran % (Auto) Neut % (Auto) Lymph % (Auto) [place] % (Auto) Eos % (Auto) Baso % (Auto) Lymph # (Auto) [place] # (Auto) Eos # (Auto) Baso # (Auto) Abs Immat Gran (auto) Absolute Neuts (auto) Absolute Nucleated RBC Nucleated RBC % (auto) Smear Tech's Comments Anion Gap Estim Creat Clear Calc Estimated GFR Random Glucose Osmolality 275 L Lactic Acid Calcium Total Bilirubin Direct Bilirubin AST ALT Alkaline Phosphatase Ammonia Troponin I High Sens B-Natriuretic Peptide Total Protein Albumin Lipase Specimen Comment Urine Color Urine Appearance Urine pH Ur Specific [place] Urine Protein Urine Glucose (UA) Urine Ketones Urine Blood Urine Nitrite Ur Leukocyte Esterase Urine RBC Urine WBC Ur Squamous Epith Cells Urine Bacteria Urine Osmolality Ur Random Sodium Ur Random Potassium Imaging Radiologist's Impressions: Impressions Chest X-Ray 12/03/20 21:16 IMPRESSION: No acute cardiopulmonary findings. Abdomen/Pelvis CT 12/03/20 22:23 IMPRESSION: 1. Redemonstration of a cirrhotic liver. No new hepatic parenchymal lesion or biliary ductal dilatation. Evaluation somewhat limited without IV contrast. 2. Stable splenomegaly. 3. Multiple bilateral renal stones are redemonstrated, decreased in size and number when compared to the prior examination. No ureteral or urinary bladder stone. Mild right-sided hydroureter. No left-sided hydroureter. No hydronephrosis. Findings could indicate a recently passed right-sided renal stone. 4. Mesenteric stranding, similar when compared to the prior CT. No significant ascites. No organized fluid collection/abscess formation. No lymphadenopathy. 5. Additional chronic findings are unchanged. Assessment and Plan (1) Acute hyperkalemia: Status: Acute 55-year-old male with a past medical history of GERD, diabetes, hep C, HIV, history of liver cirrhosis, history of bullous pemphigoid, lichen simplex chronicus, history of renal calculi, ulcerative colitis, obesity, pulmonary nodule presented to the hospital with a chief complaint of generalized weakness and pleural intake. Noted to have hyponatremia and hyperkalemia. Generalized weakness/poor oral intake: Currently no active signs of infection. Supportive care. Monitor fever curve. Hyponatremia: Seizure precautions. Will give the patient normal saline at 50 cc/hour. Nephrology on-call notified. Repeat BMP Hyperkalemia: No EKG changes. Patient received calcium gluconate, dextrose, insulin in the ER. Will repeat the levels. Monitor on telemetry. History of HIV: Continue home medications. Diabetes: Insulin sliding scale. Hold home oral hypoglycemic agents. For all other chronic conditions, home medications will be continued DVT prophylaxis: Lovenox Code status: Full code
[2020-12-04 01:48] LABS: Thyroid Stimulating Hormone 3.33 uIU/mL (0.32-4.0)
[2020-12-04] MEDS: 0.9 % Sodium Chloride 1,000 ML 999 ML IVCONT (02:03)
[2020-12-04 02:56] LABS: COVID-19 Test Negative (Negative); IDNOW Serial# 9DD0AD1C
[2020-12-04 03:43] LABS: Carbon Dioxide 19 mmol/L (22-29); Chloride 102 mmol/L (96-108); Potassium 5.4 mmol/L (3.3-5.1); Sodium 123 mmol/L (135-145)
[2020-12-04 03:44] LABS: Anion Gap 7 (12-20); Blood Urea Nitrogen 13 mg/dL (9-16); Calcium 8.6 mg/dL (8.4-10.2); Creatinine Clr Calc Pharmacy 58.3; Estimated Glomerular Filt Rate > 60; Glucose Random 141 mg/dL (60-115)
[2020-12-04] MEDS: 0.9 % Sodium Chloride 1,000 ML 50 ML IVCONT (04:49)
[2020-12-04 07:15] LABS: Glucose, Whole Blood 172 mg/dL (60-115)
[2020-12-04] MEDS: Insulin Lispro 100 UNIT/ML 3 ML VIAL SUBCUT ×2 (07:48→17:24)
[2020-12-04 07:49] LABS: Imm Gran Abs Auto 0.02 X10*3/uL (0.00-0.03); Imm Gran Pct Auto 0.7 % (0.0-0.4); MANUAL DIFF FLAG SCAN; PLT CLUMP 1; SCAN SMEAR FLAG 1
[2020-12-04 07:51] LABS: Basophils Percent Auto 0.3 % (0-2); Hemoglobin 9.8 g/dl (14.0-18.0); Lymphocytes Absolute Auto 0.4 X10*3/uL (1.2-4.9); Lymphocytes Percent Auto 13.4 % (20-40); Mean Corpuscular HGB Conc 32.7 g/dl (31.0-36.0); Mean Corpuscular Hemoglobin 32.2 pg (27.0-33.0); Mean Corpuscular Volume 98.7 fL (80-98); Monocytes Absolute Auto 0.3 X10*3/uL (0.1-1.2); Monocytes Percent Auto 8.9 % (2-11); Neutrophils Absolute Auto 2.2 X10*3/uL (2.0-8.3); Neutrophils Percent Auto 76.7 % (45-73); Red Blood Count 3.04 X10*6/uL (4.60-5.80); Red Cell Distribution Width 15.9 % (11.0-16.0); White Blood Count 2.9 X10*3/uL (4.8-10.8)
[2020-12-04 07:54] LABS: Platelet Count 81 X10*3/uL (160-400)
[2020-12-04 08:10] LABS: SLIDE REVIEW VERIFIED
[2020-12-04 08:28] LABS: Blood Urea Nitrogen 11 mg/dL (9-16); Carbon Dioxide 19 mmol/L (22-29); Chloride 102 mmol/L (96-108); Creatinine Clr Calc Pharmacy 62.4; Estimated Glomerular Filt Rate > 60; Sodium 123 mmol/L (135-145)
[2020-12-04 08:29] LABS: Calcium 8.5 mg/dL (8.4-10.2); Glucose Random 174 mg/dL (60-115); Magnesium 1.6 mg/dL (1.6-2.6)
[2020-12-04] MEDS: Enoxaparin Sodium 40 MG/0.4 ML SYRINGE SUBCUT (09:02)
--- NOTE | 2020-12-04 09:11 | HO.PM.IMPN ---
Subjective Subjective Date of Service: 12/04/20 <Melba Munguia NP - Last Filed: 12/04/20 09:17> 12/04/20 <Kyle Quinn MD - Last Filed: 12/04/20 16:00> Interval History: Follow up weakness Feeling better than yesterday Appetite improving <Melba Munguia NP - Last Filed: 12/04/20 09:17> Physical Exam Vital Signs: Vital Signs: Last Vital Signs Temp 98.1 F 12/04/20 08:00 Pulse 86 12/04/20 08:00 Resp 20 12/04/20 08:00 BP 151/66 H 12/04/20 08:00 Pulse Ox 100 12/04/20 08:00 Body Mass Index 28.0 <Melba Munguia NP - Last Filed: 12/04/20 09:17> Appearing in no acute distress, thin lung sounds are clear to auscultation heart regular rate rhythm, clear S1, S2 positive bowel sounds, abdomen is soft, nontender neuro patient is alert x3, no focal deficits <Melba Munguia NP - Last Filed: 12/04/20 09:17> Objective Data Current Medications Generic Name Dose Route Start Last Admin Trade Name Freq PRN Reason Stop Dose Admin Acetaminophen 650 mg 12/04/20 01:38 Acetaminophen 325 Mg Tablet PO Q6H PRN Pain, Mild (Pain Scale 1-3) Docusate Sodium 100 mg 12/04/20 09:00 12/04/20 07:51 Docusate Sodium 100 Mg Capsule PO Not Given BID YONATHAN Enoxaparin Sodium 40 mg 12/04/20 09:00 12/04/20 09:02 Enoxaparin Sodium 40 Mg/0.4 Ml Syringe SUBCUT 40 mg Q24H YONATHAN Administration Sodium Chloride 1,000 mls @ 50 mls/hr 12/04/20 01:45 12/04/20 04:49 Ns IVCONT 50 mls/hr .Q20H YONATHAN Administration Insulin Human Lispro 0 unit 12/04/20 07:30 12/04/20 07:48 Insulin Lispro 100 Unit/Ml 3 Ml Vial SUBCUT 2 unit QIDACHS YONATHAN Administration Protocol Magnesium Hydroxide 30 ml 12/04/20 01:38 Milk Of Magnesia 30 Ml Oral.Susp PO DAILY PRN Constipation Sodium Chloride 3 ml 12/04/20 08:00 12/04/20 07:49 0.9 % Sodium Chloride Flush 3 Ml Syringe IVFLUSH Not Given QSHIFT YONATHAN <Melba Munguia NP - Last Filed: 12/04/20 09:17> Labs CBC & Chem 7: : 12/04/20 07:12 12/04/20 12:25 <Melba Munguia NP - Last Filed: 12/04/20 09:17> Microbiology Microbiology Results: Microbiology 12/03/20 22:30 Urine clean catch - Clean Catch Midstream Urine Culture - Preliminary No growth to date. <Melba Munguia NP - Last Filed: 12/04/20 09:17> Assessment and Plan (1) Acute hyperkalemia: Status: Acute <Melba Munguia NP - Last Filed: 12/04/20 09:17> Assessment and Plan: 55-year-old male with a past medical history of GERD, diabetes, hep C, HIV, history of liver cirrhosis, history of bullous pemphigoid, lichen simplex chronicus, history of renal calculi, ulcerative colitis, obesity, pulmonary nodule presented to the hospital with a chief complaint of generalized weakness and pleural intake. Noted to have hyponatremia and hyperkalemia. Hyponatremia. Likely from hypovolemia. Denies fluid losses Not much improvement -Seizure precautions. -normal saline at 50 cc/hour. -Nephrology consult -follow BMP Hyperkalemia. No EKG changes. Resolved after correction with insulin and calcium gluconate -follow BMP -Monitor on telemetry. Generalized weakness/poor oral intake. Currently no active signs of infection. -supportive care. -add ensure to diet Pancytopenia/Anemia. No bleeding -follow CBC Coagulopathy. Chronic, secondary to liver disease No bleed -follow PT/INR History of HIV. Chronically low CD4. -Check CD4 while inaptient -Continue HAART Diabetes. -Insulin sliding scale. -ADA diet DVT prophylaxis with Lovenox Full code Attending: Dr. Quinn <Melba Munguia NP - Last Filed: 12/04/20 09:17> (2) Acute hyponatremia: Status: Acute <Melba Munguia NP - Last Filed: 12/04/20 09:17> Assessment and Plan: Addendum to documentation by midlevel I saw and examined the patient and participated in the jerry portion of the E/M service. I agree with finding, asssessment and plan as mentioned above. Acute on chronic Hyponatermia, sodium level is stable and yet still very low. Continue urea, fluid restriction and furhter advise from Nephrology, otherwise I agree with assessment and plan as above. <Kyle Quinn MD - Last Filed: 12/04/20 16:00>
[2020-12-04 09:23] LABS: Anion Gap 9 (12-20)
[2020-12-04] MEDS: LORazepam 0.5 MG TABLET 0.25 MG PO (09:33)
[2020-12-04] MEDS: Magnesium Sulfate/D5W 1 GM/100 ML PIGGYBACK IV (09:39)
[2020-12-04 11:14] LABS: Glucose, Whole Blood 139 mg/dL (60-115)
[2020-12-04] MEDS: Lactulose 20 GM/30 ML SOLUTION PO ×2 (12:22→20:56)
[2020-12-04] MEDS: Mesalamine 400 MG CAP.DRTAB. 800 MG PO ×2 (12:22→17:24)
[2020-12-04] MEDS: Pyridoxine HCl (Vitamin B6) 50 MG TABLET 100 MG PO (12:22)
[2020-12-04] MEDS: Atovaquone 750 MG/5 ML ORAL.SUSP PO ×2 (12:22→20:48)
[2020-12-04] MEDS: glipiZIDE XL 2.5 MG TAB.ER.24 PO ×2 (12:22→20:49)
[2020-12-04] MEDS: rifAXIMin 550 MG TABLET PO ×2 (12:22→20:49)
[2020-12-04] MEDS: SITagliptin Phosphate 100 MG TABLET PO (12:22)
[2020-12-04] MEDS: Omeprazole 20 MG CAPSULE.DR PO (12:22)
[2020-12-04] MEDS: allopurinoL 100 MG TABLET PO (12:23)
[2020-12-04 13:07] LABS: Anion Gap 10 (12-20); Blood Urea Nitrogen 12 mg/dL (9-16); Calcium 8.2 mg/dL (8.4-10.2); Carbon Dioxide 18 mmol/L (22-29); Chloride 100 mmol/L (96-108); Creatinine Clr Calc Pharmacy 67.2; Estimated Glomerular Filt Rate > 60; Glucose Random 181 mg/dL (60-115); Potassium 4.8 mmol/L (3.3-5.1); Sodium 123 mmol/L (135-145)
[2020-12-04] MEDS: Urea 15 GM POWDER PO ×2 (14:47→20:49)
[2020-12-04 16:20] LABS: Glucose, Whole Blood 160 mg/dL (60-115)
[2020-12-04] MEDS: oxyCODONE HCl Immed Release 5 MG TABLET PO (17:23)
[2020-12-04] MEDS: 0.9 % Sodium Chloride Flush 3 ML SYRINGE IVFLUSH (17:24)
[2020-12-04] MEDS: Famotidine 20 MG TABLET 40 MG PO (20:48)
[2020-12-04] MEDS: Clotrimazole 1 % Cream 15 GM TUBE 1 APPL TOPICAL (20:49)
[2020-12-04 21:20] LABS: Glucose, Whole Blood 120 mg/dL (60-115)
[2020-12-04 21:23] LABS: Blood Urea Nitrogen 27 mg/dL (9-16); Calcium 7.7 mg/dL (8.4-10.2); Creatinine Clr Calc Pharmacy 70.6; Estimated Glomerular Filt Rate > 60; Glucose Random 106 mg/dL (60-115)
[2020-12-04 21:30] LABS: Anion Gap 7 (12-20); Carbon Dioxide 20 mmol/L (22-29); Chloride 100 mmol/L (96-108); Potassium 4.3 mmol/L (3.3-5.1); Sodium 123 mmol/L (135-145)
--- NOTE | 2020-12-05 00:20 | CONS_ITS ---
DATE OF SERVICE: REASON FOR CONSULTATION: Consult requested by the emergency room physician to evaluate and help in management of patient with severe hyponatremia and hyperkalemia. HISTORY OF PRESENT ILLNESS: The patient is a 55-year-old male, who is bilingual. Past medical history of hep C positive status, IV drug abuse, liver cirrhosis, HIV positive status, kidney stones, followed by Dr. Byrne, history of COVID-19 infection, who presented to the hospital with complaints of generalized weakness. Over the last 3 to 4 weeks, he has been having generalized weakness and decreased appetite. He has had poor p.o. intake. He denied any chest pain, palpitations, fever, chills, cough, numbness, or tingling. There was no nausea, vomiting, or diarrhea. In the ER, patient was evaluated and a CT scan of the abdomen was done because of flank pain, which was essentially negative except for renal stones in the past. He was severely hyponatremic with a sodium level of 121, hyperkalemic with a potassium of 6.3. EKG showed no acute findings. The patient has been treated for hyperkalemia with calcium gluconate, insulin, dextrose, and albuterol. He was admitted to the hospital for further evaluation and management. His potassium level has improved to 5.0 and sodium is 123 at the present time. He is feeling better at this juncture. He does give history of taking excessive amount of free water, which was usual for him, as he has history of kidney stones, and his urologist mentioned it to him. PAST MEDICAL HISTORY: History of bullous pemphigoid, recent history of COVID-19 infection, GERD, hepatic vein thrombosis, hep C positive status, HIV infection, hypocalcemia, hypomagnesemia, history of mild hyponatremia with sodium level around 130, lichen simplex chronicus, lung nodule, obesity, pancytopenia, perirectal abscess, renal calculi, type 2 diabetes mellitus, ulcerative colitis. FAMILY HISTORY: Significant for father with a stroke. Mother with diabetes, hypertension, and CVA. Sister with cervical cancer. PAST SURGICAL HISTORY: Include history of lithotripsies, rectal abscess drainage, umbilical hernia repair, and cystoscopy. PERSONAL AND SOCIAL HISTORY: Patient lives with his spouse in his house. He is a former smoker and used to drink significant amount of alcohol many years ago but quit. ALLERGIES: INCLUDE TYLENOL, AMOXICILLIN, CLAVULANIC ACID, SULFA, AND IBUPROFEN. MEDICATIONS: Active medications were reviewed. PHYSICAL EXAMINATION: GENERAL: Patient is resting in the bed. Awake, alert, oriented x3. VITAL SIGNS: Blood pressure was 120/63, pulse 84, afebrile. HEENT: Shows pupils equal, round, and reactive bilaterally to light. No jugular venous distention is noted. NECK: Supple. No thyromegaly is noted. Mucosa is moist. There is no scleral icterus or conjunctival congestion. CARDIOVASCULAR SYSTEM: S1, S2 without rub. RESPIRATORY SYSTEM: Air entry decreased in the bases. ABDOMEN: Distended, soft. Bowel sounds normal. EXTREMITIES: Showed no edema. There is no peripheral cyanosis or clubbing. NEURO EXAM: Essentially nonfocal. LABS: Done today, sodium 123, potassium 5.0, chloride 102, CO2 is 19, BUN 14, creatinine 1.13, serum osmolality 275. Lactic acid level was normal. Total bilirubin 2.1. Urine sodium was 84. Urine osmolality was 402. Urinalysis shows yellow urine, it is clear. Specific gravity 1.015. Protein negative, rbcs 1 to 4, wbcs 1 to 4. IMPRESSION: 1. 55-year-old male with hyponatremia. Clinically, patient looks euvolemic and he likely has euvolemic hyponatremia. His serum osmolality is 275, and he has hypoosmolar hyponatremia. His urine sodium is inappropriately high and urine osmolality is also high for a serum sodium and serum osmolality, and this is consistent with syndrome of inappropriate antidiuretic hormone secretion. Thyroid disease has been ruled out on this patient. We should rule out hypoadrenalism, given hyperkalemia with hyponatremia. He was not on any medication which can cause hyponatremia, though he has had excessive amount of free water intake due to history of renal stones. There are no significant neuro symptoms at the present time. 2. Hyperkalemia. The exact reason for visit is unclear. He is not on any medications that can cause hyperkalemia. His hyperkalemia has resolved 3. Hepatitis C positive status with a chronic liver disease. RECOMMENDATION: At this juncture, I recommend a fluid restriction of 1.5 L. I have taken liberty to discontinue the IV fluids, as this can worsen the sodium level in SIADH. I placed the patient on Urea 15 g p.o. b.i.d. x1 dose now. This will help with excretion of the excess free water. The patient should be on a low-potassium diet. We should avoid using any nephrotoxic agents on this patient. I recommend avoidance of correcting his sodium too rapidly and over the next 24 hours, we should correct to about 6 to 8 mEq. His TSH level is within normal limits, and I do not think he has hypothyroidism. I would make sure the patient has a serum cortisol level. We will continue to follow the patient closely. Thank you for allowing me to participate in medical management of patient. MD HERSON Pineda/MAURA / [id number] MTDD
[2020-12-05 03:51] VITALS: BP 101/60; PULSE 99; RESP 17; TEMP 37.1; O2SAT 97
[2020-12-05 06:09] LABS: Hematocrit 32.8 % (42-52); Mean Corpuscular HGB Conc 33.5 g/dl (31.0-36.0); Mean Corpuscular Hemoglobin 32.4 pg (27.0-33.0); Mean Corpuscular Volume 96.8 fL (80-98); Mean Platelet Volume 12.2 fL (9.4-12.4); Red Blood Count 3.39 X10*6/uL (4.60-5.80); Red Cell Distribution Width 15.9 % (11.0-16.0); White Blood Count 2.8 X10*3/uL (4.8-10.8)
[2020-12-05] MEDS: Omeprazole 20 MG CAPSULE.DR PO (06:17)
[2020-12-05] MEDS: oxyCODONE HCl Immed Release 5 MG TABLET PO ×2 (06:17→19:59)
[2020-12-05 06:20] LABS: Anion Gap 9 (12-20); Blood Urea Nitrogen 34 mg/dL (9-16); Calcium 8.3 mg/dL (8.4-10.2); Carbon Dioxide 21 mmol/L (22-29); Chloride 99 mmol/L (96-108); Creatinine Clr Calc Pharmacy 74.3; Estimated Glomerular Filt Rate > 60; Glucose Random 82 mg/dL (60-115); Potassium 4.2 mmol/L (3.3-5.1); Sodium 125 mmol/L (135-145)
[2020-12-05 06:22] LABS: INTERNATIONAL NORM RATIO 1.6 (0.9-1.1); Prothrombin Time 18.5 SEC (10.8-13.0)
[2020-12-05 06:33] LABS: Platelet Count 84 X10*3/uL (160-400)
[2020-12-05 07:47] LABS: Glucose, Whole Blood 80 mg/dL (60-115)
[2020-12-05] MEDS: 0.9 % Sodium Chloride Flush 3 ML SYRINGE IVFLUSH ×4 (07:56→20:01)
[2020-12-05] MEDS: Mesalamine 400 MG CAP.DRTAB. 800 MG PO ×3 (07:57→17:27)
[2020-12-05 08:00] VITALS: BP 140/81; PULSE 122; RESP 20; TEMP 36.8; O2SAT 96
--- NOTE | 2020-12-05 08:45 | MHC.CM.PN ---
Addendum entered by Bri Leslie 12/05/20 10:15: PT COMPLETED A HCP NAMING HIS , ELOISA VANEGAS, HIS ONLY AGENT. CM ALSO ASSISTED PTS IN COMPLETING HER OWN HCP. Original Note: CM MET WITH PT WHO REPORTS HE LIVES AT HOME WITH HIS AND IS INDEPENDENT WITH HIS CARE AND MOBILITY AT BASELINE. PT REPORTS HE HAS NO SERVICES AND NO DME IN THE HOME. PT INDICATES HE USUALLY WORKS A [employer] BUT HAS BEEN OUT DUE TO ILLNESS. HE REPORTS HIS IS ALSO EMPLOYED BUT HAS HAD TO TAKE TWO WEEKS OFF TO ASSIST WITH HIS CARE. PT CONFIRMS HIS PCP IS ADELIA ZAVALETA. PT IS UNSURE IF HE HAS A HCP BUT WILL SPEAK WITH HIS ABOUT THIS AND IS AWARE CM WILL ASSIST IF HE WOULD LIKE TO COMPLETE A HCP DURING ADMISSION. CURRENT DC PLAN IS HOME WITH NO SERVICES TO TRANSPORT
[2020-12-05] MEDS: Urea 15 GM POWDER PO ×2 (09:19→19:57)
[2020-12-05] MEDS: Docusate Sodium 100 MG CAPSULE PO ×2 (09:21→19:58)
[2020-12-05] MEDS: rifAXIMin 550 MG TABLET PO ×2 (09:21→20:12)
[2020-12-05] MEDS: Atovaquone 750 MG/5 ML ORAL.SUSP PO ×2 (09:21→19:58)
[2020-12-05] MEDS: Lactulose 20 GM/30 ML SOLUTION PO ×2 (09:21→19:58)
[2020-12-05] MEDS: Pyridoxine HCl (Vitamin B6) 50 MG TABLET 100 MG PO (09:21)
[2020-12-05] MEDS: SITagliptin Phosphate 100 MG TABLET PO (09:21)
[2020-12-05] MEDS: glipiZIDE XL 2.5 MG TAB.ER.24 PO ×2 (09:21→19:59)
[2020-12-05] MEDS: allopurinoL 100 MG TABLET PO (09:21)
[2020-12-05] MEDS: Enoxaparin Sodium 40 MG/0.4 ML SYRINGE SUBCUT (09:21)
[2020-12-05] MEDS: Clotrimazole 1 % Cream 15 GM TUBE 1 APPL TOPICAL ×2 (10:01→20:13)
--- NOTE | 2020-12-05 11:22 | P.PNIM_ITS ---
Subjective Subjective Date of Service: 12/05/20 <Melba Munguia NP - Last Filed: 12/05/20 11:30> 12/05/20 <Kyle Quinn MD - Last Filed: 12/05/20 13:40> Interval History: Follow up Hyponatremia Feeling better siting in a chair eating breakfast <Melba Munguia NP - Last Filed: 12/05/20 11:30> Physical Exam Vital Signs: Vital Signs: Last Vital Signs Temp 98.3 F 12/05/20 08:00 Pulse 122 H 12/05/20 08:00 Resp 20 12/05/20 08:00 BP 140/81 H 12/05/20 08:00 Pulse Ox 96 12/05/20 08:00 Body Mass Index 28.0 <Melba Munguia NP - Last Filed: 12/05/20 11:30> Appearing in no acute distress lung sounds are clear to auscultation heart regular rate rhythm, clear S1, S2 positive bowel sounds, abdomen is soft, nontender neuro patient is alert x3, no focal deficits <Melba Munguia NP - Last Filed: 12/05/20 11:30> Objective Data Current Medications Generic Name Dose Route Start Last Admin Trade Name Freq PRN Reason Stop Dose Admin Allopurinol 100 mg 12/04/20 11:45 12/05/20 09:21 Allopurinol 100 Mg Tablet PO 100 mg DAILY YONATHAN Administration Atovaquone 750 mg 12/04/20 11:45 12/05/20 09:21 Atovaquone 750 Mg/5 Ml Oral.Susp PO 750 mg BID YONATHAN Administration Clotrimazole 1 appl 12/04/20 21:00 12/05/20 10:01 Clotrimazole 1 % Cream 15 Gm Tube TOPICAL 1 appl BID YONATHAN Administration Docusate Sodium 100 mg 12/04/20 09:00 12/05/20 09:21 Docusate Sodium 100 Mg Capsule PO 100 mg BID YONATHAN Administration Enoxaparin Sodium 40 mg 12/04/20 09:00 12/05/20 09:21 Enoxaparin Sodium 40 Mg/0.4 Ml Syringe SUBCUT 40 mg Q24H YONATHAN Administration Famotidine 40 mg 12/04/20 21:00 12/04/20 20:48 Famotidine 20 Mg Tablet PO 40 mg BEDTIME YONATHAN Administration Glipizide 2.5 mg 12/04/20 11:45 12/05/20 09:21 Glipizide Xl 2.5 Mg Tab.Er.24 PO 2.5 mg BID YONATHAN Administration Hydroxyzine HCl 50 mg 12/04/20 11:30 Hydroxyzine Hcl 25 Mg Tablet PO Q6H PRN bullous pemphigoid Insulin Human Lispro 0 unit 12/04/20 07:30 12/05/20 08:05 Insulin Lispro 100 Unit/Ml 3 Ml Vial SUBCUT Not Given QIDACHS [facility] Protocol Lactulose 20 gm 12/04/20 11:45 12/05/20 09:21 Lactulose 20 Gm/30 Ml Solution PO 20 gm BID YONATHAN Administration Magnesium Hydroxide 30 ml 12/04/20 01:38 Milk Of Magnesia 30 Ml Oral.Susp PO DAILY PRN Constipation Mesalamine 800 mg 12/04/20 12:00 12/05/20 07:57 Mesalamine 400 Mg Cap.Drtab. PO 800 mg TIDWM YONATHAN Administration Patient Own 1 each 12/04/20 14:00 12/05/20 09:20 Medication ( PO 1 each Emtricitab/Rilpiviri DAILY YONATHAN Administration /Tenof Ala 200-25-25 Mg Tablet) Omeprazole 20 mg 12/04/20 11:45 12/05/20 06:17 Omeprazole 20 Mg Capsule.Dr PO 20 mg DAILY@0630 YONATHAN Administration Oxycodone HCl 5 mg 12/04/20 11:30 12/05/20 06:17 Oxycodone Hcl Immed Release 5 Mg Tablet PO 5 mg Q8H PRN Administration pain Phenazopyridine HCl 100 mg 12/04/20 11:30 Phenazopyridine Hcl 100 Mg Tablet PO TID PRN spasm Pyridoxine HCl 100 mg 12/04/20 11:56 12/05/20 09:21 Pyridoxine Hcl (Vitamin B6) 50 Mg Tablet PO 100 mg DAILY YONATHAN Administration Rifaximin 550 mg 12/04/20 11:45 12/05/20 09:21 Rifaximin 550 Mg Tablet PO 550 mg BID YONATHAN Administration Sitagliptin Phosphate 100 mg 12/04/20 11:45 12/05/20 09:21 Sitagliptin Phosphate 100 Mg Tablet PO 100 mg DAILY YONATHAN Administration Sodium Chloride 3 ml 12/04/20 08:00 12/05/20 07:56 0.9 % Sodium Chloride Flush 3 Ml Syringe IVFLUSH 3 ml QSHIFT YONATHAN Administration Urea 15 gm 12/04/20 13:45 12/05/20 09:19 Urea 15 Gm Powder PO 15 gm BID YONATHAN Administration <Melba Munguia NP - Last Filed: 12/05/20 11:30> Labs CBC & Chem 7: : 12/05/20 05:30 12/05/20 05:30 <Melba Munguia NP - Last Filed: 12/05/20 11:30> Microbiology Microbiology Results: Microbiology 12/03/20 22:30 Urine clean catch - Clean Catch Midstream Urine Culture - Final No growth. 12/03/20 22:33 Blood - Venous Blood Culture - Preliminary No growth after 24 hours. 12/03/20 22:01 Blood - Venous Blood Culture - Preliminary No growth after 24 hours. <Melba Munguia NP - Last Filed: 12/05/20 11:30> Assessment and Plan (1) Acute hyponatremia: Status: Acute <Melba Munguia NP - Last Filed: 12/05/20 11:30> Assessment and Plan: 55-year-old male with a past medical history of GERD, diabetes, hep C, HIV, history of liver cirrhosis, history of bullous pemphigoid, lichen simplex chronicus, history of renal calculi, ulcerative colitis, obesity, pulmonary nodule presented to the hospital with a chief complaint of generalized weakness and pleural intake. Noted to have hyponatremia and hyperkalemia. Hyponatremia. Likely from hypovolemia. Denies fluid losses Not much improvement Normal TSH -Seizure precautions. -stop IV fluids -fluid restrict -Nephrology following -urea BID -follow BMP Hyperkalemia. No EKG changes. Resolved after correction with insulin and calcium gluconate -follow BMP -Monitor on telemetry. Generalized weakness/poor oral intake. Currently no active signs of infection. -supportive care. -add ensure to diet Pancytopenia/Anemia. No bleeding -follow CBC Coagulopathy. Chronic, secondary to liver disease No bleed -follow PT/INR History of HIV. Chronically low CD4. -Check CD4 while inaptient -Continue HAART Diabetes. -Insulin sliding scale. -ADA diet DVT prophylaxis with Lovenox Full code Attending: Dr. Quinn <Melba Munguia NP - Last Filed: 12/05/20 11:30>
[2020-12-05 11:27] LABS: Glucose, Whole Blood 194 mg/dL (60-115)
[2020-12-05] MEDS: Insulin Lispro 100 UNIT/ML 3 ML VIAL SUBCUT ×2 (11:36→20:00)
[2020-12-05 11:41] VITALS: BP 111/80; PULSE 103; RESP 20; TEMP 36.8; O2SAT 97
--- NOTE | 2020-12-05 14:11 | PM.PNNEP ---
Subjective Subjective Date of Service: 12/05/20 Interval history: Follow up Hyponatremia and Hyperkalemia Feeling better Resting in the bed Physical Exam Vital Signs: Vital Signs: Last Vital Signs Temp 98.3 F 12/05/20 11:41 Pulse 103 H 12/05/20 11:41 Resp 20 12/05/20 11:41 BP 111/80 12/05/20 11:41 Pulse Ox 97 12/05/20 11:41 Body Mass Index 28.0 Const: General: cooperative and comfortable Orientation/consciousness: oriented to person, oriented to place and oriented to time HENMT: Head: Yes normal to inspection Mouth: Normal oral and palatal mucosa present Eyes: General: appearance normal, both eyes and all related structures Neck: Neck: Yes normal visual inspection, Yes full ROM and Yes supple Resp: Effort & Inspection: normal respiratory effort and able to speak in complete sentences Auscultation: diminished lung sounds Cardio: Jugular venous distension: no JVD Heart sounds: S1 normal heart sound present, S2 normal heart sound present and no rubs GI: Inspection: Yes distended Palpation (GI): Soft to palpation Auscultation: normal bowel sounds Neuro: General: oriented to person, oriented to place and oriented to time Motor exam (neuro): 5/5 motor strength present throughout Extrem: General: Yes normal to inspection Objective Data Labs CBC & Chem 7: 12/05/20 05:30 12/05/20 05:30 Labs: Laboratory Results - last 24 hr 12/04/20 12/04/20 12/04/20 16:13 20:48 21:09 WBC RBC Hgb Hct MCV MCH MCHC RDW Plt Count MPV Absolute Nucleated RBC Nucleated RBC % (auto) PT INR Sodium 123 L Potassium 4.3 Chloride 100 Carbon Dioxide 20 L Anion Gap 7 L BUN 27 H D Creatinine 1.00 Estim Creat Clear Calc 70.6 Estimated GFR > 60 POC Glucose 160 H 120 H Random Glucose 106 D Calcium 7.7 L D 12/05/20 12/05/20 12/05/20 05:30 05:30 05:30 WBC 2.8 L RBC 3.39 L Hgb 11.0 L Hct 32.8 L MCV 96.8 MCH 32.4 MCHC 33.5 RDW 15.9 Plt Count 84 L MPV 12.2 Absolute Nucleated RBC 0.000 Nucleated RBC % (auto) 0.0 PT 18.5 H INR 1.6 H Sodium 125 L Potassium 4.2 Chloride 99 Carbon Dioxide 21 L Anion Gap 9 L BUN 34 H Creatinine 0.95 Estim Creat Clear Calc 74.3 Estimated GFR > 60 POC Glucose Random Glucose 82 Calcium 8.3 L D 12/05/20 12/05/20 07:23 11:19 WBC RBC Hgb Hct MCV MCH MCHC RDW Plt Count MPV Absolute Nucleated RBC Nucleated RBC % (auto) PT INR Sodium Potassium Chloride Carbon Dioxide Anion Gap BUN Creatinine Estim Creat Clear Calc Estimated GFR POC Glucose 80 194 H Random Glucose Calcium Microbiology Microbiology Results: Microbiology 12/03/20 22:30 Urine clean catch - Clean Catch Midstream Urine Culture - Final No growth. 12/03/20 22:33 Blood - Venous Blood Culture - Preliminary No growth after 24 hours. 12/03/20 22:01 Blood - Venous Blood Culture - Preliminary No growth after 24 hours. Assessment & Plan Assessment and plan (1) Acute hyponatremia: Status: Acute Assessment and Plan: IMPRESSION: 1. 55-year-old male with hyponatremia. His serum osmolality is 275, and he has hypoosmolar hyponatremia. His urine sodium is inappropriately high and urine osmolality is also high for a serum sodium and serum osmolality, and this is consistent with syndrome of inappropriate antidiuretic hormone secretion. Thyroid disease has been ruled out on this patient. We should rule out hypoadrenalism, given hyperkalemia with hyponatremia. He was not on any medication which can cause hyponatremia, though he has had excessive amount of free water intake due to history of renal stones. There are no significant neuro symptoms at the present time. 2. Hyperkalemia. The exact reason for visit is unclear. He is not on any medications that can cause hyperkalemia. His hyperkalemia has resolved 3. Hepatitis C positive status with a chronic liver disease. RECOMMENDATION: I recommend a fluid restriction of 1.5 L. No IVF Continue Urea 15 g p.o. b.i.d. This will help with excretion of the excess free water. The patient should be on a low-potassium diet. We should avoid using any nephrotoxic agents on this patient. I recommend avoidance of correcting his sodium too rapidly and over the next 24 hours, we should correct to about 6 to 8 mEq. AM serum cortisol level- Ordered We will continue to follow the patient closely. Thank you for allowing me to participate in medical management of patient. Time Spent With Patient Time: Total time spent is greater than 50% in coordination of care (as documented) at patient's floor/unit and/or counseling patient: Procedures Date of Service Date of Service: 12/05/20
[2020-12-05 15:19] VITALS: BP 125/64; PULSE 95; RESP 18; TEMP 36.6; O2SAT 99
[2020-12-05 15:50] LABS: Glucose, Whole Blood 155 mg/dL (60-115)
[2020-12-05 19:08] VITALS: BP 110/64; PULSE 94; RESP 18; TEMP 36.7; O2SAT 99
[2020-12-05 19:52] LABS: Glucose, Whole Blood 178 mg/dL (60-115)
[2020-12-05] MEDS: Famotidine 20 MG TABLET 40 MG PO (19:58)
[2020-12-05 23:52] VITALS: BP 116/63; PULSE 95; RESP 18; TEMP 37.1; O2SAT 98
[2020-12-06 03:58] VITALS: BP 105/57; PULSE 92; RESP 18; TEMP 37.1; O2SAT 98
[2020-12-06] MEDS: Omeprazole 20 MG CAPSULE.DR PO (05:54)
[2020-12-06 07:24] LABS: INTERNATIONAL NORM RATIO 1.5 (0.9-1.1); Prothrombin Time 18.1 SEC (10.8-13.0)
[2020-12-06 07:33] LABS: Glucose, Whole Blood 125 mg/dL (60-115)
[2020-12-06 08:00] VITALS: BP 123/70; PULSE 105; RESP 20; TEMP 37.1; O2SAT 98
[2020-12-06 08:08] LABS: Blood Urea Nitrogen 35 mg/dL (9-16); Calcium 8.2 mg/dL (8.4-10.2); Creatinine Clr Calc Pharmacy 82.1; Estimated Glomerular Filt Rate > 60; Glucose Random 112 mg/dL (60-115)
[2020-12-06 08:38] LABS: Anion Gap 7 (12-20); Carbon Dioxide 23 mmol/L (22-29); Chloride 99 mmol/L (96-108); Potassium 4.2 mmol/L (3.3-5.1); Sodium 125 mmol/L (135-145)
[2020-12-06] MEDS: Lactulose 20 GM/30 ML SOLUTION PO (08:55)
[2020-12-06] MEDS: Enoxaparin Sodium 40 MG/0.4 ML SYRINGE SUBCUT (08:55)
[2020-12-06] MEDS: allopurinoL 100 MG TABLET PO (08:55)
[2020-12-06] MEDS: Atovaquone 750 MG/5 ML ORAL.SUSP PO (08:55)
[2020-12-06] MEDS: rifAXIMin 550 MG TABLET PO (08:56)
[2020-12-06] MEDS: Clotrimazole 1 % Cream 15 GM TUBE 1 APPL TOPICAL (08:56)
[2020-12-06] MEDS: Pyridoxine HCl (Vitamin B6) 50 MG TABLET 100 MG PO (08:56)
[2020-12-06] MEDS: Urea 15 GM POWDER PO (08:56)
[2020-12-06] MEDS: Docusate Sodium 100 MG CAPSULE PO (08:56)
[2020-12-06] MEDS: SITagliptin Phosphate 100 MG TABLET PO (08:56)
[2020-12-06] MEDS: glipiZIDE XL 2.5 MG TAB.ER.24 PO (08:56)
[2020-12-06] MEDS: Mesalamine 400 MG CAP.DRTAB. 800 MG PO ×2 (08:56→11:38)
[2020-12-06] MEDS: 0.9 % Sodium Chloride Flush 3 ML SYRINGE IVFLUSH (08:57)
[2020-12-06] MEDS: oxyCODONE HCl Immed Release 5 MG TABLET PO (09:04)
--- NOTE | 2020-12-06 10:39 | P.PNNP_ITS ---
Subjective Subjective Date of Service: 12/21/20 Interval history: Follow up Hyponatremia and Hyperkalemia Feeling better Resting in the bed Physical Exam Vital Signs: Vital Signs: Last Vital Signs Temp 98.7 F 12/06/20 08:00 Pulse 105 H 12/06/20 08:00 Resp 20 12/06/20 08:00 BP 123/70 12/06/20 08:00 Pulse Ox 98 12/06/20 08:00 Body Mass Index 28.0 Neck: Neck: Yes no JVD Resp: Auscultation: no crackles Cardio: Palpation: no palpable S3 Heart sounds: no murmurs GI: Palpation (GI): Soft to palpation Neuro: Motor exam (neuro): no asterixis Objective Data Labs CBC & Chem 7: 12/05/20 05:30 12/06/20 05:59 Labs: Laboratory Results - last 24 hr 12/05/20 12/05/20 12/05/20 11:19 15:41 19:46 PT INR Sodium Potassium Chloride Carbon Dioxide Anion Gap BUN Creatinine Estim Creat Clear Calc Estimated GFR POC Glucose 194 H 155 H 178 H Random Glucose Calcium 12/06/20 12/06/20 12/06/20 05:59 05:59 07:24 PT 18.1 H INR 1.5 H Sodium 125 L Potassium 4.2 Chloride 99 Carbon Dioxide 23 Anion Gap 7 L BUN 35 H Creatinine 0.86 Estim Creat Clear Calc 82.1 Estimated GFR > 60 POC Glucose 125 H Random Glucose 112 D Calcium 8.2 L Microbiology Microbiology Results: Microbiology 12/03/20 22:33 Blood - Venous Blood Culture - Preliminary No growth after 48 hours. 12/03/20 22:01 Blood - Venous Blood Culture - Preliminary No growth after 48 hours. 12/03/20 22:30 Urine clean catch - Clean Catch Midstream Urine Culture - Fi nal No growth. Assessment & Plan Assessment and plan (1) Acute hyperkalemia: Status: Acute Assessment and Plan: Under control Low K diet (2) Acute hyponatremia: Status: Acute Assessment and Plan: Due to SIADH Keep o n PO water restriction Urea Powder Shall follow as out patient Time Spent With Patient Time: Total time spent is greater than 50% in coordination of care (as documented) at patient's floor/unit and/or counseling patient: Procedures Date of Service Date of Service: 12/06/20
--- NOTE | 2020-12-06 10:51 | MHC.CM.PN ---
Per ROUNDS discussion, Patient will be medically cleared for dc to home today, no services.
[2020-12-06 11:32] LABS: Glucose, Whole Blood 195 mg/dL (60-115)
[2020-12-06] MEDS: Insulin Lispro 100 UNIT/ML 3 ML VIAL SUBCUT (11:38)
[2020-12-06 11:41] VITALS: BP 95/60; PULSE 108; RESP 20; TEMP 36.5; O2SAT 97
--- NOTE | 2020-12-06 11:41 | PM.DS ---
DS: Providers Provider Date of Service: 12/06/20 <Melba Munguia NP - Last Filed: 12/06/20 18:27> Date of admission: 12/04/20 01:33 <Melba Munguia NP - Last Filed: 12/06/20 18:27> Date of discharge: 12/06/20 <Melba Munguia NP - Last Filed: 12/06/20 18:27> Primary care physician: Pb Ortiz MD <Melba Munguia NP - Last Filed: 12/06/20 18:27> Admitting clinician: Deondre Kimble <Melba Munguia NP - Last Filed: 12/06/20 18:27> Attending physician on admission: Deondre Kimble <Melba Munguia NP - Last Filed: 12/06/20 18:27> Consults: 12/04/20 01:38 Consult to Nephrology Routine Consulting Provider: Paul Philippe Reason for consultation: Hyponatremia; Hyperkalemia <Melba Munguia NP - Last Filed: 12/06/20 18:27> Attending physician on discharge: Kyle Quinn <Melba Munguia NP - Last Filed: 12/06/20 18:27> Discharging clinician: Melba Munguia <Melba Munguia NP - Last Filed: 12/06/20 18:27> DS: Diagnosis Discharge Diagnosis (1) Acute hyperkalemia: Status: Acute <Melba Munguia NP - Last Filed: 12/06/20 18:27> (2) Acute hyponatremia: Status: Acute <Melba Munguia NP - Last Filed: 12/06/20 18:27> DS: Medications Discharge Medications Home Medications: Home Medications Medication Instructions Recorded Confirmed Odefsey 1 tab PO DAILY 04/27/20 12/04/20 atovaquone 5 ml PO BID 04/27/20 12/04/20 famotidine 40 mg PO BEDTIME 04/27/20 12/04/20 mesalamine 800 mg PO TIDWM 04/27/20 12/04/20 hydroxyzine HCl 25 mg tablet 50 mg PO Q6H PRN tab 09/01/20 12/04/20 blood sugar diagnostic #10 ea 10/06/20 clobetasol 0.05 % topical cream 1 appl TOPICAL BID PRN 10/25/20 12/04/20 econazole 1 appl TOPICAL BID 10/27/20 12/04/20 triamcinolone acetonide 1 appl TOPICAL BID PRN 10/27/20 12/04/20 Xifaxan 1 tab PO BID 12/04/20 12/04/20 glipizide 2.5 mg PO BID 12/04/20 12/04/20 spironolactone 1 tab PO BID 12/04/20 12/04/20 Previous Rx's Medication Instructions Recorded allopurinol 100 mg tablet 100 mg PO DAILY 90 Days #90 tab 10/25/20 pyridoxine (vitamin B6) 100 mg 100 mg PO DAILY 90 Days #90 tab 10/25/20 tablet lactulose 20 g PO BID #1200 ml 10/29/20 potassium chloride 20 mEq 20 meq PO BID #60 tab 11/04/20 tablet,extended release sitagliptin 100 mg tablet 100 mg PO DAILY #10 tab 11/11/20 clindamycin HCl 150 mg capsule 150 mg PO QID 7 Days #28 cap 11/21/20 omeprazole 20 mg capsule,delayed 20 mg PO DAILY 28 Days #28 cap 11/28/20 release oxycodone 5 mg PO Q8H PRN 3 Days #14 cap 11/28/20 phenazopyridine [Pyridium] 100 mg PO TID PRN 4 Days #12 tab 11/28/20 trimethoprim 100 mg PO Q12H 10 Days #20 tab 11/28/20 urea (bulk) See Rx Instructions .ROUTE 12/06/20 .COMPLEX #1000 g <Melba Munguia NP - Last Filed: 12/06/20 18:27> DS: Summary Hospital Course Hospital Course: HP as per admitting provider 55-year-old male with a past medical history of hep C, IV drug abuse, liver cirrhosis, HIV, obesity, diabetes, GERD, history of bullous pemphigoid, history of COVID-19 infection, history of ulcerative colitis, pulmonary nodule, history of hepatic vein thrombosis presented to the hospital with a chief complaint of generalized weakness. Patient reports that over the past 3-4 weeks he has been having generalized weakness and decreased appetite and has poor oral intake. Denies any chest pain palpitations. Denies any fever chills cough. Denies any numbness tingling. Denies any nausea vomiting diarrhea . Hypokalemia. Secondary to SIADH. Continue water restriction of 1.5 L at home and urea powder. Will follow up with Nephrology as outpatient check BNP in 1 week as outpatient. Hyperkalemia. Resolved with insulin and calcium gluconate. No EKG changes I saw and examined the patient and discussed with Nephrlogist and [employer] C[employer]ODIAN and I agree with finding, management and plan as written by [employer] C[employer]ODIAN. Insstructed to avoid drinking too much water <Melba Munguia NP - Last Filed: 12/06/20 18:27> Time Spent with Patient Time attestation: Total time spent providing and/or coordinating discharge services: <Melba Munguia NP - Last Filed: 12/06/20 18:27> Discharge coordination time: Greater than 30 minutes <Melba Munguia NP - Last Filed: 12/06/20 18:27> Quality: Stroke Does the patient have a stroke diagnosis?: No <Melba Munguia NP - Last Filed: 12/06/20 18:27> Physical Exam Vital Signs: Vital Signs: Last Vital Signs Temp 98.7 F 12/06/20 08:00 Pulse 105 H 12/06/20 08:00 Resp 20 12/06/20 08:00 BP 123/70 12/06/20 08:00 Pulse Ox 98 12/06/20 08:00 Body Mass Index 28.0 <Melba Munguia NP - Last Filed: 12/06/20 18:27> Appearing in no acute distress head is normocephalic atraumatic eyes pupils are PERRLA sclera is anicteric mouth throat mucous membranes are intact and moist neck is supple no lymphadenopathy, no JVD noted lung sounds are clear to auscultation heart regular rate rhythm, clear S1, S2 positive bowel sounds, abdomen is soft, nontender neuro patient is alert x3, no focal deficits <Melba Munguia NP - Last Filed: 12/06/20 18:27> DS: Data Data Completed and Pending Completed studies during hospitalization [Text1]: Procedures Inspection of Upper Intestinal Tract, Via Natural or Artificial Opening Endoscopic (10/27/20) Transfusion of Nonautologous Red Blood Cells into Peripheral Vein, Percutaneous Approach (10/27/20) <Melba Munguia NP - Last Filed: 12/06/20 18:27> Labs on day of discharge: Laboratory Results - last 24 hr 12/05/20 12/05/20 12/06/20 15:41 19:46 05:59 PT 18.1 H INR 1.5 H Sodium Potassium Chloride Carbon Dioxide Anion Gap BUN Creatinine Estim Creat Clear Calc Estimated GFR POC Glucose 155 H 178 H Random Glucose Calcium 12/06/20 12/06/20 12/06/20 05:59 07:24 11:17 PT INR Sodium 125 L Potassium 4.2 Chloride 99 Carbon Dioxide 23 Anion Gap 7 L BUN 35 H Creatinine 0.86 Estim Creat Clear Calc 82.1 Estimated GFR > 60 POC Glucose 125 H 195 H Random Glucose 112 D Calcium 8.2 L Preliminary micro results at discharge 12/03/20 22:33 Blood Culture - Preliminary Blood - Venous No growth after 48 hours. 12/03/20 22:01 Blood Culture - Preliminary Blood - Venous No growth after 48 hours. <Melba Munguia NP - Last Filed: 12/06/20 18:27> Discharge Plan Discharge Anticipated Discharge Date/Time: 12/06/20 11:34 <Melba Munguia NP - Last Filed: 12/06/20 18:27> Patient Disposition: Home, Self-Care <Melba Munguia NP - Last Filed: 12/06/20 18:27> Discharge Diagnosis: Hyponatremia Hyperkalemia <Melba Munguia NP - Last Filed: 12/06/20 18:27> Hyponatremia Hyperkalemia <Kyle Quinn MD - Last Filed: 12/07/20 07:41> Referrals: Paul Philippe MD [Physician] - 1 Week (hyponatremia ) Po,Pb Ferrer MD [Primary Care Provider] - 1 Week <Melba Munguia NP - Last Filed: 12/06/20 18:27> Discharge Medications: New urea (bulk) 100 % Powder See Rx Instructions .ROUTE .COMPLEX Qty: 1000 RF: 0 Continued potassium chloride 20 mEq tablet extended release 20 meq PO BID Qty: 60 RF: 1 Januvia 100 mg tablet 100 mg PO DAILY Qty: 10 RF: 0 clindamycin HCl 150 mg capsule 150 mg PO QID 7 Days Qty: 28 RF: 0 omeprazole 20 mg capsule,delayed release(DR/EC) 20 mg PO DAILY 28 Days Qty: 28 RF: 0 spironolactone 50 mg tablet 1 tab PO BID RF: 0 Xifaxan 550 mg tablet 1 tab PO BID RF: 0 glipizide 2.5 mg tablet extended release 24hr 2.5 mg PO BID RF: 0 famotidine 40 mg tablet 40 mg PO BEDTIME RF: 0 atovaquone 750 mg/5 mL suspension 5 ml PO BID RF: 0 mesalamine 800 mg tablet,delayed release (DR/EC) 800 mg PO TIDWM RF: 0 Odefsey 200-25-25 mg tablet 1 tab PO DAILY RF: 0 trimethoprim 100 mg tablet 100 mg PO Q12H 10 Days Qty: 20 RF: 0 oxycodone 5 mg capsule 5 mg PO Q8H PRN (Reason: pain) 3 Days Qty: 14 RF: 0 phenazopyridine [Pyridium] 100 mg tablet 100 mg PO TID PRN (Reason: spasm) 4 Days Qty: 12 RF: 0 triamcinolone acetonide 0.1 % cream 1 appl topical BID PRN (Reason: Itching) RF: 0 econazole 1 % cream 1 appl topical BID RF: 0 lactulose 20 gram/30 mL solution 20 g PO BID Qty: 1200 RF: 0 hydroxyzine HCl 25 mg tablet 50 mg PO Q6H PRN (Reason: bullous pemphigoid) RF: 0 allopurinol 100 mg tablet 100 mg PO DAILY 90 Days Qty: 90 RF: 1 pyridoxine (vitamin B6) 100 mg tablet 100 mg PO DAILY 90 Days Qty: 90 RF: 1 <Melba Munguia NP - Last Filed: 12/06/20 18:27> Discharge Orders: Discharge Order (Routine); Ordered 12/06/20 Ordered By: Melba Munguia <Melba Munguia NP - Last Filed: 12/06/20 18:27> Diet: advance to usual diet <Melba Munguia NP - Last Filed: 12/06/20 18:27> advance to usual diet <Kyle Quinn MD - Last Filed: 12/07/20 07:41> Activity on Discharge: As tolerated <Melba Munguia NP - Last Filed: 12/06/20 18:27> As tolerated <Kyle Quinn MD - Last Filed: 12/07/20 07:41> Stand Alone Forms: Patient Portal Discharge page <Melba Munguia NP - Last Filed: 12/06/20 18:27> Other Ambulatory Orders: Basic Metabolic Panel (Routine) Timeframe: 1 Week Facility: [facility] - Location: Laboratory Ordered By: Melba Munguia <Melba Munguia NP - Last Filed: 12/06/20 18:27> Care Plan Goals: Follow sodium levels <Melba Munguia NP - Last Filed: 12/06/20 18:27> Health Concerns: hyponatremia hyperkalemia <Melba Munguia NP - Last Filed: 12/06/20 18:27> Plan of Treatment: Follow up with nephrology Follow up with lab work in one week Follow up with primary care provider as needed <Melba Munguia NP - Last Filed: 12/06/20 18:27> Assessment: See discharge summary <Melba Munguia NP - Last Filed: 12/06/20 18:27> Discharge Date/Time: 12/06/20 12:37 <Melba Munguia NP - Last Filed: 12/06/20 18:27>
[2020-12-06 11:52] VITALS: BP 131/77
[2020-12-06 14:46] LABS: Absolute CD3 Count 185 cells/uL (840-3060); Absolute CD4 Count 72 cells/uL (490-1740); Absolute CD8 Count 104 cells/uL (180-1170); Absolute Lymphocytes 232 cells/uL (850-3900); CD4 CD8 Ratio 0.69 (0.86-5.00); Percent CD3 Cells 80 % (57-85); Percent CD4 Cells 31 % (30-61); Percent CD8 Cells 45 % (12-42)
== END 2020-12-06 12:37 | disposition home or self-care (01) | DRG 424 ==
LOC: HO.ED 12-04 01:44 → HO.IMC 12-04 03:41
PROVIDERS: Internal Medicine Nephrology; Nurse Practitioner Acute Care; Admitting Provider Hospitalist; Emergency Provider Emergency Medicine; PCP Internal Medicine; Visit Provider Internal Medicine
DX: E22.2 Syndrome of inappropriate secretion of antidiuretic hormone (principal); D61.818 Other pancytopenia; D68.9 Coagulation defect, unspecified; E87.5 Hyperkalemia; K21.9 Gastro-esophageal reflux disease without esophagitis; E11.9 Type 2 diabetes mellitus without complications; Z21 Asymptomatic human immunodeficiency virus [HIV] infection status; Z86.16 Personal history of COVID-19; Z20.822 Contact with and (suspected) exposure to COVID-19; Z87.891 Personal history of nicotine dependence; Z79.899 Other long term (current) drug therapy
CPT/HCPCS: 36415; 71045; 74176; 80048; 80076; 81001; 81003; 82140; 82533; 82947; 83605; 83690; 83735; 83880; 83930; 83935; 84133; 84300; 84443; 84484; 85025; 85027; 85610; 86359; 86360; 87040; 87086; 87635; 93005; 99285; J0610; J1650; J3475

== ENCOUNTER 2020-12-09 10:19 | Outpatient (REF) | payer OTHER, SELFPAY ==
[2020-12-09 11:25] LABS: Glucose Urine UA NEG (NEG); Leukocyte Esterase Urine NEG (NEG); Nitrite Urine NEG (NEG); PH 7.5 (5.0-8.0); Specific Gravity - Urine 1.015 (1.005-1.025); Urine Blood TRACE (NEG); Urine Ketones NEG (NEG); Urine Protein NEG (NEG-TRACE)
[2020-12-09 11:28] LABS: Appearance Urine CLEAR; Color Urine YELLOW
[2020-12-09 11:41] LABS: Basophils Percent Auto 0.4 % (0-2); Hemoglobin 9.9 g/dl (14.0-18.0); Imm Gran Abs Auto 0.01 X10*3/uL (0.00-0.03); Imm Gran Pct Auto 0.4 % (0.0-0.4); Lymphocytes Absolute Auto 0.3 X10*3/uL (1.2-4.9); MANUAL DIFF FLAG SCAN; Mean Corpuscular Hemoglobin 32.8 pg (27.0-33.0); Mean Corpuscular Volume 99.3 fL (80-98); Mean Platelet Volume 11.7 fL (9.4-12.4); Monocytes Absolute Auto 0.3 X10*3/uL (0.1-1.2); Monocytes Percent Auto 9.8 % (2-11); Neutrophils Percent Auto 78.4 % (45-73); Red Blood Count 3.02 X10*6/uL (4.60-5.80); Red Cell Distribution Width 16.5 % (11.0-16.0); SCAN SMEAR FLAG 1
[2020-12-09 11:45] LABS: Platelet Count 70 X10*3/uL (160-400); White Blood Count 2.5 X10*3/uL (4.8-10.8)
[2020-12-09 12:01] LABS: Alanine Aminotransferase 33 U/L (0-40); Albumin Level 2.5 g/dL (3.5-5.0); Alkaline Phosphatase 112 U/L (39-117); Anion Gap 9 (12-20); Aspartate Amino Transferase 46 U/L (5-37); Bilirubin Total 2.2 mg/dL (0.0-1.0); Blood Urea Nitrogen 19 mg/dL (9-16); Calcium 8.1 mg/dL (8.4-10.2); Carbon Dioxide 19 mmol/L (22-29); Chloride 105 mmol/L (96-108); Estimated Glomerular Filt Rate > 60; Glucose Random 166 mg/dL (60-115); Magnesium 1.8 mg/dL (1.6-2.6); Phosphorus 2.1 mg/dL (2.7-4.5); Potassium 4.5 mmol/L (3.3-5.1); Sodium 128 mmol/L (135-145); Total Protein 8.7 g/dL (6.5-8.0)
[2020-12-09 12:02] LABS: Amorphous Sediment Urine 1+ /LPF; Squamous Epithelial Cell Urine TRACE /LPF; WBC Urine 0-2 /HPF (0-4)
[2020-12-09 12:07] LABS: SLIDE REVIEW VERIFIED
== END 2020-12-09 10:20 | disposition home or self-care (01) ==
LOC: HO.LAB 10:19
PROVIDERS: Absent Provider Internal Medicine; PCP Internal Medicine; Visit Provider Nurse Practitioner Acute Care
DX: R53.1 Weakness (principal); E87.5 Hyperkalemia; E87.1 Hypo-osmolality and hyponatremia
CPT/HCPCS: 36415; 80053; 81001; 83735; 84100; 84443; 85025

== ENCOUNTER 2020-12-11 07:55 | Emergency (ER) | payer OTHER, SELFPAY ==
--- NOTE | ~2020-12-11 | XR_ITS ---
EXAMINATION: XR CHEST CLINICAL INFORMATION: SOB with exertion COMPARISON: None TECHNIQUE: 2 views of the chest were obtained. FINDINGS: No significant abnormality is noted involving the heart, lungs, mediastinum, bony thorax or soft tissues. XR/XR chest 2V IMPRESSION: Unremarkable chest exam
--- NOTE | ~2020-12-11 | CT_ITS ---
EXAMINATION: CT ABDOMEN AND PELVIS WITH CONTRAST CLINICAL INFORMATION: 55-year-old male with left upper quadrant pain COMPARISON: CT abdomen pelvis December 03, 2020 TECHNIQUE: Multidetector volumetric images were obtained from the superior aspect of the liver through the pubic symphysis following administration 85 mL of Omnipaque 350 intravenous contrast. Sagittal and coronal reformatted images were obtained on the technologist's workstation. This CT examination was performed using dose optimization techniques as appropriate, variously including the following: *Automated exposure control *Adjustment of mA and/or kV according to patient size (this includes techniques or standardized protocols for targeted exams where dose is matched to indication/reason for exam; i.e. extremities or head) *Use of iterative reconstruction technique DLP: 494 mGy-cm FINDINGS: Visualized lung bases are well aerated. Cirrhotic appearance of the liver. Similar appearance of the gallbladder which likely represents mild wall thickening due to reactive changes from adjacent liver disease. Atrophic pancreas. There is similar massive splenomegaly with hypodensity within the anterior spleen and less well-defined hypodensity within the posterior spleen. The adrenal glands are unremarkable. Symmetrically enhancing kidneys. Small nonobstructing renal calculi within both kidneys are unchanged. There is no hydronephrosis bilaterally. A few tiny bilateral renal hypodensities are too small to accurately characterize. The stomach is decompressed. Normal caliber loops of small and large bowel. Suspected mild circumferential mucosal thickening of the duodenal sweep and proximal jejunum, nonspecific. Colonic diverticulosis without CT evidence to suggest active diverticulitis. Normal appendix. Trace amount of intra-abdominal ascites. Similar diffuse mesenteric stranding. Nonaneurysmal abdominal aorta. The bladder is normal in appearance. The prostate gland is nonenlarged. No gross free pelvic fluid. No inguinal lymphadenopathy. Mild degenerative changes of the spine. CT/CT abdomen pelvis w con IMPRESSION: Relatively similar examination to imaging from one week ago. Cannot exclude a very mild duodenitis/enteritis of the proximal small bowel. There is also been mild interval development in intra-abdominal ascites.
[2020-12-11 08:58] VITALS: BP 139/66; PULSE 81; RESP 16; TEMP 36.7; O2SAT 100; BMI 28.0
--- NOTE | 2020-12-11 09:02 | PC.NURSE ---
Pt pale, warm and dry. Pt denies any dark or bloody stools. Reports LUQ abd pain since Saturday. Abd is firm and distended with h/o paracentesis x 2 last month, last one removing 3.8 liters per at bedside. +bowel sounds x 4 quads. Denies vomiting. Vitals stable. Pt states some SOB with exertion. Awaiting provider evaluation
--- NOTE | 2020-12-11 09:11 | ED_ITS ---
HPI - Abdominal Pain General Chief Complaint: Abdominal Pain Stated Complaint: Pain on left side Time Seen by Provider: 12/11/20 09:04 Source: patient Mode of arrival: ambulatory Limitations: language barrier (Belizean-speaking) History of Present Illness HPI narrative: 55-year-old male with a past medical history of upper GI bleed, GERD, hepatitis C with cirrhosis, hepatic vein thrombosis, HIV, perirectal abscess, diabetes, ulcerative colitis, bullous pemphigoid, previous COVID-19, renal calculi s/p stent placement w/ removal on 10/25/20 presenting to the ED with left upper quadrant pain x3 days. He describes the pain as sharp and shooting which radiates to his back. Patient is also complaining of increased shortness of breath with exertion. He denies chest pain, fevers, nausea, vomiting or diarrhea. He states he has been trying to reduce his water intake because his sodium was low the last time he was here. He does report increased in his food intake. Denies any urinary or bowel symptoms. 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 Related Data Home Medications Medication Instructions Recorded Confirmed Odefsey 1 tab PO DAILY 04/27/20 12/04/20 atovaquone 5 ml PO BID 04/27/20 12/04/20 famotidine 40 mg PO BEDTIME 04/27/20 12/04/20 mesalamine 800 mg PO TIDWM 04/27/20 12/04/20 hydroxyzine HCl 25 mg tablet 50 mg PO Q6H PRN tab 09/01/20 12/04/20 blood sugar diagnostic #10 ea 10/06/20 clobetasol 0.05 % topical cream 1 appl TOPICAL BID PRN 10/25/20 12/04/20 econazole 1 appl TOPICAL BID 10/27/20 12/04/20 triamcinolone acetonide 1 appl TOPICAL BID PRN 10/27/20 12/04/20 Xifaxan 1 tab PO BID 12/04/20 12/04/20 glipizide 2.5 mg PO BID 12/04/20 12/04/20 spironolactone 1 tab PO BID 12/04/20 12/04/20 Previous Rx's Medication Instructions Recorded allopurinol 100 mg tablet 100 mg PO DAILY 90 Days #90 tab 10/25/20 pyridoxine (vitamin B6) 100 mg 100 mg PO DAILY 90 Days #90 tab 10/25/20 tablet lactulose 20 g PO BID #1200 ml 10/29/20 potassium chloride 20 mEq 20 meq PO BID #60 tab 11/04/20 tablet,extended release sitagliptin 100 mg tablet 100 mg PO DAILY #10 tab 11/11/20 clindamycin HCl 150 mg capsule 150 mg PO QID 7 Days #28 cap 11/21/20 omeprazole 20 mg capsule,delayed 20 mg PO DAILY 28 Days #28 cap 11/28/20 release oxycodone 5 mg PO Q8H PRN 3 Days #14 cap 11/28/20 phenazopyridine [Pyridium] 100 mg PO TID PRN 4 Days #12 tab 11/28/20 trimethoprim 100 mg PO Q12H 10 Days #20 tab 11/28/20 urea (bulk) See Rx Instructions .ROUTE 12/06/20 .COMPLEX #1000 g oxycodone 5 mg PO Q6H PRN #20 tab 12/11/20 Allergies Allergy/AdvReac Type Severity Reaction Status Date / Time acetaminophen [Acetaminophen] Allergy Severe LIVER Verified 11/14/20 07:59 TOXICITY - CANNOT TAKE ACETAMINOPHEN amoxicillin [Augmentin] Allergy Intermediate mouth sores Verified 11/14/20 07:59 clavulanic acid [Augmentin] Allergy Intermediate mouth sores Verified 11/14/20 07:59 Sulfa (Sulfonamide Allergy Intermediate RASH Verified 11/14/20 07:59 Antibiotics) [SULFA (SULFONAMIDE ANTIBIOTICS)] ibuprofen [IBUPROFEN] AdvReac Intermediate BLEEDING Verified 11/14/20 07:59 Review of Systems Review of Systems Yes all other systems are reviewed and are negative Physical Exam Vital Signs: Vital Signs: Last Vital Signs Temp 98.1 F 12/11/20 08:58 Pulse 77 12/11/20 11:17 Resp 16 12/11/20 11:17 BP 108/83 12/11/20 11:17 Pulse Ox 100 12/11/20 11:17 Body Mass Index 28.0 Const: General: cooperative, healthy appearing, comfortable, no acute distress and well developed Orientation/consciousness: patient oriented x3 Limitations: no limitations HENMT: Head: Yes normal to inspection Eyes: General: appearance normal, both eyes and all related structures Neck: Neck: Yes normal visual inspection and Yes full ROM Resp: Effort & Inspection: normal respiratory effort and able to speak in complete sentences Auscultation: clear to auscultation bilaterally Cardio: Rate: regular rate Rhythm: regular rhythm Heart sounds: normal S1 and S2 GI: Inspection: Yes distended Palpation (GI): Soft to palpation, Firmness to palpation present (GI), Tenderness to palpation present (GI) in the epigastrum and in the LUQ, Guarding due to palpation present (GI) in the LUQ and Hepatosplenomegaly present Percussion: No Fluid wave present Auscultation: normal bowel sounds Skin: General skin exam: no rashes or lesions noted Neuro: General: patient oriented x3 Extrem: General: Yes normal to inspection Course Course Course Narrative: 55-year-old male with a past medical history of upper GI blee d, GERD, hepatitis C with cirrhosis, hepatic vein thrombosis, HIV, perirectal abscess, diabetes, ulcerative colitis, bullous pemphigoid, previous COVID-19, renal calculi s/p stent placement w/ removal on 10/25/20 presenting to the ED with sharp shooting left upper quadrant pain which radiates to his back and sob with exertion x3 days. VSS. Physical exam remarkable for distended abdomen with tenderness to palpation and guarding in the left upper quadrant, negative fluid wave. Will get labs, EKG, chest x-ray an abdominal pelvic CT scan with contrast. Reevaluation(s) Reevaluation #1: Patient's chemistry panel hemolyzed, redrawing now. EKG NSR 77BPM no changes from prior on 12/03, no acute changes signed by Dr. Mendoza, CBC improved from 5 days ago likely at patient's baseline. CXR unremarkable. troponin negative, UA negative. Patient reports improved pain after 5 mg oxycodone. Time: 10:59 Reevaluation #2: Chemistry resulted, all labs are at patient's baseline, most are improved from his discharge from the hospital [address] abdomen and pelvis resulted, discussed with , workup and CT scan unremarkable, nondiagnostic, will give pain control and have patient follow-up with doctor next week. Patient states he does have an ultrasound of the kidneys scheduled for tomorrow. We did review the CT scan results which showed multiple very small stones which should pass with no problem. Will discharge home. Time: 14:20 MDM - Abdominal Pain Medical Records Attestation: I reviewed the patient's medical records. Lab Data Attestation: I reviewed the patient's lab results. Result diagrams: 12/11/20 09:41 12/11/20 11:02 Labs: Lab Results 12/11/20 12/11/20 12/11/20 Range/Units 09:35 09:41 09:41 WBC 2.7 L (4.8-10.8) X10*3/uL RBC 3.16 L (4.60-5.80) X10*6/uL Hgb 10.5 L (14.0-18.0) g/dl Hct 30.9 L (42-52) % MCV 97.8 (80-98) fL MCH 33.2 H (27.0-33.0) pg MCHC 34.0 (31.0-36.0) g/dl RDW 16.1 H (11.0-16.0) % Plt Count 79 L (160-400) X10*3/uL MPV 11.6 (9.4-12.4) fL Immature Gran % (Auto) 0.4 (0.0-0.4) % Neut % (Auto) 77.6 H (45-73) % Lymph % (Auto) 12.5 L (20-40) % Davidson % (Auto) 9.1 (2-11) % Eos % (Auto) 0.0 (0-4) % Baso % (Auto) 0.4 (0-2) % Lymph # (Auto) 0.3 L (1.2-4.9) X10*3/uL Davidson # (Auto) 0.2 (0.1-1.2) X10*3/uL Eos # (Auto) 0.0 (0.0-0.4) X10*3/uL Baso # (Auto) 0.0 (0.0-0.2) X10*3/uL Abs Immat Gran (auto) 0.01 (0.00-0.03) X10*3/uL Absolute Neuts (auto) 2.1 (2.0-8.3) X10*3/uL Absolute Nucleated RBC 0.000 (0.0-0.012) X10*3/uL Nucleated RBC % (auto) 0.0 (0.0-0.2) /100WBC Smear Tech's Comments VERIFIED PT 16.3 H (10.8-13.0) SEC INR 1.4 H (0.9-1.1) APTT 32.7 (24.1-38.0) SEC Sodium (135-145) mmol/L Potassium (3.3-5.1) mmol/L Chloride (96-108) mmol/L Carbon Dioxide (22-29) mmol/L Anion Gap (12-20) BUN (9-16) mg/dL Creatinine (0.5-1.4) mg/dL Estim Creat Clear Calc Estimated GFR Random Glucose (60-115) mg/dL Calcium (8.4-10.2) mg/dL Magnesium (1.6-2.6) mg/dL Total Bilirubin (0.0-1.0) mg/dL Direct Bilirubin (0.0-0.5) mg/dL AST (5-37) U/L ALT (0-40) U/L Alkaline Phosphatase (39-117) U/L Troponin I High Sens < 3.5 (<3.5-35.0) ng/L Total Protein (6.5-8.0) g/dL Albumin (3.5-5.0) g/dL Lipase (8-78) U/L Urine Color Urine Appearance Urine pH (5.0-8.0) Ur Specific [place] (1.005-1.025) Urine Protein (NEG-TRACE) MG/DL Urine Glucose (UA) (NEG) MG/DL Urine Ketones (NEG) MG/DL Urine Blood (NEG) Urine Nitrite (NEG) Ur Leukocyte Esterase (NEG) 12/11/20 12/11/20 Range/Units 10:19 11:02 WBC (4.8-10.8) X10*3/uL RBC (4.60-5.80) X10*6/uL Hgb (14.0-18.0) g/dl Hct (42-52) % MCV (80-98) fL MCH (27.0-33.0) pg MCHC (31.0-36.0) g/dl RDW (11.0-16.0) % Plt Count (160-400) X10*3/uL MPV (9.4-12.4) fL Immature Gran % (Auto) (0.0-0.4) % Neut % (Auto) (45-73) % Lymph % (Auto) (20-40) % Davidson % (Auto) (2-11) % Eos % (Auto) (0-4) % Baso % (Auto) (0-2) % Lymph # (Auto) (1.2-4.9) X10*3/uL Davidson # (Auto) (0.1-1.2) X10*3/uL Eos # (Auto) (0.0-0.4) X10*3/uL Baso # (Auto) (0.0-0.2) X10*3/uL Abs Immat Gran (auto) (0.00-0.03) X10*3/uL Absolute Neuts (auto) (2.0-8.3) X10*3/uL Absolute Nucleated RBC (0.0-0.012) X10*3/uL Nucleated RBC % (auto) (0.0-0.2) /100WBC Smear Tech's Comments PT (10.8-13.0) SEC INR (0.9-1.1) APTT (24.1-38.0) SEC Sodium 127 L (135-145) mmol/L Potassium 4.4 (3.3-5.1) mmol/L Chloride 102 (96-108) mmol/L Carbon Dioxide 21 L (22-29) mmol/L Anion Gap 8 L (12-20) BUN 13 (9-16) mg/dL Creatinine 0.86 (0.5-1.4) mg/dL Estim Creat Clear Calc 85.2 Estimated GFR > 60 Random Glucose 109 (60-115) mg/dL Calcium 8.1 L (8.4-10.2) mg/dL Magnesium 1.9 (1.6-2.6) mg/dL Total Bilirubin 2.1 H (0.0-1.0) mg/dL Direct Bilirubin 1.1 H (0.0-0.5) mg/dL AST 49 H (5-37) U/L ALT 33 (0-40) U/L Alkaline Phosphatase 114 (39-117) U/L Troponin I High Sens (<3.5-35.0) ng/L Total Protein 8.7 H (6.5-8.0) g/dL Albumin 2.5 L (3.5-5.0) g/dL Lipase 58 (8-78) U/L Urine Color YELLOW Urine Appearance HAZY Urine pH 6.5 (5.0-8.0) Ur Specific [place] 1.010 (1.005-1.025) Urine Protein NEG (NEG-TRACE) MG/DL Urine Glucose (UA) NEG (NEG) MG/DL Urine Ketones NEG (NEG) MG/DL Urine Blood NEG (NEG) Urine Nitrite NEG (NEG) Ur Leukocyte Esterase NEG (NEG) Imaging Data Chest x-ray: Attestation: I personally reviewed and interpreted this imaging study as follows: Radiologist's impression: [address] [id number] ReportSigned Patient: Trell Cadet#: [id number]: 1965Acct:[id number]/Sex: 55 / MADM Date: 12/11/20Loc: [address] Dr: Ordering Physician: Juli Lucia PA-C Date of Service: 12/11/20 Procedure(s): XR chest 2V Accession Number(s): [id number] cc: Juli Lucia PA-C~ EXAMINATION: XR CHEST CLINICAL INFORMATION: SOB with exertion COMPARISON: None TECHNIQUE: 2 views of the chest were obtained. FINDINGS: No significant abnormality is noted involving the heart, lungs, mediastinum, bony thorax or soft tissues. XR/XR chest 2V IMPRESSION: Unremarkable chest exam Dictated By:JONAS HASTINGS MDSigned By:<Electronically signed by JONAS HASTINGS MD in [place]>12/11/20 1009 DD/ 0922 CT abd pelvis: Attestation: I personally reviewed and interpreted this imaging study as follows: Radiologist's impression: [address] [id number] Scan ReportSigned Patient: Trell Cadet#: [id number]: 1965Acct:[id number]/Sex: 55 / MADM Date: 12/11/20Loc: HO.EDAttending Dr: Ordering Physician: Juli Lucia PA-C Date of Service: 12/11/20 Procedure(s): CT abdomen pelvis w con Accession Number(s): [id number] cc: Juli Lucia PA-C~ EXAMINATION: CT ABDOMEN AND PELVIS WITH CONTRAST CLINICAL INFORMATION: 55-year-old male with left upper quadrant pain COMPARISON: CT abdomen pelvis December 03, 2020 TECHNIQUE: Multidetector volumetric images were obtained from the superior aspect of the liver through the pubic symphysis following administration 85 mL of Omnipaque 350 intravenous contrast. Sagittal and coronal reformatted images were obtained on the technologist's workstation. This CT examination was performed using dose optimization techniques as appropriate, variously including the following: *Automated exposure control *Adjustment of mA and/or kV according to patient size (this includes techniques or standardized protocols for targeted exams where dose is matched to indication/reason for exam; i.e. extremities or head) *Use of iterative reconstruction technique DLP: 494 mGy-cm FINDINGS: Visualized lung bases are well aerated. Cirrhotic appearance of the liver. Similar appearance of the gallbladder which likely represents mild wall thickening due to reactive changes from adjacent liver disease. Atrophic pancreas. There is similar massive splenomegaly with hypodensity within the anterior spleen and less well-defined hypodensity within the posterior spleen. The adrenal glands are unremarkable. Symmetrically enhancing kidneys. Small nonobstructing renal calculi within both kidneys are unchanged. There is no hydronephrosis bilaterally. A few tiny bilateral renal hypodensities are too small to accurately characterize. The stomach is decompressed. Normal caliber loops of small and large bowel. Suspected mild circumferential mucosal thickening of the duodenal sweep and proximal jejunum, nonspecific. Colonic diverticulosis without CT evidence to suggest active diverticulitis. Normal appendix. Trace amount of intra-abdominal ascites. Similar diffuse mesenteric stranding. Nonaneurysmal abdominal aorta. The bladder is normal in appearance. The prostate gland is nonenlarged. No gross free pelvic fluid. No inguinal lymphadenopathy. Mild degenerative changes of the spine. CT/CT abdomen pelvis w con IMPRESSION: Relatively similar examination to imaging from one week ago. Cannot exclude a very mild duodenitis/enteritis of the proximal small bowel. There is also been mild interval development in intra-abdominal ascites. Dictated By:BETHANY GARCIA MDSigned By:<Electronically signed by BETHANY MELGAR MD in [place]>12/11/20 1348 DD/ 0922TD/TT: Photographer Portrait: ECG Data Attestation: I personally reviewed and interpreted this ECG as follows: Interpretation: Test Reason : SOB Blood Pressure : / mmHG Vent. Rate : 077 BPM Atrial Rate : 077 BPM P-R Int : 154 ms QRS Dur : 086 ms QT Int : 414 ms P-R-T Axes : 001 009 010 degrees QTc Int : 468 ms Normal sinus rhythm Normal ECG When compared with ECG of 03-DEC-2020 21:36, No significant change was found Discharge Plan Discharge Clinical Impression: Abdominal pain, acute, left upper quadrant Patient Disposition: Home, Self-Care Instructions: Abdominal Pain (ED) Additional Instructions: As discussed, your labs are at your baseline, your abdominal pelvic CT scan showed no acute changes. I will give you a short course of oxycodone to help with pain control but if your pain continues, please follow-up with your primary care doctor next week. If your pain cannot be controlled with [id number] medications or the oxycodone I have prescribed you, or if you have a fever you can not control with [id number] medications, have chest pain, shortness of breath please return to the emergency department. Prescriptions: New oxycodone 5 mg tablet 5 mg PO Q6H PRN (Reason: pain) Qty: 20 RF: 0 No Action potassium chloride 20 mEq tablet extended release 20 meq PO BID Qty: 60 RF: 1 Januvia 100 mg tablet 100 mg PO DAILY Qty: 10 RF: 0 clindamycin HCl 150 mg capsule 150 mg PO QID 7 Days Qty: 28 RF: 0 omeprazole 20 mg capsule,delayed release(DR/EC) 20 mg PO DAILY 28 Days Qty: 28 RF: 0 spironolactone 50 mg tablet 1 tab PO BID RF: 0 Xifaxan 550 mg tablet 1 tab PO BID RF: 0 glipizide 2.5 mg tablet extended release 24hr 2.5 mg PO BID RF: 0 urea (bulk) 100 % Powder See Rx Instructions .ROUTE .COMPLEX Qty: 1000 RF: 0 famotidine 40 mg tablet 40 mg PO BEDTIME RF: 0 atovaquone 750 mg/5 mL suspension 5 ml PO BID RF: 0 mesalamine 800 mg tablet,delayed release (DR/EC) 800 mg PO TIDWM RF: 0 Odefsey 200-25-25 mg tablet 1 tab PO DAILY RF: 0 trimethoprim 100 mg tablet 100 mg PO Q12H 10 Days Qty: 20 RF: 0 oxycodone 5 mg capsule 5 mg PO Q8H PRN (Reason: pain) 3 Days Qty: 14 RF: 0 phenazopyridine [Pyridium] 100 mg tablet 100 mg PO TID PRN (Reason: spasm) 4 Days Qty: 12 RF: 0 triamcinolone acetonide 0.1 % cream 1 appl topical BID PRN (Reason: Itching) RF: 0 econazole 1 % cream 1 appl topical BID RF: 0 lactulose 20 gram/30 mL solution 20 g PO BID Qty: 1200 RF: 0 hydroxyzine HCl 25 mg tablet 50 mg PO Q6H PRN (Reason: bullous pemphigoid) RF: 0 allopurinol 100 mg tablet 100 mg PO DAILY 90 Days Qty: 90 RF: 1 pyridoxine (vitamin B6) 100 mg tablet 100 mg PO DAILY 90 Days Qty: 90 RF: 1 Referrals: Po,bP Ferrer MD [Primary Care Provider] - 3 days (If your abdominal pain continues) Print Language: [place]an [facility] Past Medical History Medical History Bullous pemphigoid COVID-19 in immunocompromised patient GERD (gastroesophageal reflux disease) Hepatic vein thrombosis Hepatitis C HIV (human immunodeficiency virus infection) Hypocalcemia Hypomagnesemia Lichen simplex chronicus Lung nodule Obesity (BMI 30-39.9) Pancytopenia Perirectal abscess Renal calculi Type 2 diabetes mellitus with hyperglycemia Ulcerative colitis Surgical History Anal fistula History of esophagogastroduodenoscopy (EGD) History of lithotripsy History of rectal abscess History of removal of ureteral stent History of umbilical hernia repair Hx of cystoscopy Family History Family History Father Stroke Mother Diabetes Hypertension CVD (cardiovascular disease) Sister Family history of cervical cancer Social History Social History Household Members: Spouse Housing: House Do you presently have visiting nurse or other home services: No Alcohol intake: former Patient Tobacco Use Status: Never used Tobacco Use of substances other than those prescribed or required for medical reasons: No Advance Directives: Yes Advance Directives on File: Yes Advance Directives Date on File: 10/27/20 service: No Current occupational status: employed
--- NOTE | 2020-12-11 09:22 | ECG_ITS ---
Test Reason : SOB Blood Pressure : / mmHG Vent. Rate : 077 BPM Atrial Rate : 077 BPM P-R Int : 154 ms QRS Dur : 086 ms QT Int : 414 ms P-R-T Axes : 001 009 010 degrees QTc Int : 468 ms Normal sinus rhythm Normal ECG When compared with ECG of 03-DEC-2020 21:36, No significant change was found Referred By: Juli Lucia Electronically Signed By:Ezequiel Proctor
[2020-12-11 09:47] LABS: Basophils Percent Auto 0.4 % (0-2); Hematocrit 30.9 % (42-52); Hemoglobin 10.5 g/dl (14.0-18.0); Imm Gran Abs Auto 0.01 X10*3/uL (0.00-0.03); Imm Gran Pct Auto 0.4 % (0.0-0.4); Lymphocytes Absolute Auto 0.3 X10*3/uL (1.2-4.9); Lymphocytes Percent Auto 12.5 % (20-40); MANUAL DIFF FLAG SCAN; Mean Corpuscular Hemoglobin 33.2 pg (27.0-33.0); Mean Corpuscular Volume 97.8 fL (80-98); Mean Platelet Volume 11.6 fL (9.4-12.4); Monocytes Absolute Auto 0.2 X10*3/uL (0.1-1.2); Monocytes Percent Auto 9.1 % (2-11); Neutrophils Absolute Auto 2.1 X10*3/uL (2.0-8.3); Neutrophils Percent Auto 77.6 % (45-73); Red Blood Count 3.16 X10*6/uL (4.60-5.80); Red Cell Distribution Width 16.1 % (11.0-16.0); SCAN SMEAR FLAG 1; White Blood Count 2.7 X10*3/uL (4.8-10.8)
[2020-12-11 09:47] LABS: INTERNATIONAL NORM RATIO 1.4 (0.9-1.1); Prothrombin Time 16.3 SEC (10.8-13.0)
[2020-12-11 09:48] LABS: Platelet Count 79 X10*3/uL (160-400)
[2020-12-11 09:50] LABS: Partial Thromboplastin Time 32.7 SEC (24.1-38.0)
[2020-12-11 10:04] LABS: SLIDE REVIEW VERIFIED
[2020-12-11] MEDS: oxyCODONE HCl Immed Release 5 MG TABLET PO (10:10)
[2020-12-11 10:25] LABS: Troponin-I High Sensitivity < 3.5 ng/L (<3.5-35.0)
[2020-12-11 10:28] LABS: Glucose Urine UA NEG (NEG); Leukocyte Esterase Urine NEG (NEG); Nitrite Urine NEG (NEG); PH 6.5 (5.0-8.0); Urine Blood NEG (NEG); Urine Ketones NEG (NEG); Urine Protein NEG (NEG-TRACE)
[2020-12-11 10:29] LABS: Appearance Urine HAZY; Color Urine YELLOW
[2020-12-11 11:17] VITALS: BP 108/83; PULSE 77; RESP 16; O2SAT 100
[2020-12-11 11:41] LABS: Alanine Aminotransferase 33 U/L (0-40); Albumin Level 2.5 g/dL (3.5-5.0); Alkaline Phosphatase 114 U/L (39-117); Anion Gap 8 (12-20); Aspartate Amino Transferase 49 U/L (5-37); Bilirubin Direct 1.1 mg/dL (0.0-0.5); Bilirubin Total 2.1 mg/dL (0.0-1.0); Blood Urea Nitrogen 13 mg/dL (9-16); Calcium 8.1 mg/dL (8.4-10.2); Carbon Dioxide 21 mmol/L (22-29); Chloride 102 mmol/L (96-108); Creatinine Clr Calc Pharmacy 85.2; Estimated Glomerular Filt Rate > 60; Glucose Random 109 mg/dL (60-115); Lipase 58 U/L (8-78); Magnesium 1.9 mg/dL (1.6-2.6); Potassium 4.4 mmol/L (3.3-5.1); Sodium 127 mmol/L (135-145); Total Protein 8.7 g/dL (6.5-8.0)
[2020-12-11] MEDS: iohexoL 350 MG/ML 100 ML INFUS..BTL 85 ML IV (13:02)
[2020-12-11 14:15] VITALS: BP 111/72; PULSE 80; RESP 16; O2SAT 100
== END 2020-12-11 14:36 | disposition home or self-care (01) ==
PROVIDERS: Physician Assistant; Emergency Provider Emergency Medicine Emergency Medical Services; PCP Internal Medicine
DX: R10.12 Left upper quadrant pain (principal); B20 Human immunodeficiency virus [HIV] disease; E11.9 Type 2 diabetes mellitus without complications; K21.9 Gastro-esophageal reflux disease without esophagitis; B19.20 Unspecified viral hepatitis C without hepatic coma; K74.60 Unspecified cirrhosis of liver; Z86.16 Personal history of COVID-19
CPT/HCPCS: 36415; 71046; 74177; 80048; 80076; 81003; 83690; 83735; 84484; 85025; 85610; 85730; 93005; 99285; Q9967

== ENCOUNTER 2020-12-13 09:12 | Outpatient (REF) | payer OTHER, SELFPAY ==
--- NOTE | ~2020-12-13 | US_ITS ---
EXAMINATION: US ABDOMEN LIMITED CLINICAL INFORMATION: Unspecified cirrhosis of liver. COMPARISON: CT abdomen pelvis 12/11/2020. Ultrasound abdomen 11/09/2020 and 10/27/2020. TECHNIQUE: Real-time imaging of the abdomen. FINDINGS: 4 quadrant evaluation of the abdomen and pelvis shows no ascites. US/US abdomen limited IMPRESSION: Unremarkable 4 quadrant evaluation of the abdomen and pelvis, without ascites seen.
== END 2020-12-13 09:13 | disposition home or self-care (01) ==
LOC: HO.US 09:12
PROVIDERS: PCP Internal Medicine; Visit Provider Internal Medicine
DX: K74.60 Unspecified cirrhosis of liver (principal)
CPT/HCPCS: 76705

== ENCOUNTER 2020-12-20 10:20 | Emergency (ER) | payer OTHER, SELFPAY ==
--- NOTE | ~2020-12-20 | CT_ITS ---
EXAMINATION: CTA CHEST CT ABDOMEN AND PELVIS WITH CONTRAST CLINICAL INFORMATION: Elevated D-dimer. Back pain. COMPARISON: CT chest 09/16/2020. CT abdomen and pelvis 03/04/2020. TECHNIQUE: A noncontrast localizer was performed, followed by the administration of 85 mL Omnipaque [address] of the chest was then performed. Coronal and sagittal reformatted and 3-D technique MIP images of the chest were completed at the CT scanner and reviewed on the PACS workstation. No adverse effects were reported. Images were then performed through the abdomen and pelvis. Coronal and sagittal reformatted images performed at CT scanner by technologist. [This CT examination was performed using dose optimization techniques as appropriate, variously including the following: *Automated exposure control. *Adjustment of mA and/or kV according to patient size (this includes techniques or standardized protocols for targeted exams where dose is matched to indication/reason for exam; i.e. extremities or head). *Use of iterative reconstruction technique]. DLP: 852 mGy-cm FINDINGS: CTA CHEST Vascular: The main pulmonary artery, secondary and tertiary branches of the pulmonary artery are normally opacified with no evidence of pulmonary embolism. The aorta and great vessels are normal in caliber. No dissection of the aorta. Minimal amount of vascular wall calcifications of thoracic aorta. Mediastinum: No mediastinal mass. No significant lymphadenopathy. There is no pericardial effusion. Lungs: The lungs are clear. No nodule or infiltrate. Central bronchial airways open. Fluid: There is no pericardial effusion. There is no pleural effusion. Axilla: No significant lymphadenopathy. CT SCAN ABDOMEN/PELVIS: Liver, Gallbladder and Biliary Tree: Liver is cirrhotic. There is lobular contour of the liver. No focal liver lesion. The gallbladder is unremarkable with no evidence of radiopaque gallstones, gallbladder wall thickening, or obvious pericholecystic inflammatory changes. Pancreas: Unremarkable. Spleen: Spleen is enlarged measuring 19 cm AP. There are scattered regions of poor enhancement including a geographic area at the superior pole measuring 6 cm. This area of low attenuation may be due to developing infarct versus early imaging and a large spleen. There are other smaller scattered regions of low enhancement in the subcapsular spleen mid lower pole which are unchanged since CAT scan of 03/04/2020. These smaller areas are likely due to early imaging of an enlargement of the spleen. Adrenal Glands: Unremarkable. Kidneys and Ureters: There are small nonobstructive bilateral renal calculi. The left kidney has a 1 mm stone in the lower pole and a 3 mm stone in the upper pole. In the right kidney, there is a 1 mm stone, a 2 mm stone in the upper pole and a 1 mm stone in the midpole. There are 3 small less than 1 mm size stones in the lower pole. There is mild fullness of the right renal collecting system and right ureter. Patient likely has recently passed a stone which is within the bladder but there is no ureteral stone now present. Bladder: There is a 2 mm calcified stone layering dependently in the right side of the bladder. Axial image 625/791 series 17. Gastrointestinal Tract: There are numerous scattered diverticula throughout the colon. There is no diverticulitis. There is no bowel wall thickening/edema. There is no bowel obstruction. There is a moderate volume of stool in the colon. The appendix is normal. The small bowel loops are unremarkable. The stomach is normal. There is no hiatal hernia. MESENTERY: [id number] volume of abdominal ascites. Abdominal Wall: Edema in the subcutaneous fat at the midline anterior ventral wall around the umbilicus. There is no ventral wall hernia. Lymph Nodes: Normal. Vascular: Normal enhancement of mesenteric vessels. No thrombus of the splenic vein or portal vein or SMV. There is normal enhancement of the celiac axis and SMA and BRADY. Pelvic Viscera: Prostate measures 3.7 cm transverse. Coarse calcifications within the prostate. Osseous Structures: Unremarkable. CT/CT angio chest PE protocol IMPRESSION: CT CHEST: 1. No acute abnormality. 2. No evidence of pulmonary embolism. CT ABDOMEN AND PELVIS: 1. Cirrhosis of liver. [id number] volume of abdominal ascites. 3. Splenomegaly. Focal decreased perfusion in the upper pole of the spleen may be developing infarct versus timing parameters in patient with a large spleen. There is no thrombus of the splenic vein and normal enhancement of the mesenteric vessels. 4. Diverticulosis of the colon. No acute abnormality of the bowel. 5. Small nonobstructive bilateral renal stones. A 2 mm stone layering dependently in the bladder. Mild hydronephrosis of right kidney. Likely the stone in the bladder has recently passed. May be etiology for patient's back pain. No additional stone in the right ureter.
--- NOTE | ~2020-12-20 | XR_ITS ---
EXAMINATION: XR CHEST CLINICAL INFORMATION: SOB with exertion COMPARISON: None TECHNIQUE: 2 views of the chest were obtained. FINDINGS: No significant abnormality is noted involving the heart, lungs, mediastinum, bony thorax or soft tissues. XR/XR chest 2V IMPRESSION: Unremarkable chest exam
[2020-12-20 10:36] VITALS: BP 106/65; PULSE 104; RESP 15; TEMP 37.2; O2SAT 98; BMI 29.2
[2020-12-20 11:57] LABS: Basophils Percent Auto 0.4 % (0-2); Hematocrit 30.1 % (42-52); Hemoglobin 10.2 g/dl (14.0-18.0); Imm Gran Abs Auto 0.01 X10*3/uL (0.00-0.03); Imm Gran Pct Auto 0.4 % (0.0-0.4); Lymphocytes Absolute Auto 0.2 X10*3/uL (1.2-4.9); Lymphocytes Percent Auto 10.7 % (20-40); MANUAL DIFF FLAG SCAN; Mean Corpuscular HGB Conc 33.9 g/dl (31.0-36.0); Mean Corpuscular Volume 97.4 fL (80-98); Mean Platelet Volume 11.2 fL (9.4-12.4); Monocytes Absolute Auto 0.2 X10*3/uL (0.1-1.2); Monocytes Percent Auto 8.4 % (2-11); Neutrophils Absolute Auto 1.8 X10*3/uL (2.0-8.3); Neutrophils Percent Auto 80.1 % (45-73); Red Blood Count 3.09 X10*6/uL (4.60-5.80); SCAN SMEAR FLAG 1
[2020-12-20 11:58] LABS: Glucose Urine UA NEG (NEG); Leukocyte Esterase Urine NEG (NEG); Nitrite Urine NEG (NEG); Urine Blood NEG (NEG); Urine Ketones NEG (NEG); Urine Protein NEG (NEG-TRACE)
[2020-12-20 12:05] LABS: Platelet Count 80 X10*3/uL (160-400); White Blood Count 2.3 X10*3/uL (4.8-10.8)
[2020-12-20 12:10] LABS: Appearance Urine CLEAR; Color Urine YELLOW
[2020-12-20 12:12] LABS: INTERNATIONAL NORM RATIO 1.4 (0.9-1.1); Prothrombin Time 16.7 SEC (10.8-13.0)
[2020-12-20 12:15] LABS: Ammonia 79 umol/L (13-55)
[2020-12-20 12:30] LABS: Alanine Aminotransferase 28 U/L (0-40); Albumin Level 2.6 g/dL (3.5-5.0); Alkaline Phosphatase 117 U/L (39-117); Anion Gap 7 (12-20); Aspartate Amino Transferase 37 U/L (5-37); Bilirubin Direct 1.3 mg/dL (0.0-0.5); Bilirubin Total 2.3 mg/dL (0.0-1.0); Blood Urea Nitrogen 14 mg/dL (9-16); Calcium 8.1 mg/dL (8.4-10.2); Carbon Dioxide 20 mmol/L (22-29); Chloride 106 mmol/L (96-108); Creatinine Clr Calc Pharmacy 88.9; Estimated Glomerular Filt Rate > 60; Glucose Random 239 mg/dL (60-115); Potassium 4.4 mmol/L (3.3-5.1); Sodium 129 mmol/L (135-145); Total Protein 8.8 g/dL (6.5-8.0)
[2020-12-20 14:00] VITALS: BP 125/72; PULSE 102; RESP 15; TEMP 37.2; O2SAT 98
--- NOTE | 2020-12-20 14:11 | ED_ITS ---
HPI - General Adult General Chief complaint: General Medical Stated complaint: Upper back pain Time Seen by Provider: 12/20/20 13:43 Source: patient History of Present Illness HPI narrative: 55-year-old male past medical history of cirrhosis, GI bleed hepatitis-C, HIV, chronic hyponatremia, ulcerative colitis, C diff diarrhea, anemia, COVID, hepatic vein thrombus, renal stone presenting to the emergency department with concerns for back pain. He states the pain is to the right side of his back that is worse at nighttime when he moves around. No exacerbating factors. Denies falls or injuries. He also mentions that he is feeling more short of breath with exertion. He does have some peripheral edema. He states he had a paracentesis either in November or December and where they took off 3 L which helped. He does not think this is associated with his abdomen. He denies fevers, cough, chest pain, bloody stools, black stools, hematemesis, urinary changes. No incontinence. He denies IV drug use. He denies alcohol use. Related Data Home Medications Medication Instructions Recorded Confirmed Odefsey 1 tab PO DAILY 04/27/20 12/04/20 atovaquone 5 ml PO BID 04/27/20 12/04/20 famotidine 40 mg PO BEDTIME 04/27/20 12/04/20 mesalamine 800 mg PO TIDWM 04/27/20 12/04/20 hydroxyzine HCl 25 mg tablet 50 mg PO Q6H PRN tab 09/01/20 12/04/20 blood sugar diagnostic #10 ea 10/06/20 clobetasol 0.05 % topical cream 1 appl TOPICAL BID PRN 10/25/20 12/04/20 econazole 1 appl TOPICAL BID 10/27/20 12/04/20 triamcinolone acetonide 1 appl TOPICAL BID PRN 10/27/20 12/04/20 Xifaxan 1 tab PO BID 12/04/20 12/04/20 glipizide 2.5 mg PO BID 12/04/20 12/04/20 spironolactone 1 tab PO BID 12/04/20 12/04/20 Previous Rx's Medication Instructions Recorded allopurinol 100 mg tablet 100 mg PO DAILY 90 Days #90 tab 10/25/20 pyridoxine (vitamin B6) 100 mg 100 mg PO DAILY 90 Days #90 tab 10/25/20 tablet lactulose 20 g PO BID #1200 ml 10/29/20 potassium chloride 20 mEq 20 meq PO BID #60 tab 11/04/20 tablet,extended release sitagliptin 100 mg tablet 100 mg PO DAILY #10 tab 11/11/20 clindamycin HCl 150 mg capsule 150 mg PO QID 7 Days #28 cap 11/21/20 omeprazole 20 mg capsule,delayed 20 mg PO DAILY 28 Days #28 cap 11/28/20 release oxycodone 5 mg PO Q8H PRN 3 Days #14 cap 11/28/20 phenazopyridine [Pyridium] 100 mg PO TID PRN 4 Days #12 tab 11/28/20 trimethoprim 100 mg PO Q12H 10 Days #20 tab 11/28/20 urea (bulk) See Rx Instructions .ROUTE 12/06/20 .COMPLEX #1000 g oxycodone 5 mg PO Q6H PRN #20 tab 12/11/20 Allergies Allergy/AdvReac Type Severity Reaction Status Date / Time acetaminophen [Acetaminophen] Allergy Severe LIVER Verified 11/14/20 07:59 TOXICITY - CANNOT TAKE ACETAMINOPHEN amoxicillin [Augmentin] Allergy Intermediate mouth sores Verified 11/14/20 07:59 clavulanic acid [Augmentin] Allergy Intermediate mouth sores Verified 11/14/20 0 7:59 Sulfa (Sulfonamide Allergy Intermediate RASH Verified 11/14/20 07:59 Antibiotics) [SULFA (SULFONAMIDE ANTIBIOTICS)] ibuprofen [IBUPROFEN] AdvReac Intermediate BLEEDING Verified 11/14/20 07:59 Review of Systems Constitutional: Constitutional: Denies fever(s) Eyes: Eyes: Reports no additional eye complaints ENT: Denies dizziness, Denies nasal congestion and Denies sore throat Cardiovascular: Cardiovascular: Denies chest pain, Reports dyspnea and Reports dyspnea on exertion Respiratory: Respiratory: Reports dyspnea and Reports dyspnea on exertion Gastrointestinal: Gastrointestinal: Denies abdominal pain, Denies melena, Reports bloating and Denies hematemesis Genitourinary: Comments: Denies dysuria Musculoskeletal: Musculoskeletal: Reports back pain Neurologic: Denies dizziness Psychiatric: Psychiatric: Reports no additional psychiatric complaints PMFSH Past Medical History Medical History Bullous pemphigoid COVID-19 in immunocompromised patient GERD (gastroesophageal reflux disease) Hepatic vein thrombosis Hepatitis C HIV (human immunodeficiency virus infection) Hypocalcemia Hypomagnesemia Lichen simplex chronicus Lung nodule Obesity (BMI 30-39.9) Pancytopenia Perirectal abscess Renal calculi Type 2 diabetes mellitus with hyperglycemia Ulcerative colitis Surgical History Anal fistula History of esophagogastroduodenoscopy (EGD) History of lithotripsy History of rectal abscess History of removal of ureteral stent History of umbilical hernia repair Hx of cystoscopy Family History Family History Father Stroke Mother Diabetes Hypertension CVD (cardiovascular disease) Sister Family history of cervical cancer Social History Social History Household Members: Spouse Housing: House Do you presently have visiting nurse or other home services: No Alcohol intake: unknown Patient Tobacco Use Status: Never used Tobacco Use of substances other than those prescribed or required for medical reasons: Unknown Advance Directives: Yes Advance Directives on File: Yes Advance Directives Date on File: 10/27/20 service: No Current occupational status: employed Physical Exam Vital Signs: Vital Signs: Last Vital Signs Temp 98.0 F 12/20/20 18:00 Pulse 84 12/20/20 18:00 Resp 17 12/20/20 18:00 BP 108/64 12/20/20 18:00 Pulse Ox 100 12/20/20 18:00 Body Mass Index 29.2 Const: Other: appears chronically ill Orientation/consciousness: patient oriented x3 HENMT: Head: Yes atraumatic Eyes: Other: No jaundice Pupils: Equal, round and reactive pupils present Neck: Neck: Yes supple Resp: Auscultation: clear to auscultation bilaterally Cardio: Rate: regular rate Rhythm: regular rhythm GI: Other: No fluid shift, no guarding, soft, no significant tenderness to palpation Inspection: Yes distended Back/Spine/Pelvis: Other: No midline tenderness to his spine, no rashes, no skin changes, no CVA tenderness Skin: Other: warm, no jaundice Neuro: General: patient oriented x3 Cranial nerves: Yes Equal, round and reactive pupils present Extrem: Other: +2 pitting edema bilaterally in lower extremeties, symmetrical General: Yes full ROM Psych: Other: flat affect Course Course Course Narrative: With D-dimer is elevated, will plan for CT angio to rule out a PE. Since I will be scanning the patient will also plan for CT of the abdomen to rule out underlying pathology that could be contributing to his presentatio n. Patient was evaluated several days ago in the ED on 12/11/2020 and was given oxycodone, could be narcotic seeking since he ran out of his pain medication. Reevaluation(s) Reevaluation #1: Rn notified me pt. is a hard stick and are having difficulty getting access, attempting on getting a line. Time: 17:15 Time: 17:59 Reevaluation #3: sign out given to overnight team pending imaging, reeval and final disposition Medical Decision Making MDM Narrative Medical decision making narrative: 55-year-old male with multiple comorbidities presenting to the emergency department with back pain Vital significant for initial tachycardia, otherwise hemodynamically stable Basic labs are obtained prior to my evaluation which showed chronic anemia, chronic hyponatremia. His urinalysis did not show evidence of an infection to suggest pyelonephritis. His urinalysis did not show hematuria to suggest an underlying renal stone. LFTs are about his baseline. Will check chest x-ray to assess for pleural effusions. Given his edema bilaterally will check a BNP level. Patient does not appear to be in any acute respiratory distress while at rest. Will also check a troponin EKG for signs of ischemia given his shortness of breath with exertion. Given his back pain will send off a D-dimer to evaluate for PE given he was also tachycardic. Lower suspicion for an aortic dissection given his symptoms have been ongoing times several days and no ripping or tearing chest pain radiating to his back. SBP is less likely as he is afebrile, no significant tenderness to palpation, no leukocytosis. Ammonia is also elevated at 79, no AMS, will encourage to continue taking his lactulose. case discussed with attending Lab Data Result diagrams: 12/20/20 11:45 12/20/20 11:46 Labs: Lab Results 12/20/20 12/20/20 12/20/20 Range/Units 11:45 11:45 11:46 WBC 2.3 L (4.8-10.8) X10*3/uL RBC 3.09 L (4.60-5.80) X10*6/uL Hgb 10.2 L (14.0-18.0) g/dl Hct 30.1 L (42-52) % MCV 97.4 (80-98) fL MCH 33.0 (27.0-33.0) pg MCHC 33.9 (31.0-36.0) g/dl RDW 15.0 (11.0-16.0) % Plt Count 80 L (160-400) X10*3/uL MPV 11.2 (9.4-12.4) fL Immature Gran % (Auto) 0.4 (0.0-0.4) % Neut % (Auto) 80.1 H (45-73) % Lymph % (Auto) 10.7 L (20-40) % [place] % (Auto) 8.4 (2-11) % Eos % (Auto) 0.0 (0-4) % Baso % (Auto) 0.4 (0-2) % Lymph # (Auto) 0.2 L (1.2-4.9) X10*3/uL [place] # (Auto) 0.2 (0.1-1.2) X10*3/uL Eos # (Auto) 0.0 (0.0-0.4) X10*3/uL Baso # (Auto) 0.0 (0.0-0.2) X10*3/uL Abs Immat Gran (auto) 0.01 (0.00-0.03) X10*3/uL Absolute Neuts (auto) 1.8 L (2.0-8.3) X10*3/uL Absolute Nucleated RBC 0.000 (0.0-0.012) X10*3/uL Nucleated RBC % (auto) 0.0 (0.0-0.2) /100WBC Smear Tech's Comments Not Reportable PT 16.7 H (10.8-13.0) SEC INR 1.4 H (0.9-1.1) D-Dimer NG/ML Sodium 129 L (135-145) mmol/L Potassium 4.4 (3.3-5.1) mmol/L Chloride 106 (96-108) mmol/L Carbon Dioxide 20 L (22-29) mmol/L Anion Gap 7 L (12-20) BUN 14 (9-16) mg/dL Creatinine 0.81 (0.5-1.4) mg/dL Estim Creat Clear Calc 88.9 Estimated GFR > 60 POC Glucose (60-115) mg/dL Random Glucose 239 H D (60-115) mg/dL Calcium 8.1 L (8.4-10.2) mg/dL Total Bilirubin 2.3 H (0.0-1.0) mg/dL Direct Bilirubin 1.3 H (0.0-0.5) mg/dL AST 37 (5-37) U/L ALT 28 (0-40) U/L Alkaline Phosphatase 117 (39-117) U/L Ammonia (13-55) umol/L Troponin I High Sens (<3.5-35.0) ng/L B-Natriuretic Peptide (<100) pg/mL Total Protein 8.8 H (6.5-8.0) g/dL Albumin 2.6 L (3.5-5.0) g/dL Urine Color Urine Appearance Urine pH (5.0-8.0) Ur Specific [place] (1.005-1.025) Urine Protein (NEG-TRACE) MG/DL Urine Glucose (UA) (NEG) MG/DL Urine Ketones (NEG) MG/DL Urine Blood (NEG) Urine Nitrite (NEG) Ur Leukocyte Esterase (NEG) 12/20/20 12/20/20 12/20/20 Range/Units 11:46 11:46 14:40 WBC (4.8-10.8) X10*3/uL RBC (4.60-5.80) X10*6/uL Hgb (14.0-18.0) g/dl Hct (42-52) % MCV (80-98) fL MCH (27.0-33.0) pg MCHC (31.0-36.0) g/dl RDW (11.0-16.0) % Plt Count (160-400) X10*3/uL MPV (9.4-12.4) fL Immature Gran % (Auto) (0.0-0.4) % Neut % (Auto) (45-73) % Lymph % (Auto) (20-40) % [place] % (Auto) (2-11) % Eos % (Auto) (0-4) % Baso % (Auto) (0-2) % Lymph # (Auto) (1.2-4.9) X10*3/uL [place] # (Auto) (0.1-1.2) X10*3/uL Eos # (Auto) (0.0-0.4) X10*3/uL Baso # (Auto) (0.0-0.2) X10*3/uL Abs Immat Gran (auto) (0.00-0.03) X10*3/uL Absolute Neuts (auto) (2.0-8.3) X10*3/uL Absolute Nucleated RBC (0.0-0.012) X10*3/uL Nucleated RBC % (auto) (0.0-0.2) /100WBC Smear Tech's Comments PT (10.8-13.0) SEC INR (0.9-1.1) D-Dimer NG/ML Sodium (135-145) mmol/L Potassium (3.3-5.1) mmol/L Chloride (96-108) mmol/L Carbon Dioxide (22-29) mmol/L Anion Gap (12-20) BUN (9-16) mg/dL Creatinine (0.5-1.4) mg/dL Estim Creat Clear Calc Estimated GFR POC Glucose (60-115) mg/dL Random Glucose (60-115) mg/dL Calcium (8.4-10.2) mg/dL Total Bilirubin (0.0-1.0) mg/dL Direct Bilirubin (0.0-0.5) mg/dL AST (5-37) U/L ALT (0-40) U/L Alkaline Phosphatase (39-117) U/L Ammonia 79 H (13-55) umol/L Troponin I High Sens < 3.5 (<3.5-35.0) ng/L B-Natriuretic Peptide 65 (<100) pg/mL Total Protein (6.5-8.0) g/dL Albumin (3.5-5.0) g/dL Urine Color YELLOW Urine Appearance CLEAR Urine pH 7.0 (5.0-8.0) Ur Specific [place] 1.020 (1.005-1.025) Urine Protein NEG (NEG-TRACE) MG/DL Urine Glucose (UA) NEG (NEG) MG/DL Urine Ketones NEG (NEG) MG/DL Urine Blood NEG (NEG) Urine Nitrite NEG (NEG) Ur Leukocyte Esterase NEG (NEG) 12/20/20 12/20/20 Range/Units 14:41 15:44 WBC (4.8-10.8) X10*3/uL RBC (4.60-5.80) X10*6/uL Hgb (14.0-18.0) g/dl Hct (42-52) % MCV (80-98) fL MCH (27.0-33.0) pg MCHC (31.0-36.0) g/dl RDW (11.0-16.0) % Plt Count (160-400) X10*3/uL MPV (9.4-12.4) fL Immature Gran % (Auto) (0.0-0.4) % Neut % (Auto) (45-73) % Lymph % (Auto) (20-40) % [place] % (Auto) (2-11) % Eos % (Auto) (0-4) % Baso % (Auto) (0-2) % Lymph # (Auto) (1.2-4.9) X10*3/uL [place] # (Auto) (0.1-1.2) X10*3/uL Eos # (Auto) (0.0-0.4) X10*3/uL Baso # (Auto) (0.0-0.2) X10*3/uL Abs Immat Gran (auto) (0.00-0.03) X10*3/uL Absolute Neuts (auto) (2.0-8.3) X10*3/uL Absolute Nucleated RBC (0.0-0.012) X10*3/uL Nucleated RBC % (auto) (0.0-0.2) /100WBC Smear Tech's Comments PT (10.8-13.0) SEC INR (0.9-1.1) D-Dimer 3482 NG/ML Sodium (135-145) mmol/L Potassium (3.3-5.1) mmol/L Chloride (96-108) mmol/L Carbon Dioxide (22-29) mmol/L Anion Gap (12-20) BUN (9-16) mg/dL Creatinine (0.5-1.4) mg/dL Estim Creat Clear Calc Estimated GFR POC Glucose 127 H (60-115) mg/dL Random Glucose (60-115) mg/dL Calcium (8.4-10.2) mg/dL Total Bilirubin (0.0-1.0) mg/dL Direct Bilirubin (0.0-0.5) mg/dL AST (5-37) U/L ALT (0-40) U/L Alkaline Phosphatase (39-117) U/L Ammonia (13-55) umol/L Troponin I High Sens (<3.5-35.0) ng/L B-Natriuretic Peptide (<100) pg/mL Total Protein (6.5-8.0) g/dL Albumin (3.5-5.0) g/dL Urine Color Urine Appearance Urine pH (5.0-8.0) Ur Specific [place] (1.005-1.025) Urine Protein (NEG-TRACE) MG/DL Urine Glucose (UA) (NEG) MG/DL Urine Ketones (NEG) MG/DL Urine Blood (NEG) Urine Nitrite (NEG) Ur Leukocyte Esterase (NEG) ECG Data Interpretation: Normal sinus rhythm at 79, T-wave inversion in lead 3, no STEMI QTC 481 Discharge Plan Discharge Prescriptions: No Action potassium chloride 20 mEq tablet extended release 20 meq PO BID Qty: 60 RF: 1 Januvia 100 mg tablet 100 mg PO DAILY Qty: 10 RF: 0 clindamycin HCl 150 mg capsule 150 mg PO QID 7 Days Qty: 28 RF: 0 omeprazole 20 mg capsule,delayed release(DR/EC) 20 mg PO DAILY 28 Days Qty: 28 RF: 0 spironolactone 50 mg tablet 1 tab PO BID RF: 0 Xifaxan 550 mg tablet 1 tab PO BID RF: 0 glipizide 2.5 mg tablet extended release 24hr 2.5 mg PO BID RF: 0 urea (bulk) 100 % Powder See Rx Instructions .ROUTE .COMPLEX Qty: 1000 RF: 0 oxycodone 5 mg tablet 5 mg PO Q6H PRN (Reason: pain) Qty: 20 RF: 0 famotidine 40 mg tablet 40 mg PO BEDTIME RF: 0 atovaquone 750 mg/5 mL suspension 5 ml PO BID RF: 0 mesalamine 800 mg tablet,delayed release (DR/EC) 800 mg PO TIDWM RF: 0 Odefsey 200-25-25 mg tablet 1 tab PO DAILY RF: 0 trimethoprim 100 mg tablet 100 mg PO Q12H 10 Days Qty: 20 RF: 0 oxycodone 5 mg capsule 5 mg PO Q8H PRN (Reason: pain) 3 Days Qty: 14 RF: 0 phenazopyridine [Pyridium] 100 mg tablet 100 mg PO TID PRN (Reason: spasm) 4 Days Qty: 12 RF: 0 triamcinolone acetonide 0.1 % cream 1 appl topical BID PRN (Reason: Itching) RF: 0 econazole 1 % cream 1 appl topical BID RF: 0 lactulose 20 gram/30 mL solution 20 g PO BID Qty: 1200 RF: 0 hydroxyzine HCl 25 mg tablet 50 mg PO Q6H PRN (Reason: bullous pemphigoid) RF: 0 allopurinol 100 mg tablet 100 mg PO DAILY 90 Days Qty: 90 RF: 1 pyridoxine (vitamin B6) 100 mg tablet 100 mg PO DAILY 90 Days Qty: 90 RF: 1
--- NOTE | 2020-12-20 14:14 | ECG_ITS ---
Test Reason : BACK PAIN Blood Pressure : / mmHG Vent. Rate : 079 BPM Atrial Rate : 079 BPM P-R Int : 168 ms QRS Dur : 086 ms QT Int : 420 ms P-R-T Axes : 039 010 018 degrees QTc Int : 481 ms Normal sinus rhythm Prolonged QT Abnormal ECG When compared with ECG of 11-DEC-2020 09:49, No significant change was found Referred By: Addie Fierro Electronically Signed By:SWATHI HOANG
[2020-12-20 14:47] LABS: Glucose, Whole Blood 127 mg/dL (60-115)
[2020-12-20 15:21] LABS: B Type Natriuretic Peptide 65 pg/mL (<100); Troponin-I High Sensitivity < 3.5 ng/L (<3.5-35.0)
[2020-12-20 15:35] VITALS: BP 116/73; PULSE 78; RESP 15; TEMP 36.8; O2SAT 100
[2020-12-20 16:23] LABS: D Dimer 3482 NG/ML
[2020-12-20 18:00] VITALS: BP 108/64; PULSE 84; RESP 17; TEMP 36.7; O2SAT 100
[2020-12-20] MEDS: iohexoL 350 MG/ML 100 ML INFUS..BTL IV (18:14)
[2020-12-20 20:00] VITALS: BP 112/76; PULSE 80; RESP 17; TEMP 37.1; O2SAT 100
[2020-12-20] MEDS: predniSONE 20 MG TABLET PO (20:36)
[2020-12-20] MEDS: Tamsulosin HCL 0.4 MG CAPSULE PO (20:36)
== END 2020-12-20 20:30 | disposition home or self-care (01) ==
PROVIDERS: Physician Assistant Medical; Emergency Provider Emergency Medicine; PCP Internal Medicine
DX: N20.0 Calculus of kidney (principal); N21.0 Calculus in bladder; N13.30 Unspecified hydronephrosis; M54.6 Pain in thoracic spine; R00.0 Tachycardia, unspecified; B20 Human immunodeficiency virus [HIV] disease; B19.20 Unspecified viral hepatitis C without hepatic coma; K74.60 Unspecified cirrhosis of liver; E11.9 Type 2 diabetes mellitus without complications
CPT/HCPCS: 36415; 71046; 71275; 74177; 80048; 80076; 81003; 82140; 82947; 83880; 84484; 85025; 85379; 85610; 93005; 99284; 99285; Q9967

== ENCOUNTER 2020-12-28 19:48 | Inpatient (IN) | payer OTHER, SELFPAY ==
--- NOTE | ~2020-12-28 | CT_ITS ---
EXAMINATION: CT ABDOMEN AND PELVIS WITHOUT CONTRAST CLINICAL INFORMATION: left flank pain, h/o renal colic, r/o stone COMPARISON: 12/20/2020 TECHNIQUE: Multidetector volumetric imaging was performed from the superior aspect of the liver through the pubic symphysis. Sagittal and coronal reformatted images were obtained on the technologist's workstation. This CT examination was performed using dose optimization techniques as appropriate, variously including the following: *Automated exposure control *Adjustment of mA and/or kV according to patient size (this includes techniques or standardized protocols for targeted exams where dose is matched to indication/reason for exam; i.e. extremities or head) *Use of iterative reconstruction technique DLP: 529 mGy-cm FINDINGS: LUNG BASES: Minimal dependent atelectasis. LIVER, GALLBLADDER, AND BILIARY TREE: As on the prior study, the liver is markedly nodular in contour with hypoattenuating fibrotic bands, consistent with cirrhosis. No discrete hepatic lesions are identified on these unenhanced images. There is gallbladder wall thickening. No cholelithiasis. No appreciable biliary ductal dilatation. PANCREAS: Unremarkable. SPLEEN: Spleen is markedly enlarged, measuring 18.5 cm AP. Focal hypoattenuation in the anterosuperior aspect of the spleen is unchanged as compared to prior, measuring approximately 7 x 4 cm in greatest transaxial dimension, similar to prior. This most likely corresponds to changes of a splenic infarct. A smaller focus of hypoattenuation in capsular retraction is present at the lateral margin of the spleen inferiorly. ADRENAL GLANDS: Unremarkable. KIDNEYS AND URETERS: Multiple bilateral nonobstructing renal calculi are again noted. The largest of these is a 4 mm calculus in the upper pole of the left kidney residing 7.5 cm deep to the skin surface of the left posterior mid axillary line. Multiple additional calculi in both kidneys measuring between 2 and 1 mm in diameter, not appreciably changed. No hydronephrosis or hydroureter. No ureteral calculi. Kidneys are normal in size and contour. No perinephric stranding. BLADDER: No bladder calculi. Previously passed right renal calculus is no longer apparent. GASTROINTESTINAL TRACT: Stomach, small bowel, and colon are normal in caliber. There is generalized mesenteric edema with ill-defined diffuse colonic wall thickening and surrounding fat stranding, similar to prior. Wall thickening is also suspected at the stomach and duodenum. Small bowel is otherwise unremarkable. There is a trace volume of intraperitoneal ascites. No intraperitoneal free air. ABDOMINAL WALL: As seen on the prior study, there is edema in the subcutaneous fat around the umbilicus. No discrete hernias. LYMPH NODES: Normal. VASCULAR: Fullness of the portal venous system and numerous portosystemic collaterals are again noted, consistent with portal hypertension. PELVIC VISCERA: Dystrophic calcifications in the central prostate gland. OSSEOUS STRUCTURES: Minimal degenerative facet arthropathy in the lower lumbar spine. No acute osseous findings. CT/CT abdomen pelvis wo con IMPRESSION: 1. 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 Splenomegaly is unchanged. 2. Marked hepatic cirrhosis with sequela of portal hypertension including portosystemic collaterals. Small volume of intraperitoneal ascites is noted. The generalized mesenteric edema as well as the colonic wall thickening and gallbladder wall thickening are likely due to portal hypertension. Superimposed inflammatory or infectious colitis would be difficult to exclude in this setting. 3. Nephrolithiasis without evidence of obstructive uropathy.
[2020-12-28 20:18] VITALS: BP 122/70; PULSE 100; RESP 18; TEMP 36.9; O2SAT 100; BMI 26.5
[2020-12-28 22:52] VITALS: BP 129/70; PULSE 103; RESP 18; TEMP 37.2; O2SAT 100
[2020-12-29] VITALS (11 sets, daily range): BP systolic 009–146; BP diastolic 59–79; PULSE 99–108; RESP 16–20; TEMP 36.1–37.1; O2SAT 97–100
--- NOTE | 2020-12-29 00:08 | ECG_ITS ---
Test Reason : FLANK PAIN Blood Pressure : / mmHG Vent. Rate : 100 BPM Atrial Rate : 100 BPM P-R Int : 150 ms QRS Dur : 080 ms QT Int : 364 ms P-R-T Axes : 015 021 033 degrees QTc Int : 469 ms Normal sinus rhythm Normal ECG When compared with ECG of 20-DEC-2020 14:29, No significant change was found Referred By: Ilana Maria Electronically Signed By:Ezequiel Proctor
--- NOTE | 2020-12-29 00:40 | PC.NURSE ---
IN ROOM FOR EVAL. EKG OBTAINED TO . WILL CONTINUE TO MONITOR PT.
--- NOTE | 2020-12-29 00:56 | ED_ITS ---
HPI - Abdominal Pain General Chief Complaint: Abdominal Pain <Ilana Maria NP - Last Filed: 12/29/20 02:29> Stated Complaint: left side pain <Ilana Maria NP - Last Filed: 12/29/20 02:29> Time Seen by Provider: 12/28/20 23:59 <Ilana Maria NP - Last Filed: 12/29/20 02:29> Source: patient <Ilana Maria NP - Last Filed: 12/29/20 02:29> Mode of arrival: ambulatory <Ilana Maria NP - Last Filed: 12/29/20 02:29> Limitations: no limitations <KATIE Wood Last Filed: 12/29/20 02:29> History of Present Illness HPI narrative: 55-year-old male with a past medical history of upper GI bleed, GERD, hepatitis C with cirrhosis, hepatic vein thrombosis, HIV, perirectal abscess, diabetes, ulcerative colitis, bullous pemphigoid, previous COVID-19, renal calculi s/p stent placement w/ removal on 10/25/20 presenting to the ED of left- sided abdominal pain with radiation to the left flank x 3 days. No nausea, vomiting, diarrhea. No urinary symptoms, fevers or chills. The patient does have abdominal distension at baseline and shortness of breath with exertion which is at baseline as well. <KATIE Wood Last Filed: 12/29/20 02:29> Related Data Home Medications: Home Medications Medication Instructions Recorded Confirmed Odefsey 1 tab PO DAILY 04/27/20 12/04/20 atovaquone 5 ml PO BID 04/27/20 12/04/20 famotidine 40 mg PO BEDTIME 04/27/20 12/04/20 mesalamine 800 mg PO TIDWM 04/27/20 12/04/20 hydroxyzine HCl 25 mg tablet 50 mg PO Q6H PRN tab 09/01/20 12/04/20 blood sugar diagnostic #10 ea 10/06/20 clobetasol 0.05 % topical cream 1 appl TOPICAL BID PRN 10/25/20 12/04/20 econazole 1 appl TOPICAL BID 10/27/20 12/04/20 triamcinolone acetonide 1 appl TOPICAL BID PRN 10/27/20 12/04/20 Xifaxan 1 tab PO BID 12/04/20 12/04/20 glipizide 2.5 mg PO BID 12/04/20 12/04/20 spironolactone 1 tab PO BID 12/04/20 12/04/20 Previous Rx's Medication Instructions Recorded allopurinol 100 mg tablet 100 mg PO DAILY 90 Days #90 tab 10/25/20 pyridoxine (vitamin B6) 100 mg 100 mg PO DAILY 90 Days #90 tab 10/25/20 tablet lactulose 20 g PO BID #1200 ml 10/29/20 potassium chloride 20 mEq 20 meq PO BID #60 tab 11/04/20 tablet,extended release sitagliptin 100 mg tablet 100 mg PO DAILY #10 tab 11/11/20 clindamycin HCl 150 mg capsule 150 mg PO QID 7 Days #28 cap 11/21/20 omeprazole 20 mg capsule,delayed 20 mg PO DAILY 28 Days #28 cap 11/28/20 release oxycodone 5 mg PO Q8H PRN 3 Days #14 cap 11/28/20 phenazopyridine [Pyridium] 100 mg PO TID PRN 4 Days #12 tab 11/28/20 trimethoprim 100 mg PO Q12H 10 Days #20 tab 11/28/20 urea (bulk) See Rx Instructions .ROUTE 12/06/20 .COMPLEX #1000 g oxycodone 5 mg PO Q6H PRN #20 tab 12/11/20 prednisone 20 mg PO DAILY 4 Days #4 tab 12/20/20 tamsulosin [Flomax] 0.4 mg PO DAILY 14 Days #14 cap 12/20/20 <Ilana Maria NP - Last Filed: 12/29/20 02:29> Allergies/Adverse Reactions: Allergies Allergy/AdvReac Type Severity Reaction Status Date / Time acetaminophen [Acetaminophen] Allergy Severe LIVER Verified 12/28/20 20:18 TOXICITY - CANNOT TAKE ACETAMINOPHEN amoxicillin [Augmentin] Allergy Intermediate mouth sores Verified 12/28/20 20:18 clavulanic acid [Augmentin] Allergy Intermediate mouth sores Verified 12/28/20 20:18 Sulfa (Sulfonamide Allergy Intermediate RASH Verified 12/28/20 20:18 Antibiotics) [SULFA (SULFONAMIDE ANTIBIOTICS)] ibuprofen [IBUPROFEN] AdvReac Intermediate BLEEDING Verified 12/28/20 20:18 <Ilnaa Maria NP - Last Filed: 12/29/20 02:29> Review of Systems Review of Systems Yes all other systems are reviewed and are negative <Ilana Maria NP - Last Filed: 12/29/20 02:29> Constitutional: Reports no additional constitutional complaints, Denies body ache(s), Denies chills, Denies fever(s), Denies headache(s) and Denies weakness <Ilana Maria NP - Last Filed: 12/29/20 02:29> Eyes: Reports no additional eye complaints and Denies change in vision <Ilana Maria NP - Last Filed: 12/29/20 02:29> Reports system reviewed and no additional complaints, except as documented, Denies dizziness, Denies headache(s), Denies nasal congestion, Denies nasal discharge and Denies neck pain <Ilana Maria NP - Last Filed: 12/29/20 02:29> Cardiovascular: Reports no additional cardiovascular complaints, Denies chest pain, Denies leg edema and Denies dyspnea <Ilana Maria NP - Last Filed: 12/29/20 02:29> Respiratory: Reports no additional respiratory complaints, Denies cough and Denies dyspnea <Ilana Maria NP - Last Filed: 12/29/20 02:29> Gastrointestinal: Reports no additional gastrointestinal complaints, Reports abdominal pain, Denies diarrhea, Denies nausea and Denies vomiting <Ilana Maria NP - Last Filed: 12/29/20 02:29> Genitourinary: Denies urinary incontinence <Ilana Maria NP - Last Filed: 12/29/20 02:29> Musculoskeletal: Reports no additional musculoskeletal complaints, Reports back pain, Den ies arthralgias, Denies joint swelling, Denies neck pain, Denies numbness and Denies tingling <Ilana Maria NP - Last Filed: 12/29/20 02:29> Skin/Breast: Reports system reviewed and no additional complaints, except as docu and Denies rash <KATIE Wood Last Filed: 12/29/20 02:29> Reports system reviewed and no additional complaints, except as documented, Denies Abnormal speech present, Denies dizziness, Denies headache(s ), Denies numbness, Denies tingling and Denies weakness <Ilana Maria NP - Last Filed: 12/29/20 02:29> Physical Exam Vital Signs: Vital Signs: Last Vital Signs Temp 99.0 F 12/28/20 22:52 Pulse 103 H 12/28/20 22:52 Resp 18 12/28/20 22:52 BP 129/70 12/28/20 22:52 Pulse Ox 100 12/28/20 22:52 Body Mass Index 26.5 <Ilana Maria NP - Last Filed: 12/29/20 02:29> Vital Signs: Last Vital Signs Temp 99.0 F 12/28/20 22:52 Pulse 103 H 12/28/20 22:52 Resp 18 12/28/20 22:52 BP 129/70 12/28/20 22:52 Pulse Ox 100 12/28/20 22:52 Body Mass Index 26.5 <Tristan Mendoza MD - Last Filed: 12/29/20 04:24> Const: General: cooperative, healthy appearing, comfortable and no acute distress <Ilana Maria NP - Last Filed: 12/29/20 02:29> Orientation/consciousness: patient oriented x3 <Ilana Maria NP - Last Filed: 12/29/20 02:29> Limitations: no limitations <Ilana Maria NP - Last Filed: 12/29/20 02:29> HENMT: Head: Yes normal to inspection <Ilana Maria NP - Last Filed: 12/29/20 02:29> Ears: hearing grossly normal bilaterally <Ilana Maria NP - Last Filed: 12/29/20 02:29> General nose exam: Normal external nose present <KATIE Wood Last Filed: 12/29/20 02:29> Face and sinus: Yes normal facial exam <Ilana Maria NP - Last Filed: 12/29/20 02:29> Mouth: Normal oral and palatal mucosa present <Ilana Maria NP - Last Filed: 12/29/20 02:29> Throat: Yes posterior oropharynx normal <Ilana Maria NP - Last Filed: 12/29/20 02:29> Eyes: General: appearance normal, both eyes and all related structures <Ilana Maria NP - Last Filed: 12/29/20 02:29> Pupils: Equal, round and reactive pupils present <Ilana Maria NP - Last Filed: 12/29/20 02:29> Neck: Neck: Yes normal visual inspection <Ilana Maria NP - Last Filed: 12/29/20 02:29> Chest: Chest palpation & inspection: normal inspection of the chest <Ilana Maria NP - Last Filed: 12/29/20 02:29> Resp: Effort & Inspection: normal respiratory effort <Ilana Maria NP - Last Filed: 12/29/20 02:29> Auscultation: clear to auscultation bilaterally <Ilana Maria NP - Last Filed: 12/29/20 02:29> Cardio: Rate: regular rate <Ilana Maria NP - Last Filed: 12/29/20 02:29> Rhythm: regular rhythm <Ilana Maria NP - Last Filed: 12/29/20 02:29> Peripheral pulses: Peripheral pulses 2+ throughout <Ilana Maria NP - Last Filed: 12/29/20 02:29> GI: Inspection: Yes normal to inspection <Ilana Maria NP - Last Filed: 12/29/20 02:29> Palpation (GI): Soft to palpation and Tenderness to palpation present (GI) (Mild diffuse tenderness with no focal tenderness) <Ilana Maria NP - Last Filed: 12/29/20 02:29> Auscultation: normal bowel sounds <Ilana Maria NP - Last Filed: 12/29/20 02:29> : General: Yes CVA tenderness (Left) <Ilana Maria NP - Last Filed: 12/29/20 02:29> Back/Spine/Pelvis: Back: CVA tenderness (Left) <Ilana Maria NP - Last Filed: 12/29/20 02:29> Thoracic/Lumbar Spine: thoracic and lumbar spine normal to inspection <Ilana Maria NP - Last Filed: 12/29/20 02:29> Skin: General skin exam: no rashes or lesions noted <Ilana Maria NP - Last Filed: 12/29/20 02:29> Neuro: General: patient oriented x3, no focal motor deficits and normal sensation to monofilament <Ilana Maria NP - Last Filed: 12/29/20 02:29> Cranial nerves: Yes Equal, round and reactive pupils present <Ilana Maria NP - Last Filed: 12/29/20 02:29> Cognition (Neuro): normal cognition <Ilana Maria NP - Last Filed: 12/29/20 02:29> Speech: No Abnormal speech present <Ilana Maria NP - Last Filed: 12/29/20 02:29> Gait exam (Neuro): Normal gait present <Ilana Maria NP - Last Filed: 12/29/20 02:29> Motor exam (neuro): 5/5 motor strength present throughout <Ilana Maria NP - Last Filed: 12/29/20 02:29> Extrem: General: Yes normal to inspection <Ilana Maria NP - Last Filed: 12/29/20 02:29> Course Course Course Narrative: 55-year-old male here with complaints of left flank pain with radiation to the left side of the abdomen times several days. No other symptoms. On exam d oes have some CVA tenderness on the left side but no focal abdominal tenderness. Will check labs, EKG, UA, CT. 0200-UA negative. CBC shows thrombocytopenia at baseline. Unfortunately the patient's chemistries are still pending. His CT shows IMPRESSION: 1. 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 Splenomegaly is unchanged. 2. Marked hepatic cirrhosis with sequela of portal hypertension including portosystemic collaterals. Small volume of intraperitoneal ascites is noted. The generalized mesenteric edema as well as the colonic wall thickening and gallbladder wall thickening are likely due to portal hypertension. Superimposed inflammatory or infectious colitis would be difficult to exclude in this setting. 3. Nephrolithiasis without evidence of obstructive uropathy. On CT A/P noted 12/20: Splenomegaly. Focal decreased perfusion in the upper pole of the spleen may be developing infarct versus timing parameters in patient with a large spleen. There is no thrombus of the splenic vein and normal enhancement of the mesenteric vessels. D/t splenic infarct noted with continued abdominal pain/flank pain despite analgesia. D/t multiple co-morbidities, acute finding on CT patient should be admitted for w/u to rule out underlying cause. Consider septic emboli although less likely with no leukocytosis or fever. However, d/t risk factors cannot r/o infectious cause. At this time infection is suspected (0157) will add ceftriaxone as pptx antibiotics. additional labs are pending. Sign out to Dr Mendoza pending additional labs and admission. <Ilana Maria NP - Last Filed: 12/29/20 02:29> MDM - Abdominal Pain MDM Narrative Medical decision making narrative: UTI, pyelonephritis <Ilana Maria NP - Last Filed: 12/29/20 02:29> Differential Diagnosis Differential diagnosis: Likely calculus of kidney <Ilana Maria NP - Last Filed: 12/29/20 02:29> Medical Records Attestation: I reviewed the patient's medical records. <Ilana Maria NP - Last Filed: 12/29/20 02:29> Lab Data Attestation: I reviewed the patient's lab results. <Ilana Maria NP - Last Filed: 12/29/20 02:29> Result diagrams: : 12/29/20 01:03 12/29/20 02:23 <Ilana Maria NP - Last Filed: 12/29/20 02:29> Labs: Lab Results 12/29/20 12/29/20 12/29/20 Range/Units 01:02 01:02 01:03 WBC 4.8 (4.8-10.8) X10*3/uL RBC 3.16 L (4.60-5.80) X10*6/uL Hgb 10.5 L (14.0-18.0) g/dl Hct 30.7 L (42-52) % MCV 97.2 (80-98) fL MCH 33.2 H (27.0-33.0) pg MCHC 34.2 (31.0-36.0) g/dl RDW 15.2 (11.0-16.0) % Plt Count 77 L (160-400) X10*3/uL MPV 13.1 H (9.4-12.4) fL Immature Gran % (Auto) 0.4 (0.0-0.4) % Neut % (Auto) 81.6 H (45-73) % Lymph % (Auto) 8.3 L (20-40) % Will % (Auto) 9.5 (2-11) % Eos % (Auto) 0.0 (0-4) % Baso % (Auto) 0.2 (0-2) % Lymph # (Auto) 0.4 L (1.2-4.9) X10*3/uL Will # (Auto) 0.5 (0.1-1.2) X10*3/uL Eos # (Auto) 0.0 (0.0-0.4) X10*3/uL Baso # (Auto) 0.0 (0.0-0.2) X10*3/uL Abs Immat Gran (auto) 0.02 (0.00-0.03) X10*3/uL Absolute Neuts (auto) 3.9 (2.0-8.3) X10*3/uL Absolute Nucleated RBC 0.000 (0.0-0.012) X10*3/uL Nucleated RBC % (auto) 0.0 (0.0-0.2) /100WBC PT (10.8-13.0) SEC INR (0.9-1.1) Hold Blue Top Sodium (135-145) mmol/L Potassium (3.3-5.1) mmol/L Chloride (96-108) mmol/L Carbon Dioxide (22-29) mmol/L Anion Gap (12-20) BUN (9-16) mg/dL Creatinine (0.5-1.4) mg/dL Estim Creat Clear Calc Estimated GFR Random Glucose (60-115) mg/dL Lactic Acid 2.0 (0.5-2.0) mmol/L Calcium (8.4-10.2) mg/dL Magnesium (1.6-2.6) mg/dL Total Bilirubin (0.0-1.0) mg/dL Direct Bilirubin (0.0-0.5) mg/dL AST (5-37) U/L ALT (0-40) U/L Alkaline Phosphatase (39-117) U/L Ammonia 66 H (13-55) umol/L Troponin I High Sens (<3.5-35.0) ng/L Total Protein (6.5-8.0) g/dL Albumin (3.5-5.0) g/dL Urine Color Urine Appearance Urine pH (5.0-8.0) Ur Specific [place] (1.005-1.025) Urine Protein (NEG-TRACE) MG/DL Urine Glucose (UA) (NEG) MG/DL Urine Ketones (NEG) MG/DL Urine Blood (NEG) Urine Nitrite (NEG) Ur Leukocyte Esterase (NEG) COVID-19 ([facility]) (Negative) COVID-19 Clin Com 12/29/20 12/29/20 12/29/20 Range/Units 01:03 01:03 01:04 WBC (4.8-10.8) X10*3/uL RBC (4.60-5.80) X10*6/uL Hgb (14.0-18.0) g/dl Hct (42-52) % MCV (80-98) fL MCH (27.0-33.0) pg MCHC (31.0-36.0) g/dl RDW (11.0-16.0) % Plt Count (160-400) X10*3/uL MPV (9.4-12.4) fL Immature Gran % (Auto) (0.0-0.4) % Neut % (Auto) (45-73) % Lymph % (Auto) (20-40) % Will % (Auto) (2-11) % Eos % (Auto) (0-4) % Baso % (Auto) (0-2) % Lymph # (Auto) (1.2-4.9) X10*3/uL Will # (Auto) (0.1-1.2) X10*3/uL Eos # (Auto) (0.0-0.4) X10*3/uL Baso # (Auto) (0.0-0.2) X10*3/uL Abs Immat Gran (auto) (0.00-0.03) X10*3/uL Absolute Neuts (auto) (2.0-8.3) X10*3/uL Absolute Nucleated RBC (0.0-0.012) X10*3/uL Nucleated RBC % (auto) (0.0-0.2) /100WBC PT 17.6 H (10.8-13.0) SEC INR 1.5 H (0.9-1.1) Hold Blue Top SEE NOTE Sodium (135-145) mmol/L Potassium (3.3-5.1) mmol/L Chloride (96-108) mmol/L Carbon Dioxide (22-29) mmol/L Anion Gap (12-20) BUN (9-16) mg/dL Creatinine (0.5-1.4) mg/dL Estim Creat Clear Calc Estimated GFR Random Glucose (60-115) mg/dL Lactic Acid (0.5-2.0) mmol/L Calcium (8.4-10.2) mg/dL Magnesium (1.6-2.6) mg/dL Total Bilirubin (0.0-1.0) mg/dL Direct Bilirubin (0.0-0.5) mg/dL AST (5-37) U/L ALT (0-40) U/L Alkaline Phosphatase (39-117) U/L Ammonia (13-55) umol/L Troponin I High Sens < 3.5 (<3.5-35.0) ng/L Total Protein (6.5-8.0) g/dL Albumin (3.5-5.0) g/dL Urine Color BREANNA Urine Appearance HAZY Urine pH 6.5 (5.0-8.0) Ur Specific [place] 1.015 (1.005-1.025) Urine Protein TRACE (NEG-TRACE) MG/DL Urine Glucose (UA) NEG (NEG) MG/DL Urine Ketones NEG (NEG) MG/DL Urine Blood NEG (NEG) Urine Nitrite NEG (NEG) Ur Leukocyte Esterase NEG (NEG) COVID-19 ([facility]) (Negative) COVID-19 Clin Com 12/29/20 12/29/20 12/29/20 Range/Units 01:04 02:23 02:23 WBC (4.8-10.8) X10*3/uL RBC (4.60-5.80) X10*6/uL Hgb (14.0-18.0) g/dl Hct (42-52) % MCV (80-98) fL MCH (27.0-33.0) pg MCHC (31.0-36.0) g/dl RDW (11.0-16.0) % Plt Count (160-400) X10*3/uL MPV (9.4-12.4) fL Immature Gran % (Auto) (0.0-0.4) % Neut % (Auto) (45-73) % Lymph % (Auto) (20-40) % Will % (Auto) (2-11) % Eos % (Auto) (0-4) % Baso % (Auto) (0-2) % Lymph # (Auto) (1.2-4.9) X10*3/uL Will # (Auto) (0.1-1.2) X10*3/uL Eos # (Auto) (0.0-0.4) X10*3/uL Baso # (Auto) (0.0-0.2) X10*3/uL Abs Immat Gran (auto) (0.00-0.03) X10*3/uL Absolute Neuts (auto) (2.0-8.3) X10*3/uL Absolute Nucleated RBC (0.0-0.012) X10*3/uL Nucleated RBC % (auto) (0.0-0.2) /100WBC PT (10.8-13.0) SEC INR (0.9-1.1) Hold Blue Top Sodium 128 L (135-145) mmol/L Potassium 3.9 (3.3-5.1) mmol/L Chloride 107 (96-108) mmol/L Carbon Dioxide 17 L (22-29) mmol/L Anion Gap 8 L (12-20) BUN 12 (9-16) mg/dL Creatinine 0.75 (0.5-1.4) mg/dL Estim Creat Clear Calc 91.8 Estimated GFR > 60 Random Glucose 178 H (60-115) mg/dL Lactic Acid (0.5-2.0) mmol/L Calcium 7.8 L (8.4-10.2) mg/dL Magnesium 1.7 (1.6-2.6) mg/dL Total Bilirubin 2.9 H 3.0 H (0.0-1.0) mg/dL Direct Bilirubin 1.4 H (0.0-0.5) mg/dL AST 29 29 (5-37) U/L ALT 28 29 (0-40) U/L Alkaline Phosphatase 99 102 (39-117) U/L Ammonia (13-55) umol/L Troponin I High Sens (<3.5-35.0) ng/L Total Protein 8.2 H 8.2 H (6.5-8.0) g/dL Albumin 2.6 L 2.6 L (3.5-5.0) g/dL Urine Color Urine Appearance Urine pH (5.0-8.0) Ur Specific [place] (1.005-1.025) Urine Protein (NEG-TRACE) MG/DL Urine Glucose (UA) (NEG) MG/DL Urine Ketones (NEG) MG/DL Urine Blood (NEG) Urine Nitrite (NEG) Ur Leukocyte Esterase (NEG) COVID-19 ([facility]) Negative (Negative) COVID-19 Clin Com See Note <Ilana Maria NP - Last Filed: 12/29/20 02:29> Lab Results 12/29/20 12/29/20 12/29/20 Range/Units 01:02 01:02 01:03 WBC 4.8 (4.8-10.8) X10*3/uL RBC 3.16 L (4.60-5.80) X10*6/uL Hgb 10.5 L (14.0-18.0) g/dl Hct 30.7 L (42-52) % MCV 97.2 (80-98) fL MCH 33.2 H (27.0-33.0) pg MCHC 34.2 (31.0-36.0) g/dl RDW 15.2 (11.0-16.0) % Plt Count 77 L (160-400) X10*3/uL MPV 13.1 H (9.4-12.4) fL Immature Gran % (Auto) 0.4 (0.0-0.4) % Neut % (Auto) 81.6 H (45-73) % Lymph % (Auto) 8.3 L (20-40) % Will % (Auto) 9.5 (2-11) % Eos % (Auto) 0.0 (0-4) % Baso % (Auto) 0.2 (0-2) % Lymph # (Auto) 0.4 L (1.2-4.9) X10*3/uL Will # (Auto) 0.5 (0.1-1.2) X10*3/uL Eos # (Auto) 0.0 (0.0-0.4) X10*3/uL Baso # (Auto) 0.0 (0.0-0.2) X10*3/uL Abs Immat Gran (auto) 0.02 (0.00-0.03) X10*3/uL Absolute Neuts (auto) 3.9 (2.0-8.3) X10*3/uL Absolute Nucleated RBC 0.000 (0.0-0.012) X10*3/uL Nucleated RBC % (auto) 0.0 (0.0-0.2) /100WBC PT (10.8-13.0) SEC INR (0.9-1.1) Hold Blue Top Sodium (135-145) mmol/L Potassium (3.3-5.1) mmol/L Chloride (96-108) mmol/L Carbon Dioxide (22-29) mmol/L Anion Gap (12-20) BUN (9-16) mg/dL Creatinine (0.5-1.4) mg/dL Estim Creat Clear Calc Estimated GFR Random Glucose (60-115) mg/dL Lactic Acid 2.0 (0.5-2.0) mmol/L Calcium (8.4-10.2) mg/dL Magnesium (1.6-2.6) mg/dL Total Bilirubin (0.0-1.0) mg/dL Direct Bilirubin (0.0-0.5) mg/dL AST (5-37) U/L ALT (0-40) U/L Alkaline Phosphatase (39-117) U/L Ammonia 66 H (13-55) umol/L Troponin I High Sens (<3.5-35.0) ng/L Total Protein (6.5-8.0) g/dL Albumin (3.5-5.0) g/dL Urine Color Urine Appearance Urine pH (5.0-8.0) Ur Specific [place] (1.005-1.025) Urine Protein (NEG-TRACE) MG/DL Urine Glucose (UA) (NEG) MG/DL Urine Ketones (NEG) MG/DL Urine Blood (NEG) Urine Nitrite (NEG) Ur Leukocyte Esterase (NEG) COVID-19 ([facility]) (Negative) COVID-19 Clin Com 12/29/20 12/29/20 12/29/20 Range/Units 01:03 01:03 01:04 WBC (4.8-10.8) X10*3/uL RBC (4.60-5.80) X10*6/uL Hgb (14.0-18.0) g/dl Hct (42-52) % MCV (80-98) fL MCH (27.0-33.0) pg MCHC (31.0-36.0) g/dl RDW (11.0-16.0) % Plt Count (160-400) X10*3/uL MPV (9.4-12.4) fL Immature Gran % (Auto) (0.0-0.4) % Neut % (Auto) (45-73) % Lymph % (Auto) (20-40) % Will % (Auto) (2-11) % Eos % (Auto) (0-4) % Baso % (Auto) (0-2) % Lymph # (Auto) (1.2-4.9) X10*3/uL Will # (Auto) (0.1-1.2) X10*3/uL Eos # (Auto) (0.0-0.4) X10*3/uL Baso # (Auto) (0.0-0.2) X10*3/uL Abs Immat Gran (auto) (0.00-0.03) X10*3/uL Absolute Neuts (auto) (2.0-8.3) X10*3/uL Absolute Nucleated RBC (0.0-0.012) X10*3/uL Nucleated RBC % (auto) (0.0-0.2) /100WBC PT 17.6 H (10.8-13.0) SEC INR 1.5 H (0.9-1.1) Hold Blue Top SEE NOTE Sodium (135-145) mmol/L Potassium (3.3-5.1) mmol/L Chloride (96-108) mmol/L Carbon Dioxide (22-29) mmol/L Anion Gap (12-20) BUN (9-16) mg/dL Creatinine (0.5-1.4) mg/dL Estim Creat Clear Calc Estimated GFR Random Glucose (60-115) mg/dL Lactic Acid (0.5-2.0) mmol/L Calcium (8.4-10.2) mg/dL Magnesium (1.6-2.6) mg/dL Total Bilirubin (0.0-1.0) mg/dL Direct Bilirubin (0.0-0.5) mg/dL AST (5-37) U/L ALT (0-40) U/L Alkaline Phosphatase (39-117) U/L Ammonia (13-55) umol/L Troponin I High Sens < 3.5 (<3.5-35.0) ng/L Total Protein (6.5-8.0) g/dL Albumin (3.5-5.0) g/dL Urine Color BREANNA Urine Appearance HAZY Urine pH 6.5 (5.0-8.0) Ur Specific [place] 1.015 (1.005-1.025) Urine Protein TRACE (NEG-TRACE) MG/DL Urine Glucose (UA) NEG (NEG) MG/DL Urine Ketones NEG (NEG) MG/DL Urine Blood NEG (NEG) Urine Nitrite NEG (NEG) Ur Leukocyte Esterase NEG (NEG) COVID-19 ([facility]) (Negative) COVID-19 Clin Com 12/29/20 12/29/20 12/29/20 Range/Units 01:04 02:23 02:23 WBC (4.8-10.8) X10*3/uL RBC (4.60-5.80) X10*6/uL Hgb (14.0-18.0) g/dl Hct (42-52) % MCV (80-98) fL MCH (27.0-33.0) pg MCHC (31.0-36.0) g/dl RDW (11.0-16.0) % Plt Count (160-400) X10*3/uL MPV (9.4-12.4) fL Immature Gran % (Auto) (0.0-0.4) % Neut % (Auto) (45-73) % Lymph % (Auto) (20-40) % Will % (Auto) (2-11) % Eos % (Auto) (0-4) % Baso % (Auto) (0-2) % Lymph # (Auto) (1.2-4.9) X10*3/uL Will # (Auto) (0.1-1.2) X10*3/uL Eos # (Auto) (0.0-0.4) X10*3/uL Baso # (Auto) (0.0-0.2) X10*3/uL Abs Immat Gran (auto) (0.00-0.03) X10*3/uL Absolute Neuts (auto) (2.0-8.3) X10*3/uL Absolute Nucleated RBC (0.0-0.012) X10*3/uL Nucleated RBC % (auto) (0.0-0.2) /100WBC PT (10.8-13.0) SEC INR (0.9-1.1) Hold Blue Top Sodium 128 L (135-145) mmol/L Potassium 3.9 (3.3-5.1) mmol/L Chloride 107 (96-108) mmol/L Carbon Dioxide 17 L (22-29) mmol/L Anion Gap 8 L (12-20) BUN 12 (9-16) mg/dL Creatinine 0.75 (0.5-1.4) mg/dL Estim Creat Clear Calc 91.8 Estimated GFR > 60 Random Glucose 178 H (60-115) mg/dL Lactic Acid (0.5-2.0) mmol/L Calcium 7.8 L (8.4-10.2) mg/dL Magnesium 1.7 (1.6-2.6) mg/dL Total Bilirubin 2.9 H 3.0 H (0.0-1.0) mg/dL Direct Bilirubin 1.4 H (0.0-0.5) mg/dL AST 29 29 (5-37) U/L ALT 28 29 (0-40) U/L Alkaline Phosphatase 99 102 (39-117) U/L Ammonia (13-55) umol/L Troponin I High Sens (<3.5-35.0) ng/L Total Protein 8.2 H 8.2 H (6.5-8.0) g/dL Albumin 2.6 L 2.6 L (3.5-5.0) g/dL Urine Color Urine Appearance Urine pH (5.0-8.0) Ur Specific [place] (1.005-1.025) Urine Protein (NEG-TRACE) MG/DL Urine Glucose (UA) (NEG) MG/DL Urine Ketones (NEG) MG/DL Urine Blood (NEG) Urine Nitrite (NEG) Ur Leukocyte Esterase (NEG) COVID-19 ([facility]) Negative (Negative) COVID-19 Clin Com See Note <Tristan Mendoza MD - Last Filed: 12/29/20 04:24> ECG Data Attestation: I personally reviewed and interpreted this ECG as follows: <Ilana Maria NP - Last Filed: 12/29/20 02:29> ECG interpretation date: 12/29/20 <Ilana Maria NP - Last Filed: 12/29/20 02:29> ECG interpretation time: 00:33 <Ilana Maria NP - Last Filed: 12/29/20 02:29> Interpretation: Normal sinus rhythm with a rate of 100, normal SD, normal QRS, normal QT <Ilana Maria NP - Last Filed: 12/29/20 02:29> Discharge Plan Discharge Clinical Impression: Infarction of spleen <Ilana Maria NP - Last Filed: 12/29/20 02:29> Patient Disposition: Admitted As Inpatient <Ilana Maria NP - Last Filed: 12/29/20 02:29> [facility] Past Medical History Attestation statement: The following information was validated with the patient. <Ilana Maria NP - Last Filed: 12/29/20 02:29> Source: old records reviewed and nursing notes reviewed <Ilana Maria NP - Last Filed: 12/29/20 02:29> Medical History: Medical History Bullous pemphigoid COVID-19 in immunocompromised patient GERD (gastroesophageal reflux disease) Hepatic vein thrombosis Hepatitis C HIV (human immunodeficiency virus infection) Hypocalcemia Hypomagnesemia Lichen simplex chronicus Lung nodule Obesity (BMI 30-39.9) Pancytopenia Perirectal abscess Renal calculi Type 2 diabetes mellitus with hyperglycemia Ulcerative colitis <Ilana Maria NP - Last Filed: 12/29/20 02:29> Surgical History: Surgical History Anal fistula History of esophagogastroduodenoscopy (EGD) History of lithotripsy History of rectal abscess History of removal of ureteral stent History of umbilical hernia repair Hx of cystoscopy <Ilana Maria NP - Last Filed: 12/29/20 02:29> Family History Family History: Family History Father Stroke Mother Diabetes Hypertension CVD (cardiovascular disease) Sister Family history of cervical cancer <Ilana Maria NP - Last Filed: 12/29/20 02:29> Social History Social History: Social History Household Members: Spouse Housing: House Do you presently have visiting nurse or other home services: No Alcohol intake: unknown Patient Tobacco Use Status: Never used Tobacco Advance Directives: Yes Advance Directives on File: Yes Advance Directives Date on File: 10/27/20 service: No Current occupational status: employed <Ilana Maria NP - Last Filed: 12/29/20 02:29>
[2020-12-29 01:09] LABS: Basophils Percent Auto 0.2 % (0-2); Hematocrit 30.7 % (42-52); Hemoglobin 10.5 g/dl (14.0-18.0); Imm Gran Abs Auto 0.02 X10*3/uL (0.00-0.03); Imm Gran Pct Auto 0.4 % (0.0-0.4); Lymphocytes Absolute Auto 0.4 X10*3/uL (1.2-4.9); Lymphocytes Percent Auto 8.3 % (20-40); Mean Corpuscular HGB Conc 34.2 g/dl (31.0-36.0); Mean Corpuscular Hemoglobin 33.2 pg (27.0-33.0); Mean Corpuscular Volume 97.2 fL (80-98); Mean Platelet Volume 13.1 fL (9.4-12.4); Monocytes Absolute Auto 0.5 X10*3/uL (0.1-1.2); Monocytes Percent Auto 9.5 % (2-11); Neutrophils Absolute Auto 3.9 X10*3/uL (2.0-8.3); Neutrophils Percent Auto 81.6 % (45-73); Red Blood Count 3.16 X10*6/uL (4.60-5.80); Red Cell Distribution Width 15.2 % (11.0-16.0); White Blood Count 4.8 X10*3/uL (4.8-10.8)
[2020-12-29 01:10] LABS: MANUAL DIFF FLAG NO
[2020-12-29 01:11] LABS: Appearance Urine HAZY; Color Urine AMBER; Glucose Urine UA NEG (NEG); Leukocyte Esterase Urine NEG (NEG); Nitrite Urine NEG (NEG); PH 6.5 (5.0-8.0); Platelet Count 77 X10*3/uL (160-400); Specific Gravity - Urine 1.015 (1.005-1.025); UACC Culture Trigger NO; Urine Blood NEG (NEG); Urine Ketones NEG (NEG); Urine Protein TRACE MG/DL (NEG-TRACE)
[2020-12-29 01:49] LABS: Troponin-I High Sensitivity < 3.5 ng/L (<3.5-35.0)
[2020-12-29 01:51] LABS: COVID-19 Test Negative (Negative)
[2020-12-29 02:37] LABS: Ammonia 66 umol/L (13-55)
[2020-12-29 02:43] LABS: INTERNATIONAL NORM RATIO 1.5 (0.9-1.1); Prothrombin Time 17.6 SEC (10.8-13.0)
[2020-12-29] MEDS: cefTRIAXone sodium 1 GM in 0.9 % Sodium Chloride 50 ML IV (02:47)
[2020-12-29] MEDS: Morphine Sulfate 4 MG/ML CARTRIDGE IVPUSH ×2 (02:47→05:30)
--- NOTE | 2020-12-29 02:53 | PC.NURSE ---
PT MEDICATED PER EMAR.
[2020-12-29 02:56] LABS: Alanine Aminotransferase 29 U/L (0-40); Albumin Level 2.6 g/dL (3.5-5.0); Alkaline Phosphatase 102 U/L (39-117); Aspartate Amino Transferase 29 U/L (5-37); Bilirubin Direct 1.4 mg/dL (0.0-0.5); Magnesium 1.7 mg/dL (1.6-2.6); Total Protein 8.2 g/dL (6.5-8.0)
[2020-12-29 03:14] LABS: Alanine Aminotransferase 28 U/L (0-40); Albumin Level 2.6 g/dL (3.5-5.0); Alkaline Phosphatase 99 U/L (39-117); Anion Gap 8 (12-20); Aspartate Amino Transferase 29 U/L (5-37); Bilirubin Total 2.9 mg/dL (0.0-1.0); Blood Urea Nitrogen 12 mg/dL (9-16); Calcium 7.8 mg/dL (8.4-10.2); Carbon Dioxide 17 mmol/L (22-29); Chloride 107 mmol/L (96-108); Creatinine Clr Calc Pharmacy 91.8; Estimated Glomerular Filt Rate > 60; Glucose Random 178 mg/dL (60-115); Potassium 3.9 mmol/L (3.3-5.1); Sodium 128 mmol/L (135-145); Total Protein 8.2 g/dL (6.5-8.0)
[2020-12-29] MEDS: Dextrose 5 % and 0.45 % NaCl 1,000 ML 50 ML IVCONT (05:00)
--- NOTE | 2020-12-29 05:01 | P.HPHOSP_ITS ---
History of Present Illness Date of Service: 12/29/20 Chief Complaint: Abdominal pain 55-year-old male with a past medical history of GERD, HIV, hep C, liver cirrhosis, 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 Patient reported that he has been having abdominal pain for the past couple weeks; which has been gradually worsening over the past 3 days. Associated with nausea. Denies any diarrhea. Denies any fevers and chills. Denies any chest pain or palpitations. Denies any urinary symptoms. Patient reported that he was recently presented to the hospital on December 20 when he was diagnosed with splenic infarct and subsequently sent home. Review of all other systems is negative except mentioned above ER course: Per ER team patient noted to have diffuse abdominal tenderness more so on the left side; no guarding no rigidity; CT abdomen showed same findings as the prior CT with splenic infarct, liver cirrhosis and inflammation in the bowel wall concern for colitis. Patient was given ceftriaxone. Patient had low-grade temperatures in the ER. Patient was given pain medicine. Admitted to the hospital for further management. [facility] Medical History Bullous pemphigoid COVID-19 in immunocompromised patient GERD (gastroesophageal reflux disease) Hepatic vein thrombosis Hepatitis C HIV (human immunodeficiency virus infection) Hypocalcemia Hypomagnesemia Lichen simplex chronicus Lung nodule Obesity (BMI 30-39.9) Pancytopenia Perirectal abscess Renal calculi Type 2 diabetes mellitus with hyperglycemia Ulcerative colitis Family History Father Stroke Mother Diabetes Hypertension CVD (cardiovascular disease) Sister Family history of cervical cancer Surgical History Anal fistula History of esophagogastroduodenoscopy (EGD) History of lithotripsy History of rectal abscess History of removal of ureteral stent History of umbilical hernia repair Hx of cystoscopy Social History Household Members: Spouse, Family and Children Housing: Apartment Do you presently have visiting nurse or other home services: No Alcohol intake: unknown Patient Tobacco Use Status: Never used Tobacco Advance Directives Date on File: 10/27/20 service: No Current occupational status: employed Meds Allergies Allergy/AdvReac Type Severity Reaction Status Date / Time acetaminophen [Acetaminophen] Allergy Severe LIVER Verified 12/28/20 20:18 TOXICITY - CANNOT TAKE ACETAMINOPHEN amoxicillin [Augmentin] Allergy Intermediate mouth sores Verified 12/28/20 20:18 clavulanic acid [Augmentin] Allergy Intermediate mouth sores Verified 12/28/20 20:18 Sulfa (Sulfonamide Allergy Intermediate RASH Verified 12/28/20 20:18 Antibiotics) [SULFA (SULFONAMIDE ANTIBIOTICS)] ibuprofen [IBUPROFEN] AdvReac Intermediate BLEEDING Verified 12/28/20 20:18 Active Medications: Current Medications Generic Name Dose Route Start Last Admin Trade Name Freq PRN Reason Stop Dose Admin Enoxaparin Sodium 40 mg 12/29/20 05:00 Enoxaparin Sodium 40 Mg/0.4 Ml Syringe SUBCUT Q24H YONATHAN Hydromorphone HCl 0.5 mg 12/29/20 04:53 Hydromorphone Hcl 0.5 Mg/0.5 Ml Syringe IVPUSH Q4H PRN Breakthrough Pain Ceftriaxone Sodium 1 gm/ 50 mls @ 100 mls/hr 12/29/20 05:00 Sodium Chloride IV Q24H YONATHAN Metronidazole 500 mg in 100 mls @ 100 mls/hr 12/29/20 05:00 Flagyl IV Q8H YONATHAN Dextrose/Sodium Chloride 1,000 mls @ 50 mls/hr 12/29/20 05:00 D51/2ns IVCONT .Q20H [facility] Insulin Human Lispro 0 unit 12/29/20 07:30 Insulin Lispro 100 Unit/Ml 3 Ml Vial SUBCUT QIDACHS [facility] Protocol Magnesium Hydroxide 30 ml 12/29/20 04:54 Milk Of Magnesia 30 Ml Oral.Susp PO DAILY PRN Constipation Sodium Chloride 3 ml 12/29/20 08:00 0.9 % Sodium Chloride Flush 3 Ml Syringe IVFLUSH QSHIFT [facility] Home Medications Medication Instructions Recorded Confirmed Last Taken Type Odefsey 1 tab PO DAILY 04/27/20 12/29/20 Unknown History atovaquone 5 ml PO BID 04/27/20 12/29/20 Unknown History famotidine 40 mg PO BEDTIME 04/27/20 12/29/20 Unknown History mesalamine 800 mg PO TID 04/27/20 12/29/20 Unknown History hydroxyzine HCl 25 mg tablet 50 mg PO Q6H PRN tab 09/01/20 12/29/20 Unknown History blood sugar diagnostic #10 ea 10/06/20 Unknown History Xifaxan 1 tab PO BID 12/29/20 12/29/20 Unknown History allopurinol 1 tab PO DAILY 12/29/20 12/29/20 Unknown History omeprazole 1 cap PO DAILY 12/29/20 12/29/20 Unknown History pyridoxine (vitamin B6) 1 tab PO DAILY 12/29/20 12/29/20 Unknown History spironolactone 1 tab PO BID 12/29/20 12/29/20 Unknown History Physical Exam Vital Signs and Narrative: Vital Signs: Last Vital Signs Temp 99.0 F 12/28/20 22:52 Pulse 103 H 12/28/20 22:52 Resp 18 12/28/20 22:52 BP 129/70 12/28/20 22:52 Pulse Ox 100 12/28/20 22:52 Body Mass Index 26.5 Gen: Appears be in no acute distress HEENT: NCAT, Moist mucosa. Pulmonary: Vesicular breath sounds, fair air entry CVS: Normal S1-S2 Abdomen: BS+, Soft, tender diffusely but more on the left side; no guarding no rigidity Extremities: Warm well perfused Neuro: Alert and awake. Results Labs CBC and Chem 7: 12/31/20 05:39 12/31/20 05:39 Labs: Laboratory Results - last 24 hr 12/29/20 12/29/20 12/29/20 01:02 01:02 01:03 MCV 97.2 MCH 33.2 H MCHC 34.2 RDW 15.2 Plt Count 77 L MPV 13.1 H Immature Gran % (Auto) 0.4 Neut % (Auto) 81.6 H Lymph % (Auto) 8.3 L [place] % (Auto) 9.5 Eos % (Auto) 0.0 Baso % (Auto) 0.2 Lymph # (Auto) 0.4 L [place] # (Auto) 0.5 Eos # (Auto) 0.0 Baso # (Auto) 0.0 Abs Immat Gran (auto) 0.02 Absolute Neuts (auto) 3.9 Absolute Nucleated RBC 0.000 Nucleated RBC % (auto) 0.0 PT INR Hold Blue Top Anion Gap Estim Creat Clear Calc Estimated GFR Random Glucose Lactic Acid 2.0 Calcium Magnesium Total Bilirubin Direct Bilirubin AST ALT Alkaline Phosphatase Ammonia 66 H Troponin I High Sens Total Protein Albumin Urine Color Urine Appearance Urine pH Ur Specific [place] Urine Protein Urine Glucose (UA) Urine Ketones Urine Blood Urine Nitrite Ur Leukocyte Esterase COVID-19 ([facility]) COVID-19 [employer] [employer] Com 12/29/20 12/29/20 12/29/20 01:03 01:03 01:04 MCV MCH MCHC RDW Plt Count MPV Immature Gran % (Auto) Neut % (Auto) Lymph % (Auto) [place] % (Auto) Eos % (Auto) Baso % (Auto) Lymph # (Auto) [place] # (Auto) Eos # (Auto) Baso # (Auto) Abs Immat Gran (auto) Absolute Neuts (auto) Absolute Nucleated RBC Nucleated RBC % (auto) PT 17.6 H INR 1.5 H Hold Blue Top SEE NOTE Anion Gap Estim Creat Clear Calc Estimated GFR Random Glucose Lactic Acid Calcium Magnesium Total Bilirubin Direct Bilirubin AST ALT Alkaline Phosphatase Ammonia Troponin I High Sens < 3.5 Total Protein Albumin Urine Color BREANNA Urine Appearance HAZY Urine pH 6.5 Ur Specific [place] 1.015 Urine Protein TRACE Urine Glucose (UA) NEG Urine Ketones NEG Urine Blood NEG Urine Nitrite NEG Ur Leukocyte Esterase NEG COVID-19 ([facility]) COVID-19 [employer] 12/29/20 12/29/20 12/29/20 01:04 02:23 02:23 MCV MCH MCHC RDW Plt Count MPV Immature Gran % (Auto) Neut % (Auto) Lymph % (Auto) [place] % (Auto) Eos % (Auto) Baso % (Auto) Lymph # (Auto) [place] # (Auto) Eos # (Auto) Baso # (Auto) Abs Immat Gran (auto) Absolute Neuts (auto) Absolute Nucleated RBC Nucleated RBC % (auto) PT INR Hold Blue Top Anion Gap 8 L Estim Creat Clear Calc 91.8 Estimated GFR > 60 Random Glucose 178 H Lactic Acid Calcium 7.8 L Magnesium 1.7 Total Bilirubin 2.9 H 3.0 H Direct Bilirubin 1.4 H AST 29 29 ALT 28 29 Alkaline Phosphatase 99 102 Ammonia Troponin I High Sens Total Protein 8.2 H 8.2 H Albumin 2.6 L 2.6 L Urine Color Urine Appearance Urine pH Ur Specific [place] Urine Protein Urine Glucose (UA) Urine Ketones Urine Blood Urine Nitrite Ur Leukocyte Esterase COVID-19 ([facility]) Negative COVID-19 Clin Com See Note Imaging Radiologist's Impressions: Impressions Abdomen/Pelvis CT 12/29/20 00:08 IMPRESSION: 1. 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 Splenomegaly is unchanged. 2. Marked hepatic cirrhosis with sequela of portal hypertension including portosystemic collaterals. Small volume of intraperitoneal ascites is noted. The generalized mesenteric edema as well as the colonic wall thickening and gallbladder wall thickening are likely due to portal hypertension. Superimposed inflammatory or infectious colitis would be difficult to exclude in this setting. 3. Nephrolithiasis without evidence of obstructive uropathy. Assessment and Plan (1) Infarction of spleen: Status: Acute 55-year-old male with a past medical history of GERD, HIV, hep C, liver cirrhosis, 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 Noted to have a splenic infarct/possible colitis. Admitted for further management Abdominal pain: Multifactorial in the setting of splenic infarct versus colitis. Pain control. Colitis: Will keep the patient on ceftriaxone Flagyl. NPO. IV fluids. Supportive care. Patient has history of ulcerative colitis. Denies any blood in the stool. GI consult for further recommendations. Splenic infarct: CT abdomen showed evolving splenic infarct. Multifactorial. Patient denies any trauma. Patient has history of HIV. Patient also has a history of hepatic vein thrombosis-currently not on anticoagulation. Will give the patient on telemetry to check for any arrhythmias; obtain echocardiogram to look for any emboli General surgery consult Will also consult Hematology for further recommendations. Will also obtain a mesenteric duplex Hyponatremia: Patient has known SIADH. Patient was seen by Nephrology during the prior admission. Will continue to monitor sodium levels. If drops further will consider Nephrology consult. History of HIV: Continue home HIV medications. Id consult. History of diabetes: Insulin sliding scale For all other chronic medical problems, continue home medications pending med rec. DVT prophylaxis: Lovenox Code status: Full code Things to follow-up for the Day team at 7AM: General surgery, Hematology, ID recommendations. Quality Stroke Does the patient have a stroke diagnosis?: No VTE Prior VTE?: No VTE Risk Level:: Medical - moderate - high VTE Device Contraindication: N/A - Device Ordered VTE Drug Contraindication: N/A - Med Ordered
--- NOTE | 2020-12-29 05:15 | PC.NURSE ---
PT RATING PAIN /10. PT MEDICATED FOR PAIN. HOSPITALIST IN ROOM FOR EVAL.
[2020-12-29] MEDS: metroNIDAZOLE/NS 500 MG/100 ML PIGGYBACK 100 MG IV ×2 (06:01→13:54)
[2020-12-29] MEDS: Enoxaparin Sodium 40 MG/0.4 ML SYRINGE SUBCUT (06:02)
[2020-12-29] MEDS: HYDROmorphone HCl 0.5 MG/0.5 ML SYRINGE IVPUSH ×3 (06:24→20:42)
--- NOTE | 2020-12-29 07:30 | CA_ITS ---
Transthoracic Echocardiogram Patient (Last, First, Middle): Phillip Cadet, Gender: Male Date of : 1965 Age: 55 Procedure Date: 12/29/2020 Procedure Type: Transthoracic Echocardiogram Location: [facility] [place] Height: 157.48 cm Weight: 65.77 kg BSA: 1.67 m2 Heart Rate: bpm BP: 119 / 62 mmHg Can Reconditioner: Referring MD: Deondre Kimble MD Symptoms: splenic infarct; abd pain; ?Emboli Conclusions: - Normal left ventricular size, thickness, and systolic function. - Normal right ventricular cavity size and systolic function. - No significant valvular or pericardial pathology. Findings Left Ventricle Normal left ventricular size, thickness, and systolic function. The visually estimated ejection fraction is between 60-65%. There is no evidence of regional wall motion abnormalities. Diastolic function is normal for age. Right Ventricle Normal right ventricular cavity size and systolic function. Atria Both atria are normal in size. Aortic Valve Normal aortic valve structure and function. There is no aortic valve stenosis. There is no aortic valve regurgitation. Mitral Valve Normal mitral valve structure and function. There is no mitral valve regurgitation. There is no mitral valve stenosis. Pulmonic Valve Normal pulmonic valve structure and function. There is no pulmonic valve regurgitation. Tricuspid Valve Likely normal tricuspid valve structure and function. There is trace tricuspid valve regurgitation. Normal right atrial pressure. There is no evidence of pulmonary hypertension. Great Vessels All visible segments of the aorta are normal in size. The visualized portions of the pulmonary artery and branches are normal. Venous The inferior vena cava is normal in size and collapses greater than 50% with inspiration. Pericardium/Pleural There is no evidence of pericardial effusion. Prior Study Comparison No significant change compared to prior study dated: 09/19/2018. Measurements 2D Linear Measurements RVIDd: 3.61 RVIDd Index: 2.16 IVSd: 0.90 0.6-0.9/0.6-1.0 cm LVIDd: 3.85 3.9-5.3/4.2-5.9 cm LVIDd Index: 2.31 2.4-3.2/2.2-3.1 cm/m2 LVIDs: 2.81 2.0-3.6 cm LVPWd: 1.01 0.7-1.1 cm Ao Root: 3.30 2.1-3.5 cm LA Diam: 3.70 2.7-3.8/3.0-4.0 cm LAIDs Index: 2.22 1.5-2.3 cm/m2 LV Mass: 139.60 67-162/88-224 g LV Mass Index: 83.60 43-95/49-115 g/m2 LVOT Diam: 2.10 3.0+(-)1.3 cm 2D Systolic Function EF 4C: 63.70 >55% EF 2C: 63.80 >55% Mitral Valve MV Pk E: 0.71 MV PK A: 0.84 MV Decel Time: 122.00 E/A: 0.80 E'Lateral: 12.50 E'Medial: 8.27 E/E' Med: 8.50 E/E' Lat: 5.70 Aortic Valve AoV Pk Jef: 1.92 AoV Mn Jef: 1.32 AoV VTI: 0.27 AoV Pk Grad: 15.00 Aov Mn Grad: 8.00 MAG Cont.VTI: 2.67 LVOT LVOT Pk Jef: 1.45 LVOT Mn Jef: 1.00 LVOT VTI: 0.21 LVOT Pk Grad: 8.00 LVOT Mn Grad: 5.00 LVOT Diam: 2.10 LVOT Area: 3.46 Diastolic Function MV Pk E: 0.71 MV Pk A: 0.84 E/A: 0.80 E'Medial: 8.27 E/E' Med: 8.50 E' Laterial: 12.50 E/E' Lat: 5.70 Tricuspid Valve TR Pk Jef: 2.38 TR Pk Grad: 23.00 RA Press: 3.00 RVSP: 26.00 Great Vessels Aorta Ao Root-2D: 3.30 2.0-3.7 cm Ao Asc: 2.80 2.1-3.4 cm Ao Arch: 3.10 Updated in Other Vendor System with Status of Final Ezequiel Proctor MD electronically signed on 12/29/2020 1:46:26 PM with status of Final
[2020-12-29 07:49] LABS: Glucose, Whole Blood 165 mg/dL (60-115)
--- NOTE | 2020-12-29 08:25 | PHA.MEDREC ---
Pharmacy Consult ? Medication Reconciliation Pharmacy has completed the medication reconciliation from an overnight admission. Additional medications were added to the home medication list for providers review. Barby Yousif, PharmD
[2020-12-29 08:49] LABS: MANUAL DIFF FLAG NO
[2020-12-29 08:54] LABS: Basophils Percent Auto 0.2 % (0-2); Hematocrit 29.6 % (42-52); Hemoglobin 10.2 g/dl (14.0-18.0); Imm Gran Abs Auto 0.02 X10*3/uL (0.00-0.03); Imm Gran Pct Auto 0.5 % (0.0-0.4); Lymphocytes Absolute Auto 0.4 X10*3/uL (1.2-4.9); Lymphocytes Percent Auto 9.6 % (20-40); Mean Corpuscular HGB Conc 34.5 g/dl (31.0-36.0); Mean Corpuscular Hemoglobin 33.6 pg (27.0-33.0); Mean Corpuscular Volume 97.4 fL (80-98); Mean Platelet Volume 12.5 fL (9.4-12.4); Monocytes Absolute Auto 0.4 X10*3/uL (0.1-1.2); Monocytes Percent Auto 8.4 % (2-11); Neutrophils Absolute Auto 3.6 X10*3/uL (2.0-8.3); Neutrophils Percent Auto 81.3 % (45-73); Red Blood Count 3.04 X10*6/uL (4.60-5.80); Red Cell Distribution Width 15.1 % (11.0-16.0); White Blood Count 4.4 X10*3/uL (4.8-10.8)
[2020-12-29 08:56] LABS: Platelet Count 70 X10*3/uL (160-400)
--- NOTE | 2020-12-29 09:14 | P.CNHO_ITS ---
Subjective - Subjective Chief complaint: Consult for: 1. Splenic infarct. 2. History of DVT. Patient: new to practice Consult date: 12/29/20 Requesting Physician: Bob. Primary Care Provider: Pb Ortiz MD Medical Summary: DIAGNOSIS: Splenic infarct. History of DVT. HPI - Consult Narrative Reason for consult: Consult for: Splenic infarct. Narrative: Phillip Cadet is a pleasant 55 year old gentleman, who presented to the hospital with a chief complaint of abdominal pain. He mentioned that he has been having abdominal pain for the past couple weeks; which has been gradually worsening over the past 3 days. Associated with nausea. Denies any diarrhea. Denies any fevers and chills. He denies any chest pain or palpitations. No urinary symptoms. He recently presented to the hospital on December 20 when he was diagnosed with splenic infarct and subsequently sent home. Review of all other systems is negative except mentioned above ER course: Patient noted to have diffuse abdominal tenderness more so on the left side; no guarding no rigidity;Patient had low-grade temperatures in the ER. CT abdomen showed same findings as the prior CT with splenic infarct, liver cir rhosis and inflammation in the bowel wall concern for colitis. Patient was given ceftriaxone. He was given pain medicine. 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 Imaging with CT scan to be thrombus in the left hepatic vein extending into suprahepatic IVC, small a scites, splenomegaly with multiple splenic infarcts. Recent MRI of the abdomen in August did not show any thrombus or splenic pathology. Hypercoagulable state workup negative for prothrombin gene mutation, factor V Leyden mutation and lupus anticoagulant test. Low protein C, protein S and antithrombin III could be related to acute clot. Started anticoagulation with warfarin. Admitted in April 2019 with reports of intermittent hematochezia and cellulitis. Repeat CT abdomen was negative for DVT. Heparin was discontinued. Review of Systems - Neurologic Reports system reviewed and no additional complaints, except as documented, Denies abnormal speech, Denies dizziness, Denies headache(s), Denies numbness, Denies tingling, Denies weakness [facility] Medical History: Medical History (Last Reviewed 12/29/20 @ 00:58 by Ilana Maria NP) Bullous pemphigoid COVID-19 in immunocompromised patient GERD (gastroesophageal reflux disease) Hepatic vein thrombosis Hepatitis C HIV (human immunodeficiency virus infection) Hypocalcemia Hypomagnesemia Lichen simplex chronicus Lung nodule Obesity (BMI 30-39.9) Pancytopenia Perirectal abscess Renal calculi Type 2 diabetes mellitus with hyperglycemia Ulcerative colitis Functional capacity: independent ambulation Patient : No Family History: Family History (Last Reviewed 12/29/20 @ 00:58 by Ilana Maria NP) Father Stroke Mother Diabetes Hypertension CVD (cardiovascular disease) Sister Family history of cervical cancer Surgical History: Surgical History (Last Reviewed 12/29/20 @ 00:58 by Ilana Maria NP) Anal fistula History of esophagogastroduodenoscopy (EGD) History of lithotripsy History of rectal abscess History of removal of ureteral stent History of umbilical hernia repair Hx of cystoscopy Social History: Social History (Last Reviewed 12/29/20 @ 00:58 by Ilana Maria NP) Living Situation History: Household Members: Spouse Household Members: Family Household Members: Children Housing: Apartment Do you presently have visiting nurse or other home services: No Alcohol History: Alcohol intake: unknown Alcohol History Details: Alcohol intake frequency: does not drink Tobacco History: Patient Tobacco Use Status: Never used Tobacco Advance Directives: Advance Directives Date on File: 10/27/20 Occupation Assessmet: service: No Current occupational status: employed Home Medications and Allergies Current Medications: Current Medications Generic Name Dose Route Start Last Admin Trade Name Freq PRN Reason Stop Dose Admin Allopurinol 100 mg 12/29/20 09:00 Allopurinol 100 Mg Tablet PO DAILY ON LICENSE OF [facility] Atovaquone 750 mg 12/29/20 09:00 Atovaquone 750 Mg/5 Ml Oral.Susp PO BID YONATHAN Emtricitabine/Tenofovir Alafenamide 1 tab 12/29/20 09:00 Emtricitabine/Tenofov Alafenam Tablet PO DAILY ON LICENSE OF [facility] Enoxaparin Sodium 40 mg 12/29/20 05:00 12/29/20 06:02 Enoxaparin Sodium 40 Mg/0.4 Ml Syringe SUBCUT 40 mg Q24H YONAHTAN Administration Hydromorphone HCl 0.5 mg 12/29/20 04:53 12/29/20 06:24 Hydromorphone Hcl 0.5 Mg/0.5 Ml Syringe IVPUSH 0.5 mg Q4H PRN Administration Breakthrough Pain Hydroxyzine HCl 50 mg 12/29/20 08:42 Hydroxyzine Hcl 25 Mg Tablet PO Q6H PRN bullous pemphigoid Ceftriaxone Sodium 1 gm/ 50 mls @ 100 mls/hr 12/29/20 22:00 Sodium Chloride IV Q24H ON LICENSE OF [facility] Metronidazole 500 mg in 100 mls @ 100 mls/hr 12/29/20 05:00 12/29/20 07:01 Flagyl IV Infused Q8H ON LICENSE OF [facility] Infusion Dextrose/Sodium Chloride 1,000 mls @ 50 mls/hr 12/29/20 05:00 12/29/20 05:00 D51/2ns IVCONT 50 mls/hr .Q20H ON LICENSE OF [facility] Administration Insulin Human Lispro 0 - 10 unit 12/29/20 07:30 12/29/20 07:50 Insulin Lispro 100 Unit/Ml 3 Ml Vial SUBCUT Not Given QIDACHS ON LICENSE OF [facility] Protocol Magnesium Hydroxide 30 ml 12/29/20 04:54 Milk Of Magnesia 30 Ml Oral.Susp PO DAILY PRN Constipation Mesalamine 800 mg 12/29/20 15:00 Mesalamine 400 Mg Cap.Drtab. PO TID ON LICENSE OF [facility] Pharmacy Consult 1 each 12/29/20 08:26 Consult Rx Perform Med Rec MISCELLANE ONCE PRN Consult order Potassium Chloride 20 meq 12/29/20 09:00 Potassium Chloride Er 20 Meq Tab.Er.Prt PO BID ON LICENSE OF [facility] Pyridoxine HCl 100 mg 12/29/20 09:00 Pyridoxine Hcl (Vitamin B6) 50 Mg Tablet PO DAILY ON LICENSE OF [facility] Rifaximin 550 mg 12/29/20 09:00 Rifaximin 550 Mg Tablet PO BID ON LICENSE OF [facility] Rilpivirine 25 mg 12/29/20 09:00 Rilpivirine Hcl 25 Mg Tablet PO DAILY ON LICENSE OF [facility] Sodium Chloride 3 ml 12/29/20 08:00 12/29/20 08:29 0.9 % Sodium Chloride Flush 3 Ml Syringe IVFLUSH Not Given QSHIFT ON LICENSE OF [facility] Spironolactone 50 mg 12/29/20 09:00 Spironolactone 25 Mg Tablet PO BID ON LICENSE OF [facility] Protocol Home Medications Medication Instructions Recorded Confirmed Type Odefsey 1 tab PO DAILY 04/27/20 12/29/20 History atovaquone 5 ml PO BID 04/27/20 12/29/20 History famotidine 40 mg PO BEDTIME 04/27/20 12/29/20 History mesalamine 800 mg PO TID 04/27/20 12/29/20 History hydroxyzine HCl 25 mg tablet 50 mg PO Q6H PRN tab 09/01/20 12/29/20 History blood sugar diagnostic #10 ea 10/06/20 History Xifaxan 1 tab PO BID 12/29/20 12/29/20 History allopurinol 1 tab PO DAILY 12/29/20 12/29/20 History omeprazole 1 cap PO DAILY 12/29/20 12/29/20 History pyridoxine (vitamin B6) 1 tab PO DAILY 12/29/20 12/29/20 History spironolactone 1 tab PO BID 12/29/20 12/29/20 History Allergies Allergy/AdvReac Type Severity Reaction Status Date / Time acetaminophen [Acetaminophen] Allergy Severe LIVER Verified 12/28/20 20:18 TOXICITY - CANNOT TAKE ACETAMINOPHEN amoxicillin [Augmentin] Allergy Intermediate mouth sores Verified 12/28/20 20:18 clavulanic acid [Augmentin] Allergy Intermediate mouth sores Verified 12/28/20 20:18 Sulfa (Sulfonamide Allergy Intermediate RASH Verified 12/28/20 20:18 Antibiotics) [SULFA (SULFONAMIDE ANTIBIOTICS)] ibuprofen [IBUPROFEN] AdvReac Intermediate BLEEDING Verified 12/28/20 20:18 Physical Exam Vital signs: Vital Signs Temp 97.5 F 12/29/20 07:41 Pulse 105 H 12/29/20 07:41 Resp 20 12/29/20 07:41 BP 110/59 L 12/29/20 07:41 Pulse Ox 100 12/29/20 07:41 Intake & Output 12/28/20 12/29/20 12/29/20 18:59 06:59 18:59 Intake Total 50 / 50 100 / 100 Balance 50 / 50 100 / 100 Intake: Intake, IV Amount 50 / 50 100 / 100 cefTRIAXone sodium 1 gm In 0.9 50 / 50 % Sodium Chloride 50 ml @ 100 mls/hr IV ONCE ONE Rx#: [id number] metroNIDAZOLE/NS 500 mg In 100 100 / 100 ml @ 100 mls/hr IV Q8H ON LICENSE OF [facility] Rx#: [id number] Other: Weight 65.771 kg Weight 65.771 kg - Constitutional Present: mild distress - Routine HEENT Exam Head: Present: normal inspection Eye: Present: EOMI ENT: Present: normal exam - Routine Neck Exam Present: supple, full ROM. Absent: JVD - Routine Respiratory Exam Present: CTAB - Routine Cardiovascular Exam Cardiovascular: Present: RRR, S1, S2. Absent: S3, S4 - Routine Abdominal Exam Present: normal bowel sounds, tenderness. Absent: organomegaly - Routine Extremities Exam Present: nontender. Absent: calf tenderness - Routine Skin Exam Present: intact, normal turgor. Absent: cyanosis - Routine Neurological Exam Present: alert, oriented X3 Hem/Onc Consult Result - Labs CBC & Chem 7: 12/31/20 05:39 12/31/20 05:39 Labs: Short CBC 12/29/20 12/29/20 Range/Units 01:03 08:43 WBC 4.8 4.4 L (4.8-10.8) X10*3/uL Hgb 10.5 L 10.2 L (14.0-18.0) g/dl Hct 30.7 L 29.6 L (42-52) % Plt Count 77 L 70 L (160-400) X10*3/uL BMP 12/29/20 02:23 Sodium 128 L Potassium 3.9 Chloride 107 Carbon Dioxide 17 L BUN 12 Creatinine 0.75 Calcium 7.8 L Liver Function 12/29/20 12/29/20 Range/Units 02:23 02:23 Total Bilirubin 2.9 H 3.0 H (0.0-1.0) mg/dL Direct Bilirubin 1.4 H (0.0-0.5) mg/dL AST 29 29 (5-37) U/L ALT 28 29 (0-40) U/L Alkaline Phosphatase 99 102 (39-117) U/L Albumin 2.6 L 2.6 L (3.5-5.0) g/dL Urine 12/29/20 Range/Units 01:03 Urine Color BREANNA Urine Appearance HAZY Urine pH 6.5 (5.0-8.0) Ur Specific [place] 1.015 (1.005-1.025) Urine Protein TRACE (NEG-TRACE) MG/DL Urine Glucose (UA) NEG (NEG) MG/DL Assessment and Plan (1) Infarction of spleen Status: Acute This is a 55-year-old gentleman with history of HIV disease and hepatitis-C. He has been noted to have splenic infarct. CT scan of the abdomen revealed: 1. 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 Splenomegaly is unchanged. 2. Marked hepatic cirrhosis with sequela of portal hypertension including portosystemic collaterals. Small volume of intraperitoneal ascites is noted. The generalized mesenteric edema as well as the colonic wall thickening and gallbladder wall thickening are likely due to portal hypertension. Superimposed inflammatory or infectious colitis would be difficult to exclude in this setting. 3. Nephrolithiasis without evidence of obstructive uropathy. Apparently the splenic infarcts are not new. He has had these off and on, over the years. The infarcts were noted on the April 27, 2020, CT scan. In September 2018, he developed left upper quadrant pain. Imaging with CT scan showed thrombus in the left hepatic vein extending into suprahepatic IVC, small ascites, splenomegaly with multiple splenic infarcts. MRI of the abdomen in August, did not show any thrombus or splenic pathology. Hypercoagulable state workup negative for prothrombin gene mutation, factor V Leiden mutation and lupus anticoagulant test. Low protein C, protein S and antithrombin III could be related to acute clot. Started anticoagulation with warfarin. Admitted in April 2019 with reports of intermittent hematochezia and cellulitis. Repeat CT abdomen was negative for DVT. Anticoagulation was discontinued. The most common causes of splenic infarction are hematological disease or thromboembolism. Cardiogenic emboli being the predominant etiology and atrial fibrillation frequent. Other rare causes include autoimmune disease, vasculitis, associated with infection,( VZV, infective endocarditis, HIV, TB, fungal are rickettsial infection.) hematological malignancy, trauma, or a, wandering splenic artery. Silent antiphospholipid syndrome. Most common presentation is with abdominal pain in the left upper quadrant. Associated symptoms: Leukocytosis, increased LDH. Management is mostly symptomatic. Surgery is only considered in the presence of complications it is bleeding, abscess or pseudocyst formation. One can consider anticoagulation however, need to consider the risk of bleeding, in a cirrhotic patient. The NOACs are contraindicated with Child Godinez score C. Weighing the risk and benefit ratio, I would consider conservative therapy. PLAN: To continue conservative therapy and Pain management. Follow-up imaging. Thank you for this consult, will follow, CC: Dr. Ortiz. Dr. Suarez.
--- NOTE | 2020-12-29 09:27 | P.CONGS_ITS ---
History of Present Illness Consult details Consult date: 12/29/20 Narrative: 55-year-old male referred for infarct. He describes the left flank pain for well weeks now. He actually went to the ER last 12/20/2020. He had a CAT scan done there which on review, actually showed some changes in the spleen suggestive of an infarct. He came back to the ER last night and a repeat CT scan was done which showed similar findings consistent with a splenic infarct. He does have a long history of cirrhosis and chronic liver disease. His CAT scan also showed suggestion of colitis but does not have any diarrhea or any other pain or tenderness on the rest of his abdomen. He describes as having been losing weight steadily. He says that he has not been in good health overall for a year now. He feels that he is health has been declining slowly. He denies any nausea or vomiting. He also has had some significant shortness of breath especially with exertion for the past month or so. Review of Systems Constitutional: Constitutional: Denies chills, Reports fatigue, Denies fever(s) and Reports weight loss Cardiovascular: Cardiovascular: Denies chest pain, Reports dyspnea and Reports dyspnea on exertion Respiratory: Respiratory: Denies cough, Reports dyspnea and Reports dyspnea on exertion Gastrointestinal: Gastrointestinal: Denies hematochezia and Denies change in bowel habits Genitourinary: Genitourinary: Denies hematuria and Denies difficulty urinating Musculoskeletal: Musculoskeletal: Denies back pain and Denies limited range of motion Neurologic: Denies focal weakness and Denies convulsions Psychiatric: Psychiatric: Denies depression and Denies mood swings Endocrine: Endocrine: Reports fatigue PMFSH Past Medical History Medical History Bullous pemphigoid COVID-19 in immunocompromised patient GERD (gastroesophageal reflux disease) Hepatic vein thrombosis Hepatitis C HIV (human immunodeficiency virus infection) Hypocalcemia Hypomagnesemia Lichen simplex chronicus Lung nodule Obesity (BMI 30-39.9) Pancytopenia Perirectal abscess Renal calculi Type 2 diabetes mellitus with hyperglycemia Ulcerative colitis Functional capacity: independent ambulation Family History Family History Father Stroke Mother Diabetes Hypertension CVD (cardiovascular disease) Sister Family history of cervical cancer Surgical History Surgical History Anal fistula History of esophagogastroduodenoscopy (EGD) History of lithotripsy History of rectal abscess History of removal of ureteral stent History of umbilical hernia repair Hx of cystoscopy Social History Social History Household Members: Spouse, Family and Children Housing: Apartment Do you presently have visiting nurse or other home services: No Alcohol intake: unknown Patient Tobacco Use Status: Never used Tobacco Advance Directives Date on File: 10/27/20 service: No Current occupational status: employed Meds Allergies Allergy/AdvReac Type Severity Reaction Status Date / Time acetaminophen [Acetaminophen] Allergy Severe LIVER Verified 12/28/20 20:18 TOXICITY - CANNOT TAKE ACETAMINOPHEN amoxicillin [Augmentin] Allergy Intermediate mouth sores Verified 12/28/20 20:18 clavulanic acid [Augmentin] Allergy Intermediate mouth sores Verified 12/28/20 20:18 Sulfa (Sulfonamide Allergy Intermediate RASH Verified 12/28/20 20:18 Antibiotics) [SULFA (SULFONAMIDE ANTIBIOTICS)] ibuprofen [IBUPROFEN] AdvReac Intermediate BLEEDING Verified 12/28/20 20:18 Active Medications: Current Medications Generic Name Dose Route Start Last Admin Trade Name Freq PRN Reason Stop Dose Admin Allopurinol 100 mg 12/29/20 09:00 Allopurinol 100 Mg Tablet PO DAILY YONATHAN Atovaquone 750 mg 12/29/20 09:00 Atovaquone 750 Mg/5 Ml Oral.Susp PO BID YONATHAN Emtricitabine/Tenofovir Alafenamide 1 tab 12/29/20 09:00 Emtricitabine/Tenofov Alafenam Tablet PO DAILY YONATHAN Enoxaparin Sodium 40 mg 12/29/20 05:00 12/29/20 06:02 Enoxaparin Sodium 40 Mg/0.4 Ml Syringe SUBCUT 40 mg Q24H YONATHAN Administration Hydromorphone HCl 0.5 mg 12/29/20 04:53 12/29/20 06:24 Hydromorphone Hcl 0.5 Mg/0.5 Ml Syringe IVPUSH 0.5 mg Q4H PRN Administration Breakthrough Pain Hydroxyzine HCl 50 mg 12/29/20 08:42 Hydroxyzine Hcl 25 Mg Tablet PO Q6H PRN bullous pemphigoid Ceftriaxone Sodium 1 gm/ 50 mls @ 100 mls/hr 12/29/20 22:00 Sodium Chloride IV Q24H [facility] Metronidazole 500 mg in 100 mls @ 100 mls/hr 12/29/20 05:00 12/29/20 07:01 Flagyl IV Infused Q8H [facility] Infusion Dextrose/Sodium Chloride 1,000 mls @ 50 mls/hr 12/29/20 05:00 12/29/20 05:00 D51/2ns IVCONT 50 mls/hr .Q20H [facility] Administration Insulin Human Lispro 0 - 10 unit 12/29/20 07:30 12/29/20 07:50 Insulin Lispro 100 Unit/Ml 3 Ml Vial SUBCUT Not Given QIDACHS [facility] Protocol Magnesium Hydroxide 30 ml 12/29/20 04:54 Milk Of Magnesia 30 Ml Oral.Susp PO DAILY PRN Constipation Mesalamine 800 mg 12/29/20 15:00 Mesalamine 400 Mg Cap.Drtab. PO TID [facility] Pharmacy Consult 1 each 12/29/20 08:26 Consult Rx Perform Med Rec MISCELLANE ONCE PRN Consult order Potassium Chloride 20 meq 12/29/20 09:00 Potassium Chloride Er 20 Meq Tab.Er.Prt PO BID [facility] Pyridoxine HCl 100 mg 12/29/20 09:00 Pyridoxine Hcl (Vitamin B6) 50 Mg Tablet PO DAILY [facility] Rifaximin 550 mg 12/29/20 09:00 Rifaximin 550 Mg Tablet PO BID [facility] Rilpivirine 25 mg 12/29/20 09:00 Rilpivirine Hcl 25 Mg Tablet PO DAILY [facility] Sodium Chloride 3 ml 12/29/20 08:00 12/29/20 08:29 0.9 % Sodium Chloride Flush 3 Ml Syringe IVFLUSH Not Given QSHIFT [facility] Spironolactone 50 mg 12/29/20 09:00 Spironolactone 25 Mg Tablet PO BID [facility] Protocol Home Medications Medication Instructions Recorded Confirmed Last Taken Type Odefsey 1 tab PO DAILY 04/27/20 12/29/20 Unknown History atovaquone 5 ml PO BID 04/27/20 12/29/20 Unknown History famotidine 40 mg PO BEDTIME 04/27/20 12/29/20 Unknown History mesalamine 800 mg PO TID 04/27/20 12/29/20 Unknown History hydroxyzine HCl 25 mg tablet 50 mg PO Q6H PRN tab 09/01/20 12/29/20 Unknown Hi story blood sugar diagnostic #10 ea 10/06/20 Unknown History Xifaxan 1 tab PO BID 12/29/20 12/29/20 Unknown History allopurinol 1 tab PO DAILY 12/29/20 12/29/20 Unknown History omeprazole 1 cap PO DAILY 12/29/20 12/29/20 Unknown History pyridoxine (vitamin B6) 1 tab PO DAILY 12/29/20 12/29/20 Unknown History spironolactone 1 tab PO BID 12/29/20 12/29/20 Unknown History Physical Exam Vital Signs: Vital Signs: Last Vital Signs Temp 97.5 F 12/29/20 07:41 Pulse 105 H 12/29/20 07:41 Resp 20 12/29/20 07:41 BP 110/59 L 12/29/20 07:41 Pulse Ox 100 12/29/20 07:41 Body Mass Index 26.5 Const: Other: Appears short of breath Orientation/consciousness: patient oriented x3 Neck: Neck: Yes no lymphadenopathy Resp: Auscultation: clear to auscultation bilaterally Cardio: Rhythm: regular rhythm GI: Other: Tender in the left flank, left upper quadrant Palpation (GI): Soft to palpation, no guarding and not rigid Neuro: General: patient oriented x3 Results Labs Result diagrams: 12/31/20 05:39 12/31/20 05:39 Labs: Abnormal lab results 12/29/20 12/29/20 12/29/20 Range/Units 01:02 01:03 01:03 WBC (4.8-10.8) X10*3/uL RBC 3.16 L (4.60-5.80) X10*6/uL Hgb 10.5 L (14.0-18.0) g/dl Hct 30.7 L (42-52) % MCH 33.2 H (27.0-33.0) pg Plt Count 77 L (160-400) X10*3/uL MPV 13.1 H (9.4-12.4) fL Immature Gran % (Auto) (0.0-0.4) % Neut % (Auto) 81.6 H (45-73) % Lymph % (Auto) 8.3 L (20-40) % Lymph # (Auto) 0.4 L (1.2-4.9) X10*3/uL PT 17.6 H (10.8-13.0) SEC INR 1.5 H (0.9-1.1) Sodium (135-145) mmol/L Carbon Dioxide (22-29) mmol/L Anion Gap (12-20) POC Glucose (60-115) mg/dL Random Glucose (60-115) mg/dL Calcium (8.4-10.2) mg/dL Total Bilirubin (0.0-1.0) mg/dL Direct Bilirubin (0.0-0.5) mg/dL Ammonia 66 H (13-55) umol/L Total Protein (6.5-8.0) g/dL Albumin (3.5-5.0) g/dL 12/29/20 12/29/20 12/29/20 Range/Units 02:23 02:23 07:40 WBC (4.8-10.8) X10*3/uL RBC (4.60-5.80) X10*6/uL Hgb (14.0-18.0) g/dl Hct (42-52) % MCH (27.0-33.0) pg Plt Count (160-400) X10*3/uL MPV (9.4-12.4) fL Immature Gran % (Auto) (0.0-0.4) % Neut % (Auto) (45-73) % Lymph % (Auto) (20-40) % Lymph # (Auto) (1.2-4.9) X10*3/uL PT (10.8-13.0) SEC INR (0.9-1.1) Sodium 128 L (135-145) mmol/L Carbon Dioxide 17 L (22-29) mmol/L Anion Gap 8 L (12-20) POC Glucose 165 H (60-115) mg/dL Random Glucose 178 H (60-115) mg/dL Calcium 7.8 L (8.4-10.2) mg/dL Total Bilirubin 2.9 H 3.0 H (0.0-1.0) mg/dL Direct Bilirubin 1.4 H (0.0-0.5) mg/dL Ammonia (13-55) umol/L Total Protein 8.2 H 8.2 H (6.5-8.0) g/dL Albumin 2.6 L 2.6 L (3.5-5.0) g/dL 12/29/20 Range/Units 08:43 WBC 4.4 L (4.8-10.8) X10*3/uL RBC 3.04 L (4.60-5.80) X10*6/uL Hgb 10.2 L (14.0-18.0) g/dl Hct 29.6 L (42-52) % MCH 33.6 H (27.0-33.0) pg Plt Count 70 L (160-400) X10*3/uL MPV 12.5 H (9.4-12.4) fL Immature Gran % (Auto) 0.5 H (0.0-0.4) % Neut % (Auto) 81.3 H (45-73) % Lymph % (Auto) 9.6 L (20-40) % Lymph # (Auto) 0.4 L (1.2-4.9) X10*3/uL PT (10.8-13.0) SEC INR (0.9-1.1) Sodium (135-145) mmol/L Carbon Dioxide (22-29) mmol/L Anion Gap (12-20) POC Glucose (60-115) mg/dL Random Glucose (60-115) mg/dL Calcium (8.4-10.2) mg/dL Total Bilirubin (0.0-1.0) mg/dL Direct Bilirubin (0.0-0.5) mg/dL Ammonia (13-55) umol/L Total Protein (6.5-8.0) g/dL Albumin (3.5-5.0) g/dL Short CBC 12/29/20 12/29/20 Range/Units 01:03 08:43 WBC 4.8 4.4 L (4.8-10.8) X10*3/uL Hgb 10.5 L 10.2 L (14.0-18.0) g/dl Hct 30.7 L 29.6 L (42-52) % Plt Count 77 L 70 L (160-400) X10*3/uL BMP 12/29/20 02:23 Sodium 128 L Potassium 3.9 Chloride 107 Carbon Dioxide 17 L BUN 12 Creatinine 0.75 Calcium 7.8 L Liver Function 12/29/20 12/29/20 Range/Units 02:23 02:23 Total Bilirubin 2.9 H 3.0 H (0.0-1.0) mg/dL Direct Bilirubin 1.4 H (0.0-0.5) mg/dL AST 29 29 (5-37) U/L ALT 28 29 (0-40) U/L Alkaline Phosphatase 99 102 (39-117) U/L Albumin 2.6 L 2.6 L (3.5-5.0) g/dL Urine 12/29/20 Range/Units 01:03 Urine Color BREANNA Urine Appearance HAZY Urine pH 6.5 (5.0-8.0) Ur Specific [place] 1.015 (1.005-1.025) Urine Protein TRACE (NEG-TRACE) MG/DL Urine Glucose (UA) NEG (NEG) MG/DL All other labs normal. Imaging Abdomen CT scan report/results: report reviewed and image reviewed CT scan - pelvis: report reviewed and image reviewed Assessment and Plan (1) Infarction of spleen: Status: Acute This is likely secondary to his neck liver disease with cirrhosis. Treatment currently will be pain management and supportive therapy. He is to be seen by scrap breaker in view of the possible need for anticoagulation. He does have chronic liver disease and has had renal problems with SIADH. He seems to have some progressive decline in his health lately. I will follow along while he is in the hospital. His CAT scan also suggests findings of colitis. He denies any diarrhea. He denies any abdominal pain anywhere else on the abdomen aside from the left flank near the spleen. We can monitor this closely. Procedures Date of Service Date of Service: 12/29/20
[2020-12-29 09:37] LABS: Anion Gap 8 (12-20); Blood Urea Nitrogen 12 mg/dL (9-16); Calcium 7.9 mg/dL (8.4-10.2); Carbon Dioxide 18 mmol/L (22-29); Chloride 107 mmol/L (96-108); Creatinine Clr Calc Pharmacy 89.4; Estimated Glomerular Filt Rate > 60; Glucose Random 165 mg/dL (60-115); Potassium 3.8 mmol/L (3.3-5.1); Sodium 129 mmol/L (135-145)
--- NOTE | 2020-12-29 09:51 | MHC.CM.PN ---
CM met with Patient at bedside. Patient lives in a house with his /HCP/Megan @ [phone], Daughter, and 2 Granddaughters and he has no DME nor services [facility], Patient's goal is to return home and CM has initiated and will follow for dc planning.PCP iscDr. Pb Ortiz
[2020-12-29] MEDS: Spironolactone 25 MG TABLET 50 MG PO ×2 (10:47→20:43)
[2020-12-29] MEDS: Potassium Chloride ER 20 MEQ TAB.ER.PRT PO ×2 (10:47→20:44)
[2020-12-29] MEDS: rifAXIMin 550 MG TABLET PO ×2 (10:47→20:43)
[2020-12-29] MEDS: allopurinoL 100 MG TABLET PO (10:47)
[2020-12-29] MEDS: Atovaquone 750 MG/5 ML ORAL.SUSP PO ×2 (10:48→20:43)
[2020-12-29] MEDS: Pyridoxine HCl (Vitamin B6) 50 MG TABLET 100 MG PO (10:48)
[2020-12-29 11:09] LABS: Glucose, Whole Blood 137 mg/dL (60-115)
[2020-12-29] MEDS: Mesalamine 400 MG CAP.DRTAB. 800 MG PO ×2 (14:13→20:43)
[2020-12-29] MEDS: ondansetron HCL 4 MG/2 ML VIAL IVPUSH ×2 (15:58→20:42)
[2020-12-29 16:37] LABS: Glucose, Whole Blood 249 mg/dL (60-115)
--- NOTE | 2020-12-29 16:37 | HO.PM.IMPN ---
Subjective Subjective Date of Service: 12/29/20 Interval History: Ongoing LUQ pain No GI bleeding No confusion Physical Exam Vital Signs: Vital Signs: Last Vital Signs Temp 97.7 F 12/29/20 15:42 Pulse 107 H 12/29/20 15:42 Resp 18 12/29/20 15:42 BP 146/79 H 12/29/20 15:42 Pulse Ox 99 12/29/20 15:42 Body Mass Index 26.5 Gen: chronically ill-appearing HEENT: sclera mildly icicteric, moist mucus membranes Neck: supple Lungs: clear to auscultation bilaterally Heart: regular rate and rhythm, no murmurs Abd: soft, LUQ tender, no rebound/guarding Ext: no edema Skin: warm/well-perfused Neuro: alert and oriented x3, no focal findings, no asterixis Psych: appropriate affect Objective Data Current Medications Generic Name Dose Route Start Last Admin Trade Name Freq PRN Reason Stop Dose Admin Allopurinol 100 mg 12/29/20 09:00 12/29/20 10:47 Allopurinol 100 Mg Tablet PO 100 mg DAILY YONATHAN Administration Atovaquone 750 mg 12/29/20 09:00 12/29/20 10:48 Atovaquone 750 Mg/5 Ml Oral.Susp PO 750 mg BID YONATHAN Administration Enoxaparin Sodium 40 mg 12/29/20 05:00 12/29/20 06:02 Enoxaparin Sodium 40 Mg/0.4 Ml Syringe SUBCUT 40 mg Q24H YONATHAN Administration Hydromorphone HCl 0.5 mg 12/29/20 04:53 12/29/20 14:13 Hydromorphone Hcl 0.5 Mg/0.5 Ml Syringe IVPUSH 0.5 mg Q4H PRN Administration Breakthrough Pain Hydroxyzine HCl 50 mg 12/29/20 08:42 Hydroxyzine Hcl 25 Mg Tablet PO Q6H PRN bullous pemphigoid Ceftriaxone Sodium 1 gm/ 50 mls @ 100 mls/hr 12/29/20 22:00 Sodium Chloride IV Q24H YONATHAN Metronidazole 500 mg in 100 mls @ 100 mls/hr 12/29/20 05:00 12/29/20 14:54 Flagyl IV Infused Q8H YONATHAN Infusion Dextrose/Sodium Chloride 1,000 mls @ 50 mls/hr 12/29/20 05:00 12/29/20 10:00 D51/2ns IVCONT 0 mls/hr .Q20H YONATHAN Infusion Insulin Human Lispro 0 - 10 unit 12/29/20 07:30 12/29/20 11:03 Insulin Lispro 100 Unit/Ml 3 Ml Vial SUBCUT Not Given QIDACHS [facility] Protocol Magnesium Hydroxide 30 ml 12/29/20 04:54 Milk Of Magnesia 30 Ml Oral.Susp PO DAILY PRN Constipation Mesalamine 800 mg 12/29/20 15:00 12/29/20 14:13 Mesalamine 400 Mg Cap.Drtab. PO 800 mg TID YONATHAN Administration Pat Own Med (Odefsey 1 each 12/29/20 10:15 12/29/20 11:02 ) PO 1 each DAILY YONATHAN Administration Ondansetron HCl 4 mg 12/29/20 15:35 12/29/20 15:58 Ondansetron Hcl 4 Mg/2 Ml Vial IVPUSH 4 mg Q4H PRN Administration Nausea and Vomiting Pharmacy Consult 1 each 12/29/20 08:26 Consult Rx Perform Med Rec MISCELLANE ONCE PRN Consult order Potassium Chloride 20 meq 12/29/20 09:00 12/29/20 10:47 Potassium Chloride Er 20 Meq Tab.Er.Prt PO 20 meq BID YONATHAN Administration Pyridoxine HCl 100 mg 12/29/20 09:00 12/29/20 10:48 Pyridoxine Hcl (Vitamin B6) 50 Mg Tablet PO 100 mg DAILY YONATHAN Administration Rifaximin 550 mg 12/29/20 09:00 12/29/20 10:47 Rifaximin 550 Mg Tablet PO 550 mg BID YOANTHAN Administration Sodium Chloride 3 ml 12/29/20 08:00 12/29/20 14:09 0.9 % Sodium Chloride Flush 3 Ml Syringe IVFLUSH Not Given QSHIFT YONATHAN Spironolactone 50 mg 12/29/20 09:00 12/29/20 10:47 Spironolactone 25 Mg Tablet PO 50 mg BID YONATHAN Administration Protocol Labs CBC & Chem 7: 12/29/20 08:43 12/29/20 08:43 Labs: Laboratory Results - last 24 hr 12/29/20 12/29/20 12/29/20 01:02 01:02 01:03 WBC 4.8 RBC 3.16 L Hgb 10.5 L Hct 30.7 L MCV 97.2 MCH 33.2 H MCHC 34.2 RDW 15.2 Plt Count 77 L MPV 13.1 H Immature Gran % (Auto) 0.4 Neut % (Auto) 81.6 H Lymph % (Auto) 8.3 L [place] % (Auto) 9.5 Eos % (Auto) 0.0 Baso % (Auto) 0.2 Lymph # (Auto) 0.4 L [place] # (Auto) 0.5 Eos # (Auto) 0.0 Baso # (Auto) 0.0 Abs Immat Gran (auto) 0.02 Absolute Neuts (auto) 3.9 Absolute Nucleated RBC 0.000 Nucleated RBC % (auto) 0.0 PT INR Hold Blue Top Sodium Potassium Chloride Carbon Dioxide Anion Gap BUN Creatinine Estim Creat Clear Calc Estimated GFR POC Glucose Random Glucose Lactic Acid 2.0 Calcium Magnesium Total Bilirubin Direct Bilirubin AST ALT Alkaline Phosphatase Ammonia 66 H Troponin I High Sens Total Protein Albumin Urine Color Urine Appearance Urine pH Ur Specific [place] Urine Protein Urine Glucose (UA) Urine Ketones Urine Blood Urine Nitrite Ur Leukocyte Esterase COVID-19 ([facility]) [employer] 12/29/20 12/29/20 12/29/20 01:03 01:03 01:04 WBC RBC Hgb Hct MCV MCH MCHC RDW Plt Count MPV Immature Gran % (Auto) Neut % (Auto) Lymph % (Auto) [place] % (Auto) Eos % (Auto) Baso % (Auto) Lymph # (Auto) [place] # (Auto) Eos # (Auto) Baso # (Auto) Abs Immat Gran (auto) Absolute Neuts (auto) Absolute Nucleated RBC Nucleated RBC % (auto) PT 17.6 H INR 1.5 H Hold Blue Top SEE NOTE Sodium Potassium Chloride Carbon Dioxide Anion Gap BUN Creatinine Estim Creat Clear Calc Estimated GFR POC Glucose Random Glucose Lactic Acid Calcium Magnesium Total Bilirubin Direct Bilirubin AST ALT Alkaline Phosphatase Ammonia Troponin I High Sens < 3.5 Total Protein Albumin Urine Color BREANNA Urine Appearance HAZY Urine pH 6.5 Ur Specific [place] 1.015 Urine Protein TRACE Urine Glucose (UA) NEG Urine Ketones NEG Urine Blood NEG Urine Nitrite NEG Ur Leukocyte Esterase NEG COVID-19 ([facility]) [employer] 12/29/20 12/29/20 12/29/20 01:04 02:23 02:23 WBC RBC Hgb Hct MCV MCH MCHC RDW Plt Count MPV Immature Gran % (Auto) Neut % (Auto) Lymph % (Auto) [place] % (Auto) Eos % (Auto) Baso % (Auto) Lymph # (Auto) [place] # (Auto) Eos # (Auto) Baso # (Auto) Abs Immat Gran (auto) Absolute Neuts (auto) Absolute Nucleated RBC Nucleated RBC % (auto) PT INR Hold Blue Top Sodium 128 L Potassium 3.9 Chloride 107 Carbon Dioxide 17 L Anion Gap 8 L BUN 12 Creatinine 0.75 Estim Creat Clear Calc 91.8 Estimated GFR > 60 POC Glucose Random Glucose 178 H Lactic Acid Calcium 7.8 L Magnesium 1.7 Total Bilirubin 2.9 H 3.0 H Direct Bilirubin 1.4 H AST 29 29 ALT 28 29 Alkaline Phosphatase 99 102 Ammonia Troponin I High Sens Total Protein 8.2 H 8.2 H Albumin 2.6 L 2.6 L Urine Color Urine Appearance Urine pH Ur Specific [place] Urine Protein Urine Glucose (UA) Urine Ketones Urine Blood Urine Nitrite Ur Leukocyte Esterase COVID-19 ([facility]) Negative COVID-19 Clin Com See Note 12/29/20 12/29/20 12/29/20 07:40 08:43 08:43 WBC 4.4 L RBC 3.04 L Hgb 10.2 L Hct 29.6 L MCV 97.4 MCH 33.6 H MCHC 34.5 RDW 15.1 Plt Count 70 L MPV 12.5 H Immature Gran % (Auto) 0.5 H Neut % (Auto) 81.3 H Lymph % (Auto) 9.6 L [place] % (Auto) 8.4 Eos % (Auto) 0.0 Baso % (Auto) 0.2 Lymph # (Auto) 0.4 L [place] # (Auto) 0.4 Eos # (Auto) 0.0 Baso # (Auto) 0.0 Abs Immat Gran (auto) 0.02 Absolute Neuts (auto) 3.6 Absolute Nucleated RBC 0.000 Nucleated RBC % (auto) 0.0 PT INR Hold Blue Top Sodium 129 L Potassium 3.8 Chloride 107 Carbon Dioxide 18 L Anion Gap 8 L BUN 12 Creatinine 0.77 Estim Creat Clear Calc 89.4 Estimated GFR > 60 POC Glucose 165 H Random Glucose 165 H Lactic Acid Calcium 7.9 L Magnesium Total Bilirubin Direct Bilirubin AST ALT Alkaline Phosphatase Ammonia Troponin I High Sens Total Protein Albumin Urine Color Urine Appearance Urine pH Ur Specific [place] Urine Protein Urine Glucose (UA) Urine Ketones Urine Blood Urine Nitrite Ur Leukocyte Esterase COVID-19 ([facility]) COVID-19 [employer] Com 12/29/20 11:01 WBC RBC Hgb Hct MCV MCH MCHC RDW Plt Count MPV Immature Gran % (Auto) Neut % (Auto) Lymph % (Auto) [place] % (Auto) Eos % (Auto) Baso % (Auto) Lymph # (Auto) [place] # (Auto) Eos # (Auto) Baso # (Auto) Abs Immat Gran (auto) Absolute Neuts (auto) Absolute Nucleated RBC Nucleated RBC % (auto) PT INR Hold Blue Top Sodium Potassium Chloride Carbon Dioxide Anion Gap BUN Creatinine Estim Creat Clear Calc Estimated GFR POC Glucose 137 H Random Glucose Lactic Acid Calcium Magnesium Total Bilirubin Direct Bilirubin AST ALT Alkaline Phosphatase Ammonia Troponin I High Sens Total Protein Albumin Urine Color Urine Appearance Urine pH Ur Specific [place] Urine Protein Urine Glucose (UA) Urine Ketones Urine Blood Urine Nitrite Ur Leukocyte Esterase COVID-19 ([facility]) COVID-19 Clin Com TTE 12/29/20 - Normal left ventricular size, thickness, and systolic function. - Normal right ventricular cavity size and systolic function. - No significant valvular or pericardial pathology. 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 Previously admitted here 12/04-12/06/20 for hypokalemia + hyponatremia. Presenting with worsening abdominal pain for the last few weeks. Admitted here for splenic infarction [previously diagnosed in ED 12/20/20, but has worsening pain] and possible colitis. 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 GI + Heme/Onc consults pending; appreciate Surgery consult # colitis - GI consult, follow BCx, ceftriaxone/metronidazole d#1 # hyponatremia, chronic - due to cirrhosis. fluid restriction # hypokalemia - on chronic supplemental KCl + spironolactone # HIV - CD4 72 (12/04/20), pVL 24 (05/09/20); continue ART with Odefsey and PJP ppx with atovaquone # decompensated cirrhosis # hepatic encephalopathy - monitor closely for bleeding, encephalopathy; continue rifaximin + spironolactone # ulcerative colitis - continue mesalamine # DM2 - correction-dose lispro # VTE ppx - LMWH, monitor for bleeding + worsening platelet count very closely
[2020-12-29] MEDS: Insulin Lispro 100 UNIT/ML 3 ML VIAL SUBCUT ×2 (17:05→21:49)
--- NOTE | 2020-12-29 17:12 | PM.EVENT ---
Event Note Date of Service: 12/29/20 Event Note: GI Consult-Full note dictated-Hx via patient and EMR. Imp: 55 yo male well known to me with underlying cirrhosis, successfully treated Hep C, ulcerative colitis, HIV, splenomegaly, and hepatic vein thrombosis in 2019 with associated splenic infarcts treated with anticoagulation at that time. He now presents with approximately 4 weeks of increasing LUQ pain in relation to splenic infarcts. His liver disease is presently stable without significant ascites, jaundice, nor encephalopathy. He denies any signs of recent GI bleeding. His CT describes possible colitis, but he does not have any clinical evidence of that nor any other intraabdominal infection at this time. Rec: Continue supportive care. I do not think he needs any antibiotics for colitis nor any other GI-related issue at this time. Therefore, I think the antibiotics can be stopped from my standpoint. Continue outpatient regimen of mesalamine, PPI, rifaximin, and spironolactone. Agree with need for Hematology consult to see what recommendations would be available for the splenic infarcts. I don't think he needs any acute intervention on my part from a liver or GI standpoint. D/W patient in detail and he is comfortable with that plan. Thanks.
[2020-12-29] MEDS: Omeprazole 20 MG CAPSULE.DR PO (18:23)
[2020-12-29 19:54] LABS: Glucose, Whole Blood 205 mg/dL (60-115)
[2020-12-29] MEDS: 0.9 % Sodium Chloride Flush 3 ML SYRINGE IVFLUSH (20:45)
[2020-12-30 03:30] VITALS: BP 139/67; PULSE 106; RESP 18; TEMP 37; O2SAT 97
--- NOTE | 2020-12-30 04:35 | CONS_ITS ---
DATE OF SERVICE: 12/29/2020 REASON FOR CONSULTATION: Cirrhosis, history of ulcerative colitis, and abdominal pain. HISTORY OF PRESENT ILLNESS: The patient is a 55-year-old male well known to me with underlying history of cirrhosis, ulcerative colitis, successfully treated hepatitis C, known splenomegaly, HIV, and previous history of hepatic vein thrombosis in 2019 with associated splenic infarcts that was treated with anticoagulation at that time. I last saw the patient in the middle of November when he came in for followup to the office in regard to a hospitalization in October for some upper GI bleeding. An endoscopy at that time did reveal his known nonbleeding esophageal varices and portal gastropathy. There was no definite evidence of active bleeding at that time, but the exam was limited due to some retained old food and old blood in the stomach. There was no obvious ulcer disease. Since that hospitalization for bleeding in October, he has had no further signs of bleeding. He did have an E coli bacteremia during the hospitalization in October. He was having some increasing ascites and jaundice when I saw him in November and did have a paracentesis of about 4 L of ascites on November 14. He was also having some increasing signs of encephalopathy when I saw him last month. After that office visit, he was started on spironolactone 50 mg b.i.d. and Xifaxan 550 mg b.i.d., in addition to some lactulose that he had been using. He was also on omeprazole and famotidine at that time. Since the office visit in mid November, he does report that his edema did improve. However, he was having some increasing and progressive left upper quadrant pain that has been found to be related to splenic infarcts on 2 consecutive CAT scans. He came to the ER and was admitted due to worsening pain. He has had some nausea and minimal vomiting, but no hematemesis nor coffee-grounds emesis. He reports that his ulcerative colitis has been stable without any significant diarrhea, hematochezia, nor melena. He does take occasional Imodium for loose stool, but this has not been particularly problematic. He thinks his confusion has been better as well. MEDICATIONS: His medications as an outpatient included mesalamine 800 mg t.i.d., omeprazole 20 mg daily, Xifaxan 550 mg b.i.d., and spironolactone 50 mg b.i.d. He was also on famotidine 40 mg at bedtime. His medications here in the hospital include allopurinol, Mepron, IV ceftriaxone, Lovenox, hydromorphone p.r.n., Atarax p.r.n., insulin, mesalamine 800 mg t.i.d., IV Flagyl, morphine p.r.n., Zofran p.r.n., potassium, vitamin B6, rifaximin 550 mg b.i.d., and spironolactone 50 mg b.i.d. PAST MEDICAL HISTORY: As above. Previous hepatitis C treated successfully in 2014 with Harvoni. Cirrhosis as above. Hepatic vein thrombosis and splenic infarcts in 2018 with anticoagulation treatment as above. Ulcerative colitis diagnosed in 2004. Kidney stones. Pneumonia. HIV infection. Upper GI bleed in October of 2020 with upper endoscopy as above with nonbleeding esophageal varices and portal gastropathy. He was treated with INH for tuberculosis in 2014 at [facility]. Colonoscopy in 2013 revealed changes of chronic colitis with biopsies negative for dysplasia and no active colitis nor any adenomas. Diabetes mellitus. He did have a COVID infection in May of 2020. E coli bacteremia in October of 2020. PAST SURGICAL HISTORY: Surgeries include hernia, drainage of perianal fistula, and perirectal abscess. FAMILY HISTORY: Noncontributory. SOCIAL HISTORY: He is . 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 He does not smoke nor use any significant amounts of alcohol. REVIEW OF SYSTEMS: CONSTITUTIONAL: He has been quite fatigued and somewhat anorectic. CARDIAC: No chest pain. PULMONARY: No cough, no hemoptysis. GI: As above. PHYSICAL EXAMINATION: GENERAL: The patient is a pleasant, alert, cooperative male. He is oriented to person, place, and time. SKIN: Warm and dry. HEENT: Anicteric sclerae. NECK: Supple. CHEST: Clear. CARDIAC: Normal S1 and S2. ABDOMEN: Soft, but distended. There is some mild diffuse tenderness, but the majority of tenderness is in the left upper quadrant. EXTREMITIES: With some mild pretibial edema. LABORATORY DATA: Sodium 129, potassium 3.8, chloride 107, CO2 of 18, calcium 7.9, total bilirubin 3.0, direct bilirubin 1.4, AST 29, ALT 29, alkaline phosphatase 102, and albumin 2.6. PT 17.6 with INR 1.5. WBC , hemoglobin 10.2, and platelets 70,000. His CAT scan of the abdomen and pelvis describes his known cirrhosis, but no obvious liver mass nor biliary disease. Pancreas was unremarkable. His spleen was markedly enlarged with what appeared to be areas of a splenic infarct, which was unchanged from the most recent scan earlier this month. Changes consistent with portal hypertension were noted. There is no significant ascites. The colon is described as somewhat thick walled with some surrounding fat stranding similar to prior studies. IMPRESSION: Given the patient's clinical history, his main issue that prompted this hospitalization is that of his splenic infarcts and associated pain. His liver disease otherwise appears stable, albeit quite advanced. He does not show any signs of GI bleeding, worsening encephalopathy, increasing ascites, nor worsening jaundice. I do not think he has any signs nor symptoms of active colitis and I think the changes on the CAT scan are consistent with some edema from the portal hypertension and/or simply the chronic underlying colitis. Therefore, I would continue his mesalamine, but I would stop his antibiotics in that regard. I would definitely keep him on a PPI twice a day, especially if he needs to go on anticoagulation. I would continue his spironolactone and rifaximin. At this point, I think the jerry thing in his care will be further workup and treatment of the splenic infarcts. He does have a Hematology consult in that regard. I do not think he needs any particular intervention on my part from a liver or GI standpoint at this time. This has all been discussed with the patient in detail and he is comfortable with that plan. Thank you for the consultation. MD JANNA Soriano/MAURA / [phone]
[2020-12-30] MEDS: Omeprazole 20 MG CAPSULE.DR PO ×2 (05:11→15:55)
[2020-12-30] MEDS: Enoxaparin Sodium 40 MG/0.4 ML SYRINGE SUBCUT (05:12)
[2020-12-30] MEDS: HYDROmorphone HCl 0.5 MG/0.5 ML SYRINGE IVPUSH ×3 (05:18→19:32)
[2020-12-30 06:22] LABS: MANUAL DIFF FLAG NO
[2020-12-30 06:30] LABS: Basophils Percent Auto 0.2 % (0-2); Hematocrit 30.9 % (42-52); Hemoglobin 10.4 g/dl (14.0-18.0); Imm Gran Abs Auto 0.03 X10*3/uL (0.00-0.03); Imm Gran Pct Auto 0.7 % (0.0-0.4); Lymphocytes Absolute Auto 0.2 X10*3/uL (1.2-4.9); Mean Corpuscular HGB Conc 33.7 g/dl (31.0-36.0); Mean Corpuscular Hemoglobin 32.7 pg (27.0-33.0); Mean Corpuscular Volume 97.2 fL (80-98); Mean Platelet Volume 11.8 fL (9.4-12.4); Monocytes Absolute Auto 0.3 X10*3/uL (0.1-1.2); Monocytes Percent Auto 7.2 % (2-11); Neutrophils Percent Auto 86.9 % (45-73); Red Blood Count 3.18 X10*6/uL (4.60-5.80); Red Cell Distribution Width 14.7 % (11.0-16.0); White Blood Count 4.6 X10*3/uL (4.8-10.8)
[2020-12-30 06:32] LABS: Platelet Count 68 X10*3/uL (160-400)
[2020-12-30 06:54] LABS: Estimated Average Glucose 91 mg/dL; Hemoglobin A1c % 4.8 %
[2020-12-30 07:07] LABS: INTERNATIONAL NORM RATIO 1.7 (0.9-1.1); Prothrombin Time 20.5 SEC (10.8-13.0)
[2020-12-30 07:41] LABS: Glucose, Whole Blood 133 mg/dL (60-115)
[2020-12-30 08:00] VITALS: BP 121/70; PULSE 116; RESP 20; TEMP 36.7; O2SAT 96
[2020-12-30] MEDS: rifAXIMin 550 MG TABLET PO ×2 (08:48→20:49)
[2020-12-30] MEDS: Potassium Chloride ER 20 MEQ TAB.ER.PRT PO ×2 (08:48→20:49)
[2020-12-30] MEDS: Pyridoxine HCl (Vitamin B6) 50 MG TABLET 100 MG PO (08:48)
[2020-12-30] MEDS: Mesalamine 400 MG CAP.DRTAB. 800 MG PO ×3 (08:48→20:50)
[2020-12-30] MEDS: allopurinoL 100 MG TABLET PO (08:48)
[2020-12-30] MEDS: 0.9 % Sodium Chloride Flush 3 ML SYRINGE IVFLUSH ×2 (08:50→15:54)
[2020-12-30] MEDS: Atovaquone 750 MG/5 ML ORAL.SUSP PO ×2 (08:52→20:51)
[2020-12-30] MEDS: hydrOXYzine HCL 25 MG TABLET 50 MG PO (10:22)
[2020-12-30 11:10] LABS: Alanine Aminotransferase 27 U/L (0-40); Albumin Level 2.7 g/dL (3.5-5.0); Alkaline Phosphatase 110 U/L (39-117); Anion Gap 11 (12-20); Aspartate Amino Transferase 28 U/L (5-37); Bilirubin Total 4.9 mg/dL (0.0-1.0); Blood Urea Nitrogen 16 mg/dL (9-16); Calcium 8.3 mg/dL (8.4-10.2); Carbon Dioxide 16 mmol/L (22-29); Chloride 104 mmol/L (96-108); Estimated Glomerular Filt Rate > 60; Glucose Random 139 mg/dL (60-115); Magnesium 1.7 mg/dL (1.6-2.6); Potassium 4.5 mmol/L (3.3-5.1); Sodium 126 mmol/L (135-145)
[2020-12-30 11:27] LABS: Glucose, Whole Blood 163 mg/dL (60-115)
[2020-12-30] MEDS: Insulin Lispro 100 UNIT/ML 3 ML VIAL SUBCUT ×3 (11:31→20:50)
[2020-12-30 11:32] VITALS: BP 141/77; PULSE 104; RESP 20; TEMP 36.7; O2SAT 98
[2020-12-30] MEDS: Fluconazole 100 MG TABLET 200 MG PO (11:32)
--- NOTE | 2020-12-30 11:37 | HO.PM.IMPN ---
Subjective Subjective Date of Service: 12/30/20 Interval History: LUQ pain improved no N/V no hematemesis, hematochezia, or melena no confusion Physical Exam Vital Signs: Vital Signs: Last Vital Signs Temp 98.0 F 12/30/20 11:32 Pulse 104 H 12/30/20 11:32 Resp 20 12/30/20 11:32 BP 141/77 H 12/30/20 11:32 Pulse Ox 98 12/30/20 11:32 Body Mass Index 26.5 Gen: chronically ill-appearing HEENT: sclera mildly icicteric, moist mucus membranes, thrush on posterior tongue Neck: supple Lungs: clear to auscultation bilaterally Heart: regular rate and rhythm, no murmurs Abd: soft, LUQ tender, no rebound/guarding Ext: no edema Skin: warm/well-perfused Neuro: alert and oriented x3, no focal findings, no asterixis Psych: appropriate affect Objective Data Current Medications Generic Name Dose Route Start Last Admin Trade Name Freq PRN Reason Stop Dose Admin Allopurinol 100 mg 12/29/20 09:00 12/30/20 08:48 Allopurinol 100 Mg Tablet PO 100 mg DAILY YONATHAN Administration Atovaquone 750 mg 12/29/20 09:00 12/30/20 08:52 Atovaquone 750 Mg/5 Ml Oral.Susp PO 750 mg BID YONATHAN Administration Enoxaparin Sodium 40 mg 12/29/20 05:00 12/30/20 05:12 Enoxaparin Sodium 40 Mg/0.4 Ml Syringe SUBCUT 40 mg Q24H YONATHAN Administration Fluconazole 100 mg 12/31/20 09:00 Fluconazole 100 Mg Tablet PO DAILY YONATHAN Hydromorphone HCl 0.5 mg 12/29/20 04:53 12/30/20 10:20 Hydromorphone Hcl 0.5 Mg/0.5 Ml Syringe IVPUSH 0.5 mg Q4H PRN Administration Breakthrough Pain Insulin Human Lispro 0 - 10 unit 12/29/20 07:30 12/30/20 11:31 Insulin Lispro 100 Unit/Ml 3 Ml Vial SUBCUT 2 unit QIDACHS YONATHAN Administration Protocol Magnesium Hydroxide 30 ml 12/29/20 04:54 Milk Of Magnesia 30 Ml Oral.Susp PO DAILY PRN Constipation Mesalamine 800 mg 12/29/20 15:00 12/30/20 08:48 Mesalamine 400 Mg Cap.Drtab. PO 800 mg TID YONATHAN Administration Pat Own Med (Odefsey 1 each 12/29/20 10:15 12/30/20 08:47 ) PO 1 each DAILY YONATHAN Administration Omeprazole 20 mg 12/29/20 17:30 12/30/20 05:11 Omeprazole 20 Mg Capsule.Dr PO 20 mg BID@[id number],[id number] YONATHAN Administration Pharmacy Consult 1 each 12/29/20 08:26 Consult Rx Perform Med Rec MISCELLANE ONCE PRN Consult order Potassium Chloride 20 meq 12/29/20 09:00 12/30/20 08:48 Potassium Chloride Er 20 Meq Tab.Er.Prt PO 20 meq BID YONATHAN Administration Pyridoxine HCl 100 mg 12/29/20 09:00 12/30/20 08:48 Pyridoxine Hcl (Vitamin B6) 50 Mg Tablet PO 100 mg DAILY YONATHAN Administration Rifaximin 550 mg 12/29/20 09:00 12/30/20 08:48 Rifaximin 550 Mg Tablet PO 550 mg BID YONATHAN Administration Sodium Chloride 3 ml 12/29/20 08:00 12/30/20 08:50 0.9 % Sodium Chloride Flush 3 Ml Syringe IVFLUSH 3 ml QSHIFT YONATHAN Administration Spironolactone 50 mg 12/29/20 09:00 12/30/20 08:49 Spironolactone 25 Mg Tablet PO Not Given BID [facility] Protocol Labs CBC & Chem 7: 12/30/20 06:00 12/30/20 08:30 Labs: Laboratory Results - last 24 hr 12/29/20 12/29/20 12/30/20 16:31 19:46 06:00 WBC RBC Hgb Hct MCV MCH MCHC RDW Plt Count MPV Immature Gran % (Auto) Neut % (Auto) Lymph % (Auto) [place] % (Auto) Eos % (Auto) Baso % (Auto) Lymph # (Auto) [place] # (Auto) Eos # (Auto) Baso # (Auto) Abs Immat Gran (auto) Absolute Neuts (auto) Absolute Nucleated RBC Nucleated RBC % (auto) PT INR Sodium Potassium Chloride Carbon Dioxide Anion Gap BUN Creatinine Estim Creat Clear Calc Estimated GFR POC Glucose 249 H 205 H Random Glucose Estimat Average Glucose 91 Hemoglobin A1c % 4.8 Calcium Magnesium Total Bilirubin AST ALT Alkaline Phosphatase Total Protein Albumin 12/30/20 12/30/20 12/30/20 06:00 06:00 06:00 WBC 4.6 L Cancelled RBC 3.18 L Cancelled Hgb 10.4 L Cancelled Hct 30.9 L Cancelled MCV 97.2 Cancelled MCH 32.7 Cancelled MCHC 33.7 Cancelled RDW 14.7 Cancelled Plt Count 68 L Cancelled MPV 11.8 Cancelled Immature Gran % (Auto) 0.7 H Neut % (Auto) 86.9 H Lymph % (Auto) 5.0 L [place] % (Auto) 7.2 Eos % (Auto) 0.0 Baso % (Auto) 0.2 Lymph # (Auto) 0.2 L [place] # (Auto) 0.3 Eos # (Auto) 0.0 Baso # (Auto) 0.0 Abs Immat Gran (auto) 0.03 Absolute Neuts (auto) 4.0 Absolute Nucleated RBC 0.000 Cancelled Nucleated RBC % (auto) 0.0 Cancelled PT 20.5 H INR 1.7 H Sodium Potassium Chloride Carbon Dioxide Anion Gap BUN Creatinine Estim Creat Clear Calc Estimated GFR POC Glucose Random Glucose Estimat Average Glucose Hemoglobin A1c % Calcium Magnesium Total Bilirubin AST ALT Alkaline Phosphatase Total Protein Albumin 12/30/20 12/30/20 12/30/20 06:00 07:26 08:30 WBC RBC Hgb Hct MCV MCH MCHC RDW Plt Count MPV Immature Gran % (Auto) Neut % (Auto) Lymph % (Auto) [place] % (Auto) Eos % (Auto) Baso % (Auto) Lymph # (Auto) [place] # (Auto) Eos # (Auto) Baso # (Auto) Abs Immat Gran (auto) Absolute Neuts (auto) Absolute Nucleated RBC Nucleated RBC % (auto) PT INR Sodium Cancelled 126 L Potassium Cancelled 4.5 Chloride Cancelled 104 Carbon Dioxide Cancelled 16 L Anion Gap Cancelled 11 L BUN Cancelled 16 Creatinine Cancelled 0.85 Estim Creat Clear Calc Cancelled 81.0 Estimated GFR Cancelled > 60 POC Glucose 133 H Random Glucose Cancelled 139 H Estimat Average Glucose Hemoglobin A1c % Calcium Cancelled 8.3 L Magnesium Cancelled 1.7 Total Bilirubin Cancelled 4.9 H AST Cancelled 28 ALT Cancelled 27 Alkaline Phosphatase Cancelled 110 Total Protein Cancelled 9.0 H Albumin Cancelled 2.7 L 12/30/20 11:05 WBC RBC Hgb Hct MCV MCH MCHC RDW Plt Count MPV Immature Gran % (Auto) Neut % (Auto) Lymph % (Auto) [place] % (Auto) Eos % (Auto) Baso % (Auto) Lymph # (Auto) [place] # (Auto) Eos # (Auto) Baso # (Auto) Abs Immat Gran (auto) Absolute Neuts (auto) Absolute Nucleated RBC Nucleated RBC % (auto) PT INR Sodium Potassium Chloride Carbon Dioxide Anion Gap BUN Creatinine Estim Creat Clear Calc Estimated GFR POC Glucose 163 H Random Glucose Estimat Average Glucose Hemoglobin A1c % Calcium Magnesium Total Bilirubin AST ALT Alkaline Phosphatase Total Protein Albumin Microbiology Microbiology Results: Microbiology 12/29/20 01:01 Blood Culture - Preliminary Blood - Venous No growth after 24 hours. 12/29/20 01:01 Blood Culture - Preliminary Blood - Venous No growth after 24 hours. 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 Surg + GI consulted; no intervention indicated. Heme/Onc consulting, likely will not anticoagulate given bleeding risk. Dr Shen will discuss with Dr Coulter, who saw the pt in the past # colitis, not - per GI, edema from cirrhosis, d/c'ed ABX [ceftriaxone/metronidazole] # hyponatremia, chronic - due to cirrhosis. continue fluid restriction # hypokalemia - on chronic supplemental KCl + spironolactone # thrush - given HIV/AIDS, will treat with fluconazole (200 mg load then 100 mg daily x7d) # HIV/AIDS - CD4 72 (12/04/20), pVL 24 (05/09/20); continue ART with Odefsey and PJP ppx with atovaquone # decompensated cirrhosis # hepatic encephalopathy - monitor closely for bleeding, encephalopathy; continue rifaximin + spironolactone # ulcerative colitis - continue mesalamine # DM2 - correction-dose lispro; A1c is only 4.8 # VTE ppx - LMWH, monitor for bleeding + worsening platelet count very closely
[2020-12-30 15:31] VITALS: BP 120/61; PULSE 95; RESP 18; TEMP 36.9; O2SAT 100
[2020-12-30 16:21] LABS: Glucose, Whole Blood 181 mg/dL (60-115)
--- NOTE | 2020-12-30 16:38 | P.PNGS_ITS ---
Subjective Subjective Date of Service: 12/30/20 Interval history: still with some pain on left flank but better tolerating diet well says he is more comfortable Physical Exam Vital Signs: Vital Signs: Last Vital Signs Temp 98.4 F 12/30/20 15:31 Pulse 95 12/30/20 15:31 Resp 18 12/30/20 15:31 BP 120/61 12/30/20 15:31 Pulse Ox 100 12/30/20 15:31 Body Mass Index 26.5 Laboratory Results - last 24 hr 12/29/20 12/30/20 12/30/20 19:46 06:00 06:00 WBC 4.6 L RBC 3.18 L Hgb 10.4 L Hct 30.9 L MCV 97.2 MCH 32.7 MCHC 33.7 RDW 14.7 Plt Count 68 L MPV 11.8 Immature Gran % (A uto) 0.7 H Neut % (Auto) 86.9 H Lymph % (Auto) 5.0 L [place] % (Auto) 7.2 Eos % (Auto) 0.0 Baso % (Auto) 0.2 Lymph # (Auto) 0.2 L [place] # (Auto) 0.3 Eos # (Auto) 0.0 Baso # (Auto) 0.0 Abs Immat Gran (au to) 0.03 Absolute Neuts (au to) 4.0 Absolute Nucleated RBC 0.000 Nucleated RBC % (a uto) 0.0 PT INR Sodium Potassium Chloride Carbon Dioxide Anion Gap BUN Creatinine Estim Creat Clear Calc Estimated GFR POC Glucose 205 H Random Glucose Estimat Average Gl ucose 91 Hemoglobin A1c % 4.8 Calcium Magnesium Total Bilirubin AST ALT Alkaline Phosphata se Total Protein Albumin 12/30/20 12/30/20 12/30/20 06:00 06:00 06:00 WBC Cancelled RBC Cancelled Hgb Cancelled Hct Cancelled MCV Cancelled MCH Cancelled MCHC Cancelled RDW Cancelled Plt Count Cancelled MPV Cancelled Immature Gran % (A uto) Neut % (Auto) Lymph % (Auto) [place] % (Auto) Eos % (Auto) Baso % (Auto) Lymph # (Auto) [place] # (Auto) Eos # (Auto) Baso # (Auto) Abs Immat Gran (au to) Absolute Neuts (au to) Absolute Nucleated RBC Cancelled Nucleated RBC % (a uto) Cancelled PT 20.5 H INR 1.7 H Sodium Cancelled Potassium Cancelled Chloride Cancelled Carbon Dioxide Cancelled Anion Gap Cancelled BUN Cancelled Creatinine Cancelled Estim Creat Clear Calc Cancelled Estimated GFR Cancelled POC Glucose Random Glucose Cancelled Estimat Average Gl ucose Hemoglobin A1c % Calcium Cancelled Magnesium Cancelled Total Bilirubin Cancelled AST Cancelled ALT Cancelled Alkaline Phosphata se Cancelled Total Protein Cancelled Albumin Cancelled 12/30/20 12/30/20 12/30/20 07:26 08:30 11:05 WBC RBC Hgb Hct MCV MCH MCHC RDW Plt Count MPV Immature Gran % (A uto) Neut % (Auto) Lymph % (Auto) [place] % (Auto) Eos % (Auto) Baso % (Auto) Lymph # (Auto) [place] # (Auto) Eos # (Auto) Baso # (Auto) Abs Immat Gran (au to) Absolute Neuts (au to) Absolute Nucleated RBC Nucleated RBC % (a uto) PT INR Sodium 126 L Potassium 4.5 Chloride 104 Carbon Dioxide 16 L Anion Gap 11 L BUN 16 Creatinine 0.85 Estim Creat Clear Calc 81.0 Estimated GFR > 60 POC Glucose 133 H 163 H Random Glucose 139 H Estimat Average Gl ucose Hemoglobin A1c % Calcium 8.3 L Magnesium 1.7 Total Bilirubin 4.9 H AST 28 ALT 27 Alkaline Phosphata se 110 Total Protein 9.0 H Albumin 2.7 L 12/30/20 16:18 WBC RBC Hgb Hct MCV MCH MCHC RDW Plt Count MPV Immature Gran % (A uto) Neut % (Auto) Lymph % (Auto) [place] % (Auto) Eos % (Auto) Baso % (Auto) Lymph # (Auto) [place] # (Auto) Eos # (Auto) Baso # (Auto) Abs Immat Gran (au to) Absolute Neuts (au to) Absolute Nucleated RBC Nucleated RBC % (a uto) PT INR Sodium Potassium Chloride Carbon Dioxide Anion Gap BUN Creatinine Estim Creat Clear Calc Estimated GFR POC Glucose 181 H Random Glucose Estimat Average Gl ucose Hemoglobin A1c % Calcium Magnesium Total Bilirubin AST ALT Alkaline Phosphata se Total Protein Albumin Const: General: comfortable and no acute distress Cardio: Rhythm: regular rhythm GI: Other: some tenderness on left side Palpation (GI): Soft to palpation, not firm and no guarding Progress Note: A&P Assessment and plan (1) Infarction of spleen: Status: Acute Assessment and Plan: looks better today pain mgt supportive treatment hematology ffup clinically no colitis Fall Risk Details Current Medications: Current Medications Generic Name Dose Route Start Last Admin Trade Name Freq PRN Reason Stop Dose Admin Allopurinol 100 mg 12/29/20 09:00 12/30/20 08:48 Allopurinol 100 Mg Tablet PO 100 mg DAILY YONATHAN Administration Atovaquone 750 mg 12/29/20 09:00 12/30/20 08:52 Atovaquone 750 Mg/5 Ml Oral.Susp PO 750 mg BID YONATHAN Administration Enoxaparin Sodium 40 mg 12/29/20 05:00 12/30/20 05:12 Enoxaparin Sodium 40 Mg/0.4 Ml Syringe SUBCUT 40 mg Q24H YONATHAN Administration Fluconazole 100 mg 12/31/20 09:00 Fluconazole 100 Mg Tablet PO DAILY YONATHAN Hydromorphone HCl 0.5 mg 12/29/20 04:53 12/30/20 10:20 Hydromorphone Hcl 0.5 Mg/0.5 Ml Syringe IVPUSH 0.5 mg Q4H PRN Administration Breakthrough Pain Insulin Human Lispro 0 - 10 unit 12/29/20 07:30 12/30/20 16:32 Insulin Lispro 100 Unit/Ml 3 Ml Vial SUBCUT 2 unit QIDACHS YONATHAN Administration Protocol Magnesium Hydroxide 30 ml 12/29/20 04:54 Milk Of Magnesia 30 Ml Oral.Susp PO DAILY PRN Constipation Mesalamine 800 mg 12/29/20 15:00 12/30/20 14:27 Mesalamine 400 Mg Cap.Drtab. PO 800 mg TID YONATHAN Administration Pat Own Med ([place]def[place] 1 each 12/29/20 10:15 12/30/20 08:47 ) PO 1 each DAILY YONATHAN Administration Omeprazole 20 mg 12/29/20 17:30 12/30/20 15:55 Omeprazole 20 Mg Capsule.Dr PO 20 mg BID@[id number],9077 REPLACED BY [facility] Administration Pharmacy Consult 1 each 12/29/20 08:26 Consult Rx Perform Med Rec MISCELLANE ONCE PRN Consult order Potassium Chloride 20 meq 12/29/20 09:00 12/30/20 08:48 Potassium Chloride Er 20 Meq Tab.Er.Prt PO 20 meq BID YONATHAN Administration Pyridoxine HCl 100 mg 12/29/20 09:00 12/30/20 08:48 Pyridoxine Hcl (Vitamin B6) 50 Mg Tablet PO 100 mg DAILY YONATHAN Administration Rifaximin 550 mg 12/29/20 09:00 12/30/20 08:48 Rifaximin 550 Mg Tablet PO 550 mg BID YONATHAN Administration Sodium Chloride 3 ml 12/29/20 08:00 12/30/20 15:54 0.9 % Sodium Chloride Flush 3 Ml Syringe IVFLUSH 3 ml QSHIFT YONATHAN Administration Spironolactone 50 mg 12/29/20 09:00 12/30/20 08:49 Spironolactone 25 Mg Tablet PO Not Given BID YONATHAN Protocol Time Spent With Patient Time: Total time spent is greater than 50% in coordination of care (as documented) at patient's floor/unit and/or counseling patient: Time with patient: 15 - 24 minutes Procedures Date of Service Date of Service: 12/30/20 Quality Stroke Does the patient have a stroke diagnosis?: No VTE Prior VTE?: No VTE Risk Level:: Medical - moderate - high VTE Device Contraindication: N/A - Device Ordered VTE Drug Contraindication: N/A - Med Ordered
[2020-12-30 19:39] VITALS: BP 117/58; PULSE 98; RESP 16; TEMP 37; O2SAT 100
[2020-12-30 20:14] LABS: Glucose, Whole Blood 181 mg/dL (60-115)
[2020-12-30] MEDS: Spironolactone 25 MG TABLET 50 MG PO (20:50)
[2020-12-30 23:41] VITALS: BP 113/62; PULSE 97; RESP 18; TEMP 36.6; O2SAT 100
[2020-12-31] MEDS: 0.9 % Sodium Chloride Flush 3 ML SYRINGE IVFLUSH ×2 (00:11→08:35)
[2020-12-31] MEDS: HYDROmorphone HCl 0.5 MG/0.5 ML SYRINGE IVPUSH ×2 (00:18→06:20)
[2020-12-31 03:42] VITALS: BP 131/67; PULSE 102; RESP 18; TEMP 37; O2SAT 99
[2020-12-31 06:11] LABS: Hematocrit 30.5 % (42-52); Hemoglobin 10.5 g/dl (14.0-18.0); Mean Corpuscular HGB Conc 34.4 g/dl (31.0-36.0); Mean Corpuscular Hemoglobin 33.4 pg (27.0-33.0); Mean Corpuscular Volume 97.1 fL (80-98); Mean Platelet Volume 12.8 fL (9.4-12.4); Red Blood Count 3.14 X10*6/uL (4.60-5.80); Red Cell Distribution Width 14.5 % (11.0-16.0); White Blood Count 4.4 X10*3/uL (4.8-10.8)
[2020-12-31] MEDS: Enoxaparin Sodium 40 MG/0.4 ML SYRINGE SUBCUT (06:11)
[2020-12-31] MEDS: Omeprazole 20 MG CAPSULE.DR PO (06:12)
[2020-12-31 06:16] LABS: INTERNATIONAL NORM RATIO 1.5 (0.9-1.1); Prothrombin Time 18.2 SEC (10.8-13.0)
[2020-12-31 06:17] LABS: Platelet Count 83 X10*3/uL (160-400)
[2020-12-31 06:38] LABS: Alanine Aminotransferase 25 U/L (0-40); Albumin Level 2.7 g/dL (3.5-5.0); Alkaline Phosphatase 103 U/L (39-117); Anion Gap 8 (12-20); Aspartate Amino Transferase 25 U/L (5-37); Bilirubin Total 3.5 mg/dL (0.0-1.0); Blood Urea Nitrogen 15 mg/dL (9-16); Calcium 8.6 mg/dL (8.4-10.2); Carbon Dioxide 19 mmol/L (22-29); Chloride 104 mmol/L (96-108); Estimated Glomerular Filt Rate > 60; Glucose Random 140 mg/dL (60-115); Potassium 4.5 mmol/L (3.3-5.1); Sodium 126 mmol/L (135-145); Total Protein 8.9 g/dL (6.5-8.0)
[2020-12-31 07:40] VITALS: BP 120/63; PULSE 107; RESP 16; TEMP 36.7; O2SAT 96
[2020-12-31] MEDS: Potassium Chloride ER 20 MEQ TAB.ER.PRT PO (08:28)
[2020-12-31] MEDS: Pyridoxine HCl (Vitamin B6) 50 MG TABLET 100 MG PO (08:28)
[2020-12-31] MEDS: Mesalamine 400 MG CAP.DRTAB. 800 MG PO (08:28)
[2020-12-31] MEDS: rifAXIMin 550 MG TABLET PO (08:28)
[2020-12-31] MEDS: Atovaquone 750 MG/5 ML ORAL.SUSP PO (08:28)
[2020-12-31] MEDS: allopurinoL 100 MG TABLET PO (08:29)
[2020-12-31] MEDS: Fluconazole 100 MG TABLET PO (08:29)
[2020-12-31 08:36] VITALS: BP 120/63; PULSE 107
[2020-12-31] MEDS: Spironolactone 25 MG TABLET 50 MG PO (08:36)
[2020-12-31 08:46] LABS: Glucose, Whole Blood 144 mg/dL (60-115)
[2020-12-31 11:15] VITALS: BP 122/75; PULSE 100; TEMP 36.4; O2SAT 99
[2020-12-31 11:35] LABS: Glucose, Whole Blood 160 mg/dL (60-115)
[2020-12-31] MEDS: oxyCODONE HCl Immed Release 5 MG TABLET PO (12:04)
[2020-12-31] MEDS: Insulin Lispro 100 UNIT/ML 3 ML VIAL SUBCUT (12:04)
--- NOTE | 2020-12-31 12:40 | P.DS_ITS ---
DS: Providers Provider Date of Service: 12/31/20 Date of admission: 12/29/20 04:54 Primary care physician: Pb Ortiz MD Consults: 12/29/20 04:49 Consult to Gastroenterology Routine Consulting Provider: Ally Burgess Reason for consultation: abd pain; colitis; cirrhosis; Sp[lenic infarct; Consult to General Surgery Routine Consulting Provider: Matt Toth Reason for consultation: Abd pain; Splenic infarct. 12/29/20 04:54 Consult to Hematology / Oncology Routine Consulting Provider: Janet Shen Reason for consultation: splenic Infarct; hx VTE; not on AC. DS: Diagnosis Discharge Diagnosis (1) Infarction of spleen: Status: Acute DS: Medications Discharge Medications Home Medications: Home Medications Medication Instructions Recorded Confirmed Odefsey 1 tab PO DAILY 04/27/20 12/29/20 atovaquone 5 ml PO BID 04/27/20 12/29/20 famotidine 40 mg PO BEDTIME 04/27/20 12/29/20 mesalamine 800 mg PO TID 04/27/20 12/29/20 hydroxyzine HCl 25 mg tablet 50 mg PO Q6H PRN tab 09/01/20 12/29/20 blood sugar diagnostic #10 ea 10/06/20 Xifaxan 1 tab PO BID 12/29/20 12/29/20 allopurinol 1 tab PO DAILY 12/29/20 12/29/20 omeprazole 1 cap PO DAILY 12/29/20 12/29/20 pyridoxine (vitamin B6) 1 tab PO DAILY 12/29/20 12/29/20 spironolactone 1 tab PO BID 12/29/20 12/29/20 Previous Rx's Medication Instructions Recorded potassium chloride 20 mEq 20 meq PO BID #60 tab 11/04/20 tablet,extended release fluconazole 100 mg PO DAILY #5 tab 12/31/20 oxycodone 5 mg PO Q6H PRN #20 tab 12/31/20 DS: Summary Hospital Course Hospital Course: history of presenting illness Chief Complaint: Abdominal pain 55-year-old male with a past medical history of GERD, HIV, hep C, liver cirrhosis, 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 Patient reported that he has been having abdominal pain for the past couple weeks; which has been gradually worsening over the past 3 days. Associated with nausea. Denies any diarrhea. Denies any fevers and chills. Denies any chest pain or palpitations. Denies any urinary symptoms. Patient reported that he was recently presented to the hospital on December 20 when he was diagnosed with splenic infarct and subsequently sent home. Review of all other systems is negative except mentioned above ER course: Per ER team patient noted to have diffuse abdominal tenderness more so on the left side; no guarding no rigidity; CT abdomen showed same findings as the prior CT with splenic infarct, liver cirrhosis and inflammation in the bowel wall concern for colitis. Patient was given ceftriaxone. Patient had low-grade temperatures in the ER. Patient was given pain medicine. [facility] to the [facility] management. hospital course 55-year-old male with a past medical history of GERD, HIV/AIDS, HCV (treated/cured), hepatic cirrhosis, history of hepatic vein thrombosis currently not on anticoagulation, history of ulcerative colitis, bullous pemphigoid, history of GI bleed, history of COVID-19 infection, history of nephrolithiasis with stent placement and subsequently removed on 10/25/2020; history of hyponatremia/SIADH of pancytopenia/thrombocytopenia, history of rectal abscess, and DM2 previously admitted here 12/04-12/06/20 for hypokalemia + hyponatremia,presenting with worsening abdominal pain for the last few weeks,Patient recently diagnosed to have splenic infarction in ED 12/20/20, but has worsening pain therefore readmitted for pain management, it was felt that splenic infarction is likely due to underlying cirrhosis, which is both a coagulopathic and a hypercoagulable state. Surg + GI consulted; no intervention indicated, patient also evaluated by Dr. Shen from Heme/Onc she recommended conservative management given bleeding risk. since patient abdominal pain is improving, he wishes to be discharged home since there is no evidence of acute Colitis and patient is tolerating diet he is being discharged home on oxycodone for pain control, patient is at bedside she is agreeable for current plan of treatment he has been recommended to have close outpatient follow-up with primary care physician and gastroenterology. patient has chronic hyponatremia, therefore recommended fluid restriction. patient also noted to have oral thrush given HIV/AIDS, will treat with fluconazole 100 mg daily for total 7 days in regard to HIV/AIDS with CD4 72 (12/04/20), pVL 24 (05/09/20); recommended to continue with Odefsey and PJP ppx with atovaquone since patient has poor by mouth intake with the low hemoglobin A1c he has been recommended to hold glipizide and Januvia and follow diabetic diet if patient noted to have elevated blood sugars and he can restart glipizide discharge diagnossis splenic infarction with abdominal pain chronic hyponatremia diabetes mellitus cirrhosis of liver Time Spent with Patient Time attestation: Total time spent providing and/or coordinating discharge services: Discharge coordination time: Greater than 30 minutes Quality: Stroke Does the patient have a stroke diagnosis?: No Physical Exam Vital Signs: Vital Signs: Last Vital Signs Temp 97.6 F 12/31/20 11:15 Pulse 100 12/31/20 11:15 Resp 16 12/31/20 07:40 BP 122/75 12/31/20 11:15 Pulse Ox 99 12/31/20 11:15 Body Mass Index 26.5 Gen: chronically ill-appearing HEENT: sclera mildly icicteric, moist mucus membranes, thrush on posterior tongue Neck: supple Lungs: clear to auscultation bilaterally Heart: regular rate and rhythm, no murmurs Abd: soft, LUQ tender, no rebound/guarding Ext: no edema Skin: warm/well-perfused Neuro: alert and oriented x3, no focal findings, no asterixis Psych: appropriate affect DS: Data Data Completed and Pending Completed studies during hospitalization [Text1]: Procedures Inspection of Upper Intestinal Tract, Via Natural or Artificial Opening Endoscopic (10/27/20) Transfusion of Nonautologous Red Blood Cells into Peripheral Vein, Percutaneous Approach (10/27/20) Labs on day of discharge: Laboratory Results - last 24 hr 12/30/20 12/30/20 12/31/20 16:18 20:09 05:39 WBC 4.4 L RBC 3.14 L Hgb 10.5 L Hct 30.5 L MCV 97.1 MCH 33.4 H MCHC 34.4 RDW 14.5 Plt Count 83 L MPV 12.8 H Absolute Nucleated RBC 0.000 Nucleated RBC % (auto) 0.0 PT INR Sodium Potassium Chloride Carbon Dioxide Anion Gap BUN Creatinine Estim Creat Clear Calc Estimated GFR POC Glucose 181 H 181 H Random Glucose Calcium Total Bilirubin AST ALT Alkaline Phosphatase Total Protein Albumin 12/31/20 12/31/20 12/31/20 05:39 05:39 07:27 WBC RBC Hgb Hct MCV MCH MCHC RDW Plt Count MPV Absolute Nucleated RBC Nucleated RBC % (auto) PT 18.2 H INR 1.5 H Sodium 126 L Potassium 4.5 Chloride 104 Carbon Dioxide 19 L Anion Gap 8 L BUN 15 Creatinine 0.81 Estim Creat Clear Calc 85.0 Estimated GFR > 60 POC Glucose 144 H Random Glucose 140 H Calcium 8.6 Total Bilirubin 3.5 H AST 25 ALT 25 Alkaline Phosphatase 103 Total Protein 8.9 H Albumin 2.7 L 12/31/20 11:18 WBC RBC Hgb Hct MCV MCH MCHC RDW Plt Count MPV Absolute Nucleated RBC Nucleated RBC % (auto) PT INR Sodium Potassium Chloride Carbon Dioxide Anion Gap BUN Creatinine Estim Creat Clear Calc Estimated GFR POC Glucose 160 H Random Glucose Calcium Total Bilirubin AST ALT Alkaline Phosphatase Total Protein Albumin Preliminary micro results at discharge 12/29/20 01:01 Blood Culture - Preliminary Blood - Venous No growth after 48 hours. 12/29/20 01:01 Blood Culture - Preliminary Blood - Venous No growth after 48 hours. Discharge Plan Discharge Patient Disposition: Home Health Service Discharge Diagnosis: Splenic infarction abdominal pain chronic hyponatremia Referrals: Keshav ROSADO [Outside] - 1 Week Po,Pb Ferrer MD [Primary Care Provider] - 1 Week Discharge Medications: New fluconazole 100 mg Tablet 100 mg PO DAILY Qty: 5 RF: 0 oxycodone 5 mg Tablet 5 mg PO Q6H PRN (Reason: Pain, Severe (Pain Scale 7-10)) Qty: 20 RF: 0 Continued potassium chloride 20 mEq tablet extended release 20 meq PO BID Qty: 60 RF: 1 famotidine 40 mg tablet 40 mg PO BEDTIME RF: 0 atovaquone 750 mg/5 mL suspension 5 ml PO BID RF: 0 mesalamine 800 mg tablet,delayed release (DR/EC) 800 mg PO TID RF: 0 Odefsey 200-25-25 mg tablet 1 tab PO DAILY RF: 0 allopurinol 100 mg tablet 1 tab PO DAILY RF: 0 omeprazole 20 mg capsule,delayed release(DR/EC) 1 cap PO DAILY RF: 0 pyridoxine (vitamin B6) 100 mg tablet 1 tab PO DAILY RF: 0 spironolactone 50 mg tablet 1 tab PO BID RF: 0 Xifaxan 550 mg tablet 1 tab PO BID RF: 0 hydroxyzine HCl 25 mg tablet 50 mg PO Q6H PRN (Reason: bullous pemphigoid) RF: 0 Discontinued Januvia 50 mg tablet 1 tab PO QAM RF: 0 glipizide 2.5 mg tablet extended release 24hr 1 tab PO BID RF: 0 Discharge Orders: Discharge Order (Routine); Ordered 12/31/20 Ordered By: Peggy Neumann Diet: diabetic diet Activity on Discharge: As tolerated Stand Alone Forms: Patient Portal Discharge page Care Plan Goals: take pain medications as needed for abdominal pain, follow up with primary care physician in 1 week, follow diabetic diet and check blood sugars daily resume oral hypoglycemics if noted to have blood sugars above 150 after discussing with PCP, continue fluid restriction no more than 6 glasses per day Health Concerns: cirrhosis, diabetes, splenic infarction, take all medications as prescribed Plan of Treatment: outpatient follow-up with primary care physician, Gastroenterology Assessment: as above Discharge Date/Time: 12/31/20 13:58
--- NOTE | 2020-12-31 13:09 | MHC.CM.PN ---
PT CLEARED FOR DC TODAY WITH [facility]. PT TO SELF ARRANGE TRANSPORTATION
[2021-01-06 19:22] LABS: HIV RNA PCR Qn Copies <20 Copies/mL; HIV RNA PCR Qn Log Copies <1.30 Log cps/mL
== END 2020-12-31 13:58 | disposition home health service (06) | DRG 663 ==
LOC: HO.ED 12-29 02:30 → HO.EDOVER 12-29 05:26 → HO.IMC 12-29 05:55
PROVIDERS: Family Medicine; Internal Medicine; Nurse Practitioner Family; Admitting Provider Hospitalist; Emergency Provider Emergency Medicine Emergency Medical Services; PCP Internal Medicine; Visit Provider Hospitalist
DX: D73.5 Infarction of spleen (principal); D68.9 Coagulation defect, unspecified; B37.0 Candidal stomatitis; E22.2 Syndrome of inappropriate secretion of antidiuretic hormone; K51.90 Ulcerative colitis, unspecified, without complications; K74.60 Unspecified cirrhosis of liver; K21.9 Gastro-esophageal reflux disease without esophagitis; Z21 Asymptomatic human immunodeficiency virus [HIV] infection status; Z86.16 Personal history of COVID-19; Z86.718 Personal history of other venous thrombosis and embolism; E11.9 Type 2 diabetes mellitus without complications; Z20.822 Contact with and (suspected) exposure to COVID-19; Z86.19 Personal history of other infectious and parasitic diseases; Z88.0 Allergy status to penicillin; Z88.2 Allergy status to sulfonamides; Z88.6 Allergy status to analgesic agent; Z79.899 Other long term (current) drug therapy
CPT/HCPCS: 36415; 74176; 80048; 80053; 80076; 81003; 82140; 82947; 83036; 83605; 83735; 84484; 85025; 85027; 85610; 87040; 87536; 87635; 93005; 93306; 99285; J0696; J1170; J1650; J2270; J2405

== ENCOUNTER 2021-01-13 14:27 | Outpatient (REF) | payer OTHER, SELFPAY | END 2021-01-13 14:28 | disposition home or self-care (01) | LOC: HO.LAB 14:27 | PROVIDERS: PCP Internal Medicine; Referring Provider Internal Medicine; Visit Provider Internal Medicine | DX: Z20.822 Contact with and (suspected) exposure to COVID-19 (principal); E11.65 Type 2 diabetes mellitus with hyperglycemia | CPT/HCPCS: U0003; U0005 ==